=== PATIENT | female | born 1975 | race Hispanic/Latino ===

== ENCOUNTER 2018-08-09 17:53 | Emergency (ER) | payer OTHER ==
--- OUTSIDE RECORDS SUMMARY | 2018-08-09 17:55 | XMS REPORT | Clinical Summary ---
:1975 Author Organization [facility] Address [address] [place] [address] Care Team Providers Name Role Phone Feng Bourgeois Primary Care Provider Allergies No Known Allergies Medications Medication Sig Dispensed Refills Start Date End Date Status ALPRAZolam (XANAX) 1 Take 1 mg by mouth 0 Active MG tablet 2 (two) times daily. buprenorphine-naloxone Place 1 tablet 0 Active (SUBOXONE) 2-0.5 mg under the tongue 2 Subl (two) times daily. 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 Last Filed Vital Signs Not on file Plan of Treatment Not on file Results Not on fileafter 08/08/2017 Insurance Payer Benefit Plan / Group Subscriber ID Type Phone Address MEDICARE MEDICARE A B xxxxxxxxxx Medicare Advance Directives For more information, please contact:[facility] [place] [address] [phone] Code Status Date Activated Date Inactivated Comments Full Code 05/09/2017 1:46 PM 05/17/2017 7:41 PM This code status was determined by: Patient Full Code 05/09/2017 12:00 AM 05/09/2017 1:46 PM This code status was determined by: Patient
--- OUTSIDE RECORDS SUMMARY | 2018-08-09 17:58 | XMS REPORT ---
:1975 [facility] Address [address] [place] [address] Care Team Providers Name Role Phone CASSANDRA WILKS Unavailable Unavailable Problems This patient has no known problems. Allergies, Adverse Reactions, Alerts This patient has no known allergies or adverse reactions. Medications This patient has no known medications. Results Test Description Test Time Test Comments Text Results Atomic Results Result Comments TISSUE EXAM 2017-05-18 Surgical Pathology Report 13:38:00 Case: [id number] Authorizing Provider: Jethro Duron MD Collected: 05/14/2017 [id number] Ordering Location: [address] Received: 05/17/2017 0950 Pathologist: Torrey Cervantes MD Specimen: Soft Tissue, Other, Wedge gastrectomy PART A PORTION OF STOMACH, PARTIAL GASTRECTOMY:BENIGN GASTRIC MUCOSA WITH MILD CONGESTION.NEGATIVE FOR DYSPLASIA OR INVASIVE CARCINOMA. Signing Pathologist Direct Phone Line: [phone] signed by Torrey Cervantes MD on 05/18/2017 at 1:38 [id number] gastrectomyThe specimen is received in a formalin-filled container labeled with the patient's information and consists of a wedge gastrectomy of stomach measuring 3 x 1.5 x 1 cm with a staple line. Grossly no suspicious areas are seen. The mucosa is toney and hemorrhagic. Section code: Customer Strategy Manager staple line and random section of gastric tissue, tissue from staple line is inked le. CG/ew RAD, CHEST, 1 2017-05-17 Reason for FINAL REPORT PATIENT ID: VIEW, NON DEPT 05:29:00 exam:->post [id number] RAD, CHEST, 1 VIEW, NON opShould this be DEPT INDICATION: post op performed at the COMPARISON: May 15, 2017 bedside?->Yes FINDINGS: Portable frontal view of the chest. IMPRESSION: Support Lines: Enteric tube is been removed. Right PICC is stable. Lungs and pleura: Clear right lung. Airspace disease and associated effusion on the left are similar to the prior exam. No pneumothorax.Heart and mediastinum: Unchanged appearance other mediastinal contours.Additional findings: Decreasing subcutaneous emphysema involving the cervical soft tissues. Signed: JR Asia, Lucy Newell Verified Date/Time: 05/17/2017 05:29:48 Reading Location: [facility] B1 C013Y CT Body Reading Room ESIUM 2017-05-17 04:41:00 Test Item Value Reference Range Comments MAGNESIUM (BEAKER) (test fdsp=631) 1.8 mg/dL 1.6-2.6 BASIC METABOLIC [id number] 04:41:00 Test Item Value Reference Range Comments SODIUM (BEAKER) (test 137 meq/L 136-145 suon=493) POTASSIUM (BEAKER) (test 3.5 meq/L 3.5-5.1 gtlu=363) CHLORIDE (BEAKER) (test 104 meq/L 98-107 xatm=875) CO2 (BEAKER) (test 27 meq/L 22-29 rpkb=102) BLOOD UREA NITROGEN 8 mg/dL 7-21 (BEAKER) (test axdu=480) CREATININE (BEAKER) (test 0.48 mg/dL 0.57-1.25 amwu=912) GLUCOSE RANDOM (BEAKER) 84 mg/dL 70-105 (test wfdd=332) CALCIUM (BEAKER) (test 8.0 mg/dL 8.4-10.2 jyfv=453) EGFR (BEAKER) (test 143 mL/min/1.73 sq m ESTIMATED GFR IS NOT evah=3743) ACCURATE CREATININE CLEARANCE IN PREDICTING GLOMERULAR FILTRATION RATE. ESTIMATED GFR IS NOT APPLICABLE FOR DIALYSIS PATIENTS. PROTHROMBIN [id number] 04:27:00 Test Item Value Reference Range Comments PROTIME (BEAKER) (test eeju=212) 14.9 seconds 11.7-14.7 INR (BEAKER) (test bsob=582) 1.2 <=5.9 RECOMMENDED COUMADIN/WARFARIN INR THERAPY RANGESSTANDARD DOSE: 2.0 - 3.0 Includes: PROPHYLAXIS forvenous thrombosis, systemic embolization; TREATMENT for venous thrombosis and/or pulmonary embolus.HIGH RISK: Target INR is 2.5-3.5 for patients with mechanical heart valves.CBC W/PLT COUNT & AUTO [id number] 04:24:00 Test Item Value Reference Range Comments WHITE BLOOD CELL COUNT (BEAKER) (test vyif=005) 7.9 K/ L 3.5-10.5 RED BLOOD CELL COUNT (BEAKER) (test wavn=223) 3.29 M/ L 3.93-5.22 HEMOGLOBIN (BEAKER) (test ggfr=400) 9.4 GM/DL 11.2-15.7 HEMATOCRIT (BEAKER) (test xrsj=655) 28.2 % 34.1-44.9 MEAN CORPUSCULAR VOLUME (BEAKER) (test tvyr=790) 85.7 fL 79.4-94.8 MEAN CORPUSCULAR HEMOGLOBIN (BEAKER) (test 28.6 pg 25.6-32.2 nauw=504) MEAN CORPUSCULAR HEMOGLOBIN CONC (BEAKER) (test 33.3 GM/DL 32.2-35.5 cszw=268) RED CELL DISTRIBUTION WIDTH (BEAKER) (test 13.9 % 11.7-14.4 mvar=921) PLATELET COUNT (BEAKER) (test qzto=946) 271 K/CU MM 150-450 MEAN PLATELET VOLUME (BEAKER) (test ynfm=497) 9.3 fL 9.4-12.3 NUCLEATED RED BLOOD CELLS (BEAKER) (test 0 /100 WBC 0-0 nhyl=727) NEUTROPHILS RELATIVE PERCENT (BEAKER) (test 56 % dmhg=514) LYMPHOCYTES RELATIVE PERCENT (BEAKER) (test 23 % pcvv=485) MONOCYTES RELATIVE PERCENT (BEAKER) (test 14 % cysq=083) EOSINOPHILS RELATIVE PERCENT (BEAKER) (test 7 % kefp=882) BASOPHILS RELATIVE PERCENT (BEAKER) (test 1 % ztuz=893) NEUTROPHILS ABSOLUTE COUNT (BEAKER) (test 4.43 K/ L 1.56-6.13 untw=285) LYMPHOCYTES ABSOLUTE COUNT (BEAKER) (test 1.78 K/ L 1.18-3.74 crwu=487) MONOCYTES ABSOLUTE COUNT (BEAKER) (test 1.10 K/ L 0.24-0.36 xqwq=551) EOSINOPHILS ABSOLUTE COUNT (BEAKER) (test 0.51 K/ L 0.04-0.36 pvoj=755) BASOPHILS ABSOLUTE COUNT (BEAKER) (test 0.06 K/ L 0.01-0.08 hcil=313) IMMATURE GRANULOCYTES-RELATIVE PERCENT (BEAKER) 0 % 0-1 (test livu=2628) FL [id number] 12:54:00Reason for exam:->s/p hiatal hernia repairFINAL REPORT Esophagram History: Status post hiatus hernia repair Technique: Esophagram was performed using Gastrografin. Total fluoroscopy time: 0.5 minutes Total number of films: 17 Findings: Postsurgical changes are seen at the gastroesophageal junction without recurrent hiatus hernia. There is no evidence of leak or obstruction. Assessment of the gastric fundal region appears unremarkable. Impression: No leak or obstruction. Signed: Alexey Gao MDReport Verified Date/Time: 05/16/2017 12:54:45 Reading Location: [address] Consult Reading Room CALCIUM, [id number] 06:35:00 Test Item Value Reference Range Comments CALCIUM IONIZED (BEAKER) (test cmug=156) 1.02 mmol/L 1.12-1.27 PH, BLOOD (BEAKER) (test fswm=2968) 7.39 [id number] 05:44:00 Test Item Value Reference Range Comments MAGNESIUM (BEAKER) (test 1.8 mg/dL 1.6-2.6 Specimen slightly hemolyzed qklo=384) BASIC METABOLIC [id number] 05:44:00 Test Item Value Reference Range Comments SODIUM (BEAKER) (test 138 meq/L 136-145 mkdb=724) POTASSIUM (BEAKER) (test 3.9 meq/L 3.5-5.1 Specimen slightly yina=031) hemolyzed CHLORIDE (BEAKER) (test 106 meq/L 98-107 sojp=635) CO2 (BEAKER) (test 26 meq/L 22-29 bboq=039) BLOOD UREA NITROGEN 8 mg/dL 7-21 (BEAKER) (test nwlj=356) CREATININE (BEAKER) (test 0.46 mg/dL 0.57-1.25 Specimen slightly rogi=457) hemolyzed GLUCOSE RANDOM (BEAKER) 98 mg/dL 70-105 (test yowb=613) CALCIUM (BEAKER) (test 8.3 mg/dL 8.4-10.2 dmry=338) EGFR (BEAKER) (test 150 mL/min/1.73 sq m ESTIMATED GFR IS NOT okss=2170) ACCURATE CREATININE CLEARANCE IN PREDICTING GLOMERULAR FILTRATION RATE. ESTIMATED GFR IS NOT APPLICABLE FOR DIALYSIS PATIENTS. PROTHROMBIN [id number] 05:33:00 Test Item Value Reference Range Comments PROTIME (BEAKER) (test jwmd=476) 15.1 seconds 11.7-14.7 INR (BEAKER) (test scvz=937) 1.2 <=5.9 RECOMMENDED COUMADIN/WARFARIN INR THERAPY RANGESSTANDARD DOSE: 2.0 - 3.0 Includes: PROPHYLAXIS forvenous thrombosis, systemic embolization; TREATMENT for venous thrombosis and/or pulmonary embolus.HIGH RISK: Target INR is 2.5-3.5 for patients with mechanical heart valves.CBC W/PLT COUNT & AUTO [id number] 05:24:00 Test Item Value Reference Range Comments WHITE BLOOD CELL COUNT (BEAKER) (test ulko=505) 11.4 K/ L 3.5-10.5 RED BLOOD CELL COUNT (BEAKER) (test jutj=331) 3.60 M/ L 3.93-5.22 HEMOGLOBIN (BEAKER) (test dhgt=958) 10.3 GM/DL 11.2-15.7 HEMATOCRIT (BEAKER) (test nmad=402) 31.2 % 34.1-44.9 MEAN CORPUSCULAR VOLUME (BEAKER) (test elph=942) 86.7 fL 79.4-94.8 MEAN CORPUSCULAR HEMOGLOBIN (BEAKER) (test 28.6 pg 25.6-32.2 jxtr=461) MEAN CORPUSCULAR HEMOGLOBIN CONC (BEAKER) (test 33.0 GM/DL 32.2-35.5 wnqt=961) RED CELL DISTRIBUTION WIDTH (BEAKER) (test 14.1 % 11.7-14.4 gwfe=883) PLATELET COUNT (BEAKER) (test tbqk=695) 266 K/CU MM 150-450 MEAN PLATELET VOLUME (BEAKER) (test uenw=153) 9.1 fL 9.4-12.3 NUCLEATED RED BLOOD CELLS (BEAKER) (test 0 /100 WBC 0-0 gozl=994) NEUTROPHILS RELATIVE PERCENT (BEAKER) (test 67 % frzv=430) LYMPHOCYTES RELATIVE PERCENT (BEAKER) (test 16 % wpaz=506) MONOCYTES RELATIVE PERCENT (BEAKER) (test 12 % zbqj=762) EOSINOPHILS RELATIVE PERCENT (BEAKER) (test 4 % arbi=888) BASOPHILS RELATIVE PERCENT (BEAKER) (test 1 % iwbe=228) NEUTROPHILS ABSOLUTE COUNT (BEAKER) (test 7.61 K/ L 1.56-6.13 pvil=468) LYMPHOCYTES ABSOLUTE COUNT (BEAKER) (test 1.86 K/ L 1.18-3.74 rbcp=343) MONOCYTES ABSOLUTE COUNT (BEAKER) (test 1.38 K/ L 0.24-0.36 dynb=926) EOSINOPHILS ABSOLUTE COUNT (BEAKER) (test 0.48 K/ L 0.04-0.36 siot=466) BASOPHILS ABSOLUTE COUNT (BEAKER) (test 0.07 K/ L 0.01-0.08 kyxm=028) IMMATURE GRANULOCYTES-RELATIVE PERCENT (BEAKER) 0 % 0-1 (test nfgm=1751) RAD, CHEST, 1 VIEW, NON [id number] 14:45:00Reason for exam:->s/p left chest tube removalShould this be performed at the bedside?->YesFINAL REPORT Chest, 1 view Clinical history: s/p left chest tube removal Comparison: Same date Discussion: Interval removal of the left sided chest tube without definite pneumothorax visualized. There is mild subcutis emphysema bilaterally. The support hardware appears in appropriate positions. Again seen is a layering left pleural effusion with associated atelectasis or airspace disease. The cardiac silhouette is enlarged with mild perihilar edema. Signed: Alexey Gao MDReport Verified Date/Time: 05/15/2017 14:45:11 Reading Location: [facility] B1 C013X Ortho Consult Reading Room RAD, CHEST, 1 VIEW, NON [id number] 07:32:00while patient is intubated or has chest tubes.Reason for exam:-> ptxIs the patient ?->NoShould this be performed at the bedside?-> YesFINAL REPORT TECHNIQUE: Frontal view of the chest. INDICATION: 42-year-old woman with pneumothorax. COMPARISON: Chest radiographs 05/14/2017. FINDINGS: LINES/TUBES: Unchanged. LUNGS: Persistent atelectasis in the left midlung zone. Right lung is clear. PLEURA: Previously described lucency in the left mid and lower lung zones is less conspicuous, suggestive of at least slightlydecreased pneumothorax. No significant pleural effusion. HEART AND MEDIASTINUM: The cardiomediastinal silhouette is unchanged. SOFT TISSUES AND BONES: Persistent subcutaneous emphysema in the chest andneck. IMPRESSION: Previously described lucency in the left mid and lower lung zones is less conspicuous, suggestive of at least slightly decreased pneumothorax. Signed: Yojana Holdenepmaxim Verified Date/Time: 05/15/2017 07:32:43 Reading Location: [address] Body Reading Room PROTHROMBIN [id number] 05:07:00 Test Item Value Reference Range Comments PROTIME (BEAKER) (test tasa=105) 15.8 seconds 11.7-14.7 INR (BEAKER) (test gwmj=543) 1.3 <=5.9 RECOMMENDED COUMADIN/WARFARIN INR THERAPY RANGESSTANDARD DOSE: 2.0 - 3.0 Includes: PROPHYLAXIS forvenous thrombosis, systemic embolization; TREATMENT for venous thrombosis and/or pulmonary embolus.HIGH RISK: Target INR is 2.5-3.5 for patients with mechanical heart valves.BASIC METABOLIC [id number] 05:07: 00 Test Item Value Reference Range Comments SODIUM (BEAKER) (test 140 meq/L 136-145 fimx=193) POTASSIUM (BEAKER) (test 3.5 meq/L 3.5-5.1 hdnf=585) CHLORIDE (BEAKER) (test 112 meq/L 98-107 nagw=190) CO2 (BEAKER) (test 22 meq/L 22-29 gped=804) BLOOD UREA NITROGEN 15 mg/dL 7-21 (BEAKER) (test xhjr=354) CREATININE (BEAKER) (test 0.52 mg/dL 0.57-1.25 ahuz=752) GLUCOSE RANDOM (BEAKER) 105 mg/dL 70-105 (test tqwx=290) CALCIUM (BEAKER) (test 7.7 mg/dL 8.4-10.2 dnve=734) EGFR (BEAKER) (test 131 mL/min/1.73 sq m ESTIMATED GFR IS NOT fmey=8112) ACCURATE CREATININE CLEARANCE IN PREDICTING GLOMERULAR FILTRATION RATE. ESTIMATED GFR IS NOT APPLICABLE FOR DIALYSIS PATIENTS. [id number] 05:03:00 Test Item Value Reference Range Comments MAGNESIUM (BEAKER) (test pwxu=676) 2.7 mg/dL 1.6-2.6 CBC W/PLT COUNT & AUTO [id number] 05:00:00 Test Item Value Reference Range Comments WHITE BLOOD CELL COUNT (BEAKER) (test icci=622) 13.2 K/ L 3.5-10.5 RED BLOOD CELL COUNT (BEAKER) (test usek=478) 3.39 M/ L 3.93-5.22 HEMOGLOBIN (BEAKER) (test lwfw=793) 9.7 GM/DL 11.2-15.7 HEMATOCRIT (BEAKER) (test tqha=740) 29.2 % 34.1-44.9 MEAN CORPUSCULAR VOLUME (BEAKER) (test paiq=774) 86.1 fL 79.4-94.8 MEAN CORPUSCULAR HEMOGLOBIN (BEAKER) (test 28.6 pg 25.6-32.2 bclp=616) MEAN CORPUSCULAR HEMOGLOBIN CONC (BEAKER) (test 33.2 GM/DL 32.2-35.5 nhdz=377) RED CELL DISTRIBUTION WIDTH (BEAKER) (test 14.2 % 11.7-14.4 dtld=270) PLATELET COUNT (BEAKER) (test ibwb=525) 252 K/CU MM 150-450 MEAN PLATELET VOLUME (BEAKER) (test fota=813) 9.2 fL 9.4-12.3 NUCLEATED RED BLOOD CELLS (BEAKER) (test 0 /100 WBC 0-0 cirp=379) NEUTROPHILS RELATIVE PERCENT (BEAKER) (test 76 % kcch=030) LYMPHOCYTES RELATIVE PERCENT (BEAKER) (test 14 % uvso=723) MONOCYTES RELATIVE PERCENT (BEAKER) (test 10 % ager=892) EOSINOPHILS RELATIVE PERCENT (BEAKER) (test 0 % uzgp=718) BASOPHILS RELATIVE PERCENT (BEAKER) (test 0 % ukvo=127) NEUTROPHILS ABSOLUTE COUNT (BEAKER) (test 10.02 K/ L 1.56-6.13 zlzb=832) LYMPHOCYTES ABSOLUTE COUNT (BEAKER) (test 1.81 K/ L 1.18-3.74 hzhy=438) MONOCYTES ABSOLUTE COUNT (BEAKER) (test 1.26 K/ L 0.24-0.36 hrtc=736) EOSINOPHILS ABSOLUTE COUNT (BEAKER) (test 0.04 K/ L 0.04-0.36 xlsl=926) BASOPHILS ABSOLUTE COUNT (BEAKER) (test 0.05 K/ L 0.01-0.08 dsbm=642) IMMATURE GRANULOCYTES-RELATIVE PERCENT (BEAKER) 0 % 0-1 (test rvnd=1059) CALCIUM, [id number] 23:02:00 Test Item Value Reference Range Comments CALCIUM IONIZED (BEAKER) (test dixj=778) 0.92 mmol/L 1.12-1.27 PH, BLOOD (BEAKER) (test lqgm=4688) 7.38 [id number] 22:53:00 Test Item Value Reference Range Comments MAGNESIUM (BEAKER) (test cbqo=925) 1.9 mg/dL 1.6-2.6 BASIC METABOLIC [id number] 22:53:00 Test Item Value Reference Range Comments SODIUM (BEAKER) (test 142 meq/L 136-145 jazg=933) POTASSIUM (BEAKER) (test 3.7 meq/L 3.5-5.1 nawk=549) CHLORIDE (BEAKER) (test 113 meq/L 98-107 zexs=144) CO2 (BEAKER) (test 19 meq/L 22-29 hfcr=267) BLOOD UREA NITROGEN 17 mg/dL 7-21 (BEAKER) (test cozn=788) CREATININE (BEAKER) (test 0.55 mg/dL 0.57-1.25 aihg=201) GLUCOSE RANDOM (BEAKER) 98 mg/dL 70-105 (test zady=493) CALCIUM (BEAKER) (test 7.5 mg/dL 8.4-10.2 wppf=531) EGFR (BEAKER) (test 122 mL/min/1.73 sq m ESTIMATED GFR IS NOT ghhq=2642) ACCURATE CREATININE CLEARANCE IN PREDICTING GLOMERULAR FILTRATION RATE. ESTIMATED GFR IS NOT APPLICABLE FOR DIALYSIS PATIENTS. CBC W/PLT COUNT & AUTO [id number] 22:47:00 Test Item Value Reference Range Comments WHITE BLOOD CELL COUNT (BEAKER) (test gzys=771) 19.1 K/ L 3.5-10.5 RED BLOOD CELL COUNT (BEAKER) (test tlao=569) 3.60 M/ L 3.93-5.22 HEMOGLOBIN (BEAKER) (test urfl=526) 10.2 GM/DL 11.2-15.7 HEMATOCRIT (BEAKER) (test wges=987) 31.1 % 34.1-44.9 MEAN CORPUSCULAR VOLUME (BEAKER) (test vdxd=879) 86.4 fL 79.4-94.8 MEAN CORPUSCULAR HEMOGLOBIN (BEAKER) (test 28.3 pg 25.6-32.2 ugxf=418) MEAN CORPUSCULAR HEMOGLOBIN CONC (BEAKER) (test 32.8 GM/DL 32.2-35.5 cnmj=567) RED CELL DISTRIBUTION WIDTH (BEAKER) (test 14.0 % 11.7-14.4 vajb=008) PLATELET COUNT (BEAKER) (test gmtn=545) 273 K/CU MM 150-450 MEAN PLATELET VOLUME (BEAKER) (test kthu=783) 9.5 fL 9.4-12.3 NUCLEATED RED BLOOD CELLS (BEAKER) (test 0 /100 WBC 0-0 cwxm=371) NEUTROPHILS RELATIVE PERCENT (BEAKER) (test 88 % zyxs=795) LYMPHOCYTES RELATIVE PERCENT (BEAKER) (test 4 % sdxj=098) MONOCYTES RELATIVE PERCENT (BEAKER) (test 8 % uhzy=166) EOSINOPHILS RELATIVE PERCENT (BEAKER) (test 0 % tjus=912) BASOPHILS RELATIVE PERCENT (BEAKER) (test 0 % octy=589) NEUTROPHILS ABSOLUTE COUNT (BEAKER) (test 16.75 K/ L 1.56-6.13 hxxx=751) LYMPHOCYTES ABSOLUTE COUNT (BEAKER) (test 0.70 K/ L 1.18-3.74 jgix=159) MONOCYTES ABSOLUTE COUNT (BEAKER) (test 1.55 K/ L 0.24-0.36 weoq=626) EOSINOPHILS ABSOLUTE COUNT (BEAKER) (test 0.01 K/ L 0.04-0.36 awoh=688) BASOPHILS ABSOLUTE COUNT (BEAKER) (test 0.03 K/ L 0.01-0.08 jhwz=045) IMMATURE GRANULOCYTES-RELATIVE PERCENT (BEAKER) 0 % 0-1 (test bzqe=6501) RAD, CHEST, 1 VIEW, NON [id number] 21:18:00Reason for exam:->ptxIs the patient ?->NoShould this be performed at the bedside?->YesFINAL REPORT CLINICAL INDICATION: Pneumothorax Comparison: Same dated 0528 hours There is new lucency in the left mid and lower chest suggesting a large subpulmonic pneumothorax. A small bore left chest tube is noted at the lateral mid chest. The cardiomediastinal contours are stable. The trachea is midline. Hazy opacity in the left lower chest may reflect a layering effusion.There is new patchy opacity in the inferior left lung adjacent to the subpulmonic lucency, probably atelectasis. Pneumonitis should be excluded clinically. Subcutaneous emphysema is newly present in the right chest wall and bilateral lower neck. Support lines are otherwise stable. Signed: Noah Porter MDReport Verified Date/Time: 05/14/2017 21:18:07 Reading Location: [address] ReadingRoom BLOOD GAS, [id number] 17:28:00 Test Item Value Reference Range Comments PH ARTERIAL (BEAKER) (test tybv=455) 7.36 7.35-7.45 PCO2 ARTERIAL (BEAKER) (test yxyz=018) 39 mm Hg 35-45 PO2 ARTERIAL (BEAKER) (test zvxu=274) 194 mm Hg 80-90 O2 SATURATION ARTERIAL (BEAKER) (test lsbk=432) 99.3 % 96.0-97.0 HCO3 ARTERIAL (BEAKER) (test mabp=404) 22 mmol/L 21-29 BASE EXCESS ARTERIAL (BEAKER) (test vvdl=447) -3.6 mmol/L -2.0-3.0 PATIENT TEMPERATURE (BEAKER) (test bkdo=1326) 36.2 FIO2 (BEAKER) (test deqr=3800) 50 SODIUM NA-STAT [id number] 17:28:00 Test Item Value Reference Range Comments SODIUM (BEAKER) (test zxjx=438) 134 meq/L 135-148 POTASSIUM-STAT [id number] 17:28:00 Test Item Value Reference Range Comments POTASSIUM (BEAKER) (test rmbq=064) 3.4 meq/L 3.6-5.5 GLUCOSE-STAT [id number] 17:28:00 Test Item Value Reference Range Comments GLUCOSE RANDOM (BEAKER) (test krdk=759) 185 mg/dL 70-110 HGB/HCT (H&H) - STAT [id number] 17:28:00 Test Item Value Reference Range Comments HEMOGLOBIN (BEAKER) (test faqr=563) 11.0 GM/DL 12.0-15.0 HEMATOCRIT (BEAKER) (test mzbw=174) 32.0 % 36.0-45.0 BLOOD GAS, [id number] 15:47:00 Test Item Value Reference Range Comments PH ARTERIAL (BEAKER) (test odif=243) 7.33 7.35-7.45 PCO2 ARTERIAL (BEAKER) (test pwrt=183) 46 mmHg 35-45 PO2 ARTERIAL (BEAKER) (test trdv=242) 211 mmHg 80-90 O2 SATURATION ARTERIAL (BEAKER) (test ktxr=182) 99.4 % 96.0-97.0 HCO3 ARTERIAL (BEAKER) (test swab=023) 24 mmol/L 21-29 BASE EXCESS ARTERIAL (BEAKER) (test crwf=999) -2.5 mmol/L -2.0-3.0 PATIENT TEMPERATURE (BEAKER) (test akcw=3642) 35.4 C FIO2 (BEAKER) (test rtwy=7680) 67.0 % GLUCOSE-STAT [id number] 15:47:00 Test Item Value Reference Range Comments GLUCOSE RANDOM (BEAKER) (test hajc=576) 158 mg/dL 70-110 SODIUM NA-STAT [id number] 15:46:00 Test Item Value Reference Range Comments SODIUM (BEAKER) (test ehop=475) 137 meq/L 135-148 POTASSIUM-STAT [id number] 15:46:00 Test Item Value Reference Range Comments POTASSIUM (BEAKER) (test gbtp=031) 3.7 meq/L 3.6-5.5 HGB/HCT (H&H) - STAT [id number] 15:46:00 Test Item Value Reference Range Comments HEMOGLOBIN (BEAKER) (test jxqu=546) 12.5 g/dL 12.0-15.0 HEMATOCRIT (BEAKER) (test koid=839) 37.0 % 36.0-45.0 URINE [id number] 15:11:00 Test Item Value Reference Range Comments CULTURE (BEAKER) (test 30-39,000 col/mL skin cindy rtjz=6794) BLOOD GAS, [id number] 14:45:00 Test Item Value Reference Range Comments PH ARTERIAL (BEAKER) (test pqwo=197) 7.51 7.35-7.45 PCO2 ARTERIAL (BEAKER) (test mujg=979) 31 mmHg 35-45 PO2 ARTERIAL (BEAKER) (test oxqq=842) 458 mmHg 80-90 O2 SATURATION ARTERIAL (BEAKER) (test lqoj=136) 99.9 % 96.0-97.0 HCO3 ARTERIAL (BEAKER) (test upoe=321) 25 mmol/L 21-29 BASE EXCESS ARTERIAL (BEAKER) (test visl=920) 1.8 mmol/L -2.0-3.0 PATIENT TEMPERATURE (BEAKER) (test hity=2233) 36.0 C FIO2 (BEAKER) (test hhpn=0457) 50.0 % POTASSIUM-STAT [id number] 14:45:00 Test Item Value Reference Range Comments POTASSIUM (BEAKER) (test tbyb=265) 3.3 meq/L 3.6-5.5 HGB/HCT (H&H) - STAT [id number] 14:45:00 Test Item Value Reference Range Comments HEMOGLOBIN (BEAKER) (test ubhl=610) 11.5 g/dL 12.0-15.0 HEMATOCRIT (BEAKER) (test mmzw=841) 34.0 % 36.0-45.0 GLUCOSE-STAT [id number] 14:44:00 Test Item Value Reference Range Comments GLUCOSE RANDOM (BEAKER) (test mzcr=684) 105 mg/dL 70-110 SODIUM NA-STAT [id number] 14:44:00 Test Item Value Reference Range Comments SODIUM (BEAKER) (test kxll=696) 137 meq/L 135-148 SCREEN, [id number] 13:36:00 Test Item Value Reference Range Comments TEST URINE (BEAKER) (test ibui=379) Negative BLOOD [id number] 10:00:00 Test Item Value Reference Range Comments CULTURE (BEAKER) (test rqtf=8000) No growth in 5 days RAD, CHEST, 1 VIEW, NON [id number] 07:28:00Reason for exam:->post opShould this be performed at the bedside?->YesFINAL REPORT Chest one view compared to May 13 Discussion: Unchanged left hemidiaphragm elevation. Cardiopulmonary appearance is similar. No effusion or pneumothorax. No atypical line or tube position. Signed: Julisa Partida Verified Date/Time: 05/14/2017 07:28:59 Reading Location: [address] Neuro Reading Room 07 :28 AMTROPONIN [id number] 05:14:00 Test Item Value Reference Range Comments TROPONIN I (BEAKER) (test vevt=999) 0.02 ng/mL 0.00-0.03 Troponin I (TnI) levels must be interpreted in the context of the presenting symptoms and the clinical findings. Elevated TnI levels indicate myocardial damage, but are not specific for ischemic heart disease. Elevated TnI levels are seen in patients with other cardiac conditions (including myocarditis and congestive heart failure), and slight TnI elevations occur in patients with other conditions, including sepsis, renal failure, acidosis, acute neurological disease, and persistent tachyarrhythmia.[id number] 05:03:00 Test Item Value Reference Range Comments MAGNESIUM (BEAKER) (test ajek=959) 1.7 mg/dL 1.6-2.6 BASIC METABOLIC [id number] 05:03:00 Test Item Value Reference Range Comments SODIUM (BEAKER) (test 140 meq/L 136-145 bhky=232) POTASSIUM (BEAKER) (test 3.4 meq/L 3.5-5.1 uekq=793) CHLORIDE (BEAKER) (test 107 meq/L 98-107 gljg=936) CO2 (BEAKER) (test 25 meq/L 22-29 wyzw=744) BLOOD UREA NITROGEN 18 mg/dL 7-21 (BEAKER) (test lcdv=205) CREATININE (BEAKER) (test 0.53 mg/dL 0.57-1.25 iqwb=029) GLUCOSE RANDOM (BEAKER) 85 mg/dL 70-105 (test wfkr=225) CALCIUM (BEAKER) (test 8.7 mg/dL 8.4-10.2 syzi=586) EGFR (BEAKER) (test 128 mL/min/1.73 sq m ESTIMATED GFR IS NOT zywt=5201) ACCURATE CREATININE CLEARANCE IN PREDICTING GLOMERULAR FILTRATION RATE. ESTIMATED GFR IS NOT APPLICABLE FOR DIALYSIS PATIENTS. CBC W/PLT COUNT & AUTO [id number] 04:51:00 Test Item Value Reference Range Comments WHITE BLOOD CELL COUNT (BEAKER) (test uvpl=407) 11.5 K/ L 3.5-10.5 RED BLOOD CELL COUNT (BEAKER) (test fajt=072) 3.92 M/ L 3.93-5.22 HEMOGLOBIN (BEAKER) (test wfco=627) 11.1 GM/DL 11.2-15.7 HEMATOCRIT (BEAKER) (test oktn=567) 33.0 % 34.1-44.9 MEAN CORPUSCULAR VOLUME (BEAKER) (test xlil=293) 84.2 fL 79.4-94.8 MEAN CORPUSCULAR HEMOGLOBIN (BEAKER) (test 28.3 pg 25.6-32.2 czuw=657) MEAN CORPUSCULAR HEMOGLOBIN CONC (BEAKER) (test 33.6 GM/DL 32.2-35.5 zkay=059) RED CELL DISTRIBUTION WIDTH (BEAKER) (test 13.9 % 11.7-14.4 rnyo=727) PLATELET COUNT (BEAKER) (test wgzn=261) 282 K/CU MM 150-450 MEAN PLATELET VOLUME (BEAKER) (test mmeo=275) 9.5 fL 9.4-12.3 NUCLEATED RED BLOOD CELLS (BEAKER) (test 0 /100 WBC 0-0 cbnu=311) NEUTROPHILS RELATIVE PERCENT (BEAKER) (test 71 % yowj=366) LYMPHOCYTES RELATIVE PERCENT (BEAKER) (test 15 % hrqp=286) MONOCYTES RELATIVE PERCENT (BEAKER) (test 11 % ftnq=189) EOSINOPHILS RELATIVE PERCENT (BEAKER) (test 3 % wxsn=067) BASOPHILS RELATIVE PERCENT (BEAKER) (test 0 % irjs=015) NEUTROPHILS ABSOLUTE COUNT (BEAKER) (test 8.12 K/ L 1.56-6.13 dduv=580) LYMPHOCYTES ABSOLUTE COUNT (BEAKER) (test 1.71 K/ L 1.18-3.74 ulet=974) MONOCYTES ABSOLUTE COUNT (BEAKER) (test 1.26 K/ L 0.24-0.36 eblv=397) EOSINOPHILS ABSOLUTE COUNT (BEAKER) (test 0.34 K/ L 0.04-0.36 vhtj=124) BASOPHILS ABSOLUTE COUNT (BEAKER) (test 0.05 K/ L 0.01-0.08 gmzh=459) IMMATURE GRANULOCYTES-RELATIVE PERCENT (BEAKER) 0 % 0-1 (test oktc=6672) [id number] 04:50:00 Test Item Value Reference Range Comments PROTIME (BEAKER) (test zxhv=201) 14.3 seconds 11.7-14.7 INR (BEAKER) (test vafd=131) 1.1 <=5.9 PARTIAL THROMBOPLASTIN TIME (BEAKER) (test 36.0 seconds 22.5-36.0 mrqe=517) RECOMMENDED COUMADIN/WARFARIN INR THERAPY RANGESSTANDARD DOSE: 2.0 - 3.0 Includes: PROPHYLAXIS forvenous thrombosis, systemic embolization; TREATMENT for venous thrombosis and/or pulmonary embolus.HIGH RISK: Target INR is 2.5-3.5 for patients with mechanical heart valves.PROTHROMBIN TIME/[id number] 04:49: 00 Test Item Value Reference Range Comments PROTIME (BEAKER) (test jtoc=297) 14.3 seconds 11.7-14.7 INR (BEAKER) (test syzj=527) 1.1 <=5.9 RECOMMENDED COUMADIN/WARFARIN INR THERAPY RANGESSTANDARD DOSE: 2.0 - 3.0 Includes: PROPHYLAXIS forvenous thrombosis, systemic embolization; TREATMENT for venous thrombosis and/or pulmonary embolus.HIGH RISK: Target INR is 2.5-3.5 for patients with mechanical heart valves.TROPONIN [id number] 19:19:00 Test Item Value Reference Range Comments TROPONIN I (BEAKER) (test hhkc=957) < ng/mL 0.00-0.03 Troponin I (TnI) levels must be interpreted in the context of the presenting symptoms and the clinical findings. Elevated TnI levels indicate myocardial damage, but are not specific for ischemic heart disease. Elevated TnI levels are seen in patients with other cardiac conditions (including myocarditis and congestive heart failure), and slight TnI elevations occur in patients with other conditions, including sepsis, renal failure, acidosis, acute neurological disease, and persistent tachyarrhythmia.URINALYSIS W/ [id number] 17: 11:00 Test Item Value Reference Range Comments COLOR (BEAKER) (test arom=344) Yellow CLARITY (BEAKER) (test kvkw=561) Hazy SPECIFIC GRAVITY UA (BEAKER) (test 1.014 1.001-1.035 vxzq=900) PH UA (BEAKER) (test gycd=722) 6.0 5.0-8.0 PROTEIN UA (BEAKER) (test gyhk=599) Negative Negative GLUCOSE UA (BEAKER) (test fwbq=709) Negative Negative KETONES UA (BEAKER) (test rtrs=694) Negative Negative BILIRUBIN UA (BEAKER) (test umhf=943) Negative Negative BLOOD UA (BEAKER) (test lfpl=280) Negative Negative NITRITE UA (BEAKER) (test oety=716) Negative Negative LEUKOCYTE ESTERASE UA (BEAKER) (test Moderate Negative kbii=691) UROBILINOGEN UA (BEAKER) (test idhj=133) 0.2 mg/dL 0.2-1.0 RBC UA (BEAKER) (test jstp=709) 1 /HPF WBC UA (BEAKER) (test yrrt=847) 7 /HPF BACTERIA (BEAKER) (test eneo=651) Rare MUCUS (BEAKER) (test tybm=1472) Occasional SQUAMOUS EPITHELIAL (BEAKER) (test 17 /HPF kxpm=280) SOURCE(BEAKER) (test onzs=1629) Urine, Clean Catch TSH/FREE T4 IF [id number] 16:23:00 Test Item Value Reference Range Comments THYROID STIMULATING HORMONE (BEAKER) (test 1.07 uIU/mL 0.35-4.94 fnsv=967) [id number] 15:56:00 Test Item Value Reference Range Comments POTASSIUM (BEAKER) (test hjmt=327) 4.3 meq/L 3.5-5.1 CREATINE KINASE (CK), TOTAL AND [id number] 14:21:00 Test Item Value Reference Range Comments CREATINE KINASE TOTAL (BEAKER) (test fdbt=007) 19 U/L 29-200 CREATINE KINASE-MB (BEAKER) (test xpam=097) 0.5 ng/mL 0.0-6.6 CREATINE KINASE-MB INDEX (BEAKER) (test wabc=354) 2.6 % CK-MB Reference Range:<6.7 Normal6.7-10.0 Borderline>10.0 AbnormalTROPONIN [id number] 14:20:00 Test Item Value Reference Range Comments TROPONIN I (BEAKER) (test gdvu=675) < ng/mL 0.00-0.03 Troponin I (TnI) levels must be interpreted in the context of the presenting symptoms and the clinical findings. Elevated TnI levels indicate myocardial damage, but are not specific for ischemic heart disease. Elevated TnI levels are seen in patients with other cardiac conditions (including myocarditis and congestive heart failure), and slight TnI elevations occur in patients with other conditions, including sepsis, renal failure, acidosis, acute neurological disease, and persistent tachyarrhythmia.[id number] 13:35:00 Test Item Value Reference Range Comments MAGNESIUM (BEAKER) (test bfsf=424) 2.5 mg/dL 1.6-2.6 PROTHROMBIN [id number] 05:20:00 Test Item Value Reference Range Comments PROTIME (BEAKER) (test xfol=606) 14.3 seconds 11.7-14.7 INR (BEAKER) (test pvgv=513) 1.1 <=5.9 RECOMMENDED COUMADIN/WARFARIN INR THERAPY RANGESSTANDARD DOSE: 2.0 - 3.0 Includes: PROPHYLAXIS forvenous thrombosis, systemic embolization; TREATMENT for venous thrombosis and/or pulmonary embolus.HIGH RISK: Target INR is 2.5-3.5 for patients with mechanical heart valves.[id number] 05:19:00 Test Item Value Reference Range Comments PHOSPHORUS (BEAKER) (test xmpj=135) 4.1 mg/dL 2.3-4.7 [id number] 05:19:00 Test Item Value Reference Range Comments MAGNESIUM (BEAKER) (test vuiy=887) 2.0 mg/dL 1.6-2.6 BASIC METABOLIC [id number] 05:19:00 Test Item Value Reference Range Comments SODIUM (BEAKER) (test 138 meq/L 136-145 mmpr=510) POTASSIUM (BEAKER) (test 3.6 meq/L 3.5-5.1 tvwu=405) CHLORIDE (BEAKER) (test 106 meq/L 98-107 tori=218) CO2 (BEAKER) (test 25 meq/L 22-29 grle=879) BLOOD UREA NITROGEN 14 mg/dL 7-21 (BEAKER) (test irnu=602) CREATININE (BEAKER) (test 0.52 mg/dL 0.57-1.25 mcgx=990) GLUCOSE RANDOM (BEAKER) 87 mg/dL 70-105 (test epfb=933) CALCIUM (BEAKER) (test 8.6 mg/dL 8.4-10.2 ujiv=727) EGFR (BEAKER) (test 131 mL/min/1.73 sq m ESTIMATED GFR IS NOT npgs=4882) ACCURATE CREATININE CLEARANCE IN PREDICTING GLOMERULAR FILTRATION RATE. ESTIMATED GFR IS NOT APPLICABLE FOR DIALYSIS PATIENTS. CBC W/PLT COUNT & AUTO [id number] 04:56:00 Test Item Value Reference Range Comments WHITE BLOOD CELL COUNT (BEAKER) (test evft=288) 12.4 K/ L 3.5-10.5 RED BLOOD CELL COUNT (BEAKER) (test iqvd=150) 3.80 M/ L 3.93-5.22 HEMOGLOBIN (BEAKER) (test ofpp=056) 10.8 GM/DL 11.2-15.7 HEMATOCRIT (BEAKER) (test gqid=388) 32.5 % 34.1-44.9 MEAN CORPUSCULAR VOLUME (BEAKER) (test udmt=613) 85.5 fL 79.4-94.8 MEAN CORPUSCULAR HEMOGLOBIN (BEAKER) (test 28.4 pg 25.6-32.2 narc=710) MEAN CORPUSCULAR HEMOGLOBIN CONC (BEAKER) (test 33.2 GM/DL 32.2-35.5 zgxw=927) RED CELL DISTRIBUTION WIDTH (BEAKER) (test 14.1 % 11.7-14.4 spww=046) PLATELET COUNT (BEAKER) (test sado=924) 274 K/CU MM 150-450 MEAN PLATELET VOLUME (BEAKER) (test qicg=029) 9.3 fL 9.4-12.3 NUCLEATED RED BLOOD CELLS (BEAKER) (test 0 /100 WBC 0-0 lzjt=296) NEUTROPHILS RELATIVE PERCENT (BEAKER) (test 67 % cmrc=939) LYMPHOCYTES RELATIVE PERCENT (BEAKER) (test 18 % udsd=939) MONOCYTES RELATIVE PERCENT (BEAKER) (test 11 % kxkb=758) EOSINOPHILS RELATIVE PERCENT (BEAKER) (test 3 % addm=717) BASOPHILS RELATIVE PERCENT (BEAKER) (test 0 % qjmy=246) NEUTROPHILS ABSOLUTE COUNT (BEAKER) (test 8.33 K/ L 1.56-6.13 gkmx=614) LYMPHOCYTES ABSOLUTE COUNT (BEAKER) (test 2.25 K/ L 1.18-3.74 ctoi=108) MONOCYTES ABSOLUTE COUNT (BEAKER) (test 1.34 K/ L 0.24-0.36 lzfz=201) EOSINOPHILS ABSOLUTE COUNT (BEAKER) (test 0.38 K/ L 0.04-0.36 axes=826) BASOPHILS ABSOLUTE COUNT (BEAKER) (test 0.05 K/ L 0.01-0.08 utpp=344) IMMATURE GRANULOCYTES-RELATIVE PERCENT (BEAKER) 0 % 0-1 (test fkqm=4245) RAD, CHEST, 1 VIEW, NON [id number] 04:12:00Reason for exam:->post opShould this be performed at the bedside?->YesFINAL REPORT CLINICAL INDICATION: Postop Comparison: 05/12/2017 The cardiomediastinal contours are stable. The left hemidiaphragm remains elevated. There is no focal consolidation, pneumothorax, large pleural effusion or evidence of overt pulmonary edema. Support lines are stable. Signed: Noah Porter MDReport Verified Date/Time: 05/13/2017 04:12:27 Reading Location: [address] Reading Room [id number] 20:35:00 Test Item Value Reference Range Comments MAGNESIUM (BEAKER) (test ycvs=512) 1.9 mg/dL 1.6-2.6 BASIC METABOLIC [id number] 20:35:00 Test Item Value Reference Range Comments SODIUM (BEAKER) (test 138 meq/L 136-145 eeff=999) POTASSIUM (BEAKER) (test 4.1 meq/L 3.5-5.1 nvui=244) CHLORIDE (BEAKER) (test 107 meq/L 98-107 zdws=573) CO2 (BEAKER) (test 25 meq/L 22-29 qqez=368) BLOOD UREA NITROGEN 11 mg/dL 7-21 (BEAKER) (test fygi=117) CREATININE (BEAKER) (test 0.54 mg/dL 0.57-1.25 nyrr=022) GLUCOSE RANDOM (BEAKER) 98 mg/dL 70-105 (test hzfm=095) CALCIUM (BEAKER) (test 8.9 mg/dL 8.4-10.2 vdyt=429) EGFR (BEAKER) (test 125 mL/min/1.73 sq m ESTIMATED GFR IS NOT tuxp=9995) ACCURATE CREATININE CLEARANCE IN PREDICTING GLOMERULAR FILTRATION RATE. ESTIMATED GFR IS NOT APPLICABLE FOR DIALYSIS PATIENTS. CBC W/PLT COUNT & AUTO [id number] 20:26:00 Test Item Value Reference Range Comments WHITE BLOOD CELL COUNT (BEAKER) (test meac=520) 11.5 K/ L 3.5-10.5 RED BLOOD CELL COUNT (BEAKER) (test jbjm=788) 4.01 M/ L 3.93-5.22 HEMOGLOBIN (BEAKER) (test ketx=636) 11.5 GM/DL 11.2-15.7 HEMATOCRIT (BEAKER) (test huxp=733) 34.1 % 34.1-44.9 MEAN CORPUSCULAR VOLUME (BEAKER) (test mtql=487) 85.0 fL 79.4-94.8 MEAN CORPUSCULAR HEMOGLOBIN (BEAKER) (test 28.7 pg 25.6-32.2 hkpp=804) MEAN CORPUSCULAR HEMOGLOBIN CONC (BEAKER) (test 33.7 GM/DL 32.2-35.5 coqj=831) RED CELL DISTRIBUTION WIDTH (BEAKER) (test 14.1 % 11.7-14.4 zmoc=598) PLATELET COUNT (BEAKER) (test gqbm=087) 278 K/CU MM 150-450 MEAN PLATELET VOLUME (BEAKER) (test mevq=526) 9.3 fL 9.4-12.3 NUCLEATED RED BLOOD CELLS (BEAKER) (test 0 /100 WBC 0-0 mmsk=304) NEUTROPHILS RELATIVE PERCENT (BEAKER) (test 75 % gvio=258) LYMPHOCYTES RELATIVE PERCENT (BEAKER) (test 13 % idbh=440) MONOCYTES RELATIVE PERCENT (BEAKER) (test 10 % jcey=113) EOSINOPHILS RELATIVE PERCENT (BEAKER) (test 2 % grge=834) BASOPHILS RELATIVE PERCENT (BEAKER) (test 1 % lagt=006) NEUTROPHILS ABSOLUTE COUNT (BEAKER) (test 8.60 K/ L 1.56-6.13 qkmc=590) LYMPHOCYTES ABSOLUTE COUNT (BEAKER) (test 1.48 K/ L 1.18-3.74 rpif=482) MONOCYTES ABSOLUTE COUNT (BEAKER) (test 1.10 K/ L 0.24-0.36 jxfb=310) EOSINOPHILS ABSOLUTE COUNT (BEAKER) (test 0.18 K/ L 0.04-0.36 fhmq=324) BASOPHILS ABSOLUTE COUNT (BEAKER) (test 0.06 K/ L 0.01-0.08 kpnp=227) IMMATURE GRANULOCYTES-RELATIVE PERCENT (BEAKER) 0 % 0-1 (test onso=1474) RAD, CHEST, 1 VIEW, NON [id number] 04:20:00Reason for exam:->post opShould this be performed at the bedside?->YesFINAL REPORT CLINICAL INDICATION: Postop Comparison: 05/11/2017 The cardiomediastinal contours are stable. The left hemidiaphragm remains elevated. Retrocardiac opacity in the left lung may reflect atelectasis but pneumonitis should be excluded clinically. There is no pneumothorax. Support lines are stable. Signed: Noah Porter MDReport Verified Date/Time: 05/12/2017 04:20:19 Reading Location: [address] Reading Room [id number] 04:14: 00 Test Item Value Reference Range Comments MAGNESIUM (BEAKER) (test suvi=291) 1.9 mg/dL 1.6-2.6 BASIC METABOLIC [id number] 04:14:00 Test Item Value Reference Range Comments SODIUM (BEAKER) (test 140 meq/L 136-145 bchm=861) POTASSIUM (BEAKER) (test 3.6 meq/L 3.5-5.1 mpki=409) CHLORIDE (BEAKER) (test 106 meq/L 98-107 uaqj=383) CO2 (BEAKER) (test 25 meq/L 22-29 ezxy=926) BLOOD UREA NITROGEN 8 mg/dL 7-21 (BEAKER) (test mapj=068) CREATININE (BEAKER) (test 0.54 mg/dL 0.57-1.25 wzwm=028) GLUCOSE RANDOM (BEAKER) 106 mg/dL 70-105 (test yuoo=283) CALCIUM (BEAKER) (test 8.7 mg/dL 8.4-10.2 iwdu=909) EGFR (BEAKER) (test 125 mL/min/1.73 sq m ESTIMATED GFR IS NOT tvcr=4737) ACCURATE CREATININE CLEARANCE IN PREDICTING GLOMERULAR FILTRATION RATE. ESTIMATED GFR IS NOT APPLICABLE FOR DIALYSIS PATIENTS. PROTHROMBIN [id number] 04:09:00 Test Item Value Reference Range Comments PROTIME (BEAKER) (test vkdp=458) 14.5 seconds 11.7-14.7 INR (BEAKER) (test inrz=608) 1.1 <=5.9 RECOMMENDED COUMADIN/WARFARIN INR THERAPY RANGESSTANDARD DOSE: 2.0 - 3.0 Includes: PROPHYLAXIS forvenous thrombosis, systemic embolization; TREATMENT for venous thrombosis and/or pulmonary embolus.HIGH RISK: Target INR is 2.5-3.5 for patients with mechanical heart valves.CBC W/PLT COUNT & AUTO [id number] 03:57:00 Test Item Value Reference Range Comments WHITE BLOOD CELL COUNT (BEAKER) (test rwht=859) 10.6 K/ L 3.5-10.5 RED BLOOD CELL COUNT (BEAKER) (test uazk=517) 3.87 M/ L 3.93-5.22 HEMOGLOBIN (BEAKER) (test yhxn=505) 11.1 GM/DL 11.2-15.7 HEMATOCRIT (BEAKER) (test uxpd=373) 33.5 % 34.1-44.9 MEAN CORPUSCULAR VOLUME (BEAKER) (test phqm=557) 86.6 fL 79.4-94.8 MEAN CORPUSCULAR HEMOGLOBIN (BEAKER) (test 28.7 pg 25.6-32.2 ctfe=151) MEAN CORPUSCULAR HEMOGLOBIN CONC (BEAKER) (test 33.1 GM/DL 32.2-35.5 mvco=730) RED CELL DISTRIBUTION WIDTH (BEAKER) (test 14.3 % 11.7-14.4 bahc=799) PLATELET COUNT (BEAKER) (test jkbl=828) 261 K/CU MM 150-450 MEAN PLATELET VOLUME (BEAKER) (test tduh=694) 9.7 fL 9.4-12.3 NUCLEATED RED BLOOD CELLS (BEAKER) (test 0 /100 WBC 0-0 ydbw=997) NEUTROPHILS RELATIVE PERCENT (BEAKER) (test 65 % npuy=243) LYMPHOCYTES RELATIVE PERCENT (BEAKER) (test 22 % rvcz=721) MONOCYTES RELATIVE PERCENT (BEAKER) (test 10 % vcqs=862) EOSINOPHILS RELATIVE PERCENT (BEAKER) (test 2 % xqgh=772) BASOPHILS RELATIVE PERCENT (BEAKER) (test 0 % hrwp=884) NEUTROPHILS ABSOLUTE COUNT (BEAKER) (test 6.93 K/ L 1.56-6.13 ekyk=865) LYMPHOCYTES ABSOLUTE COUNT (BEAKER) (test 2.29 K/ L 1.18-3.74 talw=210) MONOCYTES ABSOLUTE COUNT (BEAKER) (test 1.08 K/ L 0.24-0.36 fkma=220) EOSINOPHILS ABSOLUTE COUNT (BEAKER) (test 0.26 K/ L 0.04-0.36 kbvd=179) BASOPHILS ABSOLUTE COUNT (BEAKER) (test 0.04 K/ L 0.01-0.08 mvqc=527) IMMATURE GRANULOCYTES-RELATIVE PERCENT (BEAKER) 0 % 0-1 (test iqki=4989) RAD, CHEST, 1 VIEW, NON [id number] 07:47:00Reason for exam:->post opShould this be performed at the bedside?->YesFINAL REPORT CLINICAL HISTORY: post op TECHNIQUE: 1 view of the chest. COMPARISON: 05/10/2017 IMPRESSION: The supporting lines and tubes are unchanged. There is decreased elevation of the left hemidiaphragm. Left basilar atelectasis is also decreased. The cardiomediastinal silhouette is within normal limits for size. Signed: Eugene Chapmaneport Verified Date/Time: 05/11/2017 07:47:20 Reading Location: [facility] Radiology Reading Room PROTHROMBIN TIME/[id number] 04:54: 00 Test Item Value Reference Range Comments PROTIME (BEAKER) (test cgaw=540) 14.3 seconds 11.7-14.7 INR (BEAKER) (test awta=347) 1.1 <=5.9 RECOMMENDED COUMADIN/WARFARIN INR THERAPY RANGESSTANDARD DOSE: 2.0 - 3.0 Includes: PROPHYLAXIS forvenous thrombosis, systemic embolization; TREATMENT for venous thrombosis and/or pulmonary embolus.HIGH RISK: Target INR is 2.5-3.5 for patients with mechanical heart valves.CBC W/PLT COUNT & AUTO [id number] 04:44:00 Test Item Value Reference Range Comments WHITE BLOOD CELL COUNT (BEAKER) (test wjpu=437) 11.3 K/ L 3.5-10.5 RED BLOOD CELL COUNT (BEAKER) (test giug=174) 4.02 M/ L 3.93-5.22 HEMOGLOBIN (BEAKER) (test ckci=055) 11.4 GM/DL 11.2-15.7 HEMATOCRIT (BEAKER) (test mcgt=502) 34.4 % 34.1-44.9 MEAN CORPUSCULAR VOLUME (BEAKER) (test cdbk=743) 85.6 fL 79.4-94.8 MEAN CORPUSCULAR HEMOGLOBIN (BEAKER) (test 28.4 pg 25.6-32.2 pozw=234) MEAN CORPUSCULAR HEMOGLOBIN CONC (BEAKER) (test 33.1 GM/DL 32.2-35.5 gkgn=374) RED CELL DISTRIBUTION WIDTH (BEAKER) (test 14.1 % 11.7-14.4 zwsq=458) PLATELET COUNT (BEAKER) (test qpvt=914) 260 K/CU MM 150-450 MEAN PLATELET VOLUME (BEAKER) (test dzry=630) 9.6 fL 9.4-12.3 NUCLEATED RED BLOOD CELLS (BEAKER) (test 0 /100 WBC 0-0 nsmb=396) NEUTROPHILS RELATIVE PERCENT (BEAKER) (test 75 % fiba=739) LYMPHOCYTES RELATIVE PERCENT (BEAKER) (test 14 % feas=177) MONOCYTES RELATIVE PERCENT (BEAKER) (test 9 % uxkx=006) EOSINOPHILS RELATIVE PERCENT (BEAKER) (test 2 % iixt=422) BASOPHILS RELATIVE PERCENT (BEAKER) (test 0 % datz=698) NEUTROPHILS ABSOLUTE COUNT (BEAKER) (test 8.40 K/ L 1.56-6.13 qcvn=854) LYMPHOCYTES ABSOLUTE COUNT (BEAKER) (test 1.53 K/ L 1.18-3.74 mzpq=672) MONOCYTES ABSOLUTE COUNT (BEAKER) (test 1.04 K/ L 0.24-0.36 iuob=083) EOSINOPHILS ABSOLUTE COUNT (BEAKER) (test 0.21 K/ L 0.04-0.36 oaeb=526) BASOPHILS ABSOLUTE COUNT (BEAKER) (test 0.05 K/ L 0.01-0.08 xcfr=337) IMMATURE GRANULOCYTES-RELATIVE PERCENT (BEAKER) 0 % 0-1 (test ixem=5953) [id number] 04:39:00 Test Item Value Reference Range Comments MAGNESIUM (BEAKER) (test uerb=034) 2.2 mg/dL 1.6-2.6 BASIC METABOLIC [id number] 04:39:00 Test Item Value Reference Range Comments SODIUM (BEAKER) (test 139 meq/L 136-145 tnnu=221) POTASSIUM (BEAKER) (test 3.5 meq/L 3.5-5.1 edpg=824) CHLORIDE (BEAKER) (test 105 meq/L 98-107 izkp=461) CO2 (BEAKER) (test 28 meq/L 22-29 vnch=950) BLOOD UREA NITROGEN 6 mg/dL 7-21 (BEAKER) (test fqym=196) CREATININE (BEAKER) (test 0.55 mg/dL 0.57-1.25 bnxk=612) GLUCOSE RANDOM (BEAKER) 103 mg/dL 70-105 (test ubhw=078) CALCIUM (BEAKER) (test 8.4 mg/dL 8.4-10.2 rtcr=374) EGFR (BEAKER) (test 122 mL/min/1.73 sq m ESTIMATED GFR IS NOT fzek=3090) ACCURATE CREATININE CLEARANCE IN PREDICTING GLOMERULAR FILTRATION RATE. ESTIMATED GFR IS NOT APPLICABLE FOR DIALYSIS PATIENTS. CREATINE KINASE (CK), TOTAL AND [id number] 00:14:00 Test Item Value Reference Range Comments CREATINE KINASE TOTAL (BEAKER) (test xenf=636) 44 U/L 29-200 CREATINE KINASE-MB (BEAKER) (test gmne=775) 0.7 ng/mL 0.0-6.6 CREATINE KINASE-MB INDEX (BEAKER) (test asdd=132) 1.6 % CK-MB Reference Range:<6.7 Normal6.7-10.0 Borderline>10.0 AbnormalTROPONIN [id number] 23:38:00 Test Item Value Reference Range Comments TROPONIN I (BEAKER) (test drjg=097) < ng/mL 0.00-0.03 Troponin I (TnI) levels must be interpreted in the context of the presenting symptoms and the clinical findings. Elevated TnI levels indicate myocardial damage, but are not specific for ischemic heart disease. Elevated TnI levels are seen in patients with other cardiac conditions (including myocarditis and congestive heart failure), and slight TnI elevations occur in patients with other conditions, including sepsis, renal failure, acidosis, acute neurological disease, and persistent tachyarrhythmia.[id number] 23:29:00 Test Item Value Reference Range Comments MAGNESIUM (BEAKER) (test 1.7 mg/dL 1.6-2.6 Specimen slightly hemolyzed zles=626) [id number] 23:29:00 Test Item Value Reference Range Comments PHOSPHORUS (BEAKER) (test 3.5 mg/dL 2.3-4.7 Specimen slightly hemolyzed qsfv=322) BASIC METABOLIC [id number] 23:29:00 Test Item Value Reference Range Comments SODIUM (BEAKER) (test 139 meq/L 136-145 ymei=805) POTASSIUM (BEAKER) (test 3.9 meq/L 3.5-5.1 Specimen slightly nyog=810) hemolyzed CHLORIDE (BEAKER) (test 104 meq/L 98-107 iqid=816) CO2 (BEAKER) (test 27 meq/L 22-29 zfnc=870) BLOOD UREA NITROGEN 6 mg/dL 7-21 (BEAKER) (test xdbj=455) CREATININE (BEAKER) (test 0.53 mg/dL 0.57-1.25 Specimen slightly oqef=668) hemolyzed GLUCOSE RANDOM (BEAKER) 92 mg/dL 70-105 (test nqvf=700) CALCIUM (BEAKER) (test 8.6 mg/dL 8.4-10.2 yrtv=469) EGFR (BEAKER) (test 128 mL/min/1.73 sq m ESTIMATED GFR IS NOT clhd=2862) ACCURATE CREATININE CLEARANCE IN PREDICTING GLOMERULAR FILTRATION RATE. ESTIMATED GFR IS NOT APPLICABLE FOR DIALYSIS PATIENTS. LACTIC ACID, VENOUS, WHOLE [id number] 23:26:00 Test Item Value Reference Range Comments LACTATE BLOOD VENOUS (2) (BEAKER) (test 1.2 mmol/L 0.5-2.2 bndp=3050) Effective 09/17/2015: Units/Reference Range ChangeNew: 0.5-2.2 mmol/L Previous: 5 -20 mg/dLBLOOD GAS, [id number] 23:02:00 Test Item Value Reference Range Comments PH VENOUS (BEAKER) (test kkcg=460) 7.43 7.32-7.42 PCO2 VENOUS (BEAKER) (test yndh=550) 45 mmHg 41-51 PO2 VENOUS (BEAKER) (test otnv=262) 256 mmHg 25-40 O2 SATURATION VENOUS (BEAKER) (test shpj=088) 99.6 % 40.0-70.0 HCO3 VENOUS (BEAKER) (test oqre=903) 29 mmol/L 21-29 BASE EXCESS VENOUS (BEAKER) (test vorv=577) 4.0 mmol/L -2.0-3.0 PATIENT TEMPERATURE (BEAKER) (test lkkv=5558) 36.3 C FIO2 (BEAKER) (test noye=6276) 21.0 % Blood looks arterial.RAD, CHEST, 1 VIEW, NON [id number] 19:28:00Reason for exam:->check picc placement Should this be performed at the bedside?-> YesFINAL REPORT HISTORY : check picc placement. Comparison: 05/10/2017 performedearlier Comment: Single portable view of the chest was obtained. The cardiac silhouette size is within normal limits. There has been interval placement of a right-sided PICC line catheter with the tipprojecting over the cavoatrial junction. A nasogastric tube is only partially visualized but the visualized portions are in stable position. There is elevation of the left hemidiaphragm. There continues to be some nonspecific airspace disease in the left lung base. No definite pleural effusion is seen. Signed: Rika Cervantes MDReport Verified Date/Time: 05/10/2017 19:28:53 Reading Location: [facility] [id number] Consult Reading Room BLOOD GAS, [id number] 07:29:00 Test Item Value Reference Range Comments PH ARTERIAL (BEAKER) (test bgfo=862) 7.41 7.35-7.45 PCO2 ARTERIAL (BEAKER) (test cksl=924) 44 mmHg 35-45 PO2 ARTERIAL (BEAKER) (test reaj=027) 81 mmHg 80-90 O2 SATURATION ARTERIAL (BEAKER) (test bmlj=610) 96.2 % 96.0-97.0 HCO3 ARTERIAL (BEAKER) (test ghkv=674) 28 mmol/L 21-29 BASE EXCESS ARTERIAL (BEAKER) (test dceq=761) 2.5 mmol/L -2.0-3.0 PATIENT TEMPERATURE (BEAKER) (test tzdf=4369) 36.7 C FIO2 (BEAKER) (test mlge=6057) 21.0 % [id number] 06:41:00 Test Item Value Reference Range Comments MAGNESIUM (BEAKER) (test wrdg=656) 1.6 mg/dL 1.6-2.6 BASIC METABOLIC [id number] 06:41:00 Test Item Value Reference Range Comments SODIUM (BEAKER) (test 137 meq/L 136-145 lwxp=078) POTASSIUM (BEAKER) (test 3.8 meq/L 3.5-5.1 bnai=947) CHLORIDE (BEAKER) (test 105 meq/L 98-107 azaq=448) CO2 (BEAKER) (test 28 meq/L 22-29 kihx=338) BLOOD UREA NITROGEN 6 mg/dL 7-21 (BEAKER) (test ieyb=317) CREATININE (BEAKER) (test 0.52 mg/dL 0.57-1.25 rvho=410) GLUCOSE RANDOM (BEAKER) 94 mg/dL 70-105 (test dyeq=970) CALCIUM (BEAKER) (test 8.0 mg/dL 8.4-10.2 hirg=000) EGFR (BEAKER) (test 131 mL/min/1.73 sq m ESTIMATED GFR IS NOT zcyk=8909) ACCURATE CREATININE CLEARANCE IN PREDICTING GLOMERULAR FILTRATION RATE. ESTIMATED GFR IS NOT APPLICABLE FOR DIALYSIS PATIENTS. PROTHROMBIN TIME/[id number] 06:11:00 Test Item Value Reference Range Comments PROTIME (BEAKER) (test naxp=929) 15.1 seconds 11.7-14.7 INR (BEAKER) (test akle=275) 1.2 <=5.9 RECOMMENDED COUMADIN/WARFARIN INR THERAPY RANGESSTANDARD DOSE: 2.0 - 3.0 Includes: PROPHYLAXIS forvenous thrombosis, systemic embolization; TREATMENT for venous thrombosis and/or pulmonary embolus.HIGH RISK: Target INR is 2.5-3.5 for patients with mechanical heart valves.LACTIC ACID, ARTERIAL, WHOLE [id number] 06:08:00 Test Item Value Reference Range Comments LACTATE BLOOD ARTERIAL (2) (BEAKER) (test 0.8 mmol/L 0.5-2.2 yhwx=7178) Effective 09/17/2015: Units/Reference Range ChangeNew: 0.5-2.2 mmol/L Previous: 5 -20 mg/dLCBC W/PLT COUNT & AUTO [id number] 06:02:00 Test Item Value Reference Range Comments WHITE BLOOD CELL COUNT (BEAKER) (test ddpv=998) 10.6 K/ L 3.5-10.5 RED BLOOD CELL COUNT (BEAKER) (test qgdq=820) 4.10 M/ L 3.93-5.22 HEMOGLOBIN (BEAKER) (test aubg=091) 11.6 GM/DL 11.2-15.7 HEMATOCRIT (BEAKER) (test uzqa=998) 35.3 % 34.1-44.9 MEAN CORPUSCULAR VOLUME (BEAKER) (test zenu=099) 86.1 fL 79.4-94.8 MEAN CORPUSCULAR HEMOGLOBIN (BEAKER) (test 28.3 pg 25.6-32.2 zmfg=594) MEAN CORPUSCULAR HEMOGLOBIN CONC (BEAKER) (test 32.9 GM/DL 32.2-35.5 yjlv=908) RED CELL DISTRIBUTION WIDTH (BEAKER) (test 14.4 % 11.7-14.4 ggny=779) PLATELET COUNT (BEAKER) (test lvmp=117) 261 K/CU MM 150-450 MEAN PLATELET VOLUME (BEAKER) (test pket=545) 9.8 fL 9.4-12.3 NUCLEATED RED BLOOD CELLS (BEAKER) (test 0 /100 WBC 0-0 ydzj=328) NEUTROPHILS RELATIVE PERCENT (BEAKER) (test 67 % fzld=969) LYMPHOCYTES RELATIVE PERCENT (BEAKER) (test 21 % lwwg=772) MONOCYTES RELATIVE PERCENT (BEAKER) (test 8 % wbva=707) EOSINOPHILS RELATIVE PERCENT (BEAKER) (test 4 % whgn=460) BASOPHILS RELATIVE PERCENT (BEAKER) (test 0 % zcwe=375) NEUTROPHILS ABSOLUTE COUNT (BEAKER) (test 7.07 K/ L 1.56-6.13 zpeg=310) LYMPHOCYTES ABSOLUTE COUNT (BEAKER) (test 2.22 K/ L 1.18-3.74 iabx=932) MONOCYTES ABSOLUTE COUNT (BEAKER) (test 0.88 K/ L 0.24-0.36 vyrn=273) EOSINOPHILS ABSOLUTE COUNT (BEAKER) (test 0.38 K/ L 0.04-0.36 cnbh=514) BASOPHILS ABSOLUTE COUNT (BEAKER) (test 0.03 K/ L 0.01-0.08 cznk=534) IMMATURE GRANULOCYTES-RELATIVE PERCENT (BEAKER) 0 % 0-1 (test hbqa=2008) RAD, ABDOMEN/KUB, 1 VIEW [id number] 04:38:00Reason for exam:->abdominao painFINAL REPORT CLINICAL HISTORY: Abdominal pain COMPARISON: None. FINDINGS: Two supine views of the abdomen are submitted. The abdominal bowel gas pattern is unobstructed. There is no focus of dilated large or small bowel. The left hemidiaphragm is elevated. A nasogastric tube tip overlies the expected position of the distal stomach. There is no evidence of organomegaly or significant ascites. No abnormal calcification is noted. There is no acute bony abnormality. Signed: Noah Porter MDReport Verified Date/Time : 05/10/2017 04:38:02 [address], CHEST, 1 VIEW, NON [id number] 04:34:00Reason for exam:->post opShould this be performed at the bedside?->YesFINAL REPORT CLINICAL INDICATION: Postop Comparison: 05/09/2017 The cardiomediastinal contours are stable. The left hemidiaphragm remains elevated. Patchy opacity in the left lower lung may reflect atelectasis but pneumonitis should be excluded clinically. There is no pneumothorax. A nasogastric tube remains in place. Signed: Noah Porter MDReport Verified Date/Time: 05/10/2017 04:34:08 Reading Location: [address] Reading Room BASIC METABOLIC [id number] 18:31 :00 Test Item Value Reference Range Comments SODIUM (BEAKER) (test 139 meq/L 136-145 nxui=464) POTASSIUM (BEAKER) (test 4.1 meq/L 3.5-5.1 Specimen slightly woxn=259) hemolyzed CHLORIDE (BEAKER) (test 105 meq/L 98-107 umqp=973) CO2 (BEAKER) (test 27 meq/L 22-29 udug=999) BLOOD UREA NITROGEN 6 mg/dL 7-21 (BEAKER) (test zcrj=091) CREATININE (BEAKER) (test 0.62 mg/dL 0.57-1.25 Specimen slightly dtxt=602) hemolyzed GLUCOSE RANDOM (BEAKER) 94 mg/dL 70-105 (test fuey=162) CALCIUM (BEAKER) (test 8.1 mg/dL 8.4-10.2 uaav=933) EGFR (BEAKER) (test 107 mL/min/1.73 sq m ESTIMATED GFR IS NOT vvdk=2162) ACCURATE CREATININE CLEARANCE IN PREDICTING GLOMERULAR FILTRATION RATE. ESTIMATED GFR IS NOT APPLICABLE FOR DIALYSIS PATIENTS. RAD, CHEST, 1 VIEW, NON [id number] 17:05:00Reason for exam:->NGT repositioned Should this be performed at the bedside?->YesFINAL REPORT Comparison: 05/09/2017 at 10:15 AM TECHNIQUE: Single view of thechest FINDINGS: Tip of the nasogastric tube appears to have been advanced further and now projects in the distal stomach. There is elevation of the left hemidiaphragm. Pleural effusion and opacity in left mid and lower lung again noted. Lungs otherwise grossly clear. Signed: Elieser Grossman MDReport Verified Date/Time: 05/09/2017 17:05:43 Reading Location: [place] [id number] CT Body Reading Room 05: 05 PMLACTIC ACID, ARTERIAL, WHOLE [id number] 17:02:00 Test Item Value Reference Range Comments LACTATE BLOOD ARTERIAL (2) 1.5 mmol/L 0.5-2.2 Specimen slightly hemolyzed (BEAKER) (test vgqr=4230) Effective 09/17/2015: Units/Reference Range ChangeNew: 0.5-2.2 mmol/L Previous: 5 -20 mg/dLBLOOD GAS, [id number] 16:34:00 Test Item Value Reference Range Comments PH ARTERIAL (BEAKER) (test qbjb=275) 7.45 7.35-7.45 PCO2 ARTERIAL (BEAKER) (test ttws=519) 39 mmHg 35-45 PO2 ARTERIAL (BEAKER) (test xyhz=449) 205 mmHg 80-90 O2 SATURATION ARTERIAL (BEAKER) (test vmec=191) 99.4 % 96.0-97.0 HCO3 ARTERIAL (BEAKER) (test ghnr=857) 27 mmol/L 21-29 BASE EXCESS ARTERIAL (BEAKER) (test xsyq=111) 2.4 mmol/L -2.0-3.0 PATIENT TEMPERATURE (BEAKER) (test apbe=8567) 37.0 C FIO2 (BEAKER) (test mwcu=8203) 21.0 % CBC W/PLT COUNT & AUTO [id number] 16:33:00 Test Item Value Reference Range Comments WHITE BLOOD CELL COUNT (BEAKER) (test lvdi=798) 14.1 K/ L 3.5-10.5 RED BLOOD CELL COUNT (BEAKER) (test eiil=503) 4.16 M/ L 3.93-5.22 HEMOGLOBIN (BEAKER) (test ollp=014) 11.9 GM/DL 11.2-15.7 HEMATOCRIT (BEAKER) (test plgk=906) 36.3 % 34.1-44.9 MEAN CORPUSCULAR VOLUME (BEAKER) (test fylk=563) 87.3 fL 79.4-94.8 MEAN CORPUSCULAR HEMOGLOBIN (BEAKER) (test 28.6 pg 25.6-32.2 vmuo=970) MEAN CORPUSCULAR HEMOGLOBIN CONC (BEAKER) (test 32.8 GM/DL 32.2-35.5 yykc=916) RED CELL DISTRIBUTION WIDTH (BEAKER) (test 14.5 % 11.7-14.4 ezgn=480) PLATELET COUNT (BEAKER) (test jkln=697) 264 K/CU MM 150-450 MEAN PLATELET VOLUME (BEAKER) (test nrjs=938) 9.6 fL 9.4-12.3 NUCLEATED RED BLOOD CELLS (BEAKER) (test 0 /100 WBC 0-0 qksv=164) NEUTROPHILS RELATIVE PERCENT (BEAKER) (test 74 % ancm=222) LYMPHOCYTES RELATIVE PERCENT (BEAKER) (test 17 % cirp=839) MONOCYTES RELATIVE PERCENT (BEAKER) (test 6 % dhwj=116) EOSINOPHILS RELATIVE PERCENT (BEAKER) (test 2 % xecb=017) BASOPHILS RELATIVE PERCENT (BEAKER) (test 0 % akqt=202) NEUTROPHILS ABSOLUTE COUNT (BEAKER) (test 10.45 K/ L 1.56-6.13 dzgn=123) LYMPHOCYTES ABSOLUTE COUNT (BEAKER) (test 2.37 K/ L 1.18-3.74 qhbu=138) MONOCYTES ABSOLUTE COUNT (BEAKER) (test 0.84 K/ L 0.24-0.36 oykp=579) EOSINOPHILS ABSOLUTE COUNT (BEAKER) (test 0.34 K/ L 0.04-0.36 ylgw=075) BASOPHILS ABSOLUTE COUNT (BEAKER) (test 0.05 K/ L 0.01-0.08 jyky=982) IMMATURE GRANULOCYTES-RELATIVE PERCENT (BEAKER) 0 % 0-1 (test zwrd=3812) SCREEN, [id number] 12:41:00 Test Item Value Reference Range Comments TEST URINE (BEAKER) (test fuyf=408) Negative LACTIC ACID, ARTERIAL, WHOLE [id number] 12:02:00 Test Item Value Reference Range Comments LACTATE BLOOD ARTERIAL (2) (BEAKER) (test 1.0 mmol/L 0.5-2.2 supy=4960) Effective 09/17/2015: Units/Reference Range ChangeNew: 0.5-2.2 mmol/L Previous: 5 -20 mg/dLRAD, CHEST, 1 VIEW, NON [id number] 11:21:00Reason for exam:-> postopShould this be performed at the bedside?->YesFINAL REPORT Technique: Single view of the chest COMPARISON: None FINDINGS: There is elevation of the left hemidiaphragm. Small left pleural effusion with nonspecific adjacent airspace disease identified. Remainder the lungs are grossly clear. A nasogastric tube is seen with distal portion of the stomach. Signed: Elieser Grossman MDReport Verified Date/Time: 05/09/2017 11:21:35 Reading Location: [facility] C013Y CT Body Reading Room Electronically signed by: ELIESER GROSSMAN M.D. on05/09/2017 11:21 AMBASIC METABOLIC [id number] 10:24:00 Test Item Value Reference Range Comments SODIUM (BEAKER) (test 138 meq/L 136-145 jwma=535) POTASSIUM (BEAKER) (test 4.1 meq/L 3.5-5.1 yoxs=348) CHLORIDE (BEAKER) (test 108 meq/L 98-107 egvl=292) CO2 (BEAKER) (test 25 meq/L 22-29 mhlg=795) BLOOD UREA NITROGEN 10 mg/dL 7-21 (BEAKER) (test tjqb=686) CREATININE (BEAKER) (test 0.61 mg/dL 0.57-1.25 ihha=354) GLUCOSE RANDOM (BEAKER) 91 mg/dL 70-105 (test evzr=113) CALCIUM (BEAKER) (test 7.4 mg/dL 8.4-10.2 npyo=282) EGFR (BEAKER) (test 109 mL/min/1.73 sq m ESTIMATED GFR IS NOT hucv=4765) ACCURATE CREATININE CLEARANCE IN PREDICTING GLOMERULAR FILTRATION RATE. ESTIMATED GFR IS NOT APPLICABLE FOR DIALYSIS PATIENTS. CBC W/PLT COUNT & AUTO [id number] 09:28:00 Test Item Value Reference Range Comments WHITE BLOOD CELL COUNT (BEAKER) (test xiel=335) 10.3 K/ L 3.5-10.5 RED BLOOD CELL COUNT (BEAKER) (test amya=439) 4.12 M/ L 3.93-5.22 HEMOGLOBIN (BEAKER) (test qjdv=308) 11.8 GM/DL 11.2-15.7 HEMATOCRIT (BEAKER) (test klsw=788) 36.1 % 34.1-44.9 MEAN CORPUSCULAR VOLUME (BEAKER) (test sttx=508) 87.6 fL 79.4-94.8 MEAN CORPUSCULAR HEMOGLOBIN (BEAKER) (test 28.6 pg 25.6-32.2 hjoe=258) MEAN CORPUSCULAR HEMOGLOBIN CONC (BEAKER) (test 32.7 GM/DL 32.2-35.5 ioyf=834) RED CELL DISTRIBUTION WIDTH (BEAKER) (test 14.6 % 11.7-14.4 zdze=765) PLATELET COUNT (BEAKER) (test yudq=921) 278 K/CU MM 150-450 MEAN PLATELET VOLUME (BEAKER) (test vzbk=521) 9.6 fL 9.4-12.3 NUCLEATED RED BLOOD CELLS (BEAKER) (test 0 /100 WBC 0-0 wezq=311) NEUTROPHILS RELATIVE PERCENT (BEAKER) (test 58 % frkf=557) LYMPHOCYTES RELATIVE PERCENT (BEAKER) (test 30 % hcqc=172) MONOCYTES RELATIVE PERCENT (BEAKER) (test 8 % ixgx=029) EOSINOPHILS RELATIVE PERCENT (BEAKER) (test 4 % ncur=498) BASOPHILS RELATIVE PERCENT (BEAKER) (test 1 % upmj=482) NEUTROPHILS ABSOLUTE COUNT (BEAKER) (test 6.00 K/ L 1.56-6.13 fjne=464) LYMPHOCYTES ABSOLUTE COUNT (BEAKER) (test 3.05 K/ L 1.18-3.74 nlnl=299) MONOCYTES ABSOLUTE COUNT (BEAKER) (test 0.79 K/ L 0.24-0.36 rfgr=922) EOSINOPHILS ABSOLUTE COUNT (BEAKER) (test 0.39 K/ L 0.04-0.36 tduh=652) BASOPHILS ABSOLUTE COUNT (BEAKER) (test 0.06 K/ L 0.01-0.08 pnxy=936) IMMATURE GRANULOCYTES-RELATIVE PERCENT (BEAKER) 0 % 0-1 (test yxgn=3616) CALCIUM, [id number] 08:45:00 Test Item Value Reference Range Comments CALCIUM IONIZED (BEAKER) (test lwsr=697) 0.98 mmol/L 1.12-1.27 PH, BLOOD (BEAKER) (test uldv=1060) 7.43 BLOOD GAS, [id number] 08:45:00 Test Item Value Reference Range Comments PH ARTERIAL (BEAKER) (test hbxs=136) 7.43 7.35-7.45 PCO2 ARTERIAL (BEAKER) (test nuhf=700) 42 mmHg 35-45 PO2 ARTERIAL (BEAKER) (test vweu=003) 489 mmHg 80-90 O2 SATURATION ARTERIAL (BEAKER) (test ejxr=354) 99.9 % 96.0-97.0 HCO3 ARTERIAL (BEAKER) (test zwtk=289) 28 mmol/L 21-29 BASE EXCESS ARTERIAL (BEAKER) (test eqth=718) 3.0 mmol/L -2.0-3.0 PATIENT TEMPERATURE (BEAKER) (test qcux=1214) 36.5 C FIO2 (BEAKER) (test oydo=3132) 70.0 % SODIUM NA-STAT [id number] 08:45:00 Test Item Value Reference Range Comments SODIUM (BEAKER) (test xvwi=394) 134 meq/L 135-148 HGB/HCT (H&H) - STAT [id number] 08:45:00 Test Item Value Reference Range Comments HEMOGLOBIN (BEAKER) (test skig=235) 11.8 g/dL 12.0-15.0 HEMATOCRIT (BEAKER) (test szxc=349) 35.0 % 36.0-45.0 GLUCOSE-STAT [id number] 08:44:00 Test Item Value Reference Range Comments GLUCOSE RANDOM (BEAKER) (test wunp=283) 83 mg/dL 70-110 POTASSIUM-STAT [id number] 08:44:00 Test Item Value Reference Range Comments POTASSIUM (BEAKER) (test cipq=706) 4.3 meq/L 3.6-5.5 BASIC METABOLIC [id number] 01:21:00 Test Item Value Reference Range Comments SODIUM (BEAKER) (test 140 meq/L 136-145 gunp=781) POTASSIUM (BEAKER) (test 4.2 meq/L 3.5-5.1 fzjp=532) CHLORIDE (BEAKER) (test 108 meq/L 98-107 evfp=720) CO2 (BEAKER) (test 26 meq/L 22-29 qtlv=915) BLOOD UREA NITROGEN 12 mg/dL 7-21 (BEAKER) (test wzms=546) CREATININE (BEAKER) (test 0.63 mg/dL 0.57-1.25 nmlo=360) GLUCOSE RANDOM (BEAKER) 78 mg/dL 70-105 (test embi=767) CALCIUM (BEAKER) (test 7.8 mg/dL 8.4-10.2 ptta=998) EGFR (BEAKER) (test 105 mL/min/1.73 sq m ESTIMATED GFR IS NOT bbas=8758) ACCURATE CREATININE CLEARANCE IN PREDICTING GLOMERULAR FILTRATION RATE. ESTIMATED GFR IS NOT APPLICABLE FOR DIALYSIS PATIENTS. LACTIC ACID, VENOUS, WHOLE [id number] 01:04:00 Test Item Value Reference Range Comments LACTATE BLOOD VENOUS (2) (BEAKER) (test 0.9 mmol/L 0.5-2.2 entm=9771) Effective 09/17/2015: Units/Reference Range ChangeNew: 0.5-2.2 mmol/L Previous: 5 -20 mg/dLPOCT-GLUCOSE [id number] 00:46:00 Test Item Value Reference Range Comments POC-GLUCOSE METER (BEAKER) 87 mg/dL 70-110 TESTED AT [facility] [address] [place] [address] (test cmog=7726) [facility] [address] PROTHROMBIN TIME/[id number] 00:37:00 Test Item Value Reference Range Comments PROTIME (BEAKER) (test llqw=181) 13.9 seconds 11.7-14.7 INR (BEAKER) (test tysl=817) 1.1 <=5.9 RECOMMENDED COUMADIN/WARFARIN INR THERAPY RANGESSTANDARD DOSE: 2.0 - 3.0 Includes: PROPHYLAXIS forvenous thrombosis, systemic embolization; TREATMENT for venous thrombosis and/or pulmonary embolus.HIGH RISK: Target INR is 2.5-3.5 for patients with mechanical heart valves.CBC W/PLT COUNT & AUTO [id number] 00:28:00 Test Item Value Reference Range Comments WHITE BLOOD CELL COUNT (BEAKER) (test hltc=604) 9.2 K/ L 3.5-10.5 RED BLOOD CELL COUNT (BEAKER) (test sqrh=475) 4.08 M/ L 3.93-5.22 HEMOGLOBIN (BEAKER) (test zbzn=986) 11.6 GM/DL 11.2-15.7 HEMATOCRIT (BEAKER) (test dhij=690) 35.7 % 34.1-44.9 MEAN CORPUSCULAR VOLUME (BEAKER) (test eury=383) 87.5 fL 79.4-94.8 MEAN CORPUSCULAR HEMOGLOBIN (BEAKER) (test 28.4 pg 25.6-32.2 jdfb=125) MEAN CORPUSCULAR HEMOGLOBIN CONC (BEAKER) (test 32.5 GM/DL 32.2-35.5 pcxo=898) RED CELL DISTRIBUTION WIDTH (BEAKER) (test 14.5 % 11.7-14.4 urnz=479) PLATELET COUNT (BEAKER) (test oxpu=796) 256 K/CU MM 150-450 MEAN PLATELET VOLUME (BEAKER) (test naxh=637) 9.7 fL 9.4-12.3 NUCLEATED RED BLOOD CELLS (BEAKER) (test 0 /100 WBC 0-0 xmth=803) NEUTROPHILS RELATIVE PERCENT (BEAKER) (test 53 % btar=305) LYMPHOCYTES RELATIVE PERCENT (BEAKER) (test 33 % nbpx=717) MONOCYTES RELATIVE PERCENT (BEAKER) (test 9 % tswm=116) EOSINOPHILS RELATIVE PERCENT (BEAKER) (test 4 % fvwr=772) BASOPHILS RELATIVE PERCENT (BEAKER) (test 1 % xjlq=160) NEUTROPHILS ABSOLUTE COUNT (BEAKER) (test 4.85 K/ L 1.56-6.13 kbzp=301) LYMPHOCYTES ABSOLUTE COUNT (BEAKER) (test 3.00 K/ L 1.18-3.74 lony=597) MONOCYTES ABSOLUTE COUNT (BEAKER) (test 0.85 K/ L 0.24-0.36 hfvu=047) EOSINOPHILS ABSOLUTE COUNT (BEAKER) (test 0.40 K/ L 0.04-0.36 vsts=178) BASOPHILS ABSOLUTE COUNT (BEAKER) (test 0.07 K/ L 0.01-0.08 ranz=941) IMMATURE GRANULOCYTES-RELATIVE PERCENT (BEAKER) 0 % 0-1 (test eiwe=3732)
[2018-08-09 20:23] LABS: Urine Blood NEGATIVE (NEG); Urine Glucose NEGATIVE (NEG); Urine Protein TRACE (NEG); Urine Specific Gravity >1.030 (1.005-1.030); Urine pH 5.5 (5.0-7.0)
--- NOTE | 2018-08-09 21:05 | RAD REPORT ---
EXAM DESCRIPTION: US - OB Limited - 08/09/2018 8:52 pm CLINICAL HISTORY: with abdominal pain COMPARISON: None FINDINGS: Single live intrauterine in breech presentation. Placenta is posterior. Complete placenta previa. Amniotic fluid is within normal limits. Cardiac activity 144 beats per minute. Cervix 4.4 centimeters BPD 4.2 centimeters 18 weeks 5 days HC 15.8 centimeters 18 weeks 5 days AC 13.2 centimeters 18 weeks 5 days FL 2.8 centimeters 18 weeks 4 days Estimated weight 248 grams Right and left adnexal unremarkable A survey was not performed as this exam was done on an emergent basis from the ER IMPRESSION: Single live intrauterine in breech presentation. Estimated gestational age 18 weeks 5 days ABRAN 01/05/2019 Complete placenta previa
--- NOTE | 2018-08-09 21:14 | ER ---
Nurse's Notes [facility] Name: Debra Harris Age: 43 yrs Sex: Female : 1975 Arrival Date: 08/09/2018 Time: 18:01 Bed 12 Private MD: Diagnosis: related conditions, unspecified, second trimester Presentation: 08/09 18:14 Presenting complaint: Patient states: my stomach started hurting a few days ago like tw2 cramping on each side, i havent been to an OBGYN yet I am waiting on my medicaid, the cramping comes and goes, denies vaginal bleeding. Transition of care: patient was not received from another setting of care. Onset of symptoms was August 09, 2018. Risk Assessment: Do you want to hurt yourself or someone else? Patient reports no desire to harm self or others. Initial Sepsis Screen: Does the patient meet any 2 criteria? No. Patient's initial sepsis screen is negative. Does the patient have a suspected source of infection? No. Patient's initial sepsis screen is negative. Care prior to arrival: None. 18:14 Method Of Arrival: Ambulatory tw2 18:14 Acuity: ARANZA 3 tw2 Triage Assessment: 18:16 General: Appears in no apparent distress. Behavior is calm, cooperative, appropriate tw2 for age. Pain: Complains of pain in abdomen. GI: Reports lower abdominal pain, cramping, nausea. 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 - Social history:: Smoking status: Patient uses tobacco products, smokes one-half pack cigarettes per day. - Ebola Screening: : Patient denies travel to an Ebola-affected area in the 21 days before illness onset. Screenin:04 Abuse screen: Denies threats or abuse. Denies injuries from another. Nutritional aa1 screening: No deficits noted. Tuberculosis screening: No symptoms or risk factors identified. Fall Risk None identified. Assessment: 20:04 General: Appears in no apparent distress. comfortable, Behavior is calm, cooperative, aa1 appropriate for age. Pain: Complains of pain in abdomen Quality of pain is described as crampy, Pain began 2-3 days ago. Is intermittent. Neuro: Level of Consciousness is awake, alert, obeys commands, Oriented to person, place, time, situation, Moves all extremities. Full function Gait is steady. Cardiovascular: Denies chest pain, palpitations, shortness of breath. Respiratory: Airway is patent Respiratory effort is even, unlabored, Respiratory pattern is regular, symmetrical. GI: Abdomen is non-distended, Bowel sounds present X 4 quads. Abd is soft and non tender X 4 quads. Reports cramping. : Denies burning with urination, vaginal bleeding. EENT: No signs and/or symptoms were reported regarding the EENT system. Derm: Skin is intact, is healthy with good turgor, Skin is pink, warm \\T\\ dry. Musculoskeletal: Circulation, motion, and sensation intact. Capillary refill < 3 seconds. Vital Signs: 18:15 BP 128 / 72; Pulse 92; Resp 17; Temp 98.6(TE); Pulse Ox 99% on R/A; Weight 68.04 kg tw2 (M); Height 5 ft. 3 in. (160.02 cm); Pain 6/10; 20:05 BP 127 / 69; Pulse 82; Resp 16; Temp 98.4; Pulse Ox 99% on R/A; mt 18:15 Body Mass Index 26.57 (68.04 kg, 160.02 cm) tw2 ED Course: 18:01 Patient arrived in ED. ss4 18:15 Triage completed. tw2 18:15 Arm band placed on. tw2 19:[address] MD is Attending Physician. gs 20:04 Darlene Ma, ELVIN is Primary Nurse. ss 20:04 Patient has correct armband on for positive identification. Bed in low position. Call aa1 light in reach. 20:51 OB Limited In Process Unspecified. EDMS 21:04 Ultrasound completed. Patient tolerated well. Patient moved back from ultrasound. cy 21:13 Yenny Michelle MD is Referral Physician. gs Administered Medications: No medications were administered Outcome: 21:13 Discharge ordered by . 21:35 Patient left the ED. aa1 Signatures: Dispatcher [employer] EDRenu Evangelista RN RN aa1 Darlene Ma RN RN ss Anne Davis RN RN tw2 Marija Park mt, Gregory, MD MD Jany Andersen Stephanie [facility]
--- NOTE | 2018-08-09 21:14 | EDPHYS ---
Physician Documentation [facility] Name: Debra Harris Age: 43 yrs Sex: Female : 1975 Arrival Date: 08/09/2018 Time: 18:01 Bed 12 Private MD: ED Physician Srinath Way HPI: 08/10 00:03 This 43 yrs old Female presents to ER via Ambulatory with complaints of gs Abdominal Pain - unknown weeks . 00:03 The patient presents to the emergency department with abdominal pain, of the left lower gs quadrant. course: Ultrasound: the patient has not had an ultrasound. Associated signs and symptoms: Pertinent negatives: ruptured membranes, shortness of breath, vaginal bleeding, vaginal discharge. The patient has experienced similar episodes in the past, a few times. UNKNOWN GEST AGE. 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 - Social history:: Smoking status: Patient uses tobacco products, smokes one-half pack cigarettes per day. - Ebola Screening: : Patient denies travel to an Ebola-affected area in the 21 days before illness onset. ROS: 08/10 00:03 All other systems are negative. gs Exam: 00:03 Head/Face: Normocephalic, atraumatic. Eyes: Pupils equal round and reactive to light, gs extra-ocular motions intact. Lids and lashes normal. Conjunctiva and sclera are non-icteric and not injected. Cornea within normal limits. Periorbital areas with no swelling, redness, or edema. ENT: Nares patent. No nasal discharge, no septal abnormalities noted. Tympanic membranes are normal and external auditory canals are clear. Oropharynx with no redness, swelling, or masses, exudates, or evidence of obstruction, uvula midline. Mucous membranes moist. Neck: Trachea midline, no thyromegaly or masses palpated, and no cervical lymphadenopathy. Supple, full range of motion without nuchal rigidity, or vertebral point tenderness. No Meningismus. Chest/axilla: Normal chest wall appearance and motion. Nontender with no deformity. No lesions are appreciated. Cardiovascular: Regular rate and rhythm with a normal S1 and S2. No gallops, murmurs, or rubs. Normal PMI, no JVD. No pulse deficits. Respiratory: Lungs have equal breath sounds bilaterally, clear to auscultation and percussion. No rales, rhonchi or wheezes noted. No increased work of breathing, no retractions or nasal flaring. Back: No spinal tenderness. No costovertebral tenderness. Full range of motion. Skin: Warm, dry with normal turgor. Normal color with no rashes, no lesions, and no evidence of cellulitis. MS/ Extremity: Pulses equal, no cyanosis. Neurovascular intact. Full, normal range of motion. Neuro: Awake and alert, GCS 15, oriented to person, place, time, and situation. Cranial nerves II-XII grossly intact. Motor strength 5/5 in all extremities. Sensory grossly intact. Cerebellar exam normal. Normal gait. 00:03 Constitutional: The patient appears alert, awake. 00:03 Abdomen/GI: Palpation: mild abdominal tenderness, in the left lower quadrant, rebound tenderness, is not appreciated. Vital Signs: 08/09 18:15 BP 128 / 72; Pulse 92; Resp 17; Temp 98.6(TE); Pulse Ox 99% on R/A; Weight 68.04 kg tw2 (M); Height 5 ft. 3 in. (160.02 cm); Pain 6/10; 20:05 BP 127 / 69; Pulse 82; Resp 16; Temp 98.4; Pulse Ox 99% on R/A; mt 18:15 Body Mass Index 26.57 (68.04 kg, 160.02 cm) tw2 MDM: 20:04 Patient medically screened. 08/10 00:03 Differential diagnosis: DISCOMFORT OF , RL PAIN. Data reviewed: vital signs, gs nurses notes, lab test result(s), radiologic studies. Counseling: I had a detailed discussion with the patient and/or guardian regarding: the historical points, exam findings, and any diagnostic results supporting the discharge/admit diagnosis, radiology results, the need for outpatient follow up. Response to treatment: the patient's symptoms have resolved after treatment. 08/09 20:15 Order name: Urine Dipstick--Ancillary (enter results) 2 08/09 20:15 Order name: Urine --Ancillary (enter results) [facility] 08/09 20:13 Order name: Urine Dipstick-Ancillary (obtain specimen); Complete Time: 20:14 aa1 08/09 20:46 Order name: OB Limited; Complete Time: 21:12 EDNJ 08/09 20:14 Order name: Urine Test (obtain specimen); Complete Time: 20:14 aa1 Administered Medications: No medications were administered Disposition: 08/09/18 21:13 Discharged to Home. Impression: related conditions, unspecified, second trimester. - Condition is Stable. - Discharge Instructions: Abdominal Pain During . - Medication Reconciliation Form, Thank You Letter, Antibiotic Education, Prescription Opioid Use form. - Follow up: Yenny Michelle MD; When: 2 - 3 days; Reason: Re-evaluation by your physician. Signatures: Dispatcher [employer] [facility] Renu Montano RN RN aa1 Anne Davis RN RN tw2 Srinath Way MD MD gs Corrections: (The following items were deleted from the chart) 08/09 20:46 20:19 Pelvis Complete+[email or web address].BRZ ordered. [facility] 21:35 21:13 08/09/2018 21:13 Discharged to Home. Impression: related conditions, aa1 unspecified, second trimester. Condition is Stable. Forms are Medication Reconciliation Form, Thank You Letter, Antibiotic Education, Prescription Opioid Use. Follow up: Yenny Michelle; When: 2 - 3 days; Reason: Re-evaluation by your physician. gs
[2018-08-09 23:06] VITALS: O2SAT 99
[2018-08-09 23:11] VITALS: BP 127/69; TEMP 98.4
== END 2018-08-09 21:35 | disposition home or self-care (01) ==
LOC: ER 17:53
DX: R10.819 Abdominal tenderness, unspecified site (principal); O99.342 Other mental disorders complicating pregnancy, second trimester; F41.9 Anxiety disorder, unspecified; O99.332 Smoking (tobacco) complicating pregnancy, second trimester; F17.210 Nicotine dependence, cigarettes, uncomplicated; Z3A.00 Weeks of gestation of pregnancy not specified
CPT/HCPCS: 76815; 81003; 81025; 99284

== ENCOUNTER 2018-10-16 11:45 | Emergency (ER) | payer OTHER ==
--- OUTSIDE RECORDS SUMMARY | 2018-10-16 11:51 | XMS REPORT ---
:1975 [facility] [address] [place] [address] Care Team Providers Name Role Phone CASSANDRA WILKS Unavailable Unavailable Problems This patient has no known problems. Allergies, Adverse Reactions, Alerts This patient has no known allergies or adverse reactions. Medications This patient has no known medications. Results Test Description Test Time Test Comments Text Results Atomic Results Result Comments TISSUE EXAM 2017-05-18 Surgical Pathology Report 13:38:00 Case: [id number] Authorizing Provider: Jethro Duron MD Collected: 05/14/2017 [id number] Ordering Location: [address] Received: 05/17/2017 0950 Pathologist: Torrey Cervantes MD Specimen: Soft Tissue, Other, Wedge gastrectomy PART A PORTION OF STOMACH, PARTIAL GASTRECTOMY:BENIGN GASTRIC MUCOSA WITH MILD CONGESTION.NEGATIVE FOR DYSPLASIA OR INVASIVE CARCINOMA. Signing Pathologist Direct Phone Line: [phone] signed by Torrey Cervantes MD on 05/18/2017 at 1:38 [id number] gastrectomyThe specimen is received in a formalin-filled container labeled with the patient's information and consists of a wedge gastrectomy of stomach measuring 3 x 1.5 x 1 cm with a staple line. Grossly no suspicious areas are seen. The mucosa is toney and hemorrhagic. Section code: Service Or Work Dispatcher Chief staple line and random section of gastric tissue, tissue from staple line is inked le. CG/ew RAD, CHEST, 1 2017-05-17 Reason for FINAL REPORT PATIENT ID: VIEW, NON DEPT 05:29:00 exam:->post [id number] RAD, CHEST, 1 VIEW, NON opShould this [...] involving the cervical soft tissues. Signed: JR Betancourt Robert MDReport Verified Date/Time: 05/17/2017 05:29:48 Reading Location: [facility] C013Y CT Body Reading Room ESIUM 2017-05-17 04:41:00 Test Item Value Reference Range Comments MAGNESIUM (BEAKER) (test smhg=724) 1.8 mg/dL 1.6-2.6 BASIC METABOLIC [id number] 04:41:00 Test Item Value Reference Range Comments SODIUM (BEAKER) (test 137 meq/L 136-145 ubev=713) POTASSIUM (BEAKER) (test 3.5 meq/L 3.5-5.1 iyte=738) CHLORIDE (BEAKER) (test 104 meq/L 98-107 uyxy=737) CO2 (BEAKER) (test 27 meq/L 22-29 khwe=155) BLOOD UREA NITROGEN 8 mg/dL 7-21 (BEAKER) (test irld=462) CREATININE (BEAKER) (test 0.48 mg/dL 0.57-1.25 ghzp=740) GLUCOSE RANDOM (BEAKER) 84 mg/dL 70-105 (test xrii=945) CALCIUM (BEAKER) (test 8.0 mg/dL 8.4-10.2 vuwm=972) EGFR (BEAKER) (test 143 mL/min/1.73 sq m ESTIMATED GFR IS NOT refe=8763) ACCURATE CREATININE CLEARANCE IN PREDICTING GLOMERULAR FILTRATION RATE. ESTIMATED GFR IS NOT APPLICABLE FOR DIALYSIS PATIENTS. PROTHROMBIN TIME/[id number] 04:27:00 Test Item Value Reference Range Comments PROTIME (BEAKER) (test mghz=259) 14.9 seconds 11.7-14.7 INR (BEAKER) (test fssu=518) 1.2 <=5.9 RECOMMENDED COUMADIN/WARFARIN INR THERAPY RANGESSTANDARD DOSE: 2.0 - 3.0 Includes: PROPHYLAXIS forvenous thrombosis, systemic embolization; TREATMENT for venous thrombosis and/or pulmonary embolus.HIGH RISK: Target INR is 2.5-3.5 for patients with mechanical heart valves.CBC W/PLT COUNT & AUTO [id number] 04:24:00 Test Item Value Reference Range Comments WHITE BLOOD CELL COUNT (BEAKER) (test qlnu=874) 7.9 K/ L 3.5-10.5 RED BLOOD CELL COUNT (BEAKER) (test twax=932) 3.29 M/ L 3.93-5.22 HEMOGLOBIN (BEAKER) (test fffi=111) 9.4 GM/DL 11.2-15.7 HEMATOCRIT (BEAKER) (test nytc=757) 28.2 % 34.1-44.9 MEAN CORPUSCULAR VOLUME (BEAKER) (test rzxx=924) 85.7 fL 79.4-94.8 MEAN CORPUSCULAR HEMOGLOBIN (BEAKER) (test 28.6 pg 25.6-32.2 nipg=129) MEAN CORPUSCULAR HEMOGLOBIN CONC (BEAKER) (test 33.3 GM/DL 32.2-35.5 foes=282) RED CELL DISTRIBUTION WIDTH (BEAKER) (test 13.9 % 11.7-14.4 lfhg=511) PLATELET COUNT (BEAKER) (test xhhb=905) 271 K/CU MM 150-450 MEAN PLATELET VOLUME (BEAKER) (test curt=411) 9.3 fL 9.4-12.3 NUCLEATED RED BLOOD CELLS (BEAKER) (test 0 /100 WBC 0-0 xoel=211) NEUTROPHILS RELATIVE PERCENT (BEAKER) (test 56 % pvog=972) LYMPHOCYTES RELATIVE PERCENT (BEAKER) (test 23 % xtwj=401) MONOCYTES RELATIVE PERCENT (BEAKER) (test 14 % okir=628) EOSINOPHILS RELATIVE PERCENT (BEAKER) (test 7 % qlmz=000) BASOPHILS RELATIVE PERCENT (BEAKER) (test 1 % hugi=555) NEUTROPHILS ABSOLUTE COUNT (BEAKER) (test 4.43 K/ L 1.56-6.13 mjba=181) LYMPHOCYTES ABSOLUTE COUNT (BEAKER) (test 1.78 K/ L 1.18-3.74 foxj=087) MONOCYTES ABSOLUTE COUNT (BEAKER) (test 1.10 K/ L 0.24-0.36 pkfs=150) EOSINOPHILS ABSOLUTE COUNT (BEAKER) (test 0.51 K/ L 0.04-0.36 lujx=212) BASOPHILS ABSOLUTE COUNT (BEAKER) (test 0.06 K/ L 0.01-0.08 qvdv=712) IMMATURE GRANULOCYTES-RELATIVE PERCENT (BEAKER) 0 % 0-1 (test sirb=5531) OLIVERIO [id number] 12:54:00Reason for exam:->s/p hiatal hernia repairFINAL REPORT [...] MDReport Verified Date/Time: 05/16/2017 12:54:45 Reading Location: [address] Consult Reading Room CALCIUM, [id number] 06:35:00 Test Item Value Reference Range Comments CALCIUM IONIZED (BEAKER) (test ihas=783) 1.02 mmol/L 1.12-1.27 PH, BLOOD (BEAKER) (test pmzn=2690) 7.39 [id number] 05:44:00 Test Item Value Reference Range Comments MAGNESIUM (BEAKER) (test 1.8 mg/dL 1.6-2.6 Specimen slightly hemolyzed upba=817) BASIC METABOLIC [id number] 05:44:00 Test Item Value Reference Range Comments SODIUM (BEAKER) (test 138 meq/L 136-145 alqj=280) POTASSIUM (BEAKER) (test 3.9 meq/L 3.5-5.1 Specimen slightly usst=544) hemolyzed CHLORIDE (BEAKER) (test 106 meq/L 98-107 juwh=956) CO2 (BEAKER) (test 26 meq/L 22-29 sbsx=745) BLOOD UREA NITROGEN 8 mg/dL 7-21 (BEAKER) (test xbrp=786) CREATININE (BEAKER) (test 0.46 mg/dL 0.57-1.25 Specimen slightly yptt=094) hemolyzed GLUCOSE RANDOM (BEAKER) 98 mg/dL 70-105 (test duem=477) CALCIUM (BEAKER) (test 8.3 mg/dL 8.4-10.2 ljhp=433) EGFR (BEAKER) (test 150 mL/min/1.73 sq m ESTIMATED GFR IS NOT gwuj=2969) ACCURATE CREATININE CLEARANCE IN PREDICTING GLOMERULAR FILTRATION RATE. ESTIMATED GFR IS NOT APPLICABLE FOR DIALYSIS PATIENTS. PROTHROMBIN TIME/[id number] 05:33:00 Test Item Value Reference Range Comments PROTIME (BEAKER) (test bqbb=555) 15.1 seconds 11.7-14.7 INR (BEAKER) (test bipg=603) 1.2 <=5.9 RECOMMENDED COUMADIN/WARFARIN INR THERAPY RANGESSTANDARD DOSE: 2.0 - 3.0 Includes: PROPHYLAXIS forvenous thrombosis, systemic embolization; TREATMENT for venous thrombosis and/or pulmonary embolus.HIGH RISK: Target INR is 2.5-3.5 for patients with mechanical heart valves.CBC W/PLT COUNT & AUTO [id number] 05:24:00 Test Item Value Reference Range Comments WHITE BLOOD CELL COUNT (BEAKER) (test yret=252) 11.4 K/ L 3.5-10.5 RED BLOOD CELL COUNT (BEAKER) (test vqzr=190) 3.60 M/ L 3.93-5.22 HEMOGLOBIN (BEAKER) (test wzdr=056) 10.3 GM/DL 11.2-15.7 HEMATOCRIT (BEAKER) (test aaap=912) 31.2 % 34.1-44.9 MEAN CORPUSCULAR VOLUME (BEAKER) (test tsvi=722) 86.7 fL 79.4-94.8 MEAN CORPUSCULAR HEMOGLOBIN (BEAKER) (test 28.6 pg 25.6-32.2 klkh=681) MEAN CORPUSCULAR HEMOGLOBIN CONC (BEAKER) (test 33.0 GM/DL 32.2-35.5 xjgp=451) RED CELL DISTRIBUTION WIDTH (BEAKER) (test 14.1 % 11.7-14.4 vcfm=125) PLATELET COUNT (BEAKER) (test ghpt=522) 266 K/CU MM 150-450 MEAN PLATELET VOLUME (BEAKER) (test aiim=639) 9.1 fL 9.4-12.3 NUCLEATED RED BLOOD CELLS (BEAKER) (test 0 /100 WBC 0-0 jpby=470) NEUTROPHILS RELATIVE PERCENT (BEAKER) (test 67 % qhvv=197) LYMPHOCYTES RELATIVE PERCENT (BEAKER) (test 16 % jtds=895) MONOCYTES RELATIVE PERCENT (BEAKER) (test 12 % quzg=779) EOSINOPHILS RELATIVE PERCENT (BEAKER) (test 4 % vvlr=614) BASOPHILS RELATIVE PERCENT (BEAKER) (test 1 % ukbe=825) NEUTROPHILS ABSOLUTE COUNT (BEAKER) (test 7.61 K/ L 1.56-6.13 dabj=349) LYMPHOCYTES ABSOLUTE COUNT (BEAKER) (test 1.86 K/ L 1.18-3.74 aqyx=176) MONOCYTES ABSOLUTE COUNT (BEAKER) (test 1.38 K/ L 0.24-0.36 hwfo=978) EOSINOPHILS ABSOLUTE COUNT (BEAKER) (test 0.48 K/ L 0.04-0.36 dund=791) BASOPHILS ABSOLUTE COUNT (BEAKER) (test 0.07 K/ L 0.01-0.08 lccx=023) IMMATURE GRANULOCYTES-RELATIVE PERCENT (BEAKER) 0 % 0-1 (test pvfz=9015) RAD, CHEST, 1 VIEW, NON [id number] 14:45:00Reason for exam:->s/p left chest tube removalShould [...] MDReport Verified Date/Time: 05/15/2017 14:45:11 Reading Location: [facility] B1 C013X Ortho Consult Reading Room RAD, CHEST, 1 VIEW, NON [id number] 07:32:00while patient is intubated or has chest [...] at least slightly decreased pneumothorax. Signed: Yojana Holden MDReport Verified Date/Time: 05/15/2017 07:32:43 Reading Location: [address] Body Reading Room PROTHROMBIN TIME/[id number] 05:07:00 Test Item Value Reference Range Comments PROTIME (BEAKER) (test sdhk=220) 15.8 seconds 11.7-14.7 INR (BEAKER) (test ehfo=636) 1.3 <=5.9 RECOMMENDED COUMADIN/WARFARIN INR THERAPY RANGESSTANDARD DOSE: 2.0 - 3.0 Includes: PROPHYLAXIS forvenous thrombosis, systemic embolization; TREATMENT for venous thrombosis and/or pulmonary embolus.HIGH RISK: Target INR is 2.5-3.5 for patients with mechanical heart valves.BASIC METABOLIC [id number] 05:07: 00 Test Item Value Reference Range Comments SODIUM (BEAKER) (test 140 meq/L 136-145 vxvu=006) POTASSIUM (BEAKER) (test 3.5 meq/L 3.5-5.1 ogbz=737) CHLORIDE (BEAKER) (test 112 meq/L 98-107 newl=550) CO2 (BEAKER) (test 22 meq/L 22-29 dany=890) BLOOD UREA NITROGEN 15 mg/dL 7-21 (BEAKER) (test cfzr=683) CREATININE (BEAKER) (test 0.52 mg/dL 0.57-1.25 drqg=272) GLUCOSE RANDOM (BEAKER) 105 mg/dL 70-105 (test nukt=992) CALCIUM (BEAKER) (test 7.7 mg/dL 8.4-10.2 avow=299) EGFR (BEAKER) (test 131 mL/min/1.73 sq m ESTIMATED GFR IS NOT mjbi=8641) ACCURATE CREATININE CLEARANCE IN PREDICTING GLOMERULAR FILTRATION RATE. ESTIMATED GFR IS NOT APPLICABLE FOR DIALYSIS PATIENTS. [id number] 05:03:00 Test Item Value Reference Range Comments MAGNESIUM (BEAKER) (test ajye=415) 2.7 mg/dL 1.6-2.6 CBC W/PLT COUNT & AUTO [id number] 05:00:00 Test Item Value Reference Range Comments WHITE BLOOD CELL COUNT (BEAKER) (test yfii=882) 13.2 K/ L 3.5-10.5 RED BLOOD CELL COUNT (BEAKER) (test xwtb=159) 3.39 M/ L 3.93-5.22 HEMOGLOBIN (BEAKER) (test lhoa=842) 9.7 GM/DL 11.2-15.7 HEMATOCRIT (BEAKER) (test bsir=394) 29.2 % 34.1-44.9 MEAN CORPUSCULAR VOLUME (BEAKER) (test xkqx=420) 86.1 fL 79.4-94.8 MEAN CORPUSCULAR HEMOGLOBIN (BEAKER) (test 28.6 pg 25.6-32.2 zqlk=367) MEAN CORPUSCULAR HEMOGLOBIN CONC (BEAKER) (test 33.2 GM/DL 32.2-35.5 ezcp=898) RED CELL DISTRIBUTION WIDTH (BEAKER) (test 14.2 % 11.7-14.4 mdex=889) PLATELET COUNT (BEAKER) (test qeoq=845) 252 K/CU MM 150-450 MEAN PLATELET VOLUME (BEAKER) (test inid=975) 9.2 fL 9.4-12.3 NUCLEATED RED BLOOD CELLS (BEAKER) (test 0 /100 WBC 0-0 iyws=120) NEUTROPHILS RELATIVE PERCENT (BEAKER) (test 76 % bfop=886) LYMPHOCYTES RELATIVE PERCENT (BEAKER) (test 14 % gzwv=267) MONOCYTES RELATIVE PERCENT (BEAKER) (test 10 % ucob=715) EOSINOPHILS RELATIVE PERCENT (BEAKER) (test 0 % bhph=044) BASOPHILS RELATIVE PERCENT (BEAKER) (test 0 % zglx=140) NEUTROPHILS ABSOLUTE COUNT (BEAKER) (test 10.02 K/ L 1.56-6.13 qwvx=370) LYMPHOCYTES ABSOLUTE COUNT (BEAKER) (test 1.81 K/ L 1.18-3.74 tprs=890) MONOCYTES ABSOLUTE COUNT (BEAKER) (test 1.26 K/ L 0.24-0.36 ubgi=888) EOSINOPHILS ABSOLUTE COUNT (BEAKER) (test 0.04 K/ L 0.04-0.36 gxmd=615) BASOPHILS ABSOLUTE COUNT (BEAKER) (test 0.05 K/ L 0.01-0.08 oicy=939) IMMATURE GRANULOCYTES-RELATIVE PERCENT (BEAKER) 0 % 0-1 (test qtne=1297) CALCIUM, [id number] 23:02:00 Test Item Value Reference Range Comments CALCIUM IONIZED (BEAKER) (test szwq=964) 0.92 mmol/L 1.12-1.27 PH, BLOOD (BEAKER) (test adps=2667) 7.38 [id number] 22:53:00 Test Item Value Reference Range Comments MAGNESIUM (BEAKER) (test oymp=352) 1.9 mg/dL 1.6-2.6 BASIC METABOLIC [id number] 22:53:00 Test Item Value Reference Range Comments SODIUM (BEAKER) (test 142 meq/L 136-145 xgmm=850) POTASSIUM (BEAKER) (test 3.7 meq/L 3.5-5.1 yunl=040) CHLORIDE (BEAKER) (test 113 meq/L 98-107 esyh=815) CO2 (BEAKER) (test 19 meq/L 22-29 sric=543) BLOOD UREA NITROGEN 17 mg/dL 7-21 (BEAKER) (test pfvf=396) CREATININE (BEAKER) (test 0.55 mg/dL 0.57-1.25 hedp=037) GLUCOSE RANDOM (BEAKER) 98 mg/dL 70-105 (test eckf=543) CALCIUM (BEAKER) (test 7.5 mg/dL 8.4-10.2 etsz=389) EGFR (BEAKER) (test 122 mL/min/1.73 sq m ESTIMATED GFR IS NOT fulb=4570) ACCURATE CREATININE CLEARANCE IN PREDICTING GLOMERULAR FILTRATION RATE. ESTIMATED GFR IS NOT APPLICABLE FOR DIALYSIS PATIENTS. CBC W/PLT COUNT & AUTO [id number] 22:47:00 Test Item Value Reference Range Comments WHITE BLOOD CELL COUNT (BEAKER) (test kzjr=493) 19.1 K/ L 3.5-10.5 RED BLOOD CELL COUNT (BEAKER) (test gtmy=884) 3.60 M/ L 3.93-5.22 HEMOGLOBIN (BEAKER) (test jkvo=129) 10.2 GM/DL 11.2-15.7 HEMATOCRIT (BEAKER) (test opal=373) 31.1 % 34.1-44.9 MEAN CORPUSCULAR VOLUME (BEAKER) (test mmjj=013) 86.4 fL 79.4-94.8 MEAN CORPUSCULAR HEMOGLOBIN (BEAKER) (test 28.3 pg 25.6-32.2 hgjp=615) MEAN CORPUSCULAR HEMOGLOBIN CONC (BEAKER) (test 32.8 GM/DL 32.2-35.5 glhq=042) RED CELL DISTRIBUTION WIDTH (BEAKER) (test 14.0 % 11.7-14.4 mznv=996) PLATELET COUNT (BEAKER) (test bgqb=979) 273 K/CU MM 150-450 MEAN PLATELET VOLUME (BEAKER) (test leoe=262) 9.5 fL 9.4-12.3 NUCLEATED RED BLOOD CELLS (BEAKER) (test 0 /100 WBC 0-0 udxt=186) NEUTROPHILS RELATIVE PERCENT (BEAKER) (test 88 % cjic=380) LYMPHOCYTES RELATIVE PERCENT (BEAKER) (test 4 % skqx=886) MONOCYTES RELATIVE PERCENT (BEAKER) (test 8 % krug=640) EOSINOPHILS RELATIVE PERCENT (BEAKER) (test 0 % tgjg=665) BASOPHILS RELATIVE PERCENT (BEAKER) (test 0 % hbfh=087) NEUTROPHILS ABSOLUTE COUNT (BEAKER) (test 16.75 K/ L 1.56-6.13 htpa=828) LYMPHOCYTES ABSOLUTE COUNT (BEAKER) (test 0.70 K/ L 1.18-3.74 khaf=082) MONOCYTES ABSOLUTE COUNT (BEAKER) (test 1.55 K/ L 0.24-0.36 xplg=905) EOSINOPHILS ABSOLUTE COUNT (BEAKER) (test 0.01 K/ L 0.04-0.36 elrl=521) BASOPHILS ABSOLUTE COUNT (BEAKER) (test 0.03 K/ L 0.01-0.08 vukw=633) IMMATURE GRANULOCYTES-RELATIVE PERCENT (BEAKER) 0 % 0-1 (test lmwm=2290) RAD, CHEST, 1 VIEW, NON [id number] 21:18:00Reason for exam:->ptxIs the patient ?->NoShould this [...] MDReport Verified Date/Time: 05/14/2017 21:18:07 Reading Location: [address] ReadingRoom BLOOD GAS, [id number] 17:28:00 Test Item Value Reference Range Comments PH ARTERIAL (BEAKER) (test wtod=018) 7.36 7.35-7.45 PCO2 ARTERIAL (BEAKER) (test mhyt=915) 39 mm Hg 35-45 PO2 ARTERIAL (BEAKER) (test dcbo=236) 194 mm Hg 80-90 O2 SATURATION ARTERIAL (BEAKER) (test jbnv=186) 99.3 % 96.0-97.0 HCO3 ARTERIAL (BEAKER) (test ckey=406) 22 mmol/L 21-29 BASE EXCESS ARTERIAL (BEAKER) (test njjb=216) -3.6 mmol/L -2.0-3.0 PATIENT TEMPERATURE (BEAKER) (test onyt=4334) 36.2 FIO2 (BEAKER) (test idae=1053) 50 SODIUM NA-STAT [id number] 17:28:00 Test Item Value Reference Range Comments SODIUM (BEAKER) (test tyfb=172) 134 meq/L 135-148 POTASSIUM-STAT [id number] 17:28:00 Test Item Value Reference Range Comments POTASSIUM (BEAKER) (test baep=175) 3.4 meq/L 3.6-5.5 GLUCOSE-STAT [id number] 17:28:00 Test Item Value Reference Range Comments GLUCOSE RANDOM (BEAKER) (test auac=927) 185 mg/dL 70-110 HGB/HCT (H&H) - STAT [id number] 17:28:00 Test Item Value Reference Range Comments HEMOGLOBIN (BEAKER) (test wtmv=425) 11.0 GM/DL 12.0-15.0 HEMATOCRIT (BEAKER) (test kcfe=778) 32.0 % 36.0-45.0 BLOOD GAS, [id number] 15:47:00 Test Item Value Reference Range Comments PH ARTERIAL (BEAKER) (test eqtq=095) 7.33 7.35-7.45 PCO2 ARTERIAL (BEAKER) (test eklp=755) 46 mmHg 35-45 PO2 ARTERIAL (BEAKER) (test jcfk=154) 211 mmHg 80-90 O2 SATURATION ARTERIAL (BEAKER) (test myec=653) 99.4 % 96.0-97.0 HCO3 ARTERIAL (BEAKER) (test snjq=699) 24 mmol/L 21-29 BASE EXCESS ARTERIAL (BEAKER) (test dhtx=755) -2.5 mmol/L -2.0-3.0 PATIENT TEMPERATURE (BEAKER) (test ebik=1310) 35.4 C FIO2 (BEAKER) (test bjqe=2407) 67.0 % GLUCOSE-STAT [id number] 15:47:00 Test Item Value Reference Range Comments GLUCOSE RANDOM (BEAKER) (test pbvt=150) 158 mg/dL 70-110 SODIUM NA-STAT [id number] 15:46:00 Test Item Value Reference Range Comments SODIUM (BEAKER) (test rapd=079) 137 meq/L 135-148 POTASSIUM-STAT [id number] 15:46:00 Test Item Value Reference Range Comments POTASSIUM (BEAKER) (test apal=416) 3.7 meq/L 3.6-5.5 HGB/HCT (H&H) - STAT [id number] 15:46:00 Test Item Value Reference Range Comments HEMOGLOBIN (BEAKER) (test blog=119) 12.5 g/dL 12.0-15.0 HEMATOCRIT (BEAKER) (test pvnl=641) 37.0 % 36.0-45.0 URINE [id number] 15:11:00 Test Item Value Reference Range Comments CULTURE (BEAKER) (test 30-39,000 col/mL skin cindy digc=5516) BLOOD GAS, [id number] 14:45:00 Test Item Value Reference Range Comments PH ARTERIAL (BEAKER) (test jnhc=865) 7.51 7.35-7.45 PCO2 ARTERIAL (BEAKER) (test msjl=396) 31 mmHg 35-45 PO2 ARTERIAL (BEAKER) (test wsbg=985) 458 mmHg 80-90 O2 SATURATION ARTERIAL (BEAKER) (test hber=476) 99.9 % 96.0-97.0 HCO3 ARTERIAL (BEAKER) (test imcs=208) 25 mmol/L 21-29 BASE EXCESS ARTERIAL (BEAKER) (test zinu=886) 1.8 mmol/L -2.0-3.0 PATIENT TEMPERATURE (BEAKER) (test zmuh=7820) 36.0 C FIO2 (BEAKER) (test rhto=8777) 50.0 % POTASSIUM-STAT [id number] 14:45:00 Test Item Value Reference Range Comments POTASSIUM (BEAKER) (test axmk=479) 3.3 meq/L 3.6-5.5 HGB/HCT (H&H) - STAT [id number] 14:45:00 Test Item Value Reference Range Comments HEMOGLOBIN (BEAKER) (test ctpq=719) 11.5 g/dL 12.0-15.0 HEMATOCRIT (BEAKER) (test hjwz=172) 34.0 % 36.0-45.0 GLUCOSE-STAT [id number] 14:44:00 Test Item Value Reference Range Comments GLUCOSE RANDOM (BEAKER) (test godn=322) 105 mg/dL 70-110 SODIUM NA-STAT [id number] 14:44:00 Test Item Value Reference Range Comments SODIUM (BEAKER) (test gbxs=120) 137 meq/L 135-148 SCREEN, [id number] 13:36:00 Test Item Value Reference Range Comments TEST URINE (BEAKER) (test edkd=429) Negative BLOOD [id number] 10:00:00 Test Item Value Reference Range Comments CULTURE (BEAKER) (test yruk=2335) No growth in 5 days RAD, CHEST, 1 VIEW, NON [id number] 07:28:00Reason for exam:->post opShould this be performed at the bedside?->YesFINAL REPORT Chest one view compared to May 13 Discussion: Unchanged left hemidiaphragm elevation. Cardiopulmonary appearance is similar. No effusion or pneumothorax. No atypical line or tube position. Signed: Julisa Partida Verified Date/Time: 05/14/2017 07:28:59 Reading Location: [address] Neuro Reading Room 07 :28 AMTROPONIN [id number] 05:14:00 Test Item Value Reference Range Comments TROPONIN I (BEAKER) (test ennx=677) 0.02 ng/mL 0.00-0.03 Troponin I (TnI) levels [...] failure, acidosis, acute neurological disease, and persistent tachyarrhythmia.[id number] 05:03:00 Test Item Value Reference Range Comments MAGNESIUM (BEAKER) (test whfw=489) 1.7 mg/dL 1.6-2.6 BASIC METABOLIC [id number] 05:03:00 Test Item Value Reference Range Comments SODIUM (BEAKER) (test 140 meq/L 136-145 kpxw=230) POTASSIUM (BEAKER) (test 3.4 meq/L 3.5-5.1 aovh=232) CHLORIDE (BEAKER) (test 107 meq/L 98-107 dgqa=280) CO2 (BEAKER) (test 25 meq/L 22-29 cmtg=353) BLOOD UREA NITROGEN 18 mg/dL 7-21 (BEAKER) (test lqxh=892) CREATININE (BEAKER) (test 0.53 mg/dL 0.57-1.25 hmbd=697) GLUCOSE RANDOM (BEAKER) 85 mg/dL 70-105 (test dsxn=302) CALCIUM (BEAKER) (test 8.7 mg/dL 8.4-10.2 iyav=815) EGFR (BEAKER) (test 128 mL/min/1.73 sq m ESTIMATED GFR IS NOT stns=5530) ACCURATE CREATININE CLEARANCE IN PREDICTING GLOMERULAR FILTRATION RATE. ESTIMATED GFR IS NOT APPLICABLE FOR DIALYSIS PATIENTS. CBC W/PLT COUNT & AUTO [id number] 04:51:00 Test Item Value Reference Range Comments WHITE BLOOD CELL COUNT (BEAKER) (test zdbv=495) 11.5 K/ L 3.5-10.5 RED BLOOD CELL COUNT (BEAKER) (test xumu=081) 3.92 M/ L 3.93-5.22 HEMOGLOBIN (BEAKER) (test hhvv=151) 11.1 GM/DL 11.2-15.7 HEMATOCRIT (BEAKER) (test kbgi=433) 33.0 % 34.1-44.9 MEAN CORPUSCULAR VOLUME (BEAKER) (test bwwa=523) 84.2 fL 79.4-94.8 MEAN CORPUSCULAR HEMOGLOBIN (BEAKER) (test 28.3 pg 25.6-32.2 nqtr=932) MEAN CORPUSCULAR HEMOGLOBIN CONC (BEAKER) (test 33.6 GM/DL 32.2-35.5 xfhi=585) RED CELL DISTRIBUTION WIDTH (BEAKER) (test 13.9 % 11.7-14.4 xdgp=636) PLATELET COUNT (BEAKER) (test yusv=102) 282 K/CU MM 150-450 MEAN PLATELET VOLUME (BEAKER) (test vvag=589) 9.5 fL 9.4-12.3 NUCLEATED RED BLOOD CELLS (BEAKER) (test 0 /100 WBC 0-0 qazv=147) NEUTROPHILS RELATIVE PERCENT (BEAKER) (test 71 % xkva=747) LYMPHOCYTES RELATIVE PERCENT (BEAKER) (test 15 % utnl=354) MONOCYTES RELATIVE PERCENT (BEAKER) (test 11 % zngy=701) EOSINOPHILS RELATIVE PERCENT (BEAKER) (test 3 % ltdx=461) BASOPHILS RELATIVE PERCENT (BEAKER) (test 0 % gdud=688) NEUTROPHILS ABSOLUTE COUNT (BEAKER) (test 8.12 K/ L 1.56-6.13 evtu=209) LYMPHOCYTES ABSOLUTE COUNT (BEAKER) (test 1.71 K/ L 1.18-3.74 geiy=158) MONOCYTES ABSOLUTE COUNT (BEAKER) (test 1.26 K/ L 0.24-0.36 caew=008) EOSINOPHILS ABSOLUTE COUNT (BEAKER) (test 0.34 K/ L 0.04-0.36 dntd=494) BASOPHILS ABSOLUTE COUNT (BEAKER) (test 0.05 K/ L 0.01-0.08 txyl=041) IMMATURE GRANULOCYTES-RELATIVE PERCENT (BEAKER) 0 % 0-1 (test kyur=1061) PT/[id number] 04:50:00 Test Item Value Reference Range Comments PROTIME (BEAKER) (test baop=634) 14.3 seconds 11.7-14.7 INR (BEAKER) (test wifv=209) 1.1 <=5.9 PARTIAL THROMBOPLASTIN TIME (BEAKER) (test 36.0 seconds 22.5-36.0 qssy=308) RECOMMENDED COUMADIN/WARFARIN INR THERAPY RANGESSTANDARD DOSE: 2.0 - 3.0 Includes: PROPHYLAXIS forvenous thrombosis, systemic embolization; TREATMENT for venous thrombosis and/or pulmonary embolus.HIGH RISK: Target INR is 2.5-3.5 for patients with mechanical heart valves.PROTHROMBIN TIME/[id number] 04:49: 00 Test Item Value Reference Range Comments PROTIME (BEAKER) (test eayt=680) 14.3 seconds 11.7-14.7 INR (BEAKER) (test fkqn=355) 1.1 <=5.9 RECOMMENDED COUMADIN/WARFARIN INR THERAPY RANGESSTANDARD DOSE: 2.0 - 3.0 Includes: PROPHYLAXIS forvenous thrombosis, systemic embolization; TREATMENT for venous thrombosis and/or pulmonary embolus.HIGH RISK: Target INR is 2.5-3.5 for patients with mechanical heart valves.TROPONIN [id number] 19:19:00 Test Item Value Reference Range Comments TROPONIN I (BEAKER) (test fkrg=767) < ng/mL 0.00-0.03 Troponin I (TnI) levels [...] acute neurological disease, and persistent tachyarrhythmia.URINALYSIS W/ [id number] 17: 11:00 Test Item Value Reference Range Comments COLOR (BEAKER) (test rbri=051) Yellow CLARITY (BEAKER) (test zqio=097) Hazy SPECIFIC GRAVITY UA (BEAKER) (test 1.014 1.001-1.035 qsou=362) PH UA (BEAKER) (test phbn=734) 6.0 5.0-8.0 PROTEIN UA (BEAKER) (test zlmv=700) Negative Negative GLUCOSE UA (BEAKER) (test dkef=922) Negative Negative KETONES UA (BEAKER) (test suun=995) Negative Negative BILIRUBIN UA (BEAKER) (test egxb=707) Negative Negative BLOOD UA (BEAKER) (test qhos=322) Negative Negative NITRITE UA (BEAKER) (test vrdq=778) Negative Negative LEUKOCYTE ESTERASE UA (BEAKER) (test Moderate Negative emnt=509) UROBILINOGEN UA (BEAKER) (test kcob=864) 0.2 mg/dL 0.2-1.0 RBC UA (BEAKER) (test dmwc=657) 1 /HPF WBC UA (BEAKER) (test myrz=988) 7 /HPF BACTERIA (BEAKER) (test glms=043) Rare MUCUS (BEAKER) (test zyps=6662) Occasional SQUAMOUS EPITHELIAL (BEAKER) (test 17 /HPF bent=155) SOURCE(BEAKER) (test mjwy=6722) Urine, Clean Catch TSH/FREE T4 IF [id number] 16:23:00 Test Item Value Reference Range Comments THYROID STIMULATING HORMONE (BEAKER) (test 1.07 uIU/mL 0.35-4.94 dbdw=925) [id number] 15:56:00 Test Item Value Reference Range Comments POTASSIUM (BEAKER) (test igel=667) 4.3 meq/L 3.5-5.1 CREATINE KINASE (CK), TOTAL AND [id number] 14:21:00 Test Item Value Reference Range Comments CREATINE KINASE TOTAL (BEAKER) (test bwlu=545) 19 U/L 29-200 CREATINE KINASE-MB (BEAKER) (test fgei=490) 0.5 ng/mL 0.0-6.6 CREATINE KINASE-MB INDEX (BEAKER) (test xdjg=084) 2.6 % CK-MB Reference Range:<6.7 Normal6.7-10.0 Borderline>10.0 AbnormalTROPONIN [id number] 14:20:00 Test Item Value Reference Range Comments TROPONIN I (BEAKER) (test geyh=174) < ng/mL 0.00-0.03 Troponin I (TnI) levels [...] failure, acidosis, acute neurological disease, and persistent tachyarrhythmia.[id number] 13:35:00 Test Item Value Reference Range Comments MAGNESIUM (BEAKER) (test ghjq=816) 2.5 mg/dL 1.6-2.6 PROTHROMBIN TIME/[id number] 05:20:00 Test Item Value Reference Range Comments PROTIME (BEAKER) (test mskh=448) 14.3 seconds 11.7-14.7 INR (BEAKER) (test gluy=702) 1.1 <=5.9 RECOMMENDED COUMADIN/WARFARIN INR THERAPY RANGESSTANDARD DOSE: 2.0 - 3.0 Includes: PROPHYLAXIS forvenous thrombosis, systemic embolization; TREATMENT for venous thrombosis and/or pulmonary embolus.HIGH RISK: Target INR is 2.5-3.5 for patients with mechanical heart valves.[id number] 05:19:00 Test Item Value Reference Range Comments PHOSPHORUS (BEAKER) (test qmrr=337) 4.1 mg/dL 2.3-4.7 [id number] 05:19:00 Test Item Value Reference Range Comments MAGNESIUM (BEAKER) (test uhdv=105) 2.0 mg/dL 1.6-2.6 BASIC METABOLIC [id number] 05:19:00 Test Item Value Reference Range Comments SODIUM (BEAKER) (test 138 meq/L 136-145 kktl=407) POTASSIUM (BEAKER) (test 3.6 meq/L 3.5-5.1 ehhh=926) CHLORIDE (BEAKER) (test 106 meq/L 98-107 vckb=534) CO2 (BEAKER) (test 25 meq/L 22-29 wdrq=886) BLOOD UREA NITROGEN 14 mg/dL 7-21 (BEAKER) (test zqcs=918) CREATININE (BEAKER) (test 0.52 mg/dL 0.57-1.25 vfey=130) GLUCOSE RANDOM (BEAKER) 87 mg/dL 70-105 (test brvb=310) CALCIUM (BEAKER) (test 8.6 mg/dL 8.4-10.2 cejt=247) EGFR (BEAKER) (test 131 mL/min/1.73 sq m ESTIMATED GFR IS NOT hmmh=3700) ACCURATE CREATININE CLEARANCE IN PREDICTING GLOMERULAR FILTRATION RATE. ESTIMATED GFR IS NOT APPLICABLE FOR DIALYSIS PATIENTS. CBC W/PLT COUNT & AUTO [id number] 04:56:00 Test Item Value Reference Range Comments WHITE BLOOD CELL COUNT (BEAKER) (test dxjb=367) 12.4 K/ L 3.5-10.5 RED BLOOD CELL COUNT (BEAKER) (test jtzi=173) 3.80 M/ L 3.93-5.22 HEMOGLOBIN (BEAKER) (test yjvg=469) 10.8 GM/DL 11.2-15.7 HEMATOCRIT (BEAKER) (test vihp=027) 32.5 % 34.1-44.9 MEAN CORPUSCULAR VOLUME (BEAKER) (test wwqh=737) 85.5 fL 79.4-94.8 MEAN CORPUSCULAR HEMOGLOBIN (BEAKER) (test 28.4 pg 25.6-32.2 rzkf=618) MEAN CORPUSCULAR HEMOGLOBIN CONC (BEAKER) (test 33.2 GM/DL 32.2-35.5 nnws=425) RED CELL DISTRIBUTION WIDTH (BEAKER) (test 14.1 % 11.7-14.4 wens=205) PLATELET COUNT (BEAKER) (test curs=420) 274 K/CU MM 150-450 MEAN PLATELET VOLUME (BEAKER) (test xouk=190) 9.3 fL 9.4-12.3 NUCLEATED RED BLOOD CELLS (BEAKER) (test 0 /100 WBC 0-0 qaux=555) NEUTROPHILS RELATIVE PERCENT (BEAKER) (test 67 % nyny=196) LYMPHOCYTES RELATIVE PERCENT (BEAKER) (test 18 % cltz=015) MONOCYTES RELATIVE PERCENT (BEAKER) (test 11 % xgmz=143) EOSINOPHILS RELATIVE PERCENT (BEAKER) (test 3 % peev=890) BASOPHILS RELATIVE PERCENT (BEAKER) (test 0 % iyjv=172) NEUTROPHILS ABSOLUTE COUNT (BEAKER) (test 8.33 K/ L 1.56-6.13 hndb=752) LYMPHOCYTES ABSOLUTE COUNT (BEAKER) (test 2.25 K/ L 1.18-3.74 vqnf=705) MONOCYTES ABSOLUTE COUNT (BEAKER) (test 1.34 K/ L 0.24-0.36 lpog=481) EOSINOPHILS ABSOLUTE COUNT (BEAKER) (test 0.38 K/ L 0.04-0.36 avkz=518) BASOPHILS ABSOLUTE COUNT (BEAKER) (test 0.05 K/ L 0.01-0.08 jfox=155) IMMATURE GRANULOCYTES-RELATIVE PERCENT (BEAKER) 0 % 0-1 (test hxcx=5903) RAD, CHEST, 1 VIEW, NON [id number] 04:12:00Reason for exam:->post opShould this be performed at the bedside?->YesFINAL REPORT CLINICAL INDICATION: Postop Comparison: 05/12/2017 The cardiomediastinal contours are stable. The left hemidiaphragm remains elevated. There is no focal consolidation, pneumothorax, large pleural effusion or evidence of overt pulmonary edema. Support lines are stable. Signed: Noah Porter MDReport Verified Date/Time: 05/13/2017 04:12:27 Reading Location: [address] Reading Room [id number] 20:35:00 Test Item Value Reference Range Comments MAGNESIUM (BEAKER) (test ddmu=392) 1.9 mg/dL 1.6-2.6 BASIC METABOLIC [id number] 20:35:00 Test Item Value Reference Range Comments SODIUM (BEAKER) (test 138 meq/L 136-145 dnca=248) POTASSIUM (BEAKER) (test 4.1 meq/L 3.5-5.1 rnqo=245) CHLORIDE (BEAKER) (test 107 meq/L 98-107 deue=843) CO2 (BEAKER) (test 25 meq/L 22-29 fehi=610) BLOOD UREA NITROGEN 11 mg/dL 7-21 (BEAKER) (test kgil=964) CREATININE (BEAKER) (test 0.54 mg/dL 0.57-1.25 dkmk=688) GLUCOSE RANDOM (BEAKER) 98 mg/dL 70-105 (test odhk=707) CALCIUM (BEAKER) (test 8.9 mg/dL 8.4-10.2 ojxd=449) EGFR (BEAKER) (test 125 mL/min/1.73 sq m ESTIMATED GFR IS NOT yjpo=4396) ACCURATE CREATININE CLEARANCE IN PREDICTING GLOMERULAR FILTRATION RATE. ESTIMATED GFR IS NOT APPLICABLE FOR DIALYSIS PATIENTS. CBC W/PLT COUNT & AUTO [id number] 20:26:00 Test Item Value Reference Range Comments WHITE BLOOD CELL COUNT (BEAKER) (test kjek=198) 11.5 K/ L 3.5-10.5 RED BLOOD CELL COUNT (BEAKER) (test vqfy=156) 4.01 M/ L 3.93-5.22 HEMOGLOBIN (BEAKER) (test asup=061) 11.5 GM/DL 11.2-15.7 HEMATOCRIT (BEAKER) (test toer=556) 34.1 % 34.1-44.9 MEAN CORPUSCULAR VOLUME (BEAKER) (test lbod=777) 85.0 fL 79.4-94.8 MEAN CORPUSCULAR HEMOGLOBIN (BEAKER) (test 28.7 pg 25.6-32.2 fbvn=121) MEAN CORPUSCULAR HEMOGLOBIN CONC (BEAKER) (test 33.7 GM/DL 32.2-35.5 ygmg=337) RED CELL DISTRIBUTION WIDTH (BEAKER) (test 14.1 % 11.7-14.4 fowh=343) PLATELET COUNT (BEAKER) (test ixvz=395) 278 K/CU MM 150-450 MEAN PLATELET VOLUME (BEAKER) (test jglc=977) 9.3 fL 9.4-12.3 NUCLEATED RED BLOOD CELLS (BEAKER) (test 0 /100 WBC 0-0 zadr=407) NEUTROPHILS RELATIVE PERCENT (BEAKER) (test 75 % eyhl=049) LYMPHOCYTES RELATIVE PERCENT (BEAKER) (test 13 % jtnu=503) MONOCYTES RELATIVE PERCENT (BEAKER) (test 10 % cnuq=120) EOSINOPHILS RELATIVE PERCENT (BEAKER) (test 2 % pgcb=893) BASOPHILS RELATIVE PERCENT (BEAKER) (test 1 % ymly=046) NEUTROPHILS ABSOLUTE COUNT (BEAKER) (test 8.60 K/ L 1.56-6.13 zbcf=090) LYMPHOCYTES ABSOLUTE COUNT (BEAKER) (test 1.48 K/ L 1.18-3.74 rgkm=257) MONOCYTES ABSOLUTE COUNT (BEAKER) (test 1.10 K/ L 0.24-0.36 sxfm=576) EOSINOPHILS ABSOLUTE COUNT (BEAKER) (test 0.18 K/ L 0.04-0.36 ynry=017) BASOPHILS ABSOLUTE COUNT (BEAKER) (test 0.06 K/ L 0.01-0.08 txdd=529) IMMATURE GRANULOCYTES-RELATIVE PERCENT (BEAKER) 0 % 0-1 (test jatc=1823) RAD, CHEST, 1 VIEW, NON [id number] 04:20:00Reason for exam:->post opShould this be performed at the bedside?->YesFINAL REPORT CLINICAL INDICATION: Postop Comparison: 05/11/2017 The cardiomediastinal contours are stable. The left hemidiaphragm remains elevated. Retrocardiac opacity in the left lung may reflect atelectasis but pneumonitis should be excluded clinically. There is no pneumothorax. Support lines are stable. Signed: Noah Porter MDReport Verified Date/Time: 05/12/2017 04:20:19 Reading Location: [address] Reading Room [id number] 04:14: 00 Test Item Value Reference Range Comments MAGNESIUM (BEAKER) (test jjgq=384) 1.9 mg/dL 1.6-2.6 BASIC METABOLIC [id number] 04:14:00 Test Item Value Reference Range Comments SODIUM (BEAKER) (test 140 meq/L 136-145 ecxk=022) POTASSIUM (BEAKER) (test 3.6 meq/L 3.5-5.1 ewzv=299) CHLORIDE (BEAKER) (test 106 meq/L 98-107 rmiq=217) CO2 (BEAKER) (test 25 meq/L 22-29 olsb=560) BLOOD UREA NITROGEN 8 mg/dL 7-21 (BEAKER) (test fuxc=316) CREATININE (BEAKER) (test 0.54 mg/dL 0.57-1.25 tmqi=947) GLUCOSE RANDOM (BEAKER) 106 mg/dL 70-105 (test plaw=505) CALCIUM (BEAKER) (test 8.7 mg/dL 8.4-10.2 pdwp=090) EGFR (BEAKER) (test 125 mL/min/1.73 sq m ESTIMATED GFR IS NOT lqrd=2427) ACCURATE CREATININE CLEARANCE IN PREDICTING GLOMERULAR FILTRATION RATE. ESTIMATED GFR IS NOT APPLICABLE FOR DIALYSIS PATIENTS. PROTHROMBIN [id number] 04:09:00 Test Item Value Reference Range Comments PROTIME (BEAKER) (test xfpy=216) 14.5 seconds 11.7-14.7 INR (BEAKER) (test rkue=752) 1.1 <=5.9 RECOMMENDED COUMADIN/WARFARIN INR THERAPY RANGESSTANDARD DOSE: 2.0 - 3.0 Includes: PROPHYLAXIS forvenous thrombosis, systemic embolization; TREATMENT for venous thrombosis and/or pulmonary embolus.HIGH RISK: Target INR is 2.5-3.5 for patients with mechanical heart valves.CBC W/PLT COUNT & AUTO [id number] 03:57:00 Test Item Value Reference Range Comments WHITE BLOOD CELL COUNT (BEAKER) (test wsyl=208) 10.6 K/ L 3.5-10.5 RED BLOOD CELL COUNT (BEAKER) (test bumo=634) 3.87 M/ L 3.93-5.22 HEMOGLOBIN (BEAKER) (test uwlj=603) 11.1 GM/DL 11.2-15.7 HEMATOCRIT (BEAKER) (test clup=515) 33.5 % 34.1-44.9 MEAN CORPUSCULAR VOLUME (BEAKER) (test kwoh=570) 86.6 fL 79.4-94.8 MEAN CORPUSCULAR HEMOGLOBIN (BEAKER) (test 28.7 pg 25.6-32.2 zjxa=064) MEAN CORPUSCULAR HEMOGLOBIN CONC (BEAKER) (test 33.1 GM/DL 32.2-35.5 kgdr=963) RED CELL DISTRIBUTION WIDTH (BEAKER) (test 14.3 % 11.7-14.4 yvvj=427) PLATELET COUNT (BEAKER) (test iped=298) 261 K/CU MM 150-450 MEAN PLATELET VOLUME (BEAKER) (test wojq=752) 9.7 fL 9.4-12.3 NUCLEATED RED BLOOD CELLS (BEAKER) (test 0 /100 WBC 0-0 nczp=718) NEUTROPHILS RELATIVE PERCENT (BEAKER) (test 65 % smvz=644) LYMPHOCYTES RELATIVE PERCENT (BEAKER) (test 22 % hozp=589) MONOCYTES RELATIVE PERCENT (BEAKER) (test 10 % tnmh=939) EOSINOPHILS RELATIVE PERCENT (BEAKER) (test 2 % xvun=684) BASOPHILS RELATIVE PERCENT (BEAKER) (test 0 % ocnl=796) NEUTROPHILS ABSOLUTE COUNT (BEAKER) (test 6.93 K/ L 1.56-6.13 xdow=260) LYMPHOCYTES ABSOLUTE COUNT (BEAKER) (test 2.29 K/ L 1.18-3.74 vxyl=853) MONOCYTES ABSOLUTE COUNT (BEAKER) (test 1.08 K/ L 0.24-0.36 mkcm=492) EOSINOPHILS ABSOLUTE COUNT (BEAKER) (test 0.26 K/ L 0.04-0.36 cmcp=798) BASOPHILS ABSOLUTE COUNT (BEAKER) (test 0.04 K/ L 0.01-0.08 wjlg=084) IMMATURE GRANULOCYTES-RELATIVE PERCENT (BEAKER) 0 % 0-1 (test bsjq=0536) RAD, CHEST, 1 VIEW, NON [id number] 07:47:00Reason for exam:->post opShould this be performed at the bedside?->YesFINAL REPORT CLINICAL HISTORY: post op TECHNIQUE: 1 view of the chest. COMPARISON: 05/10/2017 IMPRESSION: The supporting lines and tubes are unchanged. There is decreased elevation of the left hemidiaphragm. Left basilar atelectasis is also decreased. The cardiomediastinal silhouette is within normal limits for size. Signed: Eugene Chapman MDReport Verified Date/Time: 05/11/2017 07:47:20 Reading Location: [facility] Reading Room PROTHROMBIN TIME/[id number] 04:54: 00 Test Item Value Reference Range Comments PROTIME (BEAKER) (test nyjp=811) 14.3 seconds 11.7-14.7 INR (BEAKER) (test hbas=551) 1.1 <=5.9 RECOMMENDED COUMADIN/WARFARIN INR THERAPY RANGESSTANDARD DOSE: 2.0 - 3.0 Includes: PROPHYLAXIS forvenous thrombosis, systemic embolization; TREATMENT for venous thrombosis and/or pulmonary embolus.HIGH RISK: Target INR is 2.5-3.5 for patients with mechanical heart valves.CBC W/PLT COUNT & AUTO [id number] 04:44:00 Test Item Value Reference Range Comments WHITE BLOOD CELL COUNT (BEAKER) (test demb=674) 11.3 K/ L 3.5-10.5 RED BLOOD CELL COUNT (BEAKER) (test bgwc=593) 4.02 M/ L 3.93-5.22 HEMOGLOBIN (BEAKER) (test rqee=630) 11.4 GM/DL 11.2-15.7 HEMATOCRIT (BEAKER) (test zhiq=820) 34.4 % 34.1-44.9 MEAN CORPUSCULAR VOLUME (BEAKER) (test fxew=962) 85.6 fL 79.4-94.8 MEAN CORPUSCULAR HEMOGLOBIN (BEAKER) (test 28.4 pg 25.6-32.2 fuvd=801) MEAN CORPUSCULAR HEMOGLOBIN CONC (BEAKER) (test 33.1 GM/DL 32.2-35.5 ikzu=496) RED CELL DISTRIBUTION WIDTH (BEAKER) (test 14.1 % 11.7-14.4 ucmr=769) PLATELET COUNT (BEAKER) (test isyi=852) 260 K/CU MM 150-450 MEAN PLATELET VOLUME (BEAKER) (test okwa=771) 9.6 fL 9.4-12.3 NUCLEATED RED BLOOD CELLS (BEAKER) (test 0 /100 WBC 0-0 asrd=666) NEUTROPHILS RELATIVE PERCENT (BEAKER) (test 75 % qcyp=682) LYMPHOCYTES RELATIVE PERCENT (BEAKER) (test 14 % linv=644) MONOCYTES RELATIVE PERCENT (BEAKER) (test 9 % zasa=491) EOSINOPHILS RELATIVE PERCENT (BEAKER) (test 2 % wwri=721) BASOPHILS RELATIVE PERCENT (BEAKER) (test 0 % fsdn=126) NEUTROPHILS ABSOLUTE COUNT (BEAKER) (test 8.40 K/ L 1.56-6.13 abku=484) LYMPHOCYTES ABSOLUTE COUNT (BEAKER) (test 1.53 K/ L 1.18-3.74 jvsa=402) MONOCYTES ABSOLUTE COUNT (BEAKER) (test 1.04 K/ L 0.24-0.36 pnsx=449) EOSINOPHILS ABSOLUTE COUNT (BEAKER) (test 0.21 K/ L 0.04-0.36 doja=837) BASOPHILS ABSOLUTE COUNT (BEAKER) (test 0.05 K/ L 0.01-0.08 kpwu=318) IMMATURE GRANULOCYTES-RELATIVE PERCENT (BEAKER) 0 % 0-1 (test pnyi=4503) [id number] 04:39:00 Test Item Value Reference Range Comments MAGNESIUM (BEAKER) (test cudr=290) 2.2 mg/dL 1.6-2.6 BASIC METABOLIC [id number] 04:39:00 Test Item Value Reference Range Comments SODIUM (BEAKER) (test 139 meq/L 136-145 slua=528) POTASSIUM (BEAKER) (test 3.5 meq/L 3.5-5.1 emzp=221) CHLORIDE (BEAKER) (test 105 meq/L 98-107 eqqf=141) CO2 (BEAKER) (test 28 meq/L 22-29 eozr=914) BLOOD UREA NITROGEN 6 mg/dL 7-21 (BEAKER) (test dzdy=926) CREATININE (BEAKER) (test 0.55 mg/dL 0.57-1.25 nqcf=180) GLUCOSE RANDOM (BEAKER) 103 mg/dL 70-105 (test hgwz=015) CALCIUM (BEAKER) (test 8.4 mg/dL 8.4-10.2 uwnx=653) EGFR (BEAKER) (test 122 mL/min/1.73 sq m ESTIMATED GFR IS NOT dili=2167) ACCURATE CREATININE CLEARANCE IN PREDICTING GLOMERULAR FILTRATION RATE. ESTIMATED GFR IS NOT APPLICABLE FOR DIALYSIS PATIENTS. CREATINE KINASE (CK), TOTAL AND [id number] 00:14:00 Test Item Value Reference Range Comments CREATINE KINASE TOTAL (BEAKER) (test vmsg=143) 44 U/L 29-200 CREATINE KINASE-MB (BEAKER) (test oyhc=162) 0.7 ng/mL 0.0-6.6 CREATINE KINASE-MB INDEX (BEAKER) (test gnyw=008) 1.6 % CK-MB Reference Range:<6.7 Normal6.7-10.0 Borderline>10.0 AbnormalTROPONIN [id number] 23:38:00 Test Item Value Reference Range Comments TROPONIN I (BEAKER) (test lwkb=540) < ng/mL 0.00-0.03 Troponin I (TnI) levels [...] failure, acidosis, acute neurological disease, and persistent tachyarrhythmia.[id number] 23:29:00 Test Item Value Reference Range Comments MAGNESIUM (BEAKER) (test 1.7 mg/dL 1.6-2.6 Specimen slightly hemolyzed hdnp=329) [id number] 23:29:00 Test Item Value Reference Range Comments PHOSPHORUS (BEAKER) (test 3.5 mg/dL 2.3-4.7 Specimen slightly hemolyzed ffkn=652) BASIC METABOLIC [id number] 23:29:00 Test Item Value Reference Range Comments SODIUM (BEAKER) (test 139 meq/L 136-145 hstg=866) POTASSIUM (BEAKER) (test 3.9 meq/L 3.5-5.1 Specimen slightly jcwx=362) hemolyzed CHLORIDE (BEAKER) (test 104 meq/L 98-107 ckqv=292) CO2 (BEAKER) (test 27 meq/L 22-29 ubji=222) BLOOD UREA NITROGEN 6 mg/dL 7-21 (BEAKER) (test nuzx=164) CREATININE (BEAKER) (test 0.53 mg/dL 0.57-1.25 Specimen slightly igpo=472) hemolyzed GLUCOSE RANDOM (BEAKER) 92 mg/dL 70-105 (test wsak=231) CALCIUM (BEAKER) (test 8.6 mg/dL 8.4-10.2 nmqr=093) EGFR (BEAKER) (test 128 mL/min/1.73 sq m ESTIMATED GFR IS NOT zaue=6509) ACCURATE CREATININE CLEARANCE IN PREDICTING GLOMERULAR FILTRATION RATE. ESTIMATED GFR IS NOT APPLICABLE FOR DIALYSIS PATIENTS. LACTIC ACID, VENOUS, WHOLE [id number] 23:26:00 Test Item Value Reference Range Comments LACTATE BLOOD VENOUS (2) (BEAKER) (test 1.2 mmol/L 0.5-2.2 ckng=8632) Effective 09/17/2015: Units/Reference Range ChangeNew: 0.5-2.2 mmol/L Previous: 5 -20 mg/dLBLOOD GAS, [id number] 23:02:00 Test Item Value Reference Range Comments PH VENOUS (BEAKER) (test udmv=249) 7.43 7.32-7.42 PCO2 VENOUS (BEAKER) (test ruhw=406) 45 mmHg 41-51 PO2 VENOUS (BEAKER) (test wpgg=301) 256 mmHg 25-40 O2 SATURATION VENOUS (BEAKER) (test soja=219) 99.6 % 40.0-70.0 HCO3 VENOUS (BEAKER) (test ldoq=977) 29 mmol/L 21-29 BASE EXCESS VENOUS (BEAKER) (test hhut=926) 4.0 mmol/L -2.0-3.0 PATIENT TEMPERATURE (BEAKER) (test fuef=0134) 36.3 C FIO2 (BEAKER) (test izzx=6604) 21.0 % Blood looks arterial.RAD, CHEST, 1 VIEW, NON [id number] 19:28:00Reason for exam:->check picc placement Should this [...] MDReport Verified Date/Time: 05/10/2017 19:28:53 Reading Location: [facility] B1 [id number] Consult Reading Room BLOOD GAS, [id number] 07:29:00 Test Item Value Reference Range Comments PH ARTERIAL (BEAKER) (test zwli=277) 7.41 7.35-7.45 PCO2 ARTERIAL (BEAKER) (test ssud=500) 44 mmHg 35-45 PO2 ARTERIAL (BEAKER) (test ahkr=491) 81 mmHg 80-90 O2 SATURATION ARTERIAL (BEAKER) (test kjeb=728) 96.2 % 96.0-97.0 HCO3 ARTERIAL (BEAKER) (test cyey=177) 28 mmol/L 21-29 BASE EXCESS ARTERIAL (BEAKER) (test ykks=305) 2.5 mmol/L -2.0-3.0 PATIENT TEMPERATURE (BEAKER) (test dvrd=3078) 36.7 C FIO2 (BEAKER) (test jiul=0709) 21.0 % [id number] 06:41:00 Test Item Value Reference Range Comments MAGNESIUM (BEAKER) (test xbei=814) 1.6 mg/dL 1.6-2.6 BASIC METABOLIC [id number] 06:41:00 Test Item Value Reference Range Comments SODIUM (BEAKER) (test 137 meq/L 136-145 wkpd=361) POTASSIUM (BEAKER) (test 3.8 meq/L 3.5-5.1 emoc=692) CHLORIDE (BEAKER) (test 105 meq/L 98-107 dqve=666) CO2 (BEAKER) (test 28 meq/L 22-29 pfwt=013) BLOOD UREA NITROGEN 6 mg/dL 7-21 (BEAKER) (test dguf=059) CREATININE (BEAKER) (test 0.52 mg/dL 0.57-1.25 lgcx=374) GLUCOSE RANDOM (BEAKER) 94 mg/dL 70-105 (test bmhl=337) CALCIUM (BEAKER) (test 8.0 mg/dL 8.4-10.2 cgns=664) EGFR (BEAKER) (test 131 mL/min/1.73 sq m ESTIMATED GFR IS NOT kvax=5909) ACCURATE CREATININE CLEARANCE IN PREDICTING GLOMERULAR FILTRATION RATE. ESTIMATED GFR IS NOT APPLICABLE FOR DIALYSIS PATIENTS. PROTHROMBIN [id number] 06:11:00 Test Item Value Reference Range Comments PROTIME (BEAKER) (test luqq=821) 15.1 seconds 11.7-14.7 INR (BEAKER) (test owrc=417) 1.2 <=5.9 RECOMMENDED COUMADIN/WARFARIN INR THERAPY RANGESSTANDARD DOSE: 2.0 - 3.0 Includes: PROPHYLAXIS forvenous thrombosis, systemic embolization; TREATMENT for venous thrombosis and/or pulmonary embolus.HIGH RISK: Target INR is 2.5-3.5 for patients with mechanical heart valves.LACTIC ACID, ARTERIAL, WHOLE [id number] 06:08:00 Test Item Value Reference Range Comments LACTATE BLOOD ARTERIAL (2) (BEAKER) (test 0.8 mmol/L 0.5-2.2 jyll=8093) Effective 09/17/2015: Units/Reference Range ChangeNew: 0.5-2.2 mmol/L Previous: 5 -20 mg/dLCBC W/PLT COUNT & AUTO [id number] 06:02:00 Test Item Value Reference Range Comments WHITE BLOOD CELL COUNT (BEAKER) (test jcgn=890) 10.6 K/ L 3.5-10.5 RED BLOOD CELL COUNT (BEAKER) (test rpko=157) 4.10 M/ L 3.93-5.22 HEMOGLOBIN (BEAKER) (test oump=760) 11.6 GM/DL 11.2-15.7 HEMATOCRIT (BEAKER) (test mvuf=810) 35.3 % 34.1-44.9 MEAN CORPUSCULAR VOLUME (BEAKER) (test yisq=649) 86.1 fL 79.4-94.8 MEAN CORPUSCULAR HEMOGLOBIN (BEAKER) (test 28.3 pg 25.6-32.2 offv=881) MEAN CORPUSCULAR HEMOGLOBIN CONC (BEAKER) (test 32.9 GM/DL 32.2-35.5 kbze=008) RED CELL DISTRIBUTION WIDTH (BEAKER) (test 14.4 % 11.7-14.4 bcfm=584) PLATELET COUNT (BEAKER) (test jrtd=253) 261 K/CU MM 150-450 MEAN PLATELET VOLUME (BEAKER) (test jaau=581) 9.8 fL 9.4-12.3 NUCLEATED RED BLOOD CELLS (BEAKER) (test 0 /100 WBC 0-0 yayp=657) NEUTROPHILS RELATIVE PERCENT (BEAKER) (test 67 % drna=402) LYMPHOCYTES RELATIVE PERCENT (BEAKER) (test 21 % bsmy=119) MONOCYTES RELATIVE PERCENT (BEAKER) (test 8 % punj=873) EOSINOPHILS RELATIVE PERCENT (BEAKER) (test 4 % cxaw=794) BASOPHILS RELATIVE PERCENT (BEAKER) (test 0 % wjic=550) NEUTROPHILS ABSOLUTE COUNT (BEAKER) (test 7.07 K/ L 1.56-6.13 gzho=916) LYMPHOCYTES ABSOLUTE COUNT (BEAKER) (test 2.22 K/ L 1.18-3.74 exkn=962) MONOCYTES ABSOLUTE COUNT (BEAKER) (test 0.88 K/ L 0.24-0.36 jgtm=282) EOSINOPHILS ABSOLUTE COUNT (BEAKER) (test 0.38 K/ L 0.04-0.36 ltnc=094) BASOPHILS ABSOLUTE COUNT (BEAKER) (test 0.03 K/ L 0.01-0.08 arer=754) IMMATURE GRANULOCYTES-RELATIVE PERCENT (BEAKER) 0 % 0-1 (test gkhn=7318) RAD, ABDOMEN/KUB, 1 VIEW [id number] 04:38:00Reason for exam:->abdominao painFINAL REPORT CLINICAL HISTORY: [...] Verified Date/Time : 05/10/2017 04:38:02 [address], CHEST, 1 VIEW, NON [id number] 04:34:00Reason for exam:->post opShould this be performed at the bedside?->YesFINAL REPORT CLINICAL INDICATION: Postop Comparison: 05/09/2017 The cardiomediastinal contours are stable. The left hemidiaphragm remains elevated. Patchy opacity in the left lower lung may reflect atelectasis but pneumonitis should be excluded clinically. There is no pneumothorax. A nasogastric tube remains in place. Signed: Noah Porter MDReport Verified Date/Time: 05/10/2017 04:34:08 Reading Location: [address] Reading Room BASIC METABOLIC [id number] 18:31 :00 Test Item Value Reference Range Comments SODIUM (BEAKER) (test 139 meq/L 136-145 qieo=804) POTASSIUM (BEAKER) (test 4.1 meq/L 3.5-5.1 Specimen slightly zhzy=451) hemolyzed CHLORIDE (BEAKER) (test 105 meq/L 98-107 pxof=659) CO2 (BEAKER) (test 27 meq/L 22-29 nnqr=468) BLOOD UREA NITROGEN 6 mg/dL 7-21 (BEAKER) (test oflj=574) CREATININE (BEAKER) (test 0.62 mg/dL 0.57-1.25 Specimen slightly ziun=260) hemolyzed GLUCOSE RANDOM (BEAKER) 94 mg/dL 70-105 (test mykj=907) CALCIUM (BEAKER) (test 8.1 mg/dL 8.4-10.2 avwi=917) EGFR (BEAKER) (test 107 mL/min/1.73 sq m ESTIMATED GFR IS NOT kfti=0459) ACCURATE CREATININE CLEARANCE IN PREDICTING GLOMERULAR FILTRATION RATE. ESTIMATED GFR IS NOT APPLICABLE FOR DIALYSIS PATIENTS. RAD, CHEST, 1 VIEW, NON [id number] 17:05:00Reason for exam:->NGT repositioned Should this be [...] MDReport Verified Date/Time: 05/09/2017 17:05:43 Reading Location: [address] Body Reading Room 05: 05 PMLACTIC ACID, ARTERIAL, WHOLE [id number] 17:02:00 Test Item Value Reference Range Comments LACTATE BLOOD ARTERIAL (2) 1.5 mmol/L 0.5-2.2 Specimen slightly hemolyzed (BEAKER) (test afvh=8981) Effective 09/17/2015: Units/Reference Range ChangeNew: 0.5-2.2 mmol/L Previous: 5 -20 mg/dLBLOOD GAS, [id number] 16:34:00 Test Item Value Reference Range Comments PH ARTERIAL (BEAKER) (test oboa=629) 7.45 7.35-7.45 PCO2 ARTERIAL (BEAKER) (test peyp=206) 39 mmHg 35-45 PO2 ARTERIAL (BEAKER) (test oqeh=037) 205 mmHg 80-90 O2 SATURATION ARTERIAL (BEAKER) (test ahfc=680) 99.4 % 96.0-97.0 HCO3 ARTERIAL (BEAKER) (test dgwu=411) 27 mmol/L 21-29 BASE EXCESS ARTERIAL (BEAKER) (test ixyj=517) 2.4 mmol/L -2.0-3.0 PATIENT TEMPERATURE (BEAKER) (test wues=0600) 37.0 C FIO2 (BEAKER) (test inwo=2700) 21.0 % CBC W/PLT COUNT & AUTO [id number] 16:33:00 Test Item Value Reference Range Comments WHITE BLOOD CELL COUNT (BEAKER) (test wbio=958) 14.1 K/ L 3.5-10.5 RED BLOOD CELL COUNT (BEAKER) (test xcnq=996) 4.16 M/ L 3.93-5.22 HEMOGLOBIN (BEAKER) (test acjp=436) 11.9 GM/DL 11.2-15.7 HEMATOCRIT (BEAKER) (test lgcw=310) 36.3 % 34.1-44.9 MEAN CORPUSCULAR VOLUME (BEAKER) (test infm=122) 87.3 fL 79.4-94.8 MEAN CORPUSCULAR HEMOGLOBIN (BEAKER) (test 28.6 pg 25.6-32.2 unbb=436) MEAN CORPUSCULAR HEMOGLOBIN CONC (BEAKER) (test 32.8 GM/DL 32.2-35.5 pfmm=061) RED CELL DISTRIBUTION WIDTH (BEAKER) (test 14.5 % 11.7-14.4 uefc=021) PLATELET COUNT (BEAKER) (test rsjn=665) 264 K/CU MM 150-450 MEAN PLATELET VOLUME (BEAKER) (test wsng=658) 9.6 fL 9.4-12.3 NUCLEATED RED BLOOD CELLS (BEAKER) (test 0 /100 WBC 0-0 pfjp=993) NEUTROPHILS RELATIVE PERCENT (BEAKER) (test 74 % ksep=685) LYMPHOCYTES RELATIVE PERCENT (BEAKER) (test 17 % uftk=336) MONOCYTES RELATIVE PERCENT (BEAKER) (test 6 % tbmu=676) EOSINOPHILS RELATIVE PERCENT (BEAKER) (test 2 % dphh=098) BASOPHILS RELATIVE PERCENT (BEAKER) (test 0 % bqhj=784) NEUTROPHILS ABSOLUTE COUNT (BEAKER) (test 10.45 K/ L 1.56-6.13 sbqa=568) LYMPHOCYTES ABSOLUTE COUNT (BEAKER) (test 2.37 K/ L 1.18-3.74 eayj=434) MONOCYTES ABSOLUTE COUNT (BEAKER) (test 0.84 K/ L 0.24-0.36 nfar=178) EOSINOPHILS ABSOLUTE COUNT (BEAKER) (test 0.34 K/ L 0.04-0.36 mrsg=955) BASOPHILS ABSOLUTE COUNT (BEAKER) (test 0.05 K/ L 0.01-0.08 puwb=049) IMMATURE GRANULOCYTES-RELATIVE PERCENT (BEAKER) 0 % 0-1 (test gnlg=8162) SCREEN, [id number] 12:41:00 Test Item Value Reference Range Comments TEST URINE (BEAKER) (test ejzl=228) Negative LACTIC ACID, ARTERIAL, WHOLE [id number] 12:02:00 Test Item Value Reference Range Comments LACTATE BLOOD ARTERIAL (2) (BEAKER) (test 1.0 mmol/L 0.5-2.2 digc=8956) Effective 09/17/2015: Units/Reference Range ChangeNew: 0.5-2.2 mmol/L Previous: 5 -20 mg/dLRAD, CHEST, 1 VIEW, NON [id number] 11:21:00Reason for exam:-> postopShould this be performed [...] MDReport Verified Date/Time: 05/09/2017 11:21:35 Reading Location: [facility] C013Y CT Body Reading Room Electronically signed by: ELIESER GROSSMAN M.D. on05/09/2017 11:21 AMBASIC METABOLIC [id number] 10:24:00 Test Item Value Reference Range Comments SODIUM (BEAKER) (test 138 meq/L 136-145 ufpo=102) POTASSIUM (BEAKER) (test 4.1 meq/L 3.5-5.1 nhnp=033) CHLORIDE (BEAKER) (test 108 meq/L 98-107 bwbm=536) CO2 (BEAKER) (test 25 meq/L 22-29 scwx=238) BLOOD UREA NITROGEN 10 mg/dL 7-21 (BEAKER) (test cvot=676) CREATININE (BEAKER) (test 0.61 mg/dL 0.57-1.25 ftwm=985) GLUCOSE RANDOM (BEAKER) 91 mg/dL 70-105 (test bllr=189) CALCIUM (BEAKER) (test 7.4 mg/dL 8.4-10.2 tzrm=005) EGFR (BEAKER) (test 109 mL/min/1.73 sq m ESTIMATED GFR IS NOT ptak=2224) ACCURATE CREATININE CLEARANCE IN PREDICTING GLOMERULAR FILTRATION RATE. ESTIMATED GFR IS NOT APPLICABLE FOR DIALYSIS PATIENTS. CBC W/PLT COUNT & AUTO [id number] 09:28:00 Test Item Value Reference Range Comments WHITE BLOOD CELL COUNT (BEAKER) (test uedg=610) 10.3 K/ L 3.5-10.5 RED BLOOD CELL COUNT (BEAKER) (test cezn=038) 4.12 M/ L 3.93-5.22 HEMOGLOBIN (BEAKER) (test hodt=090) 11.8 GM/DL 11.2-15.7 HEMATOCRIT (BEAKER) (test kodl=160) 36.1 % 34.1-44.9 MEAN CORPUSCULAR VOLUME (BEAKER) (test metn=801) 87.6 fL 79.4-94.8 MEAN CORPUSCULAR HEMOGLOBIN (BEAKER) (test 28.6 pg 25.6-32.2 leuk=196) MEAN CORPUSCULAR HEMOGLOBIN CONC (BEAKER) (test 32.7 GM/DL 32.2-35.5 uuaf=229) RED CELL DISTRIBUTION WIDTH (BEAKER) (test 14.6 % 11.7-14.4 klhd=464) PLATELET COUNT (BEAKER) (test zzph=736) 278 K/CU MM 150-450 MEAN PLATELET VOLUME (BEAKER) (test xwvy=168) 9.6 fL 9.4-12.3 NUCLEATED RED BLOOD CELLS (BEAKER) (test 0 /100 WBC 0-0 lafa=980) NEUTROPHILS RELATIVE PERCENT (BEAKER) (test 58 % toac=025) LYMPHOCYTES RELATIVE PERCENT (BEAKER) (test 30 % jcpy=652) MONOCYTES RELATIVE PERCENT (BEAKER) (test 8 % ofkr=581) EOSINOPHILS RELATIVE PERCENT (BEAKER) (test 4 % mxma=483) BASOPHILS RELATIVE PERCENT (BEAKER) (test 1 % gkla=914) NEUTROPHILS ABSOLUTE COUNT (BEAKER) (test 6.00 K/ L 1.56-6.13 ryyd=105) LYMPHOCYTES ABSOLUTE COUNT (BEAKER) (test 3.05 K/ L 1.18-3.74 fwxf=645) MONOCYTES ABSOLUTE COUNT (BEAKER) (test 0.79 K/ L 0.24-0.36 kkaw=986) EOSINOPHILS ABSOLUTE COUNT (BEAKER) (test 0.39 K/ L 0.04-0.36 gxkq=630) BASOPHILS ABSOLUTE COUNT (BEAKER) (test 0.06 K/ L 0.01-0.08 mrmz=118) IMMATURE GRANULOCYTES-RELATIVE PERCENT (BEAKER) 0 % 0-1 (test suwg=1354) CALCIUM, [id number] 08:45:00 Test Item Value Reference Range Comments CALCIUM IONIZED (BEAKER) (test krrn=806) 0.98 mmol/L 1.12-1.27 PH, BLOOD (BEAKER) (test qfcv=3735) 7.43 BLOOD GAS, [id number] 08:45:00 Test Item Value Reference Range Comments PH ARTERIAL (BEAKER) (test zyhf=183) 7.43 7.35-7.45 PCO2 ARTERIAL (BEAKER) (test ypee=607) 42 mmHg 35-45 PO2 ARTERIAL (BEAKER) (test smrc=402) 489 mmHg 80-90 O2 SATURATION ARTERIAL (BEAKER) (test xarj=812) 99.9 % 96.0-97.0 HCO3 ARTERIAL (BEAKER) (test zgvj=020) 28 mmol/L 21-29 BASE EXCESS ARTERIAL (BEAKER) (test neif=597) 3.0 mmol/L -2.0-3.0 PATIENT TEMPERATURE (BEAKER) (test juvp=8934) 36.5 C FIO2 (BEAKER) (test ktnd=5515) 70.0 % SODIUM NA-STAT [id number] 08:45:00 Test Item Value Reference Range Comments SODIUM (BEAKER) (test dooc=982) 134 meq/L 135-148 HGB/HCT (H&H) - STAT [id number] 08:45:00 Test Item Value Reference Range Comments HEMOGLOBIN (BEAKER) (test iroa=138) 11.8 g/dL 12.0-15.0 HEMATOCRIT (BEAKER) (test zoug=934) 35.0 % 36.0-45.0 GLUCOSE-STAT [id number] 08:44:00 Test Item Value Reference Range Comments GLUCOSE RANDOM (BEAKER) (test udke=592) 83 mg/dL 70-110 POTASSIUM-STAT [id number] 08:44:00 Test Item Value Reference Range Comments POTASSIUM (BEAKER) (test uyty=947) 4.3 meq/L 3.6-5.5 BASIC METABOLIC [id number] 01:21:00 Test Item Value Reference Range Comments SODIUM (BEAKER) (test 140 meq/L 136-145 xvfi=024) POTASSIUM (BEAKER) (test 4.2 meq/L 3.5-5.1 pxgu=827) CHLORIDE (BEAKER) (test 108 meq/L 98-107 fkwx=247) CO2 (BEAKER) (test 26 meq/L 22-29 dgdx=688) BLOOD UREA NITROGEN 12 mg/dL 7-21 (BEAKER) (test waxw=513) CREATININE (BEAKER) (test 0.63 mg/dL 0.57-1.25 fckm=110) GLUCOSE RANDOM (BEAKER) 78 mg/dL 70-105 (test wzes=051) CALCIUM (BEAKER) (test 7.8 mg/dL 8.4-10.2 wveq=786) EGFR (BEAKER) (test 105 mL/min/1.73 sq m ESTIMATED GFR IS NOT fqyr=8045) ACCURATE CREATININE CLEARANCE IN PREDICTING GLOMERULAR FILTRATION RATE. ESTIMATED GFR IS NOT APPLICABLE FOR DIALYSIS PATIENTS. LACTIC ACID, VENOUS, WHOLE [id number] 01:04:00 Test Item Value Reference Range Comments LACTATE BLOOD VENOUS (2) (BEAKER) (test 0.9 mmol/L 0.5-2.2 xabh=6886) Effective 09/17/2015: Units/Reference Range ChangeNew: 0.5-2.2 mmol/L Previous: 5 -20 mg/dLPOCT-GLUCOSE [id number] 00:46:00 Test Item Value Reference Range Comments POC-GLUCOSE METER (BEAKER) 87 mg/dL 70-110 TESTED AT [facility] [address] [facility] (test gktu=9390) [facility] [address] PROTHROMBIN TIME/[id number] 00:37:00 Test Item Value Reference Range Comments PROTIME (BEAKER) (test inow=680) 13.9 seconds 11.7-14.7 INR (BEAKER) (test smzb=290) 1.1 <=5.9 RECOMMENDED COUMADIN/WARFARIN INR THERAPY RANGESSTANDARD DOSE: 2.0 - 3.0 Includes: PROPHYLAXIS forvenous thrombosis, systemic embolization; TREATMENT for venous thrombosis and/or pulmonary embolus.HIGH RISK: Target INR is 2.5-3.5 for patients with mechanical heart valves.CBC W/PLT COUNT & AUTO [id number] 00:28:00 Test Item Value Reference Range Comments WHITE BLOOD CELL COUNT (BEAKER) (test jsln=278) 9.2 K/ L 3.5-10.5 RED BLOOD CELL COUNT (BEAKER) (test zhon=604) 4.08 M/ L 3.93-5.22 HEMOGLOBIN (BEAKER) (test kfwr=849) 11.6 GM/DL 11.2-15.7 HEMATOCRIT (BEAKER) (test ivyy=824) 35.7 % 34.1-44.9 MEAN CORPUSCULAR VOLUME (BEAKER) (test gocy=055) 87.5 fL 79.4-94.8 MEAN CORPUSCULAR HEMOGLOBIN (BEAKER) (test 28.4 pg 25.6-32.2 pihl=290) MEAN CORPUSCULAR HEMOGLOBIN CONC (BEAKER) (test 32.5 GM/DL 32.2-35.5 bcxx=606) RED CELL DISTRIBUTION WIDTH (BEAKER) (test 14.5 % 11.7-14.4 ccfj=164) PLATELET COUNT (BEAKER) (test jpqj=139) 256 K/CU MM 150-450 MEAN PLATELET VOLUME (BEAKER) (test bigs=599) 9.7 fL 9.4-12.3 NUCLEATED RED BLOOD CELLS (BEAKER) (test 0 /100 WBC 0-0 jxnz=226) NEUTROPHILS RELATIVE PERCENT (BEAKER) (test 53 % hzmu=973) LYMPHOCYTES RELATIVE PERCENT (BEAKER) (test 33 % jife=013) MONOCYTES RELATIVE PERCENT (BEAKER) (test 9 % olds=344) EOSINOPHILS RELATIVE PERCENT (BEAKER) (test 4 % kccz=049) BASOPHILS RELATIVE PERCENT (BEAKER) (test 1 % bbvw=933) NEUTROPHILS ABSOLUTE COUNT (BEAKER) (test 4.85 K/ L 1.56-6.13 digi=261) LYMPHOCYTES ABSOLUTE COUNT (BEAKER) (test 3.00 K/ L 1.18-3.74 cesi=665) MONOCYTES ABSOLUTE COUNT (BEAKER) (test 0.85 K/ L 0.24-0.36 mqel=196) EOSINOPHILS ABSOLUTE COUNT (BEAKER) (test 0.40 K/ L 0.04-0.36 rjxi=132) BASOPHILS ABSOLUTE COUNT (BEAKER) (test 0.07 K/ L 0.01-0.08 sadn=566) IMMATURE GRANULOCYTES-RELATIVE PERCENT (BEAKER) 0 % 0-1 (test bdra=4355)
[2018-10-16 12:08] LABS: Absolute Lymphocytes (CBC) 1.9 K/uL (0.7-4.9); Absolute Monocytes 0.6 K/uL (0.1-1.3); Absolute Neutrophil 6.2 K/uL (1.8-8.0); Basophils % 0.4 % (0-1.3); Eosinophils % 3.3 % (0-4.4); Hematocrit 29.2 % (36.0-45.0); Lymphocytes % 21.5 % (15.3-44.8); MPV 8.3 fL (7.6-11.3); Monocytes % 6.7 % (3.3-12.3); RBC Red Blood Cell Count 3.21 M/uL (3.86-4.86)
--- NOTE | 2018-10-16 12:21 | RAD REPORT ---
EXAM DESCRIPTION: RAD - Chest Single View - 10/16/2018 12:15 pm CLINICAL HISTORY: COUGH Chest pain. COMPARISON: Chest Single View dated 05/08/2017; Chest Single View dated 11/25/2015; Chest Single View dated 09/26/2015 FINDINGS: Portable technique limits examination quality. The lungs are grossly clear. The heart is normal in size. No displaced fractures. Small hiatal hernia is present. IMPRESSION: No acute intrathoracic process suspected.
[2018-10-16 12:26] LABS: Barbiturates NEGATIVE (NEGATIVE); Benzodiazepines POSITIVE (NEGATIVE); Cocaine NEGATIVE (NEGATIVE); METHAMPHETAM NEGATIVE (NEGATIVE); Methadone NEGATIVE (NEGATIVE); Opiates NEGATIVE (NEGATIVE); Phencyclidine NEGATIVE (NEGATIVE); THC Cannibis NEGATIVE (NEGATIVE)
[2018-10-16] MEDS ORDERED: NA CHLORIDE 0.9% 2,000 ML ONE (12:40)
[2018-10-16 12:42] LABS: ALT/SGPT 13 U/L (12-78); AST/SGOT 18 U/L (15-37); Albumin 2.5 g/dL (3.4-5.0); Alkaline Phosphatase 52 U/L (45-117); BUN Blood Urea Nitrogen 8 mg/dL (7-18); Bicarbonate 23 mmol/L (21-32); Bilirubin Direct < 0.1 mg/dL (0-0.2); Bilirubin Total 0.1 mg/dL (0.2-1.0); Glucose Level 88 mg/dL (74-106); HCG, Quantitative 1484 mIU/mL (1-3); Magnesium 1.7 mg/dL (1.8-2.4); NT PRO-BNP 252 pg/mL (<125); Potassium 3.5 mmol/L (3.5-5.1); Protein, Total 5.5 g/dL (6.4-8.2); Sodium Level 142 mmol/L (136-145); Troponin (Emerg Dept Use Only) < 0.02 ng/mL (0.0-0.045)
--- NOTE | 2018-10-16 13:06 | RAD REPORT ---
EXAM DESCRIPTION: US - OB Complete - 10/16/2018 12:57 pm CLINICAL HISTORY: ABD CRAMPING, age. COMPARISON: OB Limited dated 08/09/2018 FINDINGS: A single cephalic presenting gestation is identified. Heart rate normal. The intracranial contents and spine are suboptimal in visualization due to head position. A normal stomach bubble is noted. A normal fluid-filled urinary bladder seen without pelviecta sis. Suboptimal visualization of the three-vessel cord due to position. Four-chamber view the h eart was suboptimally seen. Estimated weight is 2 pounds 9 ounces +/-6 ounces. Symmetric interv al growth has occurred since the comparative study. Transvaginal assessment of the cervix was also performed. The cervix is long and closed measuring 5 c m. A marginal placenta previa is noted, however. measurements are as follows: BPD:6.9 Centimeters 27 weeks 5 days HC:26.0 Centimeters 28 weeks 2 days AC:24.3 Centimeters 28 weeks 4 days HL:4.8 Centimeters 28 weeks 3 days FL:5.2 Centimeters 27 weeks 4 days The estimated gestational age (EGA) is 28 weeks 1 day with an ABRAN of01/07/2019. The placenta is grade 1, posterior in location. Marginal placenta previa. The amniotic fluid index is 11.4 cm, with largest pocket 4.4 cm. The maternal adnexa show no worrisome findings. IMPRESSION: 1. Single, cephalic gestation with an EGA of 28 weeks 1 day and an ABRAN of the 01/07/2019 . 2. Transvaginal assessment of the cervix demonstrated the cervix to be long and closed. Marginal plac enta previa was noted, however. 3. Grade 1, posterior placenta. Marginal placenta previa was noted. 4. Amniotic fluid index is11.4 cm, with largest pocket4.4 cm -- considered within normal limits.
[2018-10-16] MEDS ORDERED: MAGNESIUM SULFATE 1 gm IVPB 1 GM/100 ML BAG IV ONE (13:38)
--- NOTE | 2018-10-16 13:42 | RAD REPORT ---
EXAM DESCRIPTION: US - TRANSVAG OB CERVIX ASSESSMENT - 10/16/2018 12:51 pm CLINICAL HISTORY: ABD CRAMPING, age. COMPARISON: OB Limited dated 08/09/2018 FINDINGS: A single cephalic presenting gestation is identified. Heart rate normal . The intracranial contents and spine are suboptimal in visualization due to head position. A normal stomach bubble is noted. A normal fluid-filled urinary bladder seen without pelviecta sis. Suboptimal visualization of the three-vessel cord due to position. Four-chamber view the h eart was suboptimally seen. Estimated weight is 2 pounds 9 ounces +/-6 ounces. Symmetric interv al growth has occurred since the comparative study. Transvaginal assessment of the cervix was also performed. The cervix is long and closed measuring 5 c m. A marginal placenta previa is noted, however. measurements are as follows: BPD: 6.9 Centimeters 27 weeks 5 days HC: 26.0 Centimeters 28 weeks 2 days AC: 24.3 Centimeters 28 weeks 4 days HL: 4.8 Centimeters 28 weeks 3 days FL: 5.2 Centimeters 27 weeks 4 days The estimated gestational age (EGA) is 28 weeks 1 day with an ABRAN of 01/07/2019 . The placenta is grade 1, posterior in location. Marginal placenta previa. The amniotic fluid index is 11.4 cm , with largest pocket 4.4 cm . The maternal adnexa show no worrisome findings. IMPRESSION: 1. Single, cephalic gestation with an EGA of 28 weeks 1 day and an ABRAN of the 01/07/2019 . 2. Transvaginal assessment of the cervix demonstrated the cervix to be long and closed. Marginal plac enta previa was noted, however. 3. Grade 1, posterior placenta. Marginal placenta previa was noted. 4. Amniotic fluid index is 11.4 cm , with largest pocket 4.4 cm -- considered within normal limits .
--- NOTE | 2018-10-16 14:18 | ER ---
Nurse's Notes [facility] Name: Debra Harris Age: 43 yrs Sex: Female : 1975 Arrival Date: 10/16/2018 Time: 11:47 Bed 3 Private MD: Diagnosis: Abuse of non-psychoactive substances; related conditions, unspecified, third trimester;Syncope and collapse;Anemia, unspecified;Hypomagnesemia Presentation: 10/16 11:48 Presenting complaint: EMS states: [place] , iw recently started soma, pt is approx 7 months , 5th , pt was hypotensive on scene 70/40, tachycardiac at 110, 95% on RA, 96.8 temp, pt appears drowsy, grunts to pain. Transition of care: patient was not received from another setting of care. Onset of symptoms was October 16, 2018. Risk Assessment: Do you want to hurt yourself or someone else? Patient reports no desire to harm self or others. Initial Sepsis Screen: Does the patient meet any 2 criteria? No. Patient's initial sepsis screen is negative. Does the patient have a suspected source of infection? No. Patient's initial sepsis screen is negative. Care prior to arrival: Medication(s) given: Normal saline infusion, 500 mL, 11:48 Method Of Arrival: EMS: [facility] iw 11:48 Acuity: ARANZA 1 iw Historical: - Allergies: 11:52 No Known Allergies; iw - PMHx: 11:52 Anxiety; iw - PSHx: 11:52 Hernia repair; iw Screenin:46 Abuse screen: Denies threats or abuse. Denies injuries from another. Nutritional mg2 screening: No deficits noted. Tuberculosis screening: No symptoms or risk factors identified. Fall Risk IV access (20 points). Assessment: 14:45 General: Appears in no apparent distress. comfortable, Behavior is calm, quiet. Pain: mg2 Denies pain. Neuro: Level of Consciousness is awake, alert, obeys commands, Oriented to person, place, time, situation. Cardiovascular: Capillary refill < 3 seconds Patient's skin is warm and dry. Respiratory: Airway is patent Respiratory effort is even, unlabored, Respiratory pattern is regular, symmetrical. EENT: No signs and/or symptoms were reported regarding the EENT system. Derm: Skin is intact, is healthy with good turgor, Skin is pink, warm \T\ dry. normal. Musculoskeletal: Circulation, motion, and sensation intact. Capillary refill < 3 seconds. 15:11 Reassessment: patient wants to go home against medical advise. patient signed the AMA mg2 form. she also refused to go to [facility]. Dr littlejohn is aware. Vital Signs: 11:52 BP 100 / 55; Pulse 96; Resp 18 S; Pulse Ox 99% on 2 lpm NC; Weight 63.5 kg; Height 5 iw ft. 4 in. (162.56 cm); Pain 0/10; 13:52 BP 95 / 73 LA (/reg); Pulse 77; Pulse Ox 100% on R/A; hb 15:12 BP 101 / 66; Pulse 90; Resp 8; Temp 98.5; Pulse Ox 100% on R/A; Pain 0/10; mg2 11:52 Body Mass Index 24.03 (63.50 kg, 162.56 cm) iw ED Course: 11:47 Patient arrived in ED. iw 11:48 Ian Littlejohn MD is Attending Physician. jose de jesus 11:51 Triage completed. iw 11:54 Arm band placed on. iw 11:54 Inserted saline lock: 20 gauge in right antecubital area, using aseptic technique. iw ,using aseptic technique. IV inserted by NIKHIL Ott. 11:54 Initial lab(s) drawn, by id, sent to lab. Inserted saline lock: 20 gauge in right dh3 antecubital area, using aseptic technique. Blood collected. 11:56 Inserted saline lock: 20 gauge in left hand, using aseptic technique. Blood collected. iw IV inserted by NIKHIL Deluna tech. 12:00 Urine collected: straight cath specimen, clear, pablo colored. jp3 12:13 Placed in gown. Bed in low position. Call light in reach. Side rails up X 1. Side rails jp3 up X2. potline monitor on. Pulse ox on. NIBP on. 12:13 Urine Drug Screen Sent. jp3 12:14 X-ray completed. Portable x-ray completed in exam room. Patient tolerated procedure mh1 well. pt abd was shielded. 12:21 Mireya Villegas, RN is Primary Nurse. hb 12:57 EKG done, by proc tech. reviewed by Ian Littlejohn MD. sm3 15:12 No provider procedures requiring assistance completed. IV discontinued, intact, mg2 bleeding controlled, No redness/swelling at site. Pressure dressing applied. Administered Medications: 12:33 Drug: NS 0.9% 1000 ml Route: IV; Rate: 1 bolus; Site: left forearm; hb 15:10 Follow up: Response: No adverse reaction; IV Status: Completed infusion; IV Intake: mg2 500ml 13:27 Drug: Magnesium Sulfate 1 grams Route: IVPB; Infused Over: 1 hrs; Site: left forearm; hb 14:45 Follow up: Response: No adverse reaction; IV Status: Completed infusion; IV Intake: hb 100ml Point of Care Testing: Blood Glucose: 11:56 Blood Glucose: 93 mg/dL; iw Ranges: Intake: 14:45 IV: 100ml; Total: 100ml. hb 15:10 IV: 500ml; Total: 600ml. mg2 Outcome: 14:17 Discharge ordered by . jose de jesus 15:13 AMA AMA form signed mg2 15:13 Condition: stable 15:13 Discharge instructions given to patient, family, Instructed on discharge instructions, follow up and referral plans. Demonstrated understanding of instructions, follow-up care, medications, Prescriptions given X 1. 15:13 Patient left the ED. mg2 Signatures: Ian Littlejohn MD MD cha Harvey, Martha 1 Nohelia Cassidy, ELVIN OCONNOR Mireya Villegas RN RN Namrata Olson 3 Ned Reveles RN RN [facility] Chelsey Mane 3 Bob Nuno 3 Corrections: (The following items were deleted from the chart) 11:51 11:48 Acuity: ARANZA 2 iw iw 11:52 11:48 Presenting complaint: EMS states: pt was found unresponsive at home by , iw recently started soma, pt is approx 7 months , 5th , pt was hypotensive on scene 70/40, tachycardiac at 110, 95% on RA, 96.8 temp, pt appears drowsy, grunts to pain iw 11:55 11:52 Pulse 96bpm; Resp 18bpm; Spontaneous; Pulse Ox 99% 2 lpm Nasal Cannula; 63.5 kg; iw Height 5 ft. 4 in.; BMI: 24.0; Pain 0/10; iw
--- NOTE | 2018-10-16 14:18 | EDPHYS ---
Physician Documentation [facility] Name: Debra aHrris Age: 43 yrs Sex: Female : 1975 Arrival Date: 10/16/2018 Time: 11:47 Bed 3 Private MD: ED Physician Ian Littlejohn HPI: 10/16 11:50 This 43 yrs old Female presents to ER via Unassigned with complaints of jose de jesus Altered Mental Status. 11:50 The patient presents with decreased mental status, decreased responsiveness, jose de jesus disorientation. Onset: The symptoms/episode began/occurred this morning, today. Possible causes: drug use, SOMA. Associated signs and symptoms: Pertinent positives:. Current symptoms: In the emergency department the patient's symptoms have improved, moderately. Patient's baseline: Neuro: alert and fully oriented. It is unknown whether or not the patient has had similar symptoms in the past. Historical: - Allergies: 11:52 No Known Allergies; iw - PMHx: 11:52 Anxiety; iw - PSHx: 11:52 Hernia repair; iw ROS: 11:52 Constitutional: Negative for fever, chills, and weight loss, Eyes: Negative for injury, jose de jesus pain, redness, and discharge, ENT: Negative for injury, pain, and discharge, Neck: Negative for injury, pain, and swelling, Cardiovascular: Negative for chest pain, palpitations, and edema, Respiratory: Negative for shortness of breath, cough, wheezing, and pleuritic chest pain, Abdomen/GI: Negative for abdominal pain, nausea, vomiting, diarrhea, and constipation, Back: Negative for injury and pain, : Negative for injury, bleeding, discharge, and swelling, MS/Extremity: Negative for injury and deformity, Skin: Negative for injury, rash, and discoloration, Psych: Negative for depression, anxiety, suicide ideation, homicidal ideation, and hallucinations, Allergy/Immunology: Negative for hives, rash, and allergies, Endocrine: Negative for neck swelling, polydipsia, polyuria, polyphagia, and marked weight changes, Hematologic/Lymphatic: Negative for swollen nodes, abnormal bleeding, and unusual bruising. 11:52 Abdomen/GI: Positive for abdominal distension. 11:52 Neuro: Positive for altered mental status, syncope, weakness. Exam: 11:52 Constitutional: This is a well developed, well nourished patient who is awake, alert, jose de jesus and in no acute distress. Head/Face: Normocephalic, atraumatic. Eyes: Pupils equal round and reactive to light, extra-ocular motions intact. Lids and lashes normal. Conjunctiva and sclera are non-icteric and not injected. Cornea within normal limits. Periorbital areas with no swelling, redness, or edema. ENT: Nares patent. No nasal discharge, no septal abnormalities noted. Tympanic membranes are normal and external auditory canals are clear. Oropharynx with no redness, swelling, or masses, exudates, or evidence of obstruction, uvula midline. Mucous membranes moist. Neck: Trachea midline, no thyromegaly or masses palpated, and no cervical lymphadenopathy. Supple, full range of motion without nuchal rigidity, or vertebral point tenderness. No Meningismus. Chest/axilla: Normal chest wall appearance and motion. Nontender with no deformity. No lesions are appreciated. Cardiovascular: Regular rate and rhythm with a normal S1 and S2. No gallops, murmurs, or rubs. Normal PMI, no JVD. No pulse deficits. Respiratory: Lungs have equal breath sounds bilaterally, clear to auscultation and percussion. No rales, rhonchi or wheezes noted. No increased work of breathing, no retractions or nasal flaring. Abdomen/GI: Soft, non-tender, with normal bowel sounds. No distension or tympany. No guarding or rebound. No evidence of tenderness throughout. Back: No spinal tenderness. No costovertebral tenderness. Full range of motion. Female : Normal external genitalia. Skin: Warm, dry with normal turgor. Normal color with no rashes, no lesions, and no evidence of cellulitis. MS/ Extremity: Pulses equal, no cyanosis. Neurovascular intact. Full, normal range of motion. 11:52 Neuro: Orientation: unable to test, Mentation: slow to respond, confused, Memory: unable to test, Cranial nerves: is grossly normal based on the patient's age, no acute changes, Cerebellar function: unable to test, Motor: moves all fours, Sensation: unable to test, Gait: not tested. Deep tendon reflexes are 2+ (normal) in the bilateral brachioradialis, bicep, tricep and patellar and Achilles tendons, seizure activity, is not displayed by the patient. Vital Signs: 11:52 BP 100 / 55; Pulse 96; Resp 18 S; Pulse Ox 99% on 2 lpm NC; Weight 63.5 kg; Height 5 iw ft. 4 in. (162.56 cm); Pain 0/10; 13:52 BP 95 / 73 LA (/reg); Pulse 77; Pulse Ox 100% on R/A; hb 15:12 BP 101 / 66; Pulse 90; Resp 8; Temp 98.5; Pulse Ox 100% on R/A; Pain 0/10; mg2 11:52 Body Mass Index 24.03 (63.50 kg, 162.56 cm) iw MDM: 11:53 Data reviewed: vital signs, nurses notes, lab test result(s), EKG, radiologic studies, [facility] plain [facility], ultrasound. 12:02 Patient medically screened. [facility] 10/16 11:50 Order name: Basic Metabolic Panel [facility] 10/16 11:50 Order name: CBC with Diff [facility] 10/16 11:50 Order name: LFT's [facility] 10/16 11:50 Order name: Magnesium [facility] 10/16 11:50 Order name: NT PRO-BNP [facility] 10/16 11:50 Order name: PT-INR [facility] 10/16 11:50 Order name: Troponin (emerg Dept Use Only) [facility] 10/16 11:50 Order name: Acetaminophen [facility] 10/16 11:50 Order name: ETOH Level [facility] 10/16 11:50 Order name: Ptt, Activated [facility] 10/16 11:50 Order name: Salicylate [facility] 10/16 11:50 Order name: Urine Drug Screen [facility] 10/16 11:50 Order name: Quantitative Hcg [facility] 10/16 11:50 Order name: Abo/rh Typing [facility] 10/16 12:05 Order name: Glucose, Ancillary Testing; Complete Time: 12:21 EDSD 10/16 12:11 Order name: CBC with Automated Diff; Complete Time: 12:21 EDSD 10/16 12:23 Order name: Protime (+INR); Complete Time: 12:43 EDSD 10/16 12:23 Order name: PTT, Activated Partial Thromb; Complete Time: 12:43 EDSD 10/16 12:23 Order name: Alcohol Serum/Plasma; Complete Time: 12:43 EDSD 10/16 12:27 Order name: Urine Drug Screen; Complete Time: 12:43 EDSD 10/16 12:29 Order name: ABO/RH typing; Complete Time: 12:43 EDMS 10/16 12:44 Order name: Basic Metabolic Panel; Complete Time: 12:43 EDMS 10/16 12:44 Order name: Liver (Hepatic) Function; Complete Time: 12:43 EDMS 10/16 12:44 Order name: Troponin (Emerg Dept Use Only); Complete Time: 12:43 EDMS 10/16 12:44 Order name: NT PRO-BNP; Complete Time: 12:43 EDMS 10/16 12:44 Order name: Acetaminophen Level; Complete Time: 12:43 EDMS 10/16 12:44 Order name: Magnesium; Complete Time: 12:43 EDMS 10/16 12:44 Order name: HCG, Quantitative; Complete Time: 12:43 EDSD 10/16 13:01 Order name: Salicylates Level; Complete Time: 14:15 EDMS 10/16 14:25 Order name: Urine Dipstick--Ancillary (enter results) 10/16 11:50 Order name: XRAY Chest (1 view) [facility] 10/16 11:50 Order name: EKG; Complete Time: 11:53 [facility] 10/16 11:50 Order name: Cardiac monitoring; Complete Time: 12:04 [facility] 10/16 11:50 Order name: EKG - Nurse/Tech; Complete Time: 12:04 [facility] 10/16 11:50 Order name: IV Saline Lock; Complete Time: 12:04 [facility] 10/16 11:50 Order name: Labs collected and sent; Complete Time: 12:04 [facility] 10/16 11:50 Order name: O2 Per Protocol; Complete Time: 12:04 [facility] 10/16 11:50 Order name: O2 Sat Monitoring; Complete Time: 12:04 [facility] 10/16 11:50 Order name: Urine Dipstick-Ancillary (obtain specimen); Complete Time: 12:13 [facility] 10/16 11:50 Order name: Urine Test (obtain specimen); Complete Time: 12:10 [facility] 10/16 11:50 Order name: NPO; Complete Time: 12:04 [facility] 10/16 11:50 Order name: US OB Limited [facility] 10/16 12:22 Order name: RAD; Complete Time: 12:43 EDSD 10/16 12:22 Order name: Straight Cath - Urine; Complete Time: 12:22 10/16 13:09 Order name: US; Complete Time: 14:15 EDSD 10/16 13:44 Order name: US EDSD 10/16 14:25 Order name: Urine --Ancillary (enter results) bd 10/16 14:30 Order name: Urine --Ancillary EDMS 10/16 14:30 Order name: Urine Dipstick-Ancillary EDSD Administered Medications: 12:33 Drug: NS 0.9% 1000 ml Route: IV; Rate: 1 bolus; Site: left forearm; hb 15:10 Follow up: Response: No adverse reaction; IV Status: Completed infusion; IV Intake: mg2 500ml 13:27 Drug: Magnesium Sulfate 1 grams Route: IVPB; Infused Over: 1 hrs; Site: left forearm; hb 14:45 Follow up: Response: No adverse reaction; IV Status: Completed infusion; IV Intake: hb 100ml Point of Care Testing: Blood Glucose: 11:56 Blood Glucose: 93 mg/dL; iw Ranges: Critical Glucose Levels:Adult <50 mg/dl or >400 mg/dl <40 mg/dl or >180 mg/dl Disposition: 10/16/18 14:17 Discharged to Home. Impression: Abuse of non-psychoactive substances, related conditions, unspecified, third trimester, Syncope and collapse, Anemia, unspecified, Hypomagnesemia. - Condition is Stable. - Discharge Instructions: Anemia, Nonspecific, Hypomagnesemia, Near-Syncope, Substance Use Disorder, Syncope, Weakness, Near-Syncope, Ybpl-dp-Dffv, Syncope, Hcov-zx-Drpb, Third Trimester of , Siea-gs-Nikj, Weakness, Btts-mh-Lang. - Prescriptions for Vitamin 27- 0.8 mg Oral Tablet - take 1 tablet by ORAL route once daily; 30 tablet. - Medication Reconciliation Form, Thank You Letter, Antibiotic Education, Prescription Opioid Use form. - Follow up: Private Physician; When: 1 - 2 days; Reason: Recheck today's complaints, Continuance of care, Re-evaluation by your physician. - Problem is new. - Symptoms have improved. Signatures: Dispatcher [employer] [facility] Ian Littlejohn MD MD cha Williams, Irene, RN RN Mireya Villegas RN RN hb Gardose, Michele, RN RN mg2 Corrections: (The following items were deleted from the chart) 15:13 14:17 10/16/2018 14:17 Discharged to Home. Impression: Abuse of non-psychoactive mg2 substances; related conditions, unspecified, third trimester; Syncope and collapse; Anemia, unspecified; Hypomagnesemia. Condition is Stable. Discharge Instructions: Near-Syncope, Substance Use Disorder, Syncope, Weakness, Near-Syncope, Svce-cn-Jaeq, Syncope, Umvy-ue-Hdwc, Third Trimester of , Xbjv-vk-Gojg, Weakness, Fvww-sd-Xqsj, Anemia, Nonspecific, Hypomagnesemia. Prescriptions for Vitamin 27-0.8 mg Oral Tablet - take 1 tablet by ORAL route once daily; 30 tablet. and Forms are Medication Reconciliation Form, Thank You Letter, Antibiotic Education, Prescription Opioid Use. Follow up: Private Physician; When: 1 - 2 days; Reason: Recheck today's complaints, Continuance of care, Re-evaluation by your physician. Problem is new. Symptoms have improved. jose de jesus
[2018-10-16 14:29] LABS: Urine Blood NEGATIVE (NEG); Urine Glucose NEGATIVE (NEG); Urine Protein TRACE (NEG); Urine Specific Gravity 1.025 (1.005-1.030)
--- NOTE | 2018-10-16 14:58 | EKG ---
Test Date: 2018-10-16 Test Time: 12:57:23 Campus Chaplain: LOIS MEASUREMENT RESULTS: Intervals: Rate: 89 LA: 158 QRSD: 76 QT: 396 QTc: 481 [place]: P: 57 LA: 158 QRS: 95 T: 72 INTERPRETIVE STATEMENTS: Normal sinus rhythm Rightward axis Abnormal ECG Compared to ECG 05/08/2017 14:14:07 Right-axis deviation now present Left ventricular hypertrophy no longer present Electronically Signed On 10-16-18 14:58:27 CDT by Elder Lu
[2018-10-16 15:39] VITALS: O2SAT 100
[2018-10-16 15:40] VITALS: BP 101/66; TEMP 98.5
== END 2018-10-16 15:13 | disposition home or self-care (01) ==
LOC: ER 11:45
DX: O99.013 Anemia complicating pregnancy, third trimester (principal); F55.8 Abuse of other non-psychoactive substances; E83.42 Hypomagnesemia; R55 Syncope and collapse; Z3A.28 28 weeks gestation of pregnancy
CPT/HCPCS: 96365; 96361; 93005; 85025; 80048; 36415; 80320; 86900; 83735; 80329 ×2; 81025; 85610; 86901; 82962; 80076; 80307 ×8; 85730; 84702; 81003; 84484; 83880; 71045; 76805; 76817; 99291; 99292; J3475; J7030

== ENCOUNTER 2018-11-08 08:23 | Emergency (ER) | payer OTHER ==
[2018-11-08] MEDS ORDERED: predniSONE 20 MG TAB ONE (09:03)
[2018-11-08] MEDS ORDERED: DIPHENHYDRAMINE 25 MG TAB/CAP ONE (09:03)
[2018-11-08] MEDS ORDERED: FAMOTIDINE 20 MG TAB ONE (09:03)
--- NOTE | 2018-11-08 09:10 | EDPHYS ---
Physician Documentation [facility] Name: Debra Harris Age: 43 yrs Sex: Female : 1975 Arrival Date: 11/08/2018 Time: 08:24 Bed 14 Private MD: ED Physician Luis Chicas HPI: 11/08 08:57 This 43 yrs old Female presents to ER via Ambulatory with complaints of kb Allergic Reaction. 08:57 The patient presents with itching, rash, redness of skin. Onset: The symptoms/episode kb began/occurred yesterday. Associated signs and symptoms: Pertinent positives: rash. Possible causes: hair dye. At home the patient or guardian has treated the symptoms with nothing. Severity of symptoms: At their worst the symptoms were moderate in the emergency department the symptoms are unchanged. The patient has experienced similar episodes in the past, a few times. The patient has not recently seen a physician. Pt reports she is allergic to hair dye and dyed her hair yesterday. States she did a test spot on her left AC first and there was not an immediate reaction so she used it on her head. Now complains of itching, burning and swelling to scalp and left AC. 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 - Social history:: Smoking status: Smoking status: unknown. - Ebola Screening: : Patient negative for fever greater than or equal to 101.5 degrees Fahrenheit, and additional compatible Ebola Virus Disease symptoms Patient denies exposure to infectious person Patient denies travel to an Ebola-affected area in the 21 days before illness onset No symptoms or risks identified at this time No symptoms or risks identified at this time. ROS: 08:57 Constitutional: Negative for fever, chills, and weight loss, Cardiovascular: Negative kb for chest pain, palpitations, and edema, Respiratory: Negative for shortness of breath, cough, wheezing, and pleuritic chest pain, Abdomen/GI: Negative for abdominal pain, nausea, vomiting, diarrhea, and constipation, Back: Negative for injury and pain, MS/Extremity: Negative for injury and deformity, Neuro: Negative for headache, weakness, numbness, tingling, and seizure. 08:57 Skin: Positive for erythema, rash, of the scalp and left antecubital area. Exam: 09:09 Constitutional: This is a well developed, well nourished patient who is awake, alert, kb and in no acute distress. Head/Face: Normocephalic, atraumatic. Neck: Trachea midline, no thyromegaly or masses palpated, and no cervical lymphadenopathy. Supple, full range of motion without nuchal rigidity, or vertebral point tenderness. No Meningismus. Chest/axilla: Normal chest wall appearance and motion. Nontender with no deformity. No lesions are appreciated. Cardiovascular: Regular rate and rhythm with a normal S1 and S2. No gallops, murmurs, or rubs. Normal PMI, no JVD. No pulse deficits. Respiratory: Lungs have equal breath sounds bilaterally, clear to auscultation and percussion. No rales, rhonchi or wheezes noted. No increased work of breathing, no retractions or nasal flaring. Abdomen/GI: Soft, non-tender, with normal bowel sounds. No distension or tympany. No guarding or rebound. No evidence of tenderness throughout. MS/ Extremity: Pulses equal, no cyanosis. Neurovascular intact. Full, normal range of motion. Neuro: Awake and alert, GCS 15, oriented to person, place, time, and situation. Cranial nerves II-XII grossly intact. Motor strength 5/5 in all extremities. Sensory grossly intact. Cerebellar exam normal. Normal gait. 09:09 Skin: consistent with contact dermatitis, on the scalp and left antecubital area. Vital Signs: 08:42 BP 122 / 60; Pulse 83; Resp 16; Temp 98.2; Pulse Ox 100% on R/A; Weight 75.75 kg; iw Height 5 ft. 3 in. (160.02 cm); Pain 5/10; 09:31 BP 118 / 64; Pulse 81; Resp 18; Temp 98.0; Pulse Ox 99% on R/A; ph 08:42 Body Mass Index 29.58 (75.75 kg, 160.02 cm) iw MDM: 08:31 Patient medically screened. kb 08:54 Data reviewed: vital signs, nurses notes. Data interpreted: Pulse oximetry: on room air kb is 100 %. Interpretation: normal. Counseling: I had a detailed discussion with the patient and/or guardian regarding: the historical points, exam findings, and any diagnostic results supporting the discharge/admit diagnosis, the need for outpatient follow up, a family practitioner, to return to the emergency department if symptoms worsen or persist or if there are any questions or concerns that arise at home. Administered Medications: 08:50 Drug: Benadryl 25 mg Route: PO; iw 09:30 Follow up: Response: No adverse reaction ph 08:50 Drug: predniSONE 40 mg Route: PO; iw 09:30 Follow up: Response: No adverse reaction ph 08:51 Drug: Pepcid 20 mg Route: PO; iw 09:30 Follow up: Response: No adverse reaction ph Disposition: 11:41 Co-signature as Attending Physician, Luis Chicas MD I agree with the assessment and kdr plan of care. Disposition: 11/08/18 09:10 Discharged to Home. Impression: Allergic contact dermatitis. - Condition is Stable. - Discharge Instructions: Contact Dermatitis, Ckqf-[id number]. - Prescriptions for Pepcid 20 mg Oral Tablet - take 1 tablet by ORAL route every 12 hours for 5 days; 10 tablet. Prednisone 20 mg Oral Tablet - take 1 tablet by ORAL route once daily for 5 days; 5 tablet. - Medication Reconciliation Form, Thank You Letter, Antibiotic Education, Prescription Opioid Use form. - Follow up: Emergency Department; When: As needed; Reason: Worsening of condition. Follow up: Private Physician; When: 2 - 3 days; Reason: Recheck today's complaints, Continuance of care, Re-evaluation by your physician. Signatures: Juliet Wright, LETI SAMPSON-Luis Poe MD MD kdr Nohelia Cassidy, ELVIN RN iw Lilia Kaufman RN RN ph Corrections: (The following items were deleted from the chart) 09:32 09:10 11/08/2018 09:10 Discharged to Home. Impression: Allergic contact dermatitis. ph Condition is Stable. Forms are Medication Reconciliation Form, Thank You Letter, Antibiotic Education, Prescription Opioid Use. Follow up: Emergency Department; When: As needed; Reason: Worsening of condition. Follow up: Private Physician; When: 2 - 3 days; Reason: Recheck today's complaints, Continuance of care, Re-evaluation by your physician. kb
--- NOTE | 2018-11-08 09:10 | ER ---
Nurse's Notes [facility] Name: Debra Harris Age: 43 yrs Sex: Female : 1975 Arrival Date: 11/08/2018 Time: 08:24 Bed 14 Private MD: Diagnosis: Allergic contact dermatitis Presentation: 11/08 08:39 Presenting complaint: Patient states: allergic reaction to hair dye, dyed her hair iw yesterday, itchy rash noted to back of neck. Transition of care: patient was not received from another setting of care. Onset: The symptoms/episode began/occurred yesterday. Anaphylaxis evaluation, no signs or symptoms of anaphylaxis were noted. Onset of symptoms was November 07, 2018. Risk Assessment: Do you want to hurt yourself or someone else? Patient reports no desire to harm self or others. Initial Sepsis Screen: Does the patient meet any 2 criteria? No. Patient's initial sepsis screen is negative. Does the patient have a suspected source of infection? No. Patient's initial sepsis screen is negative. Care prior to arrival: None. 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 - Social history:: Smoking status: Smoking status: unknown. - Ebola Screening: : Patient negative for fever greater than or equal to 101.5 degrees Fahrenheit, and additional compatible Ebola Virus Disease symptoms Patient denies exposure to infectious person Patient denies travel to an Ebola-affected area in the 21 days before illness onset No symptoms or risks identified at this time No symptoms or risks identified at this time. Screenin:54 Abuse screen: Denies threats or abuse. Denies injuries from another. Nutritional iw screening: No deficits noted. Tuberculosis screening: No symptoms or risk factors identified. Fall Risk None identified. Assessment: 08:53 General: Appears in no apparent distress. Behavior is calm, cooperative. Pain: iw Complains of pain in back of neck. Neuro: Level of Consciousness is awake, alert, obeys commands, Moves all extremities. Cardiovascular: Patient's skin is warm and dry. Respiratory: Airway is patent Respiratory effort is even, unlabored, Breath sounds are clear bilaterally. GI: No signs and/or symptoms were reported involving the gastrointestinal system. Derm: Skin is intact, Rash noted that is itchy, red, on back of neck. Musculoskeletal: Range of motion: intact in all extremities. 09:27 Reassessment: Patient appears in no apparent distress at this time. Patient and/or ph family updated on plan of care and expected duration. Pain level reassessed. Patient is alert, oriented x 3, equal unlabored respirations, skin warm/dry/pink. Pt d/c home w/ prescriptions. Vital Signs: 08:42 BP 122 / 60; Pulse 83; Resp 16; Temp 98.2; Pulse Ox 100% on R/A; Weight 75.75 kg; iw Height 5 ft. 3 in. (160.02 cm); Pain 5/10; 09:31 BP 118 / 64; Pulse 81; Resp 18; Temp 98.0; Pulse Ox 99% on R/A; ph 08:42 Body Mass Index 29.58 (75.75 kg, 160.02 cm) iw ED Course: 08:24 Patient arrived in ED. as 08:31 Juliet [facility]C [facility] kb 08:31 Luis Chicas MD is Attending Physician. kb 08:38 Lilia Kaufman, ELVIN is Primary Nurse. ph 08:41 Triage completed. iw 08:43 Arm band placed on. iw 08:54 No provider procedures requiring assistance completed. Patient did not have IV access iw during this emergency room visit. 09:28 Patient has correct armband on for positive identification. Bed in low position. Call ph light in reach. Side rails up X 1. Pulse ox on. NIBP on. Administered Medications: 08:50 Drug: Benadryl 25 mg Route: PO; iw 09:30 Follow up: Response: No adverse reaction ph 08:50 Drug: predniSONE 40 mg Route: PO; iw 09:30 Follow up: Response: No adverse reaction ph 08:51 Drug: Pepcid 20 mg Route: PO; iw 09:30 Follow up: Response: No adverse reaction ph Outcome: 09:10 Discharge ordered by . kb 09:31 Discharged to home ambulatory, with significant other. ph 09:31 Condition: good 09:31 Discharge instructions given to patient, Instructed on discharge instructions, follow up and referral plans. medication usage, Demonstrated understanding of instructions, follow-up care, medications, Prescriptions given X 2. 09:32 Patient left the ED. ph Signatures: Juliet Wright, LINUX ENGINEER-C LINUX ENGINEER-Flavia Townsend Irene, ELVIN RN iw Lilia Kaufman RN RN ph
--- OUTSIDE RECORDS SUMMARY | 2018-11-08 09:33 | XMS REPORT | Clinical Summary ---
:1975 Author Organization [facility] Address [address] [place] [address] Care Team Providers Name Role Phone Feng [...] Not on file Results Not on fileafter 11/07/2017 Insurance Payer Benefit Plan / Group Subscriber ID Type Phone Address MEDICARE MEDICARE A B xxxxxxxxxx Medicare Advance Directives For more information, please contact:[facility] [place] [address] [phone] Code Status Date Activated Date Inactivated Comments Full Code 05/09/2017 1:46 PM 05/17/2017 7:41 PM This code status was determined by: Patient Full Code 05/09/2017 12:00 AM 05/09/2017 1:46 PM This code status was determined by: Patient
--- OUTSIDE RECORDS SUMMARY | 2018-11-08 09:35 | XMS REPORT ---
:1975 [facility] [address] [place] [address] Care Team Providers Name Role Phone CASSANDRA WILKS Unavailable Unavailable Problems This patient has no known problems. Allergies, Adverse Reactions, Alerts This patient has no known allergies or adverse reactions. Medications This patient has no known medications. Results Test Description Test Time Test Comments Text Results Atomic Results Result Comments TISSUE EXAM 2017-05-18 Surgical Pathology Report 13:38:00 Case: [id number] Authorizing Provider: Jethro Duron MD Collected: 05/14/2017 0286 Ordering Location: [address] Received: 05/17/2017 0950 Pathologist: Torrey Cervantes MD Specimen: Soft Tissue, Other, Wedge gastrectomy PART A PORTION OF STOMACH, PARTIAL GASTRECTOMY:BENIGN GASTRIC MUCOSA WITH MILD CONGESTION.NEGATIVE FOR DYSPLASIA OR INVASIVE CARCINOMA. Signing Pathologist Direct Phone Line: [phone] signed by Torrey Cervantes MD on 05/18/2017 at 1:38 [id number] gastrectomyThe specimen is received in a formalin-filled container labeled with the patient's information and consists of a wedge gastrectomy of stomach measuring 3 x 1.5 x 1 cm with a staple line. Grossly no suspicious areas are seen. The mucosa is toney and hemorrhagic. Section code: Production Line Technician staple line and random section of gastric tissue, tissue from staple line is inked le. CG/ew RAD, CHEST, 1 2017-05-17 Reason for FINAL REPORT PATIENT ID: VIEW, NON DEPT 05:29:00 exam:->post [id number] RAD, CHEST, 1 VIEW, NON opShould this [...] MDReport Verified Date/Time: 05/17/2017 05:29:48 Reading Location: [facility] C013Y CT Body Reading Room ESIUM 2017-05-17 04:41:00 Test Item Value Reference Range Comments MAGNESIUM (BEAKER) (test lovt=935) 1.8 mg/dL 1.6-2.6 BASIC METABOLIC [id number] 04:41:00 Test Item Value Reference Range Comments SODIUM (BEAKER) (test 137 meq/L 136-145 cizz=721) POTASSIUM (BEAKER) (test 3.5 meq/L 3.5-5.1 rrvi=247) CHLORIDE (BEAKER) (test 104 meq/L 98-107 uxur=905) CO2 (BEAKER) (test 27 meq/L 22-29 laax=127) BLOOD UREA NITROGEN 8 mg/dL 7-21 (BEAKER) (test gvox=867) CREATININE (BEAKER) (test 0.48 mg/dL 0.57-1.25 exbi=210) GLUCOSE RANDOM (BEAKER) 84 mg/dL 70-105 (test fpob=671) CALCIUM (BEAKER) (test 8.0 mg/dL 8.4-10.2 olcr=934) EGFR (BEAKER) (test 143 mL/min/1.73 sq m ESTIMATED GFR IS NOT dbck=7296) ACCURATE CREATININE CLEARANCE IN PREDICTING GLOMERULAR FILTRATION RATE. ESTIMATED GFR IS NOT APPLICABLE FOR DIALYSIS PATIENTS. PROTHROMBIN TIME/[id number] 04:27:00 Test Item Value Reference Range Comments PROTIME (BEAKER) (test lsop=857) 14.9 seconds 11.7-14.7 INR (BEAKER) (test amch=184) 1.2 <=5.9 RECOMMENDED COUMADIN/WARFARIN INR THERAPY RANGESSTANDARD DOSE: 2.0 - 3.0 Includes: PROPHYLAXIS forvenous thrombosis, systemic embolization; TREATMENT for venous thrombosis and/or pulmonary embolus.HIGH RISK: Target INR is 2.5-3.5 for patients with mechanical heart valves.CBC W/PLT COUNT & AUTO [id number] 04:24:00 Test Item Value Reference Range Comments WHITE BLOOD CELL COUNT (BEAKER) (test orde=979) 7.9 K/ L 3.5-10.5 RED BLOOD CELL COUNT (BEAKER) (test xnsv=684) 3.29 M/ L 3.93-5.22 HEMOGLOBIN (BEAKER) (test ebyd=127) 9.4 GM/DL 11.2-15.7 HEMATOCRIT (BEAKER) (test hhvy=601) 28.2 % 34.1-44.9 MEAN CORPUSCULAR VOLUME (BEAKER) (test jbgk=430) 85.7 fL 79.4-94.8 MEAN CORPUSCULAR HEMOGLOBIN (BEAKER) (test 28.6 pg 25.6-32.2 ilgm=851) MEAN CORPUSCULAR HEMOGLOBIN CONC (BEAKER) (test 33.3 GM/DL 32.2-35.5 ztuj=944) RED CELL DISTRIBUTION WIDTH (BEAKER) (test 13.9 % 11.7-14.4 hcuk=442) PLATELET COUNT (BEAKER) (test puwu=667) 271 K/CU MM 150-450 MEAN PLATELET VOLUME (BEAKER) (test djjr=675) 9.3 fL 9.4-12.3 NUCLEATED RED BLOOD CELLS (BEAKER) (test 0 /100 WBC 0-0 scdd=403) NEUTROPHILS RELATIVE PERCENT (BEAKER) (test 56 % dtui=904) LYMPHOCYTES RELATIVE PERCENT (BEAKER) (test 23 % kedc=769) MONOCYTES RELATIVE PERCENT (BEAKER) (test 14 % nmmu=701) EOSINOPHILS RELATIVE PERCENT (BEAKER) (test 7 % kmfb=401) BASOPHILS RELATIVE PERCENT (BEAKER) (test 1 % qrmg=249) NEUTROPHILS ABSOLUTE COUNT (BEAKER) (test 4.43 K/ L 1.56-6.13 zmry=792) LYMPHOCYTES ABSOLUTE COUNT (BEAKER) (test 1.78 K/ L 1.18-3.74 bfht=855) MONOCYTES ABSOLUTE COUNT (BEAKER) (test 1.10 K/ L 0.24-0.36 qknd=689) EOSINOPHILS ABSOLUTE COUNT (BEAKER) (test 0.51 K/ L 0.04-0.36 eyau=634) BASOPHILS ABSOLUTE COUNT (BEAKER) (test 0.06 K/ L 0.01-0.08 yqvl=503) IMMATURE GRANULOCYTES-RELATIVE PERCENT (BEAKER) 0 % 0-1 (test wuww=1610) OLIVERIO [id number] 12:54:00Reason for exam:->s/p hiatal hernia repairFINAL REPORT [...] MDReport Verified Date/Time: 05/16/2017 12:54:45 Reading Location: [address] Consult Reading Room CALCIUM, [id number] 06:35:00 Test Item Value Reference Range Comments CALCIUM IONIZED (BEAKER) (test jtfa=711) 1.02 mmol/L 1.12-1.27 PH, BLOOD (BEAKER) (test tqjo=7601) 7.39 [id number] 05:44:00 Test Item Value Reference Range Comments MAGNESIUM (BEAKER) (test 1.8 mg/dL 1.6-2.6 Specimen slightly hemolyzed wcud=618) BASIC METABOLIC [id number] 05:44:00 Test Item Value Reference Range Comments SODIUM (BEAKER) (test 138 meq/L 136-145 sraa=199) POTASSIUM (BEAKER) (test 3.9 meq/L 3.5-5.1 Specimen slightly acbr=269) hemolyzed CHLORIDE (BEAKER) (test 106 meq/L 98-107 blmc=629) CO2 (BEAKER) (test 26 meq/L 22-29 hmtt=361) BLOOD UREA NITROGEN 8 mg/dL 7-21 (BEAKER) (test hrlv=086) CREATININE (BEAKER) (test 0.46 mg/dL 0.57-1.25 Specimen slightly facn=834) hemolyzed GLUCOSE RANDOM (BEAKER) 98 mg/dL 70-105 (test bjht=516) CALCIUM (BEAKER) (test 8.3 mg/dL 8.4-10.2 jwzs=551) EGFR (BEAKER) (test 150 mL/min/1.73 sq m ESTIMATED GFR IS NOT mztt=4617) ACCURATE CREATININE CLEARANCE IN PREDICTING GLOMERULAR FILTRATION RATE. ESTIMATED GFR IS NOT APPLICABLE FOR DIALYSIS PATIENTS. PROTHROMBIN TIME/[id number] 05:33:00 Test Item Value Reference Range Comments PROTIME (BEAKER) (test aftb=002) 15.1 seconds 11.7-14.7 INR (BEAKER) (test gele=900) 1.2 <=5.9 RECOMMENDED COUMADIN/WARFARIN INR THERAPY RANGESSTANDARD DOSE: 2.0 - 3.0 Includes: PROPHYLAXIS forvenous thrombosis, systemic embolization; TREATMENT for venous thrombosis and/or pulmonary embolus.HIGH RISK: Target INR is 2.5-3.5 for patients with mechanical heart valves.CBC W/PLT COUNT & AUTO [id number] 05:24:00 Test Item Value Reference Range Comments WHITE BLOOD CELL COUNT (BEAKER) (test aziv=467) 11.4 K/ L 3.5-10.5 RED BLOOD CELL COUNT (BEAKER) (test hklo=988) 3.60 M/ L 3.93-5.22 HEMOGLOBIN (BEAKER) (test zgbl=770) 10.3 GM/DL 11.2-15.7 HEMATOCRIT (BEAKER) (test onbq=188) 31.2 % 34.1-44.9 MEAN CORPUSCULAR VOLUME (BEAKER) (test qxig=621) 86.7 fL 79.4-94.8 MEAN CORPUSCULAR HEMOGLOBIN (BEAKER) (test 28.6 pg 25.6-32.2 npgn=799) MEAN CORPUSCULAR HEMOGLOBIN CONC (BEAKER) (test 33.0 GM/DL 32.2-35.5 iuvz=534) RED CELL DISTRIBUTION WIDTH (BEAKER) (test 14.1 % 11.7-14.4 jfiv=593) PLATELET COUNT (BEAKER) (test nklm=563) 266 K/CU MM 150-450 MEAN PLATELET VOLUME (BEAKER) (test mika=340) 9.1 fL 9.4-12.3 NUCLEATED RED BLOOD CELLS (BEAKER) (test 0 /100 WBC 0-0 cbmw=849) NEUTROPHILS RELATIVE PERCENT (BEAKER) (test 67 % ylep=871) LYMPHOCYTES RELATIVE PERCENT (BEAKER) (test 16 % dqpt=937) MONOCYTES RELATIVE PERCENT (BEAKER) (test 12 % azho=867) EOSINOPHILS RELATIVE PERCENT (BEAKER) (test 4 % pwia=734) BASOPHILS RELATIVE PERCENT (BEAKER) (test 1 % ajex=304) NEUTROPHILS ABSOLUTE COUNT (BEAKER) (test 7.61 K/ L 1.56-6.13 qdak=877) LYMPHOCYTES ABSOLUTE COUNT (BEAKER) (test 1.86 K/ L 1.18-3.74 jsve=465) MONOCYTES ABSOLUTE COUNT (BEAKER) (test 1.38 K/ L 0.24-0.36 izaw=351) EOSINOPHILS ABSOLUTE COUNT (BEAKER) (test 0.48 K/ L 0.04-0.36 mjka=475) BASOPHILS ABSOLUTE COUNT (BEAKER) (test 0.07 K/ L 0.01-0.08 tqgm=539) IMMATURE GRANULOCYTES-RELATIVE PERCENT (BEAKER) 0 % 0-1 (test qkye=3463) RAD, CHEST, 1 VIEW, NON [id number] 14:45:00Reason for exam:->s/p left chest tube removalShould [...] is enlarged with mild perihilar edema. Signed: Aelxey Gao MDReport Verified Date/Time: 05/15/2017 14:45:11 Reading Location: [facility] B1 C013X Ortho Consult Reading Room RAD, CHEST, 1 VIEW, NON [id number] 07:32:00while patient is intubated or has chest [...] MDReport Verified Date/Time: 05/15/2017 07:32:43 Reading Location: [address] Body Reading Room PROTHROMBIN TIME/[id number] 05:07:00 Test Item Value Reference Range Comments PROTIME (BEAKER) (test xqro=087) 15.8 seconds 11.7-14.7 INR (BEAKER) (test jdzx=455) 1.3 <=5.9 RECOMMENDED COUMADIN/WARFARIN INR THERAPY RANGESSTANDARD DOSE: 2.0 - 3.0 Includes: PROPHYLAXIS forvenous thrombosis, systemic embolization; TREATMENT for venous thrombosis and/or pulmonary embolus.HIGH RISK: Target INR is 2.5-3.5 for patients with mechanical heart valves.BASIC METABOLIC [id number] 05:07: 00 Test Item Value Reference Range Comments SODIUM (BEAKER) (test 140 meq/L 136-145 vsya=841) POTASSIUM (BEAKER) (test 3.5 meq/L 3.5-5.1 gdcm=281) CHLORIDE (BEAKER) (test 112 meq/L 98-107 rxeb=229) CO2 (BEAKER) (test 22 meq/L 22-29 nods=989) BLOOD UREA NITROGEN 15 mg/dL 7-21 (BEAKER) (test bfoj=155) CREATININE (BEAKER) (test 0.52 mg/dL 0.57-1.25 ngvl=927) GLUCOSE RANDOM (BEAKER) 105 mg/dL 70-105 (test uqor=270) CALCIUM (BEAKER) (test 7.7 mg/dL 8.4-10.2 xlzo=632) EGFR (BEAKER) (test 131 mL/min/1.73 sq m ESTIMATED GFR IS NOT rapr=5582) ACCURATE CREATININE CLEARANCE IN PREDICTING GLOMERULAR FILTRATION RATE. ESTIMATED GFR IS NOT APPLICABLE FOR DIALYSIS PATIENTS. [id number] 05:03:00 Test Item Value Reference Range Comments MAGNESIUM (BEAKER) (test gwqk=532) 2.7 mg/dL 1.6-2.6 CBC W/PLT COUNT & AUTO [id number] 05:00:00 Test Item Value Reference Range Comments WHITE BLOOD CELL COUNT (BEAKER) (test wwwd=865) 13.2 K/ L 3.5-10.5 RED BLOOD CELL COUNT (BEAKER) (test mfqc=596) 3.39 M/ L 3.93-5.22 HEMOGLOBIN (BEAKER) (test xsel=814) 9.7 GM/DL 11.2-15.7 HEMATOCRIT (BEAKER) (test xldv=446) 29.2 % 34.1-44.9 MEAN CORPUSCULAR VOLUME (BEAKER) (test tbyi=158) 86.1 fL 79.4-94.8 MEAN CORPUSCULAR HEMOGLOBIN (BEAKER) (test 28.6 pg 25.6-32.2 wgai=353) MEAN CORPUSCULAR HEMOGLOBIN CONC (BEAKER) (test 33.2 GM/DL 32.2-35.5 oyrn=732) RED CELL DISTRIBUTION WIDTH (BEAKER) (test 14.2 % 11.7-14.4 xjrm=227) PLATELET COUNT (BEAKER) (test dboz=514) 252 K/CU MM 150-450 MEAN PLATELET VOLUME (BEAKER) (test fuom=436) 9.2 fL 9.4-12.3 NUCLEATED RED BLOOD CELLS (BEAKER) (test 0 /100 WBC 0-0 dvcx=306) NEUTROPHILS RELATIVE PERCENT (BEAKER) (test 76 % rwzj=270) LYMPHOCYTES RELATIVE PERCENT (BEAKER) (test 14 % hzsh=060) MONOCYTES RELATIVE PERCENT (BEAKER) (test 10 % whaz=174) EOSINOPHILS RELATIVE PERCENT (BEAKER) (test 0 % eoxr=537) BASOPHILS RELATIVE PERCENT (BEAKER) (test 0 % dnux=148) NEUTROPHILS ABSOLUTE COUNT (BEAKER) (test 10.02 K/ L 1.56-6.13 rxfr=670) LYMPHOCYTES ABSOLUTE COUNT (BEAKER) (test 1.81 K/ L 1.18-3.74 hrgq=846) MONOCYTES ABSOLUTE COUNT (BEAKER) (test 1.26 K/ L 0.24-0.36 joee=579) EOSINOPHILS ABSOLUTE COUNT (BEAKER) (test 0.04 K/ L 0.04-0.36 srdu=190) BASOPHILS ABSOLUTE COUNT (BEAKER) (test 0.05 K/ L 0.01-0.08 ddbz=758) IMMATURE GRANULOCYTES-RELATIVE PERCENT (BEAKER) 0 % 0-1 (test wygi=0766) CALCIUM, [id number] 23:02:00 Test Item Value Reference Range Comments CALCIUM IONIZED (BEAKER) (test bsod=823) 0.92 mmol/L 1.12-1.27 PH, BLOOD (BEAKER) (test yexf=8077) 7.38 [id number] 22:53:00 Test Item Value Reference Range Comments MAGNESIUM (BEAKER) (test uxfc=953) 1.9 mg/dL 1.6-2.6 BASIC METABOLIC [id number] 22:53:00 Test Item Value Reference Range Comments SODIUM (BEAKER) (test 142 meq/L 136-145 fyry=715) POTASSIUM (BEAKER) (test 3.7 meq/L 3.5-5.1 tkar=946) CHLORIDE (BEAKER) (test 113 meq/L 98-107 wneo=829) CO2 (BEAKER) (test 19 meq/L 22-29 wpzj=377) BLOOD UREA NITROGEN 17 mg/dL 7-21 (BEAKER) (test lusp=504) CREATININE (BEAKER) (test 0.55 mg/dL 0.57-1.25 diwg=368) GLUCOSE RANDOM (BEAKER) 98 mg/dL 70-105 (test gala=086) CALCIUM (BEAKER) (test 7.5 mg/dL 8.4-10.2 ddii=363) EGFR (BEAKER) (test 122 mL/min/1.73 sq m ESTIMATED GFR IS NOT hice=5162) ACCURATE CREATININE CLEARANCE IN PREDICTING GLOMERULAR FILTRATION RATE. ESTIMATED GFR IS NOT APPLICABLE FOR DIALYSIS PATIENTS. CBC W/PLT COUNT & AUTO [id number] 22:47:00 Test Item Value Reference Range Comments WHITE BLOOD CELL COUNT (BEAKER) (test ahbo=974) 19.1 K/ L 3.5-10.5 RED BLOOD CELL COUNT (BEAKER) (test clky=667) 3.60 M/ L 3.93-5.22 HEMOGLOBIN (BEAKER) (test exdw=498) 10.2 GM/DL 11.2-15.7 HEMATOCRIT (BEAKER) (test bghi=731) 31.1 % 34.1-44.9 MEAN CORPUSCULAR VOLUME (BEAKER) (test ywzi=222) 86.4 fL 79.4-94.8 MEAN CORPUSCULAR HEMOGLOBIN (BEAKER) (test 28.3 pg 25.6-32.2 wenf=898) MEAN CORPUSCULAR HEMOGLOBIN CONC (BEAKER) (test 32.8 GM/DL 32.2-35.5 mjxc=362) RED CELL DISTRIBUTION WIDTH (BEAKER) (test 14.0 % 11.7-14.4 kruv=891) PLATELET COUNT (BEAKER) (test vnjb=360) 273 K/CU MM 150-450 MEAN PLATELET VOLUME (BEAKER) (test kqmx=610) 9.5 fL 9.4-12.3 NUCLEATED RED BLOOD CELLS (BEAKER) (test 0 /100 WBC 0-0 kgum=380) NEUTROPHILS RELATIVE PERCENT (BEAKER) (test 88 % xhww=943) LYMPHOCYTES RELATIVE PERCENT (BEAKER) (test 4 % cgmz=619) MONOCYTES RELATIVE PERCENT (BEAKER) (test 8 % nkpv=799) EOSINOPHILS RELATIVE PERCENT (BEAKER) (test 0 % prhe=303) BASOPHILS RELATIVE PERCENT (BEAKER) (test 0 % knph=670) NEUTROPHILS ABSOLUTE COUNT (BEAKER) (test 16.75 K/ L 1.56-6.13 hwbu=045) LYMPHOCYTES ABSOLUTE COUNT (BEAKER) (test 0.70 K/ L 1.18-3.74 jyfa=376) MONOCYTES ABSOLUTE COUNT (BEAKER) (test 1.55 K/ L 0.24-0.36 ljpf=013) EOSINOPHILS ABSOLUTE COUNT (BEAKER) (test 0.01 K/ L 0.04-0.36 omga=553) BASOPHILS ABSOLUTE COUNT (BEAKER) (test 0.03 K/ L 0.01-0.08 cqwd=550) IMMATURE GRANULOCYTES-RELATIVE PERCENT (BEAKER) 0 % 0-1 (test ziab=6488) RAD, CHEST, 1 VIEW, NON [id number] 21:18:00Reason for exam:->ptxIs the patient ?->NoShould this [...] MDReport Verified Date/Time: 05/14/2017 21:18:07 Reading Location: [address] ReadingRoom BLOOD GAS, [id number] 17:28:00 Test Item Value Reference Range Comments PH ARTERIAL (BEAKER) (test zius=112) 7.36 7.35-7.45 PCO2 ARTERIAL (BEAKER) (test emvt=384) 39 mm Hg 35-45 PO2 ARTERIAL (BEAKER) (test hajt=223) 194 mm Hg 80-90 O2 SATURATION ARTERIAL (BEAKER) (test vdkf=908) 99.3 % 96.0-97.0 HCO3 ARTERIAL (BEAKER) (test opof=745) 22 mmol/L 21-29 BASE EXCESS ARTERIAL (BEAKER) (test xhyc=828) -3.6 mmol/L -2.0-3.0 PATIENT TEMPERATURE (BEAKER) (test jkop=5571) 36.2 FIO2 (BEAKER) (test dngu=3204) 50 SODIUM NA-STAT [id number] 17:28:00 Test Item Value Reference Range Comments SODIUM (BEAKER) (test rgxs=138) 134 meq/L 135-148 POTASSIUM-STAT [id number] 17:28:00 Test Item Value Reference Range Comments POTASSIUM (BEAKER) (test ywll=192) 3.4 meq/L 3.6-5.5 GLUCOSE-STAT [id number] 17:28:00 Test Item Value Reference Range Comments GLUCOSE RANDOM (BEAKER) (test lrjj=160) 185 mg/dL 70-110 HGB/HCT (H&H) - STAT [id number] 17:28:00 Test Item Value Reference Range Comments HEMOGLOBIN (BEAKER) (test usjb=853) 11.0 GM/DL 12.0-15.0 HEMATOCRIT (BEAKER) (test hjgj=131) 32.0 % 36.0-45.0 BLOOD GAS, [id number] 15:47:00 Test Item Value Reference Range Comments PH ARTERIAL (BEAKER) (test aupd=317) 7.33 7.35-7.45 PCO2 ARTERIAL (BEAKER) (test ogfp=778) 46 mmHg 35-45 PO2 ARTERIAL (BEAKER) (test ehki=874) 211 mmHg 80-90 O2 SATURATION ARTERIAL (BEAKER) (test xarb=379) 99.4 % 96.0-97.0 HCO3 ARTERIAL (BEAKER) (test fvzz=716) 24 mmol/L 21-29 BASE EXCESS ARTERIAL (BEAKER) (test hqyo=661) -2.5 mmol/L -2.0-3.0 PATIENT TEMPERATURE (BEAKER) (test brsg=5658) 35.4 C FIO2 (BEAKER) (test qmnk=7755) 67.0 % GLUCOSE-STAT [id number] 15:47:00 Test Item Value Reference Range Comments GLUCOSE RANDOM (BEAKER) (test vrbp=433) 158 mg/dL 70-110 SODIUM NA-STAT [id number] 15:46:00 Test Item Value Reference Range Comments SODIUM (BEAKER) (test jake=203) 137 meq/L 135-148 POTASSIUM-STAT [id number] 15:46:00 Test Item Value Reference Range Comments POTASSIUM (BEAKER) (test jzak=529) 3.7 meq/L 3.6-5.5 HGB/HCT (H&H) - STAT [id number] 15:46:00 Test Item Value Reference Range Comments HEMOGLOBIN (BEAKER) (test hfva=661) 12.5 g/dL 12.0-15.0 HEMATOCRIT (BEAKER) (test dlpp=839) 37.0 % 36.0-45.0 URINE [id number] 15:11:00 Test Item Value Reference Range Comments CULTURE (BEAKER) (test 30-39,000 col/mL skin cindy ntmb=3230) BLOOD GAS, [id number] 14:45:00 Test Item Value Reference Range Comments PH ARTERIAL (BEAKER) (test hpaa=322) 7.51 7.35-7.45 PCO2 ARTERIAL (BEAKER) (test cuea=824) 31 mmHg 35-45 PO2 ARTERIAL (BEAKER) (test yjlu=771) 458 mmHg 80-90 O2 SATURATION ARTERIAL (BEAKER) (test xwru=862) 99.9 % 96.0-97.0 HCO3 ARTERIAL (BEAKER) (test ftmq=430) 25 mmol/L 21-29 BASE EXCESS ARTERIAL (BEAKER) (test klzl=038) 1.8 mmol/L -2.0-3.0 PATIENT TEMPERATURE (BEAKER) (test prki=0170) 36.0 C FIO2 (BEAKER) (test mrts=4552) 50.0 % POTASSIUM-STAT [id number] 14:45:00 Test Item Value Reference Range Comments POTASSIUM (BEAKER) (test zwws=973) 3.3 meq/L 3.6-5.5 HGB/HCT (H&H) - STAT [id number] 14:45:00 Test Item Value Reference Range Comments HEMOGLOBIN (BEAKER) (test rfps=649) 11.5 g/dL 12.0-15.0 HEMATOCRIT (BEAKER) (test sihm=432) 34.0 % 36.0-45.0 GLUCOSE-STAT [id number] 14:44:00 Test Item Value Reference Range Comments GLUCOSE RANDOM (BEAKER) (test wjdp=911) 105 mg/dL 70-110 SODIUM NA-STAT [id number] 14:44:00 Test Item Value Reference Range Comments SODIUM (BEAKER) (test ryge=747) 137 meq/L 135-148 SCREEN, [id number] 13:36:00 Test Item Value Reference Range Comments TEST URINE (BEAKER) (test ahdx=409) Negative BLOOD [id number] 10:00:00 Test Item Value Reference Range Comments CULTURE (BEAKER) (test nzqe=0431) No growth in 5 days RAD, CHEST, 1 VIEW, NON [id number] 07:28:00Reason for exam:->post opShould this be performed at the bedside?->YesFINAL REPORT Chest one view compared to May 13 Discussion: Unchanged left hemidiaphragm elevation. Cardiopulmonary appearance is similar. No effusion or pneumothorax. No atypical line or tube position. Signed: Julisa Partida Verified Date/Time: 05/14/2017 07:28:59 Reading Location: [address] Neuro Reading Room 07 :28 AMTROPONIN [id number] 05:14:00 Test Item Value Reference Range Comments TROPONIN I (BEAKER) (test gixi=646) 0.02 ng/mL 0.00-0.03 Troponin I (TnI) levels [...] failure, acidosis, acute neurological disease, and persistent tachyarrhythmia.[id number] 05:03:00 Test Item Value Reference Range Comments MAGNESIUM (BEAKER) (test brol=874) 1.7 mg/dL 1.6-2.6 BASIC METABOLIC [id number] 05:03:00 Test Item Value Reference Range Comments SODIUM (BEAKER) (test 140 meq/L 136-145 kvwu=104) POTASSIUM (BEAKER) (test 3.4 meq/L 3.5-5.1 hbll=030) CHLORIDE (BEAKER) (test 107 meq/L 98-107 nnve=893) CO2 (BEAKER) (test 25 meq/L 22-29 aebb=412) BLOOD UREA NITROGEN 18 mg/dL 7-21 (BEAKER) (test wwer=145) CREATININE (BEAKER) (test 0.53 mg/dL 0.57-1.25 lkfr=007) GLUCOSE RANDOM (BEAKER) 85 mg/dL 70-105 (test wayv=438) CALCIUM (BEAKER) (test 8.7 mg/dL 8.4-10.2 cora=889) EGFR (BEAKER) (test 128 mL/min/1.73 sq m ESTIMATED GFR IS NOT xyra=4301) ACCURATE CREATININE CLEARANCE IN PREDICTING GLOMERULAR FILTRATION RATE. ESTIMATED GFR IS NOT APPLICABLE FOR DIALYSIS PATIENTS. CBC W/PLT COUNT & AUTO [id number] 04:51:00 Test Item Value Reference Range Comments WHITE BLOOD CELL COUNT (BEAKER) (test eztd=069) 11.5 K/ L 3.5-10.5 RED BLOOD CELL COUNT (BEAKER) (test ykqv=516) 3.92 M/ L 3.93-5.22 HEMOGLOBIN (BEAKER) (test eiun=077) 11.1 GM/DL 11.2-15.7 HEMATOCRIT (BEAKER) (test sipn=966) 33.0 % 34.1-44.9 MEAN CORPUSCULAR VOLUME (BEAKER) (test lwai=550) 84.2 fL 79.4-94.8 MEAN CORPUSCULAR HEMOGLOBIN (BEAKER) (test 28.3 pg 25.6-32.2 obnl=760) MEAN CORPUSCULAR HEMOGLOBIN CONC (BEAKER) (test 33.6 GM/DL 32.2-35.5 pnhs=765) RED CELL DISTRIBUTION WIDTH (BEAKER) (test 13.9 % 11.7-14.4 rfxe=989) PLATELET COUNT (BEAKER) (test gikp=056) 282 K/CU MM 150-450 MEAN PLATELET VOLUME (BEAKER) (test uopj=606) 9.5 fL 9.4-12.3 NUCLEATED RED BLOOD CELLS (BEAKER) (test 0 /100 WBC 0-0 xmxy=431) NEUTROPHILS RELATIVE PERCENT (BEAKER) (test 71 % vbjc=999) LYMPHOCYTES RELATIVE PERCENT (BEAKER) (test 15 % kspl=695) MONOCYTES RELATIVE PERCENT (BEAKER) (test 11 % hmxv=742) EOSINOPHILS RELATIVE PERCENT (BEAKER) (test 3 % xgjw=169) BASOPHILS RELATIVE PERCENT (BEAKER) (test 0 % bykk=035) NEUTROPHILS ABSOLUTE COUNT (BEAKER) (test 8.12 K/ L 1.56-6.13 kuik=524) LYMPHOCYTES ABSOLUTE COUNT (BEAKER) (test 1.71 K/ L 1.18-3.74 niir=246) MONOCYTES ABSOLUTE COUNT (BEAKER) (test 1.26 K/ L 0.24-0.36 obkq=146) EOSINOPHILS ABSOLUTE COUNT (BEAKER) (test 0.34 K/ L 0.04-0.36 lude=558) BASOPHILS ABSOLUTE COUNT (BEAKER) (test 0.05 K/ L 0.01-0.08 xuih=073) IMMATURE GRANULOCYTES-RELATIVE PERCENT (BEAKER) 0 % 0-1 (test xxnb=7677) PT/[id number] 04:50:00 Test Item Value Reference Range Comments PROTIME (BEAKER) (test kosv=005) 14.3 seconds 11.7-14.7 INR (BEAKER) (test orwo=612) 1.1 <=5.9 PARTIAL THROMBOPLASTIN TIME (BEAKER) (test 36.0 seconds 22.5-36.0 tbyo=181) RECOMMENDED COUMADIN/WARFARIN INR THERAPY RANGESSTANDARD DOSE: 2.0 - 3.0 Includes: PROPHYLAXIS forvenous thrombosis, systemic embolization; TREATMENT for venous thrombosis and/or pulmonary embolus.HIGH RISK: Target INR is 2.5-3.5 for patients with mechanical heart valves.PROTHROMBIN TIME/[id number] 04:49: 00 Test Item Value Reference Range Comments PROTIME (BEAKER) (test qqzg=048) 14.3 seconds 11.7-14.7 INR (BEAKER) (test gpih=020) 1.1 <=5.9 RECOMMENDED COUMADIN/WARFARIN INR THERAPY RANGESSTANDARD DOSE: 2.0 - 3.0 Includes: PROPHYLAXIS forvenous thrombosis, systemic embolization; TREATMENT for venous thrombosis and/or pulmonary embolus.HIGH RISK: Target INR is 2.5-3.5 for patients with mechanical heart valves.TROPONIN [id number] 19:19:00 Test Item Value Reference Range Comments TROPONIN I (BEAKER) (test cnug=365) < ng/mL 0.00-0.03 Troponin I (TnI) levels [...] acute neurological disease, and persistent tachyarrhythmia.URINALYSIS W/ [id number] 17: 11:00 Test Item Value Reference Range Comments COLOR (BEAKER) (test xkpq=590) Yellow CLARITY (BEAKER) (test mmwx=444) Hazy SPECIFIC GRAVITY UA (BEAKER) (test 1.014 1.001-1.035 wula=563) PH UA (BEAKER) (test psuw=425) 6.0 5.0-8.0 PROTEIN UA (BEAKER) (test flgt=067) Negative Negative GLUCOSE UA (BEAKER) (test fohh=938) Negative Negative KETONES UA (BEAKER) (test vsyg=889) Negative Negative BILIRUBIN UA (BEAKER) (test qbat=125) Negative Negative BLOOD UA (BEAKER) (test igei=015) Negative Negative NITRITE UA (BEAKER) (test dwdt=370) Negative Negative LEUKOCYTE ESTERASE UA (BEAKER) (test Moderate Negative jemj=175) UROBILINOGEN UA (BEAKER) (test xwzy=314) 0.2 mg/dL 0.2-1.0 RBC UA (BEAKER) (test rfdc=338) 1 /HPF WBC UA (BEAKER) (test xupo=690) 7 /HPF BACTERIA (BEAKER) (test miqo=964) Rare MUCUS (BEAKER) (test ljfr=6298) Occasional SQUAMOUS EPITHELIAL (BEAKER) (test 17 /HPF ygez=573) SOURCE(BEAKER) (test rbne=3274) Urine, Clean Catch TSH/FREE T4 IF [id number] 16:23:00 Test Item Value Reference Range Comments THYROID STIMULATING HORMONE (BEAKER) (test 1.07 uIU/mL 0.35-4.94 zhca=771) [id number] 15:56:00 Test Item Value Reference Range Comments POTASSIUM (BEAKER) (test todh=624) 4.3 meq/L 3.5-5.1 CREATINE KINASE (CK), TOTAL AND [id number] 14:21:00 Test Item Value Reference Range Comments CREATINE KINASE TOTAL (BEAKER) (test mnbj=829) 19 U/L 29-200 CREATINE KINASE-MB (BEAKER) (test zpgb=011) 0.5 ng/mL 0.0-6.6 CREATINE KINASE-MB INDEX (BEAKER) (test ltqm=057) 2.6 % CK-MB Reference Range:<6.7 Normal6.7-10.0 Borderline>10.0 AbnormalTROPONIN [id number] 14:20:00 Test Item Value Reference Range Comments TROPONIN I (BEAKER) (test wtpo=712) < ng/mL 0.00-0.03 Troponin I (TnI) levels [...] failure, acidosis, acute neurological disease, and persistent tachyarrhythmia.[id number] 13:35:00 Test Item Value Reference Range Comments MAGNESIUM (BEAKER) (test vvdu=926) 2.5 mg/dL 1.6-2.6 PROTHROMBIN TIME/[id number] 05:20:00 Test Item Value Reference Range Comments PROTIME (BEAKER) (test quzf=189) 14.3 seconds 11.7-14.7 INR (BEAKER) (test nbub=841) 1.1 <=5.9 RECOMMENDED COUMADIN/WARFARIN INR THERAPY RANGESSTANDARD DOSE: 2.0 - 3.0 Includes: PROPHYLAXIS forvenous thrombosis, systemic embolization; TREATMENT for venous thrombosis and/or pulmonary embolus.HIGH RISK: Target INR is 2.5-3.5 for patients with mechanical heart valves.[id number] 05:19:00 Test Item Value Reference Range Comments PHOSPHORUS (BEAKER) (test bcnf=707) 4.1 mg/dL 2.3-4.7 [id number] 05:19:00 Test Item Value Reference Range Comments MAGNESIUM (BEAKER) (test kpti=396) 2.0 mg/dL 1.6-2.6 BASIC METABOLIC [id number] 05:19:00 Test Item Value Reference Range Comments SODIUM (BEAKER) (test 138 meq/L 136-145 eato=011) POTASSIUM (BEAKER) (test 3.6 meq/L 3.5-5.1 krsc=790) CHLORIDE (BEAKER) (test 106 meq/L 98-107 vsnb=839) CO2 (BEAKER) (test 25 meq/L 22-29 nbpw=955) BLOOD UREA NITROGEN 14 mg/dL 7-21 (BEAKER) (test fgpx=463) CREATININE (BEAKER) (test 0.52 mg/dL 0.57-1.25 uypt=963) GLUCOSE RANDOM (BEAKER) 87 mg/dL 70-105 (test utmy=153) CALCIUM (BEAKER) (test 8.6 mg/dL 8.4-10.2 vcoc=009) EGFR (BEAKER) (test 131 mL/min/1.73 sq m ESTIMATED GFR IS NOT nyuf=3577) ACCURATE CREATININE CLEARANCE IN PREDICTING GLOMERULAR FILTRATION RATE. ESTIMATED GFR IS NOT APPLICABLE FOR DIALYSIS PATIENTS. CBC W/PLT COUNT & AUTO [id number] 04:56:00 Test Item Value Reference Range Comments WHITE BLOOD CELL COUNT (BEAKER) (test gveb=861) 12.4 K/ L 3.5-10.5 RED BLOOD CELL COUNT (BEAKER) (test ypna=344) 3.80 M/ L 3.93-5.22 HEMOGLOBIN (BEAKER) (test pnlq=778) 10.8 GM/DL 11.2-15.7 HEMATOCRIT (BEAKER) (test zebx=215) 32.5 % 34.1-44.9 MEAN CORPUSCULAR VOLUME (BEAKER) (test kguv=757) 85.5 fL 79.4-94.8 MEAN CORPUSCULAR HEMOGLOBIN (BEAKER) (test 28.4 pg 25.6-32.2 lkgs=917) MEAN CORPUSCULAR HEMOGLOBIN CONC (BEAKER) (test 33.2 GM/DL 32.2-35.5 sxvh=093) RED CELL DISTRIBUTION WIDTH (BEAKER) (test 14.1 % 11.7-14.4 ozmx=704) PLATELET COUNT (BEAKER) (test itcx=179) 274 K/CU MM 150-450 MEAN PLATELET VOLUME (BEAKER) (test cqex=655) 9.3 fL 9.4-12.3 NUCLEATED RED BLOOD CELLS (BEAKER) (test 0 /100 WBC 0-0 pbfe=743) NEUTROPHILS RELATIVE PERCENT (BEAKER) (test 67 % shpu=912) LYMPHOCYTES RELATIVE PERCENT (BEAKER) (test 18 % lrvd=679) MONOCYTES RELATIVE PERCENT (BEAKER) (test 11 % srug=092) EOSINOPHILS RELATIVE PERCENT (BEAKER) (test 3 % koig=984) BASOPHILS RELATIVE PERCENT (BEAKER) (test 0 % yfzj=689) NEUTROPHILS ABSOLUTE COUNT (BEAKER) (test 8.33 K/ L 1.56-6.13 wrry=545) LYMPHOCYTES ABSOLUTE COUNT (BEAKER) (test 2.25 K/ L 1.18-3.74 iezt=829) MONOCYTES ABSOLUTE COUNT (BEAKER) (test 1.34 K/ L 0.24-0.36 keek=406) EOSINOPHILS ABSOLUTE COUNT (BEAKER) (test 0.38 K/ L 0.04-0.36 uoxc=414) BASOPHILS ABSOLUTE COUNT (BEAKER) (test 0.05 K/ L 0.01-0.08 cjwq=689) IMMATURE GRANULOCYTES-RELATIVE PERCENT (BEAKER) 0 % 0-1 (test brra=3688) RAD, CHEST, 1 VIEW, NON [id number] 04:12:00Reason for exam:->post opShould this be performed at the bedside?->YesFINAL REPORT CLINICAL INDICATION: Postop Comparison: 05/12/2017 The cardiomediastinal contours are stable. The left hemidiaphragm remains elevated. There is no focal consolidation, pneumothorax, large pleural effusion or evidence of overt pulmonary edema. Support lines are stable. Signed: Noah Porter MDReport Verified Date/Time: 05/13/2017 04:12:27 Reading Location: [address] Reading Room [id number] 20:35:00 Test Item Value Reference Range Comments MAGNESIUM (BEAKER) (test ayit=845) 1.9 mg/dL 1.6-2.6 BASIC METABOLIC [id number] 20:35:00 Test Item Value Reference Range Comments SODIUM (BEAKER) (test 138 meq/L 136-145 nzwe=710) POTASSIUM (BEAKER) (test 4.1 meq/L 3.5-5.1 mmer=162) CHLORIDE (BEAKER) (test 107 meq/L 98-107 snqm=888) CO2 (BEAKER) (test 25 meq/L 22-29 tjbb=507) BLOOD UREA NITROGEN 11 mg/dL 7-21 (BEAKER) (test ravb=546) CREATININE (BEAKER) (test 0.54 mg/dL 0.57-1.25 uend=903) GLUCOSE RANDOM (BEAKER) 98 mg/dL 70-105 (test fntj=034) CALCIUM (BEAKER) (test 8.9 mg/dL 8.4-10.2 gpjw=346) EGFR (BEAKER) (test 125 mL/min/1.73 sq m ESTIMATED GFR IS NOT ulkf=9073) ACCURATE CREATININE CLEARANCE IN PREDICTING GLOMERULAR FILTRATION RATE. ESTIMATED GFR IS NOT APPLICABLE FOR DIALYSIS PATIENTS. CBC W/PLT COUNT & AUTO [id number] 20:26:00 Test Item Value Reference Range Comments WHITE BLOOD CELL COUNT (BEAKER) (test qbhb=659) 11.5 K/ L 3.5-10.5 RED BLOOD CELL COUNT (BEAKER) (test zezb=361) 4.01 M/ L 3.93-5.22 HEMOGLOBIN (BEAKER) (test ioyh=762) 11.5 GM/DL 11.2-15.7 HEMATOCRIT (BEAKER) (test jgjs=571) 34.1 % 34.1-44.9 MEAN CORPUSCULAR VOLUME (BEAKER) (test jcrr=821) 85.0 fL 79.4-94.8 MEAN CORPUSCULAR HEMOGLOBIN (BEAKER) (test 28.7 pg 25.6-32.2 akqh=290) MEAN CORPUSCULAR HEMOGLOBIN CONC (BEAKER) (test 33.7 GM/DL 32.2-35.5 rvdt=688) RED CELL DISTRIBUTION WIDTH (BEAKER) (test 14.1 % 11.7-14.4 datu=491) PLATELET COUNT (BEAKER) (test spot=477) 278 K/CU MM 150-450 MEAN PLATELET VOLUME (BEAKER) (test reyi=518) 9.3 fL 9.4-12.3 NUCLEATED RED BLOOD CELLS (BEAKER) (test 0 /100 WBC 0-0 ziyx=192) NEUTROPHILS RELATIVE PERCENT (BEAKER) (test 75 % ngkq=353) LYMPHOCYTES RELATIVE PERCENT (BEAKER) (test 13 % etcc=904) MONOCYTES RELATIVE PERCENT (BEAKER) (test 10 % glnd=534) EOSINOPHILS RELATIVE PERCENT (BEAKER) (test 2 % ezci=247) BASOPHILS RELATIVE PERCENT (BEAKER) (test 1 % qwco=936) NEUTROPHILS ABSOLUTE COUNT (BEAKER) (test 8.60 K/ L 1.56-6.13 lxsf=857) LYMPHOCYTES ABSOLUTE COUNT (BEAKER) (test 1.48 K/ L 1.18-3.74 hmsn=026) MONOCYTES ABSOLUTE COUNT (BEAKER) (test 1.10 K/ L 0.24-0.36 wovc=472) EOSINOPHILS ABSOLUTE COUNT (BEAKER) (test 0.18 K/ L 0.04-0.36 umkl=534) BASOPHILS ABSOLUTE COUNT (BEAKER) (test 0.06 K/ L 0.01-0.08 cerm=840) IMMATURE GRANULOCYTES-RELATIVE PERCENT (BEAKER) 0 % 0-1 (test dafk=0640) RAD, CHEST, 1 VIEW, NON [id number] 04:20:00Reason for exam:->post opShould this be performed at the bedside?->YesFINAL REPORT CLINICAL INDICATION: Postop Comparison: 05/11/2017 The cardiomediastinal contours are stable. The left hemidiaphragm remains elevated. Retrocardiac opacity in the left lung may reflect atelectasis but pneumonitis should be excluded clinically. There is no pneumothorax. Support lines are stable. Signed: Noah Porter MDReport Verified Date/Time: 05/12/2017 04:20:19 Reading Location: [address] Reading Room [id number] 04:14: 00 Test Item Value Reference Range Comments MAGNESIUM (BEAKER) (test ecgy=646) 1.9 mg/dL 1.6-2.6 BASIC METABOLIC [id number] 04:14:00 Test Item Value Reference Range Comments SODIUM (BEAKER) (test 140 meq/L 136-145 hpay=611) POTASSIUM (BEAKER) (test 3.6 meq/L 3.5-5.1 qdmp=936) CHLORIDE (BEAKER) (test 106 meq/L 98-107 mmja=347) CO2 (BEAKER) (test 25 meq/L 22-29 vcvx=257) BLOOD UREA NITROGEN 8 mg/dL 7-21 (BEAKER) (test eptq=785) CREATININE (BEAKER) (test 0.54 mg/dL 0.57-1.25 nxfz=241) GLUCOSE RANDOM (BEAKER) 106 mg/dL 70-105 (test cksc=658) CALCIUM (BEAKER) (test 8.7 mg/dL 8.4-10.2 nrkt=940) EGFR (BEAKER) (test 125 mL/min/1.73 sq m ESTIMATED GFR IS NOT nrjl=9282) ACCURATE CREATININE CLEARANCE IN PREDICTING GLOMERULAR FILTRATION RATE. ESTIMATED GFR IS NOT APPLICABLE FOR DIALYSIS PATIENTS. PROTHROMBIN [id number] 04:09:00 Test Item Value Reference Range Comments PROTIME (BEAKER) (test zqld=563) 14.5 seconds 11.7-14.7 INR (BEAKER) (test eruq=808) 1.1 <=5.9 RECOMMENDED COUMADIN/WARFARIN INR THERAPY RANGESSTANDARD DOSE: 2.0 - 3.0 Includes: PROPHYLAXIS forvenous thrombosis, systemic embolization; TREATMENT for venous thrombosis and/or pulmonary embolus.HIGH RISK: Target INR is 2.5-3.5 for patients with mechanical heart valves.CBC W/PLT COUNT & AUTO [id number] 03:57:00 Test Item Value Reference Range Comments WHITE BLOOD CELL COUNT (BEAKER) (test qthx=759) 10.6 K/ L 3.5-10.5 RED BLOOD CELL COUNT (BEAKER) (test xjfj=420) 3.87 M/ L 3.93-5.22 HEMOGLOBIN (BEAKER) (test vwms=073) 11.1 GM/DL 11.2-15.7 HEMATOCRIT (BEAKER) (test jhul=697) 33.5 % 34.1-44.9 MEAN CORPUSCULAR VOLUME (BEAKER) (test ewjn=363) 86.6 fL 79.4-94.8 MEAN CORPUSCULAR HEMOGLOBIN (BEAKER) (test 28.7 pg 25.6-32.2 stag=636) MEAN CORPUSCULAR HEMOGLOBIN CONC (BEAKER) (test 33.1 GM/DL 32.2-35.5 jart=518) RED CELL DISTRIBUTION WIDTH (BEAKER) (test 14.3 % 11.7-14.4 fqgv=251) PLATELET COUNT (BEAKER) (test ajsj=461) 261 K/CU MM 150-450 MEAN PLATELET VOLUME (BEAKER) (test mqio=736) 9.7 fL 9.4-12.3 NUCLEATED RED BLOOD CELLS (BEAKER) (test 0 /100 WBC 0-0 zyhq=732) NEUTROPHILS RELATIVE PERCENT (BEAKER) (test 65 % wfab=089) LYMPHOCYTES RELATIVE PERCENT (BEAKER) (test 22 % hsag=686) MONOCYTES RELATIVE PERCENT (BEAKER) (test 10 % ezln=948) EOSINOPHILS RELATIVE PERCENT (BEAKER) (test 2 % hrdm=388) BASOPHILS RELATIVE PERCENT (BEAKER) (test 0 % rccr=103) NEUTROPHILS ABSOLUTE COUNT (BEAKER) (test 6.93 K/ L 1.56-6.13 quyz=833) LYMPHOCYTES ABSOLUTE COUNT (BEAKER) (test 2.29 K/ L 1.18-3.74 pfnc=832) MONOCYTES ABSOLUTE COUNT (BEAKER) (test 1.08 K/ L 0.24-0.36 wovv=043) EOSINOPHILS ABSOLUTE COUNT (BEAKER) (test 0.26 K/ L 0.04-0.36 inox=802) BASOPHILS ABSOLUTE COUNT (BEAKER) (test 0.04 K/ L 0.01-0.08 ojqc=226) IMMATURE GRANULOCYTES-RELATIVE PERCENT (BEAKER) 0 % 0-1 (test pils=5537) RAD, CHEST, 1 VIEW, NON [id number] 07:47:00Reason for exam:->post opShould this be performed [...] MDReport Verified Date/Time: 05/11/2017 07:47:20 Reading Location: [facility] Radiology Reading Room PROTHROMBIN [id number] 04:54: 00 Test Item Value Reference Range Comments PROTIME (BEAKER) (test vcwp=689) 14.3 seconds 11.7-14.7 INR (BEAKER) (test ozyg=965) 1.1 <=5.9 RECOMMENDED COUMADIN/WARFARIN INR THERAPY RANGESSTANDARD DOSE: 2.0 - 3.0 Includes: PROPHYLAXIS forvenous thrombosis, systemic embolization; TREATMENT for venous thrombosis and/or pulmonary embolus.HIGH RISK: Target INR is 2.5-3.5 for patients with mechanical heart valves.CBC W/PLT COUNT & AUTO [id number] 04:44:00 Test Item Value Reference Range Comments WHITE BLOOD CELL COUNT (BEAKER) (test nool=926) 11.3 K/ L 3.5-10.5 RED BLOOD CELL COUNT (BEAKER) (test fnlv=719) 4.02 M/ L 3.93-5.22 HEMOGLOBIN (BEAKER) (test btxh=717) 11.4 GM/DL 11.2-15.7 HEMATOCRIT (BEAKER) (test jfhl=087) 34.4 % 34.1-44.9 MEAN CORPUSCULAR VOLUME (BEAKER) (test fyeb=653) 85.6 fL 79.4-94.8 MEAN CORPUSCULAR HEMOGLOBIN (BEAKER) (test 28.4 pg 25.6-32.2 mqur=631) MEAN CORPUSCULAR HEMOGLOBIN CONC (BEAKER) (test 33.1 GM/DL 32.2-35.5 iyoi=901) RED CELL DISTRIBUTION WIDTH (BEAKER) (test 14.1 % 11.7-14.4 cpmm=762) PLATELET COUNT (BEAKER) (test fyxg=542) 260 K/CU MM 150-450 MEAN PLATELET VOLUME (BEAKER) (test rtyp=667) 9.6 fL 9.4-12.3 NUCLEATED RED BLOOD CELLS (BEAKER) (test 0 /100 WBC 0-0 kisy=992) NEUTROPHILS RELATIVE PERCENT (BEAKER) (test 75 % kcoe=484) LYMPHOCYTES RELATIVE PERCENT (BEAKER) (test 14 % cslo=541) MONOCYTES RELATIVE PERCENT (BEAKER) (test 9 % ikdd=475) EOSINOPHILS RELATIVE PERCENT (BEAKER) (test 2 % fuxp=168) BASOPHILS RELATIVE PERCENT (BEAKER) (test 0 % vzgg=359) NEUTROPHILS ABSOLUTE COUNT (BEAKER) (test 8.40 K/ L 1.56-6.13 nhed=693) LYMPHOCYTES ABSOLUTE COUNT (BEAKER) (test 1.53 K/ L 1.18-3.74 iyfz=863) MONOCYTES ABSOLUTE COUNT (BEAKER) (test 1.04 K/ L 0.24-0.36 graw=336) EOSINOPHILS ABSOLUTE COUNT (BEAKER) (test 0.21 K/ L 0.04-0.36 duot=397) BASOPHILS ABSOLUTE COUNT (BEAKER) (test 0.05 K/ L 0.01-0.08 ozwn=766) IMMATURE GRANULOCYTES-RELATIVE PERCENT (BEAKER) 0 % 0-1 (test iwcj=9630) [id number] 04:39:00 Test Item Value Reference Range Comments MAGNESIUM (BEAKER) (test tbzz=066) 2.2 mg/dL 1.6-2.6 BASIC METABOLIC [id number] 04:39:00 Test Item Value Reference Range Comments SODIUM (BEAKER) (test 139 meq/L 136-145 beka=443) POTASSIUM (BEAKER) (test 3.5 meq/L 3.5-5.1 dkzq=904) CHLORIDE (BEAKER) (test 105 meq/L 98-107 gisc=262) CO2 (BEAKER) (test 28 meq/L 22-29 uhhh=437) BLOOD UREA NITROGEN 6 mg/dL 7-21 (BEAKER) (test hvgm=259) CREATININE (BEAKER) (test 0.55 mg/dL 0.57-1.25 alzp=837) GLUCOSE RANDOM (BEAKER) 103 mg/dL 70-105 (test rqlq=518) CALCIUM (BEAKER) (test 8.4 mg/dL 8.4-10.2 fvgg=304) EGFR (BEAKER) (test 122 mL/min/1.73 sq m ESTIMATED GFR IS NOT ybjk=8117) ACCURATE CREATININE CLEARANCE IN PREDICTING GLOMERULAR FILTRATION RATE. ESTIMATED GFR IS NOT APPLICABLE FOR DIALYSIS PATIENTS. CREATINE KINASE (CK), TOTAL AND [id number] 00:14:00 Test Item Value Reference Range Comments CREATINE KINASE TOTAL (BEAKER) (test flxf=130) 44 U/L 29-200 CREATINE KINASE-MB (BEAKER) (test ksyp=834) 0.7 ng/mL 0.0-6.6 CREATINE KINASE-MB INDEX (BEAKER) (test kfcn=237) 1.6 % CK-MB Reference Range:<6.7 Normal6.7-10.0 Borderline>10.0 AbnormalTROPONIN [id number] 23:38:00 Test Item Value Reference Range Comments TROPONIN I (BEAKER) (test jchi=025) < ng/mL 0.00-0.03 Troponin I (TnI) levels [...] failure, acidosis, acute neurological disease, and persistent tachyarrhythmia.[id number] 23:29:00 Test Item Value Reference Range Comments MAGNESIUM (BEAKER) (test 1.7 mg/dL 1.6-2.6 Specimen slightly hemolyzed bacl=192) [id number] 23:29:00 Test Item Value Reference Range Comments PHOSPHORUS (BEAKER) (test 3.5 mg/dL 2.3-4.7 Specimen slightly hemolyzed tjem=459) BASIC METABOLIC [id number] 23:29:00 Test Item Value Reference Range Comments SODIUM (BEAKER) (test 139 meq/L 136-145 vqxr=005) POTASSIUM (BEAKER) (test 3.9 meq/L 3.5-5.1 Specimen slightly odfp=338) hemolyzed CHLORIDE (BEAKER) (test 104 meq/L 98-107 bufw=552) CO2 (BEAKER) (test 27 meq/L 22-29 sdbl=622) BLOOD UREA NITROGEN 6 mg/dL 7-21 (BEAKER) (test axir=690) CREATININE (BEAKER) (test 0.53 mg/dL 0.57-1.25 Specimen slightly qimj=585) hemolyzed GLUCOSE RANDOM (BEAKER) 92 mg/dL 70-105 (test dnsn=262) CALCIUM (BEAKER) (test 8.6 mg/dL 8.4-10.2 ojrw=622) EGFR (BEAKER) (test 128 mL/min/1.73 sq m ESTIMATED GFR IS NOT jovx=7737) ACCURATE CREATININE CLEARANCE IN PREDICTING GLOMERULAR FILTRATION RATE. ESTIMATED GFR IS NOT APPLICABLE FOR DIALYSIS PATIENTS. LACTIC ACID, VENOUS, WHOLE [id number] 23:26:00 Test Item Value Reference Range Comments LACTATE BLOOD VENOUS (2) (BEAKER) (test 1.2 mmol/L 0.5-2.2 zdjp=8384) Effective 09/17/2015: Units/Reference Range ChangeNew: 0.5-2.2 mmol/L Previous: 5 -20 mg/dLBLOOD GAS, [id number] 23:02:00 Test Item Value Reference Range Comments PH VENOUS (BEAKER) (test wufc=792) 7.43 7.32-7.42 PCO2 VENOUS (BEAKER) (test tvlk=317) 45 mmHg 41-51 PO2 VENOUS (BEAKER) (test rmea=715) 256 mmHg 25-40 O2 SATURATION VENOUS (BEAKER) (test oawx=405) 99.6 % 40.0-70.0 HCO3 VENOUS (BEAKER) (test zbad=951) 29 mmol/L 21-29 BASE EXCESS VENOUS (BEAKER) (test hbqz=807) 4.0 mmol/L -2.0-3.0 PATIENT TEMPERATURE (BEAKER) (test qgqy=6888) 36.3 C FIO2 (BEAKER) (test jpvs=8627) 21.0 % Blood looks arterial.RAD, CHEST, 1 VIEW, NON [id number] 19:28:00Reason for exam:->check picc placement Should this [...] MDReport Verified Date/Time: 05/10/2017 19:28:53 Reading Location: [facility] B1 C013W Consult Reading Room BLOOD GAS, [id number] 07:29:00 Test Item Value Reference Range Comments PH ARTERIAL (BEAKER) (test vukw=700) 7.41 7.35-7.45 PCO2 ARTERIAL (BEAKER) (test jjon=084) 44 mmHg 35-45 PO2 ARTERIAL (BEAKER) (test omzb=738) 81 mmHg 80-90 O2 SATURATION ARTERIAL (BEAKER) (test gpmd=739) 96.2 % 96.0-97.0 HCO3 ARTERIAL (BEAKER) (test pcps=600) 28 mmol/L 21-29 BASE EXCESS ARTERIAL (BEAKER) (test kvke=915) 2.5 mmol/L -2.0-3.0 PATIENT TEMPERATURE (BEAKER) (test ooup=5531) 36.7 C FIO2 (BEAKER) (test ixft=3886) 21.0 % [id number] 06:41:00 Test Item Value Reference Range Comments MAGNESIUM (BEAKER) (test teys=653) 1.6 mg/dL 1.6-2.6 BASIC METABOLIC [id number] 06:41:00 Test Item Value Reference Range Comments SODIUM (BEAKER) (test 137 meq/L 136-145 kupp=539) POTASSIUM (BEAKER) (test 3.8 meq/L 3.5-5.1 liau=167) CHLORIDE (BEAKER) (test 105 meq/L 98-107 fspd=243) CO2 (BEAKER) (test 28 meq/L 22-29 euzf=839) BLOOD UREA NITROGEN 6 mg/dL 7-21 (BEAKER) (test nkyb=977) CREATININE (BEAKER) (test 0.52 mg/dL 0.57-1.25 kldj=021) GLUCOSE RANDOM (BEAKER) 94 mg/dL 70-105 (test bwzy=966) CALCIUM (BEAKER) (test 8.0 mg/dL 8.4-10.2 jvds=955) EGFR (BEAKER) (test 131 mL/min/1.73 sq m ESTIMATED GFR IS NOT fyjw=6013) ACCURATE CREATININE CLEARANCE IN PREDICTING GLOMERULAR FILTRATION RATE. ESTIMATED GFR IS NOT APPLICABLE FOR DIALYSIS PATIENTS. PROTHROMBIN [id number] 06:11:00 Test Item Value Reference Range Comments PROTIME (BEAKER) (test rnwb=011) 15.1 seconds 11.7-14.7 INR (BEAKER) (test wixl=454) 1.2 <=5.9 RECOMMENDED COUMADIN/WARFARIN INR THERAPY RANGESSTANDARD DOSE: 2.0 - 3.0 Includes: PROPHYLAXIS forvenous thrombosis, systemic embolization; TREATMENT for venous thrombosis and/or pulmonary embolus.HIGH RISK: Target INR is 2.5-3.5 for patients with mechanical heart valves.LACTIC ACID, ARTERIAL, WHOLE [id number] 06:08:00 Test Item Value Reference Range Comments LACTATE BLOOD ARTERIAL (2) (BEAKER) (test 0.8 mmol/L 0.5-2.2 qbkd=5146) Effective 09/17/2015: Units/Reference Range ChangeNew: 0.5-2.2 mmol/L Previous: 5 -20 mg/dLCBC W/PLT COUNT & AUTO [id number] 06:02:00 Test Item Value Reference Range Comments WHITE BLOOD CELL COUNT (BEAKER) (test ekxt=501) 10.6 K/ L 3.5-10.5 RED BLOOD CELL COUNT (BEAKER) (test yvsd=101) 4.10 M/ L 3.93-5.22 HEMOGLOBIN (BEAKER) (test bgcl=316) 11.6 GM/DL 11.2-15.7 HEMATOCRIT (BEAKER) (test ikhz=061) 35.3 % 34.1-44.9 MEAN CORPUSCULAR VOLUME (BEAKER) (test ahse=857) 86.1 fL 79.4-94.8 MEAN CORPUSCULAR HEMOGLOBIN (BEAKER) (test 28.3 pg 25.6-32.2 djez=597) MEAN CORPUSCULAR HEMOGLOBIN CONC (BEAKER) (test 32.9 GM/DL 32.2-35.5 bltp=988) RED CELL DISTRIBUTION WIDTH (BEAKER) (test 14.4 % 11.7-14.4 ahtw=589) PLATELET COUNT (BEAKER) (test pdry=922) 261 K/CU MM 150-450 MEAN PLATELET VOLUME (BEAKER) (test cxvv=386) 9.8 fL 9.4-12.3 NUCLEATED RED BLOOD CELLS (BEAKER) (test 0 /100 WBC 0-0 kqmz=833) NEUTROPHILS RELATIVE PERCENT (BEAKER) (test 67 % eizw=447) LYMPHOCYTES RELATIVE PERCENT (BEAKER) (test 21 % usle=030) MONOCYTES RELATIVE PERCENT (BEAKER) (test 8 % ohjr=743) EOSINOPHILS RELATIVE PERCENT (BEAKER) (test 4 % iwav=121) BASOPHILS RELATIVE PERCENT (BEAKER) (test 0 % mnpb=117) NEUTROPHILS ABSOLUTE COUNT (BEAKER) (test 7.07 K/ L 1.56-6.13 msav=293) LYMPHOCYTES ABSOLUTE COUNT (BEAKER) (test 2.22 K/ L 1.18-3.74 xmgz=556) MONOCYTES ABSOLUTE COUNT (BEAKER) (test 0.88 K/ L 0.24-0.36 ioeu=562) EOSINOPHILS ABSOLUTE COUNT (BEAKER) (test 0.38 K/ L 0.04-0.36 jyng=884) BASOPHILS ABSOLUTE COUNT (BEAKER) (test 0.03 K/ L 0.01-0.08 lwwa=509) IMMATURE GRANULOCYTES-RELATIVE PERCENT (BEAKER) 0 % 0-1 (test jrzd=7753) RAD, ABDOMEN/KUB, 1 VIEW [id number] 04:38:00Reason for exam:->abdominao painFINAL REPORT CLINICAL HISTORY: [...] Verified Date/Time : 05/10/2017 04:38:02 Reading Location[address] RAD, CHEST, 1 VIEW, NON [id number] 04:34:00Reason for exam:->post opShould this be performed at the bedside?->YesFINAL REPORT CLINICAL INDICATION: Postop Comparison: 05/09/2017 The cardiomediastinal contours are stable. The left hemidiaphragm remains elevated. Patchy opacity in the left lower lung may reflect atelectasis but pneumonitis should be excluded clinically. There is no pneumothorax. A nasogastric tube remains in place. Signed: Noah Porter MDReport Verified Date/Time: 05/10/2017 04:34:08 Reading Location: [address] Reading Room BASIC METABOLIC [id number] 18:31 :00 Test Item Value Reference Range Comments SODIUM (BEAKER) (test 139 meq/L 136-145 fhoo=343) POTASSIUM (BEAKER) (test 4.1 meq/L 3.5-5.1 Specimen slightly gmcd=775) hemolyzed CHLORIDE (BEAKER) (test 105 meq/L 98-107 lxtz=932) CO2 (BEAKER) (test 27 meq/L 22-29 qoyx=708) BLOOD UREA NITROGEN 6 mg/dL 7-21 (BEAKER) (test dqgz=633) CREATININE (BEAKER) (test 0.62 mg/dL 0.57-1.25 Specimen slightly qvxw=547) hemolyzed GLUCOSE RANDOM (BEAKER) 94 mg/dL 70-105 (test gcjy=815) CALCIUM (BEAKER) (test 8.1 mg/dL 8.4-10.2 tuzp=927) EGFR (BEAKER) (test 107 mL/min/1.73 sq m ESTIMATED GFR IS NOT ydfb=2272) ACCURATE CREATININE CLEARANCE IN PREDICTING GLOMERULAR FILTRATION RATE. ESTIMATED GFR IS NOT APPLICABLE FOR DIALYSIS PATIENTS. RAD, CHEST, 1 VIEW, NON [id number] 17:05:00Reason for exam:->NGT repositioned Should this be [...] MDReport Verified Date/Time: 05/09/2017 17:05:43 Reading Location: [address] Body Reading Room 05: 05 PMLACTIC ACID, ARTERIAL, WHOLE [id number] 17:02:00 Test Item Value Reference Range Comments LACTATE BLOOD ARTERIAL (2) 1.5 mmol/L 0.5-2.2 Specimen slightly hemolyzed (BEAKER) (test arzl=3495) Effective 09/17/2015: Units/Reference Range ChangeNew: 0.5-2.2 mmol/L Previous: 5 -20 mg/dLBLOOD GAS, [id number] 16:34:00 Test Item Value Reference Range Comments PH ARTERIAL (BEAKER) (test kylf=490) 7.45 7.35-7.45 PCO2 ARTERIAL (BEAKER) (test jgcq=501) 39 mmHg 35-45 PO2 ARTERIAL (BEAKER) (test zlhh=296) 205 mmHg 80-90 O2 SATURATION ARTERIAL (BEAKER) (test blmz=565) 99.4 % 96.0-97.0 HCO3 ARTERIAL (BEAKER) (test qgqf=098) 27 mmol/L 21-29 BASE EXCESS ARTERIAL (BEAKER) (test vghj=523) 2.4 mmol/L -2.0-3.0 PATIENT TEMPERATURE (BEAKER) (test xvyn=0224) 37.0 C FIO2 (BEAKER) (test yihx=8531) 21.0 % CBC W/PLT COUNT & AUTO [id number] 16:33:00 Test Item Value Reference Range Comments WHITE BLOOD CELL COUNT (BEAKER) (test dken=517) 14.1 K/ L 3.5-10.5 RED BLOOD CELL COUNT (BEAKER) (test jlse=118) 4.16 M/ L 3.93-5.22 HEMOGLOBIN (BEAKER) (test mjud=499) 11.9 GM/DL 11.2-15.7 HEMATOCRIT (BEAKER) (test dkfx=912) 36.3 % 34.1-44.9 MEAN CORPUSCULAR VOLUME (BEAKER) (test fsya=876) 87.3 fL 79.4-94.8 MEAN CORPUSCULAR HEMOGLOBIN (BEAKER) (test 28.6 pg 25.6-32.2 ozhs=673) MEAN CORPUSCULAR HEMOGLOBIN CONC (BEAKER) (test 32.8 GM/DL 32.2-35.5 nciz=695) RED CELL DISTRIBUTION WIDTH (BEAKER) (test 14.5 % 11.7-14.4 vkcd=620) PLATELET COUNT (BEAKER) (test wknf=984) 264 K/CU MM 150-450 MEAN PLATELET VOLUME (BEAKER) (test auln=661) 9.6 fL 9.4-12.3 NUCLEATED RED BLOOD CELLS (BEAKER) (test 0 /100 WBC 0-0 eyzs=401) NEUTROPHILS RELATIVE PERCENT (BEAKER) (test 74 % qhgl=857) LYMPHOCYTES RELATIVE PERCENT (BEAKER) (test 17 % yktb=688) MONOCYTES RELATIVE PERCENT (BEAKER) (test 6 % bgnl=050) EOSINOPHILS RELATIVE PERCENT (BEAKER) (test 2 % jbvc=380) BASOPHILS RELATIVE PERCENT (BEAKER) (test 0 % xjip=127) NEUTROPHILS ABSOLUTE COUNT (BEAKER) (test 10.45 K/ L 1.56-6.13 rljl=286) LYMPHOCYTES ABSOLUTE COUNT (BEAKER) (test 2.37 K/ L 1.18-3.74 sune=662) MONOCYTES ABSOLUTE COUNT (BEAKER) (test 0.84 K/ L 0.24-0.36 qjyv=513) EOSINOPHILS ABSOLUTE COUNT (BEAKER) (test 0.34 K/ L 0.04-0.36 koza=949) BASOPHILS ABSOLUTE COUNT (BEAKER) (test 0.05 K/ L 0.01-0.08 kjlo=548) IMMATURE GRANULOCYTES-RELATIVE PERCENT (BEAKER) 0 % 0-1 (test ytxn=9731) SCREEN, [id number] 12:41:00 Test Item Value Reference Range Comments TEST URINE (BEAKER) (test jhyw=646) Negative LACTIC ACID, ARTERIAL, WHOLE [id number] 12:02:00 Test Item Value Reference Range Comments LACTATE BLOOD ARTERIAL (2) (BEAKER) (test 1.0 mmol/L 0.5-2.2 ldub=8788) Effective 09/17/2015: Units/Reference Range ChangeNew: 0.5-2.2 mmol/L Previous: 5 -20 mg/dLRAD, CHEST, 1 VIEW, NON [id number] 11:21:00Reason for exam:-> postopShould this be performed [...] MDReport Verified Date/Time: 05/09/2017 11:21:35 Reading Location: [facility] C013Y CT Body Reading Room Electronically signed by: ELIESER GROSSMAN M.D. on05/09/2017 11:21 AMBASIC METABOLIC [id number] 10:24:00 Test Item Value Reference Range Comments SODIUM (BEAKER) (test 138 meq/L 136-145 snun=023) POTASSIUM (BEAKER) (test 4.1 meq/L 3.5-5.1 hzsv=675) CHLORIDE (BEAKER) (test 108 meq/L 98-107 hnrh=437) CO2 (BEAKER) (test 25 meq/L 22-29 cerm=247) BLOOD UREA NITROGEN 10 mg/dL 7-21 (BEAKER) (test xwxe=997) CREATININE (BEAKER) (test 0.61 mg/dL 0.57-1.25 fhrt=946) GLUCOSE RANDOM (BEAKER) 91 mg/dL 70-105 (test eyju=262) CALCIUM (BEAKER) (test 7.4 mg/dL 8.4-10.2 vfbn=615) EGFR (BEAKER) (test 109 mL/min/1.73 sq m ESTIMATED GFR IS NOT alra=4743) ACCURATE CREATININE CLEARANCE IN PREDICTING GLOMERULAR FILTRATION RATE. ESTIMATED GFR IS NOT APPLICABLE FOR DIALYSIS PATIENTS. CBC W/PLT COUNT & AUTO [id number] 09:28:00 Test Item Value Reference Range Comments WHITE BLOOD CELL COUNT (BEAKER) (test foqg=860) 10.3 K/ L 3.5-10.5 RED BLOOD CELL COUNT (BEAKER) (test xqif=408) 4.12 M/ L 3.93-5.22 HEMOGLOBIN (BEAKER) (test ekhy=674) 11.8 GM/DL 11.2-15.7 HEMATOCRIT (BEAKER) (test rjjh=947) 36.1 % 34.1-44.9 MEAN CORPUSCULAR VOLUME (BEAKER) (test iuhr=482) 87.6 fL 79.4-94.8 MEAN CORPUSCULAR HEMOGLOBIN (BEAKER) (test 28.6 pg 25.6-32.2 vhgu=753) MEAN CORPUSCULAR HEMOGLOBIN CONC (BEAKER) (test 32.7 GM/DL 32.2-35.5 gqnh=811) RED CELL DISTRIBUTION WIDTH (BEAKER) (test 14.6 % 11.7-14.4 yyfp=095) PLATELET COUNT (BEAKER) (test lcql=436) 278 K/CU MM 150-450 MEAN PLATELET VOLUME (BEAKER) (test yyui=188) 9.6 fL 9.4-12.3 NUCLEATED RED BLOOD CELLS (BEAKER) (test 0 /100 WBC 0-0 ocze=389) NEUTROPHILS RELATIVE PERCENT (BEAKER) (test 58 % tslc=496) LYMPHOCYTES RELATIVE PERCENT (BEAKER) (test 30 % eklz=296) MONOCYTES RELATIVE PERCENT (BEAKER) (test 8 % zbqi=105) EOSINOPHILS RELATIVE PERCENT (BEAKER) (test 4 % punq=585) BASOPHILS RELATIVE PERCENT (BEAKER) (test 1 % vwis=627) NEUTROPHILS ABSOLUTE COUNT (BEAKER) (test 6.00 K/ L 1.56-6.13 xqsk=145) LYMPHOCYTES ABSOLUTE COUNT (BEAKER) (test 3.05 K/ L 1.18-3.74 nnzw=219) MONOCYTES ABSOLUTE COUNT (BEAKER) (test 0.79 K/ L 0.24-0.36 njsr=089) EOSINOPHILS ABSOLUTE COUNT (BEAKER) (test 0.39 K/ L 0.04-0.36 epdp=716) BASOPHILS ABSOLUTE COUNT (BEAKER) (test 0.06 K/ L 0.01-0.08 cksj=222) IMMATURE GRANULOCYTES-RELATIVE PERCENT (BEAKER) 0 % 0-1 (test qkqy=5174) CALCIUM, [id number] 08:45:00 Test Item Value Reference Range Comments CALCIUM IONIZED (BEAKER) (test yxik=841) 0.98 mmol/L 1.12-1.27 PH, BLOOD (BEAKER) (test pyup=3622) 7.43 BLOOD GAS, [id number] 08:45:00 Test Item Value Reference Range Comments PH ARTERIAL (BEAKER) (test sulh=383) 7.43 7.35-7.45 PCO2 ARTERIAL (BEAKER) (test mopz=684) 42 mmHg 35-45 PO2 ARTERIAL (BEAKER) (test vnzz=818) 489 mmHg 80-90 O2 SATURATION ARTERIAL (BEAKER) (test vpnh=327) 99.9 % 96.0-97.0 HCO3 ARTERIAL (BEAKER) (test ghst=954) 28 mmol/L 21-29 BASE EXCESS ARTERIAL (BEAKER) (test kajx=540) 3.0 mmol/L -2.0-3.0 PATIENT TEMPERATURE (BEAKER) (test nlrr=8137) 36.5 C FIO2 (BEAKER) (test ilhi=7640) 70.0 % SODIUM NA-STAT [id number] 08:45:00 Test Item Value Reference Range Comments SODIUM (BEAKER) (test paej=881) 134 meq/L 135-148 HGB/HCT (H&H) - STAT [id number] 08:45:00 Test Item Value Reference Range Comments HEMOGLOBIN (BEAKER) (test whaq=231) 11.8 g/dL 12.0-15.0 HEMATOCRIT (BEAKER) (test ddds=694) 35.0 % 36.0-45.0 GLUCOSE-STAT [id number] 08:44:00 Test Item Value Reference Range Comments GLUCOSE RANDOM (BEAKER) (test kndg=345) 83 mg/dL 70-110 POTASSIUM-STAT [id number] 08:44:00 Test Item Value Reference Range Comments POTASSIUM (BEAKER) (test rnvv=110) 4.3 meq/L 3.6-5.5 BASIC METABOLIC [id number] 01:21:00 Test Item Value Reference Range Comments SODIUM (BEAKER) (test 140 meq/L 136-145 mish=392) POTASSIUM (BEAKER) (test 4.2 meq/L 3.5-5.1 vpkt=327) CHLORIDE (BEAKER) (test 108 meq/L 98-107 hjdl=205) CO2 (BEAKER) (test 26 meq/L 22-29 ilyy=584) BLOOD UREA NITROGEN 12 mg/dL 7-21 (BEAKER) (test fdhw=833) CREATININE (BEAKER) (test 0.63 mg/dL 0.57-1.25 weqf=862) GLUCOSE RANDOM (BEAKER) 78 mg/dL 70-105 (test fchh=594) CALCIUM (BEAKER) (test 7.8 mg/dL 8.4-10.2 ezyt=660) EGFR (BEAKER) (test 105 mL/min/1.73 sq m ESTIMATED GFR IS NOT cych=8745) ACCURATE CREATININE CLEARANCE IN PREDICTING GLOMERULAR FILTRATION RATE. ESTIMATED GFR IS NOT APPLICABLE FOR DIALYSIS PATIENTS. LACTIC ACID, VENOUS, WHOLE [id number] 01:04:00 Test Item Value Reference Range Comments LACTATE BLOOD VENOUS (2) (BEAKER) (test 0.9 mmol/L 0.5-2.2 cirm=6296) Effective 09/17/2015: Units/Reference Range ChangeNew: 0.5-2.2 mmol/L Previous: 5 -20 mg/dLPOCT-GLUCOSE [id number] 00:46:00 Test Item Value Reference Range Comments POC-GLUCOSE METER (BEAKER) 87 mg/dL 70-110 TESTED AT [facility] [address] (test uglg=3246) [facility] [address] PROTHROMBIN [id number] 00:37:00 Test Item Value Reference Range Comments PROTIME (BEAKER) (test awll=372) 13.9 seconds 11.7-14.7 INR (BEAKER) (test qahn=073) 1.1 <=5.9 RECOMMENDED COUMADIN/WARFARIN INR THERAPY RANGESSTANDARD DOSE: 2.0 - 3.0 Includes: PROPHYLAXIS forvenous thrombosis, systemic embolization; TREATMENT for venous thrombosis and/or pulmonary embolus.HIGH RISK: Target INR is 2.5-3.5 for patients with mechanical heart valves.CBC W/PLT COUNT & AUTO [id number] 00:28:00 Test Item Value Reference Range Comments WHITE BLOOD CELL COUNT (BEAKER) (test ogms=779) 9.2 K/ L 3.5-10.5 RED BLOOD CELL COUNT (BEAKER) (test yhjr=920) 4.08 M/ L 3.93-5.22 HEMOGLOBIN (BEAKER) (test jmlh=825) 11.6 GM/DL 11.2-15.7 HEMATOCRIT (BEAKER) (test kixh=755) 35.7 % 34.1-44.9 MEAN CORPUSCULAR VOLUME (BEAKER) (test yreh=020) 87.5 fL 79.4-94.8 MEAN CORPUSCULAR HEMOGLOBIN (BEAKER) (test 28.4 pg 25.6-32.2 gkim=459) MEAN CORPUSCULAR HEMOGLOBIN CONC (BEAKER) (test 32.5 GM/DL 32.2-35.5 rett=074) RED CELL DISTRIBUTION WIDTH (BEAKER) (test 14.5 % 11.7-14.4 czli=725) PLATELET COUNT (BEAKER) (test nfgd=843) 256 K/CU MM 150-450 MEAN PLATELET VOLUME (BEAKER) (test dzqs=257) 9.7 fL 9.4-12.3 NUCLEATED RED BLOOD CELLS (BEAKER) (test 0 /100 WBC 0-0 qjby=233) NEUTROPHILS RELATIVE PERCENT (BEAKER) (test 53 % ycji=563) LYMPHOCYTES RELATIVE PERCENT (BEAKER) (test 33 % awku=563) MONOCYTES RELATIVE PERCENT (BEAKER) (test 9 % fhsh=727) EOSINOPHILS RELATIVE PERCENT (BEAKER) (test 4 % nnoe=419) BASOPHILS RELATIVE PERCENT (BEAKER) (test 1 % xphz=468) NEUTROPHILS ABSOLUTE COUNT (BEAKER) (test 4.85 K/ L 1.56-6.13 ikvb=230) LYMPHOCYTES ABSOLUTE COUNT (BEAKER) (test 3.00 K/ L 1.18-3.74 xoba=148) MONOCYTES ABSOLUTE COUNT (BEAKER) (test 0.85 K/ L 0.24-0.36 mpeo=794) EOSINOPHILS ABSOLUTE COUNT (BEAKER) (test 0.40 K/ L 0.04-0.36 lgro=166) BASOPHILS ABSOLUTE COUNT (BEAKER) (test 0.07 K/ L 0.01-0.08 yhya=804) IMMATURE GRANULOCYTES-RELATIVE PERCENT (BEAKER) 0 % 0-1 (test gbqm=3586)
[2018-11-08 09:49] VITALS: BP 118/64; TEMP 98; O2SAT 99
== END 2018-11-08 09:32 | disposition home or self-care (01) ==
LOC: ER 08:23
DX: L23.9 Allergic contact dermatitis, unspecified cause (principal); F41.9 Anxiety disorder, unspecified
CPT/HCPCS: 99283; J7512

== ENCOUNTER 2018-12-15 15:03 | Emergency (ER) | payer OTHER ==
--- OUTSIDE RECORDS SUMMARY | 2018-12-15 15:06 | XMS REPORT | Clinical Summary ---
:1975 Author Organization [facility] Address [address] [place] [address] Care Team Providers Name Role Phone Feng [...] Not on file Results Not on fileafter 12/14/2017 Insurance Payer Benefit Plan / Group Subscriber ID Type Phone Address MEDICARE MEDICARE A B xxxxxxxxxx Medicare Advance Directives For more information, please contact:[facility] [place] [address] [phone] Code Status Date Activated Date Inactivated Comments Full Code 05/09/2017 1:46 PM 05/17/2017 7:41 PM This code status was determined by: Patient Full Code 05/09/2017 12:00 AM 05/09/2017 1:46 PM This code status was determined by: Patient
--- OUTSIDE RECORDS SUMMARY | 2018-12-15 15:09 | XMS REPORT | Summary of Care ---
:1975 Author Organization [facility] Address [address] [place] [address] Care Team Providers Name Role Phone Arelis Knight MD Primary Care Provider Reason for Visit Reason Comments ULTRASOUND (Routine) Status Reason Specialty Diagnoses / Referred By Referred To Procedures Contact Contact Closed Maternal Diagnoses Supervision of high-risk of elderly multigravida Supervision of high-risk with insufficient care in second trimester History of anxiety Smoking Family history of congenital heart defect Arelis Knight, Medicine Procedures CONSULT MATERNAL MEDICINE ULTRASOUND Preferred Location: [facility] [address] [place] [address] 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 0 Active calc,iron,folic ( VITAMIN ORAL) BABY ASPIRIN ORAL Take by mouth. 0 Active diphenhydramine HCl Take by mouth. 0 Active (BENADRYL ALLERGY ORAL) ferrous sulfate (IRON Take by mouth. 0 Active ORAL) documented as of this encounter (statuses as of 12/12/2018) Active Problems Problem Noted Date Excessive weight gain during in third trimester 10/23/2018 History of HELLP syndrome, currently 08/21/2018 complicated by Suboxone maintenance, antepartum 08/21/2018 Supervision of high-risk of elderly multigravida 08/21/2018 History of drug abuse 08/21/2018 Family history of congenital heart defect 08/21/2018 Smoking 08/21/2018 History of anxiety 08/21/2018 Placenta previa without hemorrhage, antepartum 08/21/2018 History of depression 08/21/2018 Severe pre-eclampsia, antepartum 07/04/2008 anemia 07/04/2008 Overview: ICD10 Diagnosis Term Human Service Specialist Utility Normal delivery 07/02/2008 Mild or unspecified pre-eclampsia, condition or complication 2008 Estimated Date of Delivery Comments Yes 01/04/2019 Based on last menstrual period of 03/30/2018 (Approximate) documented as of this encounter (statuses as of 12/12/2018) Resolved Problems Problem Noted Date Resolved Date Antepartum anemia 07/02/2008 07/04/2008 Overview: ICD10 Diagnosis Term Human Service Specialist Utility documented as of this encounter (statuses as of 12/12/2018) Immunizations Name Administration Dates Next Due Influenza Virus Vaccine Quad .5 mL IM 6+ MO 08/21/2018 TDAP (ADACEL) VACCINE 10/23/2018 documented as of this encounter Social History Tobacco Use Types Packs/Day Years Used Date Current Every Day Smoker Cigarettes 0.75 Smokeless Tobacco: Never Used Alcohol Use Drinks/Week oz/Week Comments No Estimated Date of Delivery Comments Yes 01/04/2019 Based on last menstrual period of 03/30/2018 (Approximate) Sex Assigned at Date Recorded Not on file Job Start Date Occupation Industry Not on file Not on file Not on file Travel History Travel Start Travel End No recent travel history available. documented as of this encounter Last Filed Vital Signs Not on filedocumented in this encounter Plan of Treatment Date Type Specialty Care Team Description 12/13/2018 Routine Obstetrics & Knight, Arelis Hodges MD Visit Gynecology [address] [place] [address] [place] [address] [phone] Health Maintenance Due Date Last Done Comments PNEUMOCOCCAL 0-64 YEARS COMBINED SERIES (1 of - 1983 PPSV23) MAMMOGRAM 2017 INFLUENZA VACCINE 01/14/2019 08/21/2018 PAP SMEAR 08/21/2021 08/21/2018 DTaP,Tdap,and Td Vaccines (2 - Td) 10/23/2028 10/23/2018 documented as of this encounter Results Not on filedocumented in this encounter Visit Diagnoses Diagnosis Elderly multigravida in third trimester documented in this encounter Insurance Payer Benefit Plan / Subscriber ID Effective Dates Phone Address Type Group MEDICARE MEDICARE PART xxxxxxxxxxx 2006-[place] [phone] [id number] [place] [id number] [facility] MEDICAID OF xxxxxxxxx 2017-[place] [phone] [address] Medicaid [place] t [id number] [place] [address] ([place]) [place] [address] documented as of this encounter
--- OUTSIDE RECORDS SUMMARY | 2018-12-15 15:09 | XMS REPORT ---
:1975 [facility] Address [address] [place] [address] Care Team Providers Name Role Phone CASSANDRA WILKS Unavailable Unavailable Problems This patient has no known problems. Allergies, Adverse Reactions, Alerts This patient has no known allergies or adverse reactions. Medications This patient has no known medications. Results Test Description Test Time Test Comments Text Results Atomic Results Result Comments TISSUE EXAM 2017-05-18 Surgical Pathology Report 13:38:00 Case: [id number] Authorizing Provider: Jethro Duron MD Collected: 05/14/2017 2636 Ordering Location: [address] Received: 05/17/2017 0950 Pathologist: Torrey Cervantes MD Specimen: Soft Tissue, Other, Wedge gastrectomy PART A PORTION OF STOMACH, PARTIAL GASTRECTOMY:BENIGN GASTRIC MUCOSA WITH MILD CONGESTION.NEGATIVE FOR DYSPLASIA OR INVASIVE CARCINOMA. Signing Pathologist Direct Phone Line: [phone] signed by Torrey Cervantes MD on 05/18/2017 at 1:38 [id number] gastrectomyThe specimen is received in a formalin-filled container labeled with the patient's information and consists of a wedge gastrectomy of stomach measuring 3 x 1.5 x 1 cm with a staple line. Grossly no suspicious areas are seen. The mucosa is toney and hemorrhagic. Section code: Supervisor [employer] staple line and random section of gastric tissue, tissue from staple line is inked le. CG/ew RAD, CHEST, 1 2017-05-17 Reason for FINAL REPORT PATIENT ID: VIEW, NON DEPT 05:29:00 exam:->post [id number] RAD, CHEST, 1 VIEW, NON opShould this [...] Newell Verified Date/Time: 05/17/2017 05:29:48 Reading Location: [facility] B1 C013Y CT Body Reading Room ESIUM 2017-05-17 04:41:00 Test Item Value Reference Range Comments MAGNESIUM (BEAKER) (test dskj=851) 1.8 mg/dL 1.6-2.6 BASIC METABOLIC [id number] 04:41:00 Test Item Value Reference Range Comments SODIUM (BEAKER) (test 137 meq/L 136-145 ticy=814) POTASSIUM (BEAKER) (test 3.5 meq/L 3.5-5.1 crid=327) CHLORIDE (BEAKER) (test 104 meq/L 98-107 aaoe=819) CO2 (BEAKER) (test 27 meq/L 22-29 efgl=047) BLOOD UREA NITROGEN 8 mg/dL 7-21 (BEAKER) (test vaxo=719) CREATININE (BEAKER) (test 0.48 mg/dL 0.57-1.25 cpii=904) GLUCOSE RANDOM (BEAKER) 84 mg/dL 70-105 (test ajkb=215) CALCIUM (BEAKER) (test 8.0 mg/dL 8.4-10.2 gskw=658) EGFR (BEAKER) (test 143 mL/min/1.73 sq m ESTIMATED GFR IS NOT yyzj=0783) ACCURATE CREATININE CLEARANCE IN PREDICTING GLOMERULAR FILTRATION RATE. ESTIMATED GFR IS NOT APPLICABLE FOR DIALYSIS PATIENTS. PROTHROMBIN [id number] 04:27:00 Test Item Value Reference Range Comments PROTIME (BEAKER) (test aujw=769) 14.9 seconds 11.7-14.7 INR (BEAKER) (test gjad=334) 1.2 <=5.9 RECOMMENDED COUMADIN/WARFARIN INR THERAPY RANGESSTANDARD DOSE: 2.0 - 3.0 Includes: PROPHYLAXIS forvenous thrombosis, systemic embolization; TREATMENT for venous thrombosis and/or pulmonary embolus.HIGH RISK: Target INR is 2.5-3.5 for patients with mechanical heart valves.CBC W/PLT COUNT & AUTO [id number] 04:24:00 Test Item Value Reference Range Comments WHITE BLOOD CELL COUNT (BEAKER) (test pnek=222) 7.9 K/ L 3.5-10.5 RED BLOOD CELL COUNT (BEAKER) (test qxqj=014) 3.29 M/ L 3.93-5.22 HEMOGLOBIN (BEAKER) (test bqny=930) 9.4 GM/DL 11.2-15.7 HEMATOCRIT (BEAKER) (test msqo=207) 28.2 % 34.1-44.9 MEAN CORPUSCULAR VOLUME (BEAKER) (test pqva=496) 85.7 fL 79.4-94.8 MEAN CORPUSCULAR HEMOGLOBIN (BEAKER) (test 28.6 pg 25.6-32.2 seho=916) MEAN CORPUSCULAR HEMOGLOBIN CONC (BEAKER) (test 33.3 GM/DL 32.2-35.5 cqqb=951) RED CELL DISTRIBUTION WIDTH (BEAKER) (test 13.9 % 11.7-14.4 ajkv=880) PLATELET COUNT (BEAKER) (test cdib=671) 271 K/CU MM 150-450 MEAN PLATELET VOLUME (BEAKER) (test qibg=915) 9.3 fL 9.4-12.3 NUCLEATED RED BLOOD CELLS (BEAKER) (test 0 /100 WBC 0-0 pulk=983) NEUTROPHILS RELATIVE PERCENT (BEAKER) (test 56 % kunn=943) LYMPHOCYTES RELATIVE PERCENT (BEAKER) (test 23 % wshe=940) MONOCYTES RELATIVE PERCENT (BEAKER) (test 14 % yimy=498) EOSINOPHILS RELATIVE PERCENT (BEAKER) (test 7 % bqjc=882) BASOPHILS RELATIVE PERCENT (BEAKER) (test 1 % yrqo=941) NEUTROPHILS ABSOLUTE COUNT (BEAKER) (test 4.43 K/ L 1.56-6.13 nykw=466) LYMPHOCYTES ABSOLUTE COUNT (BEAKER) (test 1.78 K/ L 1.18-3.74 ghav=406) MONOCYTES ABSOLUTE COUNT (BEAKER) (test 1.10 K/ L 0.24-0.36 mwsn=218) EOSINOPHILS ABSOLUTE COUNT (BEAKER) (test 0.51 K/ L 0.04-0.36 bpzi=239) BASOPHILS ABSOLUTE COUNT (BEAKER) (test 0.06 K/ L 0.01-0.08 zcox=697) IMMATURE GRANULOCYTES-RELATIVE PERCENT (BEAKER) 0 % 0-1 (test svhu=4039) FL [id number] 12:54:00Reason for exam:->s/p hiatal hernia repairFINAL REPORT [...] MDReport Verified Date/Time: 05/16/2017 12:54:45 Reading Location: [address] Consult Reading Room CALCIUM, [id number] 06:35:00 Test Item Value Reference Range Comments CALCIUM IONIZED (BEAKER) (test pseg=479) 1.02 mmol/L 1.12-1.27 PH, BLOOD (BEAKER) (test icha=4452) 7.39 [id number] 05:44:00 Test Item Value Reference Range Comments MAGNESIUM (BEAKER) (test 1.8 mg/dL 1.6-2.6 Specimen slightly hemolyzed kbcb=460) BASIC METABOLIC [id number] 05:44:00 Test Item Value Reference Range Comments SODIUM (BEAKER) (test 138 meq/L 136-145 epyz=539) POTASSIUM (BEAKER) (test 3.9 meq/L 3.5-5.1 Specimen slightly aqaq=981) hemolyzed CHLORIDE (BEAKER) (test 106 meq/L 98-107 zdjj=336) CO2 (BEAKER) (test 26 meq/L 22-29 hbqh=624) BLOOD UREA NITROGEN 8 mg/dL 7-21 (BEAKER) (test vtdk=322) CREATININE (BEAKER) (test 0.46 mg/dL 0.57-1.25 Specimen slightly hrso=583) hemolyzed GLUCOSE RANDOM (BEAKER) 98 mg/dL 70-105 (test xxax=829) CALCIUM (BEAKER) (test 8.3 mg/dL 8.4-10.2 vtlu=842) EGFR (BEAKER) (test 150 mL/min/1.73 sq m ESTIMATED GFR IS NOT ltum=2209) ACCURATE CREATININE CLEARANCE IN PREDICTING GLOMERULAR FILTRATION RATE. ESTIMATED GFR IS NOT APPLICABLE FOR DIALYSIS PATIENTS. PROTHROMBIN TIME/[id number] 05:33:00 Test Item Value Reference Range Comments PROTIME (BEAKER) (test fbwx=934) 15.1 seconds 11.7-14.7 INR (BEAKER) (test lokh=614) 1.2 <=5.9 RECOMMENDED COUMADIN/WARFARIN INR THERAPY RANGESSTANDARD DOSE: 2.0 - 3.0 Includes: PROPHYLAXIS forvenous thrombosis, systemic embolization; TREATMENT for venous thrombosis and/or pulmonary embolus.HIGH RISK: Target INR is 2.5-3.5 for patients with mechanical heart valves.CBC W/PLT COUNT & AUTO [id number] 05:24:00 Test Item Value Reference Range Comments WHITE BLOOD CELL COUNT (BEAKER) (test xjcn=999) 11.4 K/ L 3.5-10.5 RED BLOOD CELL COUNT (BEAKER) (test pomj=998) 3.60 M/ L 3.93-5.22 HEMOGLOBIN (BEAKER) (test oheh=813) 10.3 GM/DL 11.2-15.7 HEMATOCRIT (BEAKER) (test hbpg=138) 31.2 % 34.1-44.9 MEAN CORPUSCULAR VOLUME (BEAKER) (test civk=951) 86.7 fL 79.4-94.8 MEAN CORPUSCULAR HEMOGLOBIN (BEAKER) (test 28.6 pg 25.6-32.2 pdvt=409) MEAN CORPUSCULAR HEMOGLOBIN CONC (BEAKER) (test 33.0 GM/DL 32.2-35.5 xlyk=677) RED CELL DISTRIBUTION WIDTH (BEAKER) (test 14.1 % 11.7-14.4 zush=246) PLATELET COUNT (BEAKER) (test ajnc=358) 266 K/CU MM 150-450 MEAN PLATELET VOLUME (BEAKER) (test ggwk=221) 9.1 fL 9.4-12.3 NUCLEATED RED BLOOD CELLS (BEAKER) (test 0 /100 WBC 0-0 pbay=568) NEUTROPHILS RELATIVE PERCENT (BEAKER) (test 67 % svua=781) LYMPHOCYTES RELATIVE PERCENT (BEAKER) (test 16 % mzxh=759) MONOCYTES RELATIVE PERCENT (BEAKER) (test 12 % bvet=940) EOSINOPHILS RELATIVE PERCENT (BEAKER) (test 4 % aaxe=503) BASOPHILS RELATIVE PERCENT (BEAKER) (test 1 % honc=937) NEUTROPHILS ABSOLUTE COUNT (BEAKER) (test 7.61 K/ L 1.56-6.13 bgut=308) LYMPHOCYTES ABSOLUTE COUNT (BEAKER) (test 1.86 K/ L 1.18-3.74 vbdq=078) MONOCYTES ABSOLUTE COUNT (BEAKER) (test 1.38 K/ L 0.24-0.36 vnbc=443) EOSINOPHILS ABSOLUTE COUNT (BEAKER) (test 0.48 K/ L 0.04-0.36 qheg=989) BASOPHILS ABSOLUTE COUNT (BEAKER) (test 0.07 K/ L 0.01-0.08 onfj=588) IMMATURE GRANULOCYTES-RELATIVE PERCENT (BEAKER) 0 % 0-1 (test oqgb=2657) RAD, CHEST, 1 VIEW, NON [id number] 14:45:00Reason for exam:->s/p left chest tube removalShould [...] MDReport Verified Date/Time: 05/15/2017 14:45:11 Reading Location: [facility] B1 C013X Ortho Consult Reading Room RAD, CHEST, 1 VIEW, NON [id number] 07:32:00while patient is intubated or has chest [...] Holdenepmaxim Verified Date/Time: 05/15/2017 07:32:43 Reading Location: [address] Body Reading Room PROTHROMBIN TIME/[id number] 05:07:00 Test Item Value Reference Range Comments PROTIME (BEAKER) (test kogc=865) 15.8 seconds 11.7-14.7 INR (BEAKER) (test tpil=086) 1.3 <=5.9 RECOMMENDED COUMADIN/WARFARIN INR THERAPY RANGESSTANDARD DOSE: 2.0 - 3.0 Includes: PROPHYLAXIS forvenous thrombosis, systemic embolization; TREATMENT for venous thrombosis and/or pulmonary embolus.HIGH RISK: Target INR is 2.5-3.5 for patients with mechanical heart valves.BASIC METABOLIC [id number] 05:07: 00 Test Item Value Reference Range Comments SODIUM (BEAKER) (test 140 meq/L 136-145 vspr=287) POTASSIUM (BEAKER) (test 3.5 meq/L 3.5-5.1 vvhk=055) CHLORIDE (BEAKER) (test 112 meq/L 98-107 eciz=201) CO2 (BEAKER) (test 22 meq/L 22-29 gwmp=567) BLOOD UREA NITROGEN 15 mg/dL 7-21 (BEAKER) (test vglv=260) CREATININE (BEAKER) (test 0.52 mg/dL 0.57-1.25 owxt=261) GLUCOSE RANDOM (BEAKER) 105 mg/dL 70-105 (test tmmy=022) CALCIUM (BEAKER) (test 7.7 mg/dL 8.4-10.2 ssna=665) EGFR (BEAKER) (test 131 mL/min/1.73 sq m ESTIMATED GFR IS NOT vpdo=9730) ACCURATE CREATININE CLEARANCE IN PREDICTING GLOMERULAR FILTRATION RATE. ESTIMATED GFR IS NOT APPLICABLE FOR DIALYSIS PATIENTS. [id number] 05:03:00 Test Item Value Reference Range Comments MAGNESIUM (BEAKER) (test fqjg=434) 2.7 mg/dL 1.6-2.6 CBC W/PLT COUNT & AUTO [id number] 05:00:00 Test Item Value Reference Range Comments WHITE BLOOD CELL COUNT (BEAKER) (test jjvn=164) 13.2 K/ L 3.5-10.5 RED BLOOD CELL COUNT (BEAKER) (test jsin=302) 3.39 M/ L 3.93-5.22 HEMOGLOBIN (BEAKER) (test sjfl=451) 9.7 GM/DL 11.2-15.7 HEMATOCRIT (BEAKER) (test dnrk=692) 29.2 % 34.1-44.9 MEAN CORPUSCULAR VOLUME (BEAKER) (test wmrn=330) 86.1 fL 79.4-94.8 MEAN CORPUSCULAR HEMOGLOBIN (BEAKER) (test 28.6 pg 25.6-32.2 itvj=889) MEAN CORPUSCULAR HEMOGLOBIN CONC (BEAKER) (test 33.2 GM/DL 32.2-35.5 uaay=065) RED CELL DISTRIBUTION WIDTH (BEAKER) (test 14.2 % 11.7-14.4 wdwp=717) PLATELET COUNT (BEAKER) (test pfgw=206) 252 K/CU MM 150-450 MEAN PLATELET VOLUME (BEAKER) (test zuuj=760) 9.2 fL 9.4-12.3 NUCLEATED RED BLOOD CELLS (BEAKER) (test 0 /100 WBC 0-0 fgme=478) NEUTROPHILS RELATIVE PERCENT (BEAKER) (test 76 % hrbk=616) LYMPHOCYTES RELATIVE PERCENT (BEAKER) (test 14 % abrq=049) MONOCYTES RELATIVE PERCENT (BEAKER) (test 10 % dbmn=357) EOSINOPHILS RELATIVE PERCENT (BEAKER) (test 0 % banz=205) BASOPHILS RELATIVE PERCENT (BEAKER) (test 0 % fwsl=906) NEUTROPHILS ABSOLUTE COUNT (BEAKER) (test 10.02 K/ L 1.56-6.13 xzjx=949) LYMPHOCYTES ABSOLUTE COUNT (BEAKER) (test 1.81 K/ L 1.18-3.74 feqn=082) MONOCYTES ABSOLUTE COUNT (BEAKER) (test 1.26 K/ L 0.24-0.36 oyvw=082) EOSINOPHILS ABSOLUTE COUNT (BEAKER) (test 0.04 K/ L 0.04-0.36 myki=049) BASOPHILS ABSOLUTE COUNT (BEAKER) (test 0.05 K/ L 0.01-0.08 pptv=241) IMMATURE GRANULOCYTES-RELATIVE PERCENT (BEAKER) 0 % 0-1 (test kirl=1263) CALCIUM, [id number] 23:02:00 Test Item Value Reference Range Comments CALCIUM IONIZED (BEAKER) (test ciad=138) 0.92 mmol/L 1.12-1.27 PH, BLOOD (BEAKER) (test youf=0443) 7.38 [id number] 22:53:00 Test Item Value Reference Range Comments MAGNESIUM (BEAKER) (test kvle=665) 1.9 mg/dL 1.6-2.6 BASIC METABOLIC [id number] 22:53:00 Test Item Value Reference Range Comments SODIUM (BEAKER) (test 142 meq/L 136-145 oaak=465) POTASSIUM (BEAKER) (test 3.7 meq/L 3.5-5.1 bczo=021) CHLORIDE (BEAKER) (test 113 meq/L 98-107 yuil=694) CO2 (BEAKER) (test 19 meq/L 22-29 nkvy=946) BLOOD UREA NITROGEN 17 mg/dL 7-21 (BEAKER) (test fpen=334) CREATININE (BEAKER) (test 0.55 mg/dL 0.57-1.25 cxsb=228) GLUCOSE RANDOM (BEAKER) 98 mg/dL 70-105 (test scfi=657) CALCIUM (BEAKER) (test 7.5 mg/dL 8.4-10.2 kejo=018) EGFR (BEAKER) (test 122 mL/min/1.73 sq m ESTIMATED GFR IS NOT lcbw=4403) ACCURATE CREATININE CLEARANCE IN PREDICTING GLOMERULAR FILTRATION RATE. ESTIMATED GFR IS NOT APPLICABLE FOR DIALYSIS PATIENTS. CBC W/PLT COUNT & AUTO [id number] 22:47:00 Test Item Value Reference Range Comments WHITE BLOOD CELL COUNT (BEAKER) (test uhqx=254) 19.1 K/ L 3.5-10.5 RED BLOOD CELL COUNT (BEAKER) (test ijyc=342) 3.60 M/ L 3.93-5.22 HEMOGLOBIN (BEAKER) (test lybb=569) 10.2 GM/DL 11.2-15.7 HEMATOCRIT (BEAKER) (test dfaj=243) 31.1 % 34.1-44.9 MEAN CORPUSCULAR VOLUME (BEAKER) (test qhak=362) 86.4 fL 79.4-94.8 MEAN CORPUSCULAR HEMOGLOBIN (BEAKER) (test 28.3 pg 25.6-32.2 joty=538) MEAN CORPUSCULAR HEMOGLOBIN CONC (BEAKER) (test 32.8 GM/DL 32.2-35.5 pial=300) RED CELL DISTRIBUTION WIDTH (BEAKER) (test 14.0 % 11.7-14.4 fofd=165) PLATELET COUNT (BEAKER) (test afsx=925) 273 K/CU MM 150-450 MEAN PLATELET VOLUME (BEAKER) (test hedh=514) 9.5 fL 9.4-12.3 NUCLEATED RED BLOOD CELLS (BEAKER) (test 0 /100 WBC 0-0 bzpw=014) NEUTROPHILS RELATIVE PERCENT (BEAKER) (test 88 % zkkb=635) LYMPHOCYTES RELATIVE PERCENT (BEAKER) (test 4 % dpsf=576) MONOCYTES RELATIVE PERCENT (BEAKER) (test 8 % mqyc=939) EOSINOPHILS RELATIVE PERCENT (BEAKER) (test 0 % qagi=676) BASOPHILS RELATIVE PERCENT (BEAKER) (test 0 % vmoz=162) NEUTROPHILS ABSOLUTE COUNT (BEAKER) (test 16.75 K/ L 1.56-6.13 pdnd=375) LYMPHOCYTES ABSOLUTE COUNT (BEAKER) (test 0.70 K/ L 1.18-3.74 mvmf=637) MONOCYTES ABSOLUTE COUNT (BEAKER) (test 1.55 K/ L 0.24-0.36 cjhm=634) EOSINOPHILS ABSOLUTE COUNT (BEAKER) (test 0.01 K/ L 0.04-0.36 oajl=159) BASOPHILS ABSOLUTE COUNT (BEAKER) (test 0.03 K/ L 0.01-0.08 ueot=069) IMMATURE GRANULOCYTES-RELATIVE PERCENT (BEAKER) 0 % 0-1 (test vuqg=6158) RAD, CHEST, 1 VIEW, NON [id number] 21:18:00Reason for exam:->ptxIs the patient ?->NoShould this [...] MDReport Verified Date/Time: 05/14/2017 21:18:07 Reading Location: [address] ReadingRoom BLOOD GAS, [id number] 17:28:00 Test Item Value Reference Range Comments PH ARTERIAL (BEAKER) (test xlal=461) 7.36 7.35-7.45 PCO2 ARTERIAL (BEAKER) (test vbsg=088) 39 mm Hg 35-45 PO2 ARTERIAL (BEAKER) (test cjhx=860) 194 mm Hg 80-90 O2 SATURATION ARTERIAL (BEAKER) (test aesz=471) 99.3 % 96.0-97.0 HCO3 ARTERIAL (BEAKER) (test phqr=317) 22 mmol/L 21-29 BASE EXCESS ARTERIAL (BEAKER) (test falz=270) -3.6 mmol/L -2.0-3.0 PATIENT TEMPERATURE (BEAKER) (test ybsw=0681) 36.2 FIO2 (BEAKER) (test mtcx=2180) 50 SODIUM NA-STAT [id number] 17:28:00 Test Item Value Reference Range Comments SODIUM (BEAKER) (test tilh=280) 134 meq/L 135-148 POTASSIUM-STAT [id number] 17:28:00 Test Item Value Reference Range Comments POTASSIUM (BEAKER) (test otwb=629) 3.4 meq/L 3.6-5.5 GLUCOSE-STAT [id number] 17:28:00 Test Item Value Reference Range Comments GLUCOSE RANDOM (BEAKER) (test yjdj=366) 185 mg/dL 70-110 HGB/HCT (H&H) - STAT [id number] 17:28:00 Test Item Value Reference Range Comments HEMOGLOBIN (BEAKER) (test oqky=800) 11.0 GM/DL 12.0-15.0 HEMATOCRIT (BEAKER) (test btbg=462) 32.0 % 36.0-45.0 BLOOD GAS, [id number] 15:47:00 Test Item Value Reference Range Comments PH ARTERIAL (BEAKER) (test abyj=182) 7.33 7.35-7.45 PCO2 ARTERIAL (BEAKER) (test cwqj=663) 46 mmHg 35-45 PO2 ARTERIAL (BEAKER) (test fryr=553) 211 mmHg 80-90 O2 SATURATION ARTERIAL (BEAKER) (test jjzl=109) 99.4 % 96.0-97.0 HCO3 ARTERIAL (BEAKER) (test bxgl=537) 24 mmol/L 21-29 BASE EXCESS ARTERIAL (BEAKER) (test clju=510) -2.5 mmol/L -2.0-3.0 PATIENT TEMPERATURE (BEAKER) (test psux=1020) 35.4 C FIO2 (BEAKER) (test thys=6316) 67.0 % GLUCOSE-STAT [id number] 15:47:00 Test Item Value Reference Range Comments GLUCOSE RANDOM (BEAKER) (test deof=841) 158 mg/dL 70-110 SODIUM NA-STAT [id number] 15:46:00 Test Item Value Reference Range Comments SODIUM (BEAKER) (test pdyg=699) 137 meq/L 135-148 POTASSIUM-STAT [id number] 15:46:00 Test Item Value Reference Range Comments POTASSIUM (BEAKER) (test sckq=061) 3.7 meq/L 3.6-5.5 HGB/HCT (H&H) - STAT [id number] 15:46:00 Test Item Value Reference Range Comments HEMOGLOBIN (BEAKER) (test bxqq=951) 12.5 g/dL 12.0-15.0 HEMATOCRIT (BEAKER) (test xbbe=448) 37.0 % 36.0-45.0 URINE [id number] 15:11:00 Test Item Value Reference Range Comments CULTURE (BEAKER) (test 30-39,000 col/mL skin cindy odao=7989) BLOOD GAS, [id number] 14:45:00 Test Item Value Reference Range Comments PH ARTERIAL (BEAKER) (test zvuk=769) 7.51 7.35-7.45 PCO2 ARTERIAL (BEAKER) (test wqwx=182) 31 mmHg 35-45 PO2 ARTERIAL (BEAKER) (test wnfn=390) 458 mmHg 80-90 O2 SATURATION ARTERIAL (BEAKER) (test xypa=270) 99.9 % 96.0-97.0 HCO3 ARTERIAL (BEAKER) (test rbhh=847) 25 mmol/L 21-29 BASE EXCESS ARTERIAL (BEAKER) (test qqpx=434) 1.8 mmol/L -2.0-3.0 PATIENT TEMPERATURE (BEAKER) (test tnen=4435) 36.0 C FIO2 (BEAKER) (test hksz=3355) 50.0 % POTASSIUM-STAT [id number] 14:45:00 Test Item Value Reference Range Comments POTASSIUM (BEAKER) (test vgdg=617) 3.3 meq/L 3.6-5.5 HGB/HCT (H&H) - STAT [id number] 14:45:00 Test Item Value Reference Range Comments HEMOGLOBIN (BEAKER) (test odzh=326) 11.5 g/dL 12.0-15.0 HEMATOCRIT (BEAKER) (test vgmy=189) 34.0 % 36.0-45.0 GLUCOSE-STAT [id number] 14:44:00 Test Item Value Reference Range Comments GLUCOSE RANDOM (BEAKER) (test ohpk=141) 105 mg/dL 70-110 SODIUM NA-STAT [id number] 14:44:00 Test Item Value Reference Range Comments SODIUM (BEAKER) (test uhiw=368) 137 meq/L 135-148 SCREEN, [id number] 13:36:00 Test Item Value Reference Range Comments TEST URINE (BEAKER) (test twio=580) Negative BLOOD [id number] 10:00:00 Test Item Value Reference Range Comments CULTURE (BEAKER) (test ffvg=8477) No growth in 5 days RAD, CHEST, 1 VIEW, NON [id number] 07:28:00Reason for exam:->post opShould this be performed at the bedside?->YesFINAL REPORT Chest one view compared to May 13 Discussion: Unchanged left hemidiaphragm elevation. Cardiopulmonary appearance is similar. No effusion or pneumothorax. No atypical line or tube position. Signed: Julisa Partida Verified Date/Time: 05/14/2017 07:28:59 Reading Location: [address] Neuro Reading Room 07 :28 AMTROPONIN [id number] 05:14:00 Test Item Value Reference Range Comments TROPONIN I (BEAKER) (test gnhl=728) 0.02 ng/mL 0.00-0.03 Troponin I (TnI) levels [...] failure, acidosis, acute neurological disease, and persistent tachyarrhythmia.[id number] 05:03:00 Test Item Value Reference Range Comments MAGNESIUM (BEAKER) (test kiiu=022) 1.7 mg/dL 1.6-2.6 BASIC METABOLIC [id number] 05:03:00 Test Item Value Reference Range Comments SODIUM (BEAKER) (test 140 meq/L 136-145 tlqz=595) POTASSIUM (BEAKER) (test 3.4 meq/L 3.5-5.1 jtby=047) CHLORIDE (BEAKER) (test 107 meq/L 98-107 gtog=436) CO2 (BEAKER) (test 25 meq/L 22-29 ocps=710) BLOOD UREA NITROGEN 18 mg/dL 7-21 (BEAKER) (test ingh=289) CREATININE (BEAKER) (test 0.53 mg/dL 0.57-1.25 jwlr=250) GLUCOSE RANDOM (BEAKER) 85 mg/dL 70-105 (test cxxh=387) CALCIUM (BEAKER) (test 8.7 mg/dL 8.4-10.2 vabu=614) EGFR (BEAKER) (test 128 mL/min/1.73 sq m ESTIMATED GFR IS NOT mwym=5759) ACCURATE CREATININE CLEARANCE IN PREDICTING GLOMERULAR FILTRATION RATE. ESTIMATED GFR IS NOT APPLICABLE FOR DIALYSIS PATIENTS. CBC W/PLT COUNT & AUTO [id number] 04:51:00 Test Item Value Reference Range Comments WHITE BLOOD CELL COUNT (BEAKER) (test fuik=335) 11.5 K/ L 3.5-10.5 RED BLOOD CELL COUNT (BEAKER) (test eqiw=091) 3.92 M/ L 3.93-5.22 HEMOGLOBIN (BEAKER) (test bcbk=021) 11.1 GM/DL 11.2-15.7 HEMATOCRIT (BEAKER) (test ovvs=918) 33.0 % 34.1-44.9 MEAN CORPUSCULAR VOLUME (BEAKER) (test gjoh=316) 84.2 fL 79.4-94.8 MEAN CORPUSCULAR HEMOGLOBIN (BEAKER) (test 28.3 pg 25.6-32.2 okqd=817) MEAN CORPUSCULAR HEMOGLOBIN CONC (BEAKER) (test 33.6 GM/DL 32.2-35.5 nxjr=914) RED CELL DISTRIBUTION WIDTH (BEAKER) (test 13.9 % 11.7-14.4 juha=413) PLATELET COUNT (BEAKER) (test gxsx=595) 282 K/CU MM 150-450 MEAN PLATELET VOLUME (BEAKER) (test adou=574) 9.5 fL 9.4-12.3 NUCLEATED RED BLOOD CELLS (BEAKER) (test 0 /100 WBC 0-0 enuj=284) NEUTROPHILS RELATIVE PERCENT (BEAKER) (test 71 % wrqv=470) LYMPHOCYTES RELATIVE PERCENT (BEAKER) (test 15 % bbpv=193) MONOCYTES RELATIVE PERCENT (BEAKER) (test 11 % agmi=308) EOSINOPHILS RELATIVE PERCENT (BEAKER) (test 3 % lgii=088) BASOPHILS RELATIVE PERCENT (BEAKER) (test 0 % bmaa=172) NEUTROPHILS ABSOLUTE COUNT (BEAKER) (test 8.12 K/ L 1.56-6.13 nxcv=006) LYMPHOCYTES ABSOLUTE COUNT (BEAKER) (test 1.71 K/ L 1.18-3.74 bjra=787) MONOCYTES ABSOLUTE COUNT (BEAKER) (test 1.26 K/ L 0.24-0.36 otda=127) EOSINOPHILS ABSOLUTE COUNT (BEAKER) (test 0.34 K/ L 0.04-0.36 yzyx=427) BASOPHILS ABSOLUTE COUNT (BEAKER) (test 0.05 K/ L 0.01-0.08 sltb=174) IMMATURE GRANULOCYTES-RELATIVE PERCENT (BEAKER) 0 % 0-1 (test vkrc=7144) [id number] 04:50:00 Test Item Value Reference Range Comments PROTIME (BEAKER) (test aske=090) 14.3 seconds 11.7-14.7 INR (BEAKER) (test iueh=534) 1.1 <=5.9 PARTIAL THROMBOPLASTIN TIME (BEAKER) (test 36.0 seconds 22.5-36.0 hmwe=294) RECOMMENDED COUMADIN/WARFARIN INR THERAPY RANGESSTANDARD DOSE: 2.0 - 3.0 Includes: PROPHYLAXIS forvenous thrombosis, systemic embolization; TREATMENT for venous thrombosis and/or pulmonary embolus.HIGH RISK: Target INR is 2.5-3.5 for patients with mechanical heart valves.PROTHROMBIN [id number] 04:49: 00 Test Item Value Reference Range Comments PROTIME (BEAKER) (test houn=328) 14.3 seconds 11.7-14.7 INR (BEAKER) (test yvzd=376) 1.1 <=5.9 RECOMMENDED COUMADIN/WARFARIN INR THERAPY RANGESSTANDARD DOSE: 2.0 - 3.0 Includes: PROPHYLAXIS forvenous thrombosis, systemic embolization; TREATMENT for venous thrombosis and/or pulmonary embolus.HIGH RISK: Target INR is 2.5-3.5 for patients with mechanical heart valves.TROPONIN [id number] 19:19:00 Test Item Value Reference Range Comments TROPONIN I (BEAKER) (test qrbj=959) < ng/mL 0.00-0.03 Troponin I (TnI) levels [...] acute neurological disease, and persistent tachyarrhythmia.URINALYSIS W/ [id number] 17: 11:00 Test Item Value Reference Range Comments COLOR (BEAKER) (test hmei=215) Yellow CLARITY (BEAKER) (test pews=727) Hazy SPECIFIC GRAVITY UA (BEAKER) (test 1.014 1.001-1.035 ozgk=486) PH UA (BEAKER) (test vflk=752) 6.0 5.0-8.0 PROTEIN UA (BEAKER) (test rkta=482) Negative Negative GLUCOSE UA (BEAKER) (test ugud=386) Negative Negative KETONES UA (BEAKER) (test ntiu=408) Negative Negative BILIRUBIN UA (BEAKER) (test nier=514) Negative Negative BLOOD UA (BEAKER) (test dkuv=602) Negative Negative NITRITE UA (BEAKER) (test syqx=294) Negative Negative LEUKOCYTE ESTERASE UA (BEAKER) (test Moderate Negative rqmg=319) UROBILINOGEN UA (BEAKER) (test rdtw=036) 0.2 mg/dL 0.2-1.0 RBC UA (BEAKER) (test mzfx=190) 1 /HPF WBC UA (BEAKER) (test fniw=576) 7 /HPF BACTERIA (BEAKER) (test pibj=974) Rare MUCUS (BEAKER) (test wvhm=3769) Occasional SQUAMOUS EPITHELIAL (BEAKER) (test 17 /HPF frqq=578) SOURCE(BEAKER) (test rdpn=8147) Urine, Clean Catch TSH/FREE T4 IF [id number] 16:23:00 Test Item Value Reference Range Comments THYROID STIMULATING HORMONE (BEAKER) (test 1.07 uIU/mL 0.35-4.94 zwer=221) [id number] 15:56:00 Test Item Value Reference Range Comments POTASSIUM (BEAKER) (test rebq=179) 4.3 meq/L 3.5-5.1 CREATINE KINASE (CK), TOTAL AND [id number] 14:21:00 Test Item Value Reference Range Comments CREATINE KINASE TOTAL (BEAKER) (test khtb=203) 19 U/L 29-200 CREATINE KINASE-MB (BEAKER) (test ipek=449) 0.5 ng/mL 0.0-6.6 CREATINE KINASE-MB INDEX (BEAKER) (test edjw=802) 2.6 % CK-MB Reference Range:<6.7 Normal6.7-10.0 Borderline>10.0 AbnormalTROPONIN [id number] 14:20:00 Test Item Value Reference Range Comments TROPONIN I (BEAKER) (test ryqj=045) < ng/mL 0.00-0.03 Troponin I (TnI) levels [...] failure, acidosis, acute neurological disease, and persistent tachyarrhythmia.[id number] 13:35:00 Test Item Value Reference Range Comments MAGNESIUM (BEAKER) (test bqeb=769) 2.5 mg/dL 1.6-2.6 PROTHROMBIN [id number] 05:20:00 Test Item Value Reference Range Comments PROTIME (BEAKER) (test lero=156) 14.3 seconds 11.7-14.7 INR (BEAKER) (test kwxb=121) 1.1 <=5.9 RECOMMENDED COUMADIN/WARFARIN INR THERAPY RANGESSTANDARD DOSE: 2.0 - 3.0 Includes: PROPHYLAXIS forvenous thrombosis, systemic embolization; TREATMENT for venous thrombosis and/or pulmonary embolus.HIGH RISK: Target INR is 2.5-3.5 for patients with mechanical heart valves.[id number] 05:19:00 Test Item Value Reference Range Comments PHOSPHORUS (BEAKER) (test yles=468) 4.1 mg/dL 2.3-4.7 [id number] 05:19:00 Test Item Value Reference Range Comments MAGNESIUM (BEAKER) (test gibg=672) 2.0 mg/dL 1.6-2.6 BASIC METABOLIC [id number] 05:19:00 Test Item Value Reference Range Comments SODIUM (BEAKER) (test 138 meq/L 136-145 dzzp=307) POTASSIUM (BEAKER) (test 3.6 meq/L 3.5-5.1 nsby=893) CHLORIDE (BEAKER) (test 106 meq/L 98-107 ifls=278) CO2 (BEAKER) (test 25 meq/L 22-29 zneq=959) BLOOD UREA NITROGEN 14 mg/dL 7-21 (BEAKER) (test bfmh=431) CREATININE (BEAKER) (test 0.52 mg/dL 0.57-1.25 sgjz=066) GLUCOSE RANDOM (BEAKER) 87 mg/dL 70-105 (test hnxe=576) CALCIUM (BEAKER) (test 8.6 mg/dL 8.4-10.2 dtaw=140) EGFR (BEAKER) (test 131 mL/min/1.73 sq m ESTIMATED GFR IS NOT ewws=7577) ACCURATE CREATININE CLEARANCE IN PREDICTING GLOMERULAR FILTRATION RATE. ESTIMATED GFR IS NOT APPLICABLE FOR DIALYSIS PATIENTS. CBC W/PLT COUNT & AUTO [id number] 04:56:00 Test Item Value Reference Range Comments WHITE BLOOD CELL COUNT (BEAKER) (test vsqc=803) 12.4 K/ L 3.5-10.5 RED BLOOD CELL COUNT (BEAKER) (test ygni=736) 3.80 M/ L 3.93-5.22 HEMOGLOBIN (BEAKER) (test lcxg=592) 10.8 GM/DL 11.2-15.7 HEMATOCRIT (BEAKER) (test aegk=437) 32.5 % 34.1-44.9 MEAN CORPUSCULAR VOLUME (BEAKER) (test harj=805) 85.5 fL 79.4-94.8 MEAN CORPUSCULAR HEMOGLOBIN (BEAKER) (test 28.4 pg 25.6-32.2 gdma=351) MEAN CORPUSCULAR HEMOGLOBIN CONC (BEAKER) (test 33.2 GM/DL 32.2-35.5 jyrd=543) RED CELL DISTRIBUTION WIDTH (BEAKER) (test 14.1 % 11.7-14.4 gqfv=471) PLATELET COUNT (BEAKER) (test foog=980) 274 K/CU MM 150-450 MEAN PLATELET VOLUME (BEAKER) (test fbyi=651) 9.3 fL 9.4-12.3 NUCLEATED RED BLOOD CELLS (BEAKER) (test 0 /100 WBC 0-0 yavp=580) NEUTROPHILS RELATIVE PERCENT (BEAKER) (test 67 % hddj=349) LYMPHOCYTES RELATIVE PERCENT (BEAKER) (test 18 % kllk=322) MONOCYTES RELATIVE PERCENT (BEAKER) (test 11 % rxup=322) EOSINOPHILS RELATIVE PERCENT (BEAKER) (test 3 % xlhg=473) BASOPHILS RELATIVE PERCENT (BEAKER) (test 0 % kynu=208) NEUTROPHILS ABSOLUTE COUNT (BEAKER) (test 8.33 K/ L 1.56-6.13 pqcw=424) LYMPHOCYTES ABSOLUTE COUNT (BEAKER) (test 2.25 K/ L 1.18-3.74 idzk=579) MONOCYTES ABSOLUTE COUNT (BEAKER) (test 1.34 K/ L 0.24-0.36 opfa=055) EOSINOPHILS ABSOLUTE COUNT (BEAKER) (test 0.38 K/ L 0.04-0.36 vflm=419) BASOPHILS ABSOLUTE COUNT (BEAKER) (test 0.05 K/ L 0.01-0.08 immg=714) IMMATURE GRANULOCYTES-RELATIVE PERCENT (BEAKER) 0 % 0-1 (test vrtb=1334) RAD, CHEST, 1 VIEW, NON [id number] 04:12:00Reason for exam:->post opShould this be performed at the bedside?->YesFINAL REPORT CLINICAL INDICATION: Postop Comparison: 05/12/2017 The cardiomediastinal contours are stable. The left hemidiaphragm remains elevated. There is no focal consolidation, pneumothorax, large pleural effusion or evidence of overt pulmonary edema. Support lines are stable. Signed: Noah Porter MDReport Verified Date/Time: 05/13/2017 04:12:27 Reading Location: [address] Reading Room [id number] 20:35:00 Test Item Value Reference Range Comments MAGNESIUM (BEAKER) (test mcbl=995) 1.9 mg/dL 1.6-2.6 BASIC METABOLIC [id number] 20:35:00 Test Item Value Reference Range Comments SODIUM (BEAKER) (test 138 meq/L 136-145 qxqb=384) POTASSIUM (BEAKER) (test 4.1 meq/L 3.5-5.1 resq=554) CHLORIDE (BEAKER) (test 107 meq/L 98-107 sbnv=780) CO2 (BEAKER) (test 25 meq/L 22-29 qbfk=829) BLOOD UREA NITROGEN 11 mg/dL 7-21 (BEAKER) (test gfob=799) CREATININE (BEAKER) (test 0.54 mg/dL 0.57-1.25 owno=990) GLUCOSE RANDOM (BEAKER) 98 mg/dL 70-105 (test mocw=555) CALCIUM (BEAKER) (test 8.9 mg/dL 8.4-10.2 gvcd=178) EGFR (BEAKER) (test 125 mL/min/1.73 sq m ESTIMATED GFR IS NOT nzwh=3607) ACCURATE CREATININE CLEARANCE IN PREDICTING GLOMERULAR FILTRATION RATE. ESTIMATED GFR IS NOT APPLICABLE FOR DIALYSIS PATIENTS. CBC W/PLT COUNT & AUTO [id number] 20:26:00 Test Item Value Reference Range Comments WHITE BLOOD CELL COUNT (BEAKER) (test zvig=661) 11.5 K/ L 3.5-10.5 RED BLOOD CELL COUNT (BEAKER) (test ojig=828) 4.01 M/ L 3.93-5.22 HEMOGLOBIN (BEAKER) (test nwzm=401) 11.5 GM/DL 11.2-15.7 HEMATOCRIT (BEAKER) (test rnuj=810) 34.1 % 34.1-44.9 MEAN CORPUSCULAR VOLUME (BEAKER) (test esrc=058) 85.0 fL 79.4-94.8 MEAN CORPUSCULAR HEMOGLOBIN (BEAKER) (test 28.7 pg 25.6-32.2 dyqv=016) MEAN CORPUSCULAR HEMOGLOBIN CONC (BEAKER) (test 33.7 GM/DL 32.2-35.5 rsmm=101) RED CELL DISTRIBUTION WIDTH (BEAKER) (test 14.1 % 11.7-14.4 qzda=892) PLATELET COUNT (BEAKER) (test cxyg=138) 278 K/CU MM 150-450 MEAN PLATELET VOLUME (BEAKER) (test jvzd=560) 9.3 fL 9.4-12.3 NUCLEATED RED BLOOD CELLS (BEAKER) (test 0 /100 WBC 0-0 jjfg=030) NEUTROPHILS RELATIVE PERCENT (BEAKER) (test 75 % llkp=374) LYMPHOCYTES RELATIVE PERCENT (BEAKER) (test 13 % krar=122) MONOCYTES RELATIVE PERCENT (BEAKER) (test 10 % pmar=807) EOSINOPHILS RELATIVE PERCENT (BEAKER) (test 2 % ybhi=686) BASOPHILS RELATIVE PERCENT (BEAKER) (test 1 % bvvf=780) NEUTROPHILS ABSOLUTE COUNT (BEAKER) (test 8.60 K/ L 1.56-6.13 nlwa=238) LYMPHOCYTES ABSOLUTE COUNT (BEAKER) (test 1.48 K/ L 1.18-3.74 cszj=526) MONOCYTES ABSOLUTE COUNT (BEAKER) (test 1.10 K/ L 0.24-0.36 wpgw=341) EOSINOPHILS ABSOLUTE COUNT (BEAKER) (test 0.18 K/ L 0.04-0.36 ybks=190) BASOPHILS ABSOLUTE COUNT (BEAKER) (test 0.06 K/ L 0.01-0.08 sfcm=536) IMMATURE GRANULOCYTES-RELATIVE PERCENT (BEAKER) 0 % 0-1 (test egjb=5499) RAD, CHEST, 1 VIEW, NON [id number] 04:20:00Reason for exam:->post opShould this be performed at the bedside?->YesFINAL REPORT CLINICAL INDICATION: Postop Comparison: 05/11/2017 The cardiomediastinal contours are stable. The left hemidiaphragm remains elevated. Retrocardiac opacity in the left lung may reflect atelectasis but pneumonitis should be excluded clinically. There is no pneumothorax. Support lines are stable. Signed: Noah Porter MDReport Verified Date/Time: 05/12/2017 04:20:19 Reading Location: [address] Reading Room [id number] 04:14: 00 Test Item Value Reference Range Comments MAGNESIUM (BEAKER) (test mzrf=558) 1.9 mg/dL 1.6-2.6 BASIC METABOLIC [id number] 04:14:00 Test Item Value Reference Range Comments SODIUM (BEAKER) (test 140 meq/L 136-145 irrv=710) POTASSIUM (BEAKER) (test 3.6 meq/L 3.5-5.1 dmck=278) CHLORIDE (BEAKER) (test 106 meq/L 98-107 loss=087) CO2 (BEAKER) (test 25 meq/L 22-29 rwyg=410) BLOOD UREA NITROGEN 8 mg/dL 7-21 (BEAKER) (test igwj=468) CREATININE (BEAKER) (test 0.54 mg/dL 0.57-1.25 pktz=008) GLUCOSE RANDOM (BEAKER) 106 mg/dL 70-105 (test jpmj=036) CALCIUM (BEAKER) (test 8.7 mg/dL 8.4-10.2 jxrg=118) EGFR (BEAKER) (test 125 mL/min/1.73 sq m ESTIMATED GFR IS NOT gdzs=8147) ACCURATE CREATININE CLEARANCE IN PREDICTING GLOMERULAR FILTRATION RATE. ESTIMATED GFR IS NOT APPLICABLE FOR DIALYSIS PATIENTS. PROTHROMBIN [id number] 04:09:00 Test Item Value Reference Range Comments PROTIME (BEAKER) (test dujx=965) 14.5 seconds 11.7-14.7 INR (BEAKER) (test mler=352) 1.1 <=5.9 RECOMMENDED COUMADIN/WARFARIN INR THERAPY RANGESSTANDARD DOSE: 2.0 - 3.0 Includes: PROPHYLAXIS forvenous thrombosis, systemic embolization; TREATMENT for venous thrombosis and/or pulmonary embolus.HIGH RISK: Target INR is 2.5-3.5 for patients with mechanical heart valves.CBC W/PLT COUNT & AUTO [id number] 03:57:00 Test Item Value Reference Range Comments WHITE BLOOD CELL COUNT (BEAKER) (test gjld=151) 10.6 K/ L 3.5-10.5 RED BLOOD CELL COUNT (BEAKER) (test gbev=487) 3.87 M/ L 3.93-5.22 HEMOGLOBIN (BEAKER) (test yjhx=147) 11.1 GM/DL 11.2-15.7 HEMATOCRIT (BEAKER) (test dtkc=537) 33.5 % 34.1-44.9 MEAN CORPUSCULAR VOLUME (BEAKER) (test jprq=631) 86.6 fL 79.4-94.8 MEAN CORPUSCULAR HEMOGLOBIN (BEAKER) (test 28.7 pg 25.6-32.2 vszh=948) MEAN CORPUSCULAR HEMOGLOBIN CONC (BEAKER) (test 33.1 GM/DL 32.2-35.5 orqz=885) RED CELL DISTRIBUTION WIDTH (BEAKER) (test 14.3 % 11.7-14.4 wfur=354) PLATELET COUNT (BEAKER) (test wzkb=941) 261 K/CU MM 150-450 MEAN PLATELET VOLUME (BEAKER) (test hbms=976) 9.7 fL 9.4-12.3 NUCLEATED RED BLOOD CELLS (BEAKER) (test 0 /100 WBC 0-0 kczw=931) NEUTROPHILS RELATIVE PERCENT (BEAKER) (test 65 % vsee=683) LYMPHOCYTES RELATIVE PERCENT (BEAKER) (test 22 % ztof=711) MONOCYTES RELATIVE PERCENT (BEAKER) (test 10 % bwwz=747) EOSINOPHILS RELATIVE PERCENT (BEAKER) (test 2 % dvde=097) BASOPHILS RELATIVE PERCENT (BEAKER) (test 0 % yyka=460) NEUTROPHILS ABSOLUTE COUNT (BEAKER) (test 6.93 K/ L 1.56-6.13 xcds=275) LYMPHOCYTES ABSOLUTE COUNT (BEAKER) (test 2.29 K/ L 1.18-3.74 jebf=168) MONOCYTES ABSOLUTE COUNT (BEAKER) (test 1.08 K/ L 0.24-0.36 bulm=354) EOSINOPHILS ABSOLUTE COUNT (BEAKER) (test 0.26 K/ L 0.04-0.36 vdhn=423) BASOPHILS ABSOLUTE COUNT (BEAKER) (test 0.04 K/ L 0.01-0.08 abth=053) IMMATURE GRANULOCYTES-RELATIVE PERCENT (BEAKER) 0 % 0-1 (test ekik=8162) RAD, CHEST, 1 VIEW, NON [id number] 07:47:00Reason for exam:->post opShould this be performed at the bedside?->YesFINAL REPORT CLINICAL HISTORY: post op TECHNIQUE: 1 view of the chest. COMPARISON: 05/10/2017 IMPRESSION: The supporting lines and tubes are unchanged. There is decreased elevation of the left hemidiaphragm. Left basilar atelectasis is also decreased. The cardiomediastinal silhouette is within normal limits for size. Signed: Eugene Chapmaneport Verified Date/Time: 05/11/2017 07:47:20 Reading Location: [facility] Reading Room PROTHROMBIN [id number] 04:54: 00 Test Item Value Reference Range Comments PROTIME (BEAKER) (test ztaj=532) 14.3 seconds 11.7-14.7 INR (BEAKER) (test afjc=134) 1.1 <=5.9 RECOMMENDED COUMADIN/WARFARIN INR THERAPY RANGESSTANDARD DOSE: 2.0 - 3.0 Includes: PROPHYLAXIS forvenous thrombosis, systemic embolization; TREATMENT for venous thrombosis and/or pulmonary embolus.HIGH RISK: Target INR is 2.5-3.5 for patients with mechanical heart valves.CBC W/PLT COUNT & AUTO [id number] 04:44:00 Test Item Value Reference Range Comments WHITE BLOOD CELL COUNT (BEAKER) (test jxtz=440) 11.3 K/ L 3.5-10.5 RED BLOOD CELL COUNT (BEAKER) (test xjlx=908) 4.02 M/ L 3.93-5.22 HEMOGLOBIN (BEAKER) (test hije=005) 11.4 GM/DL 11.2-15.7 HEMATOCRIT (BEAKER) (test rhlj=486) 34.4 % 34.1-44.9 MEAN CORPUSCULAR VOLUME (BEAKER) (test lqbs=903) 85.6 fL 79.4-94.8 MEAN CORPUSCULAR HEMOGLOBIN (BEAKER) (test 28.4 pg 25.6-32.2 xzvn=967) MEAN CORPUSCULAR HEMOGLOBIN CONC (BEAKER) (test 33.1 GM/DL 32.2-35.5 fpaw=293) RED CELL DISTRIBUTION WIDTH (BEAKER) (test 14.1 % 11.7-14.4 lqlm=886) PLATELET COUNT (BEAKER) (test ypco=379) 260 K/CU MM 150-450 MEAN PLATELET VOLUME (BEAKER) (test fsbi=478) 9.6 fL 9.4-12.3 NUCLEATED RED BLOOD CELLS (BEAKER) (test 0 /100 WBC 0-0 xafa=552) NEUTROPHILS RELATIVE PERCENT (BEAKER) (test 75 % lnyq=346) LYMPHOCYTES RELATIVE PERCENT (BEAKER) (test 14 % nrpy=561) MONOCYTES RELATIVE PERCENT (BEAKER) (test 9 % wjdb=365) EOSINOPHILS RELATIVE PERCENT (BEAKER) (test 2 % fdjd=849) BASOPHILS RELATIVE PERCENT (BEAKER) (test 0 % rgho=162) NEUTROPHILS ABSOLUTE COUNT (BEAKER) (test 8.40 K/ L 1.56-6.13 iyep=137) LYMPHOCYTES ABSOLUTE COUNT (BEAKER) (test 1.53 K/ L 1.18-3.74 bfhg=749) MONOCYTES ABSOLUTE COUNT (BEAKER) (test 1.04 K/ L 0.24-0.36 gtcr=888) EOSINOPHILS ABSOLUTE COUNT (BEAKER) (test 0.21 K/ L 0.04-0.36 wxxq=376) BASOPHILS ABSOLUTE COUNT (BEAKER) (test 0.05 K/ L 0.01-0.08 wnag=800) IMMATURE GRANULOCYTES-RELATIVE PERCENT (BEAKER) 0 % 0-1 (test cjcl=5905) [id number] 04:39:00 Test Item Value Reference Range Comments MAGNESIUM (BEAKER) (test ztde=068) 2.2 mg/dL 1.6-2.6 BASIC METABOLIC [id number] 04:39:00 Test Item Value Reference Range Comments SODIUM (BEAKER) (test 139 meq/L 136-145 qtau=024) POTASSIUM (BEAKER) (test 3.5 meq/L 3.5-5.1 uxie=658) CHLORIDE (BEAKER) (test 105 meq/L 98-107 nmic=087) CO2 (BEAKER) (test 28 meq/L 22-29 rfiw=662) BLOOD UREA NITROGEN 6 mg/dL 7-21 (BEAKER) (test vzjh=246) CREATININE (BEAKER) (test 0.55 mg/dL 0.57-1.25 lkwz=426) GLUCOSE RANDOM (BEAKER) 103 mg/dL 70-105 (test prpv=972) CALCIUM (BEAKER) (test 8.4 mg/dL 8.4-10.2 xsdb=592) EGFR (BEAKER) (test 122 mL/min/1.73 sq m ESTIMATED GFR IS NOT llxl=3387) ACCURATE CREATININE CLEARANCE IN PREDICTING GLOMERULAR FILTRATION RATE. ESTIMATED GFR IS NOT APPLICABLE FOR DIALYSIS PATIENTS. CREATINE KINASE (CK), TOTAL AND [id number] 00:14:00 Test Item Value Reference Range Comments CREATINE KINASE TOTAL (BEAKER) (test qfhe=196) 44 U/L 29-200 CREATINE KINASE-MB (BEAKER) (test bzru=704) 0.7 ng/mL 0.0-6.6 CREATINE KINASE-MB INDEX (BEAKER) (test aost=560) 1.6 % CK-MB Reference Range:<6.7 Normal6.7-10.0 Borderline>10.0 AbnormalTROPONIN [id number] 23:38:00 Test Item Value Reference Range Comments TROPONIN I (BEAKER) (test rizj=384) < ng/mL 0.00-0.03 Troponin I (TnI) levels [...] failure, acidosis, acute neurological disease, and persistent tachyarrhythmia.[id number] 23:29:00 Test Item Value Reference Range Comments MAGNESIUM (BEAKER) (test 1.7 mg/dL 1.6-2.6 Specimen slightly hemolyzed kuuf=009) [id number] 23:29:00 Test Item Value Reference Range Comments PHOSPHORUS (BEAKER) (test 3.5 mg/dL 2.3-4.7 Specimen slightly hemolyzed apnp=248) BASIC METABOLIC [id number] 23:29:00 Test Item Value Reference Range Comments SODIUM (BEAKER) (test 139 meq/L 136-145 shst=425) POTASSIUM (BEAKER) (test 3.9 meq/L 3.5-5.1 Specimen slightly vrbx=866) hemolyzed CHLORIDE (BEAKER) (test 104 meq/L 98-107 nmmq=054) CO2 (BEAKER) (test 27 meq/L 22-29 wskq=056) BLOOD UREA NITROGEN 6 mg/dL 7-21 (BEAKER) (test jspt=311) CREATININE (BEAKER) (test 0.53 mg/dL 0.57-1.25 Specimen slightly rqum=991) hemolyzed GLUCOSE RANDOM (BEAKER) 92 mg/dL 70-105 (test ubfg=969) CALCIUM (BEAKER) (test 8.6 mg/dL 8.4-10.2 olql=207) EGFR (BEAKER) (test 128 mL/min/1.73 sq m ESTIMATED GFR IS NOT sjme=2054) ACCURATE CREATININE CLEARANCE IN PREDICTING GLOMERULAR FILTRATION RATE. ESTIMATED GFR IS NOT APPLICABLE FOR DIALYSIS PATIENTS. LACTIC ACID, VENOUS, WHOLE [id number] 23:26:00 Test Item Value Reference Range Comments LACTATE BLOOD VENOUS (2) (BEAKER) (test 1.2 mmol/L 0.5-2.2 ppio=0753) Effective 09/17/2015: Units/Reference Range ChangeNew: 0.5-2.2 mmol/L Previous: 5 -20 mg/dLBLOOD GAS, [id number] 23:02:00 Test Item Value Reference Range Comments PH VENOUS (BEAKER) (test zend=094) 7.43 7.32-7.42 PCO2 VENOUS (BEAKER) (test jzrs=779) 45 mmHg 41-51 PO2 VENOUS (BEAKER) (test yefl=511) 256 mmHg 25-40 O2 SATURATION VENOUS (BEAKER) (test ndsl=631) 99.6 % 40.0-70.0 HCO3 VENOUS (BEAKER) (test drjo=201) 29 mmol/L 21-29 BASE EXCESS VENOUS (BEAKER) (test bmcc=690) 4.0 mmol/L -2.0-3.0 PATIENT TEMPERATURE (BEAKER) (test ietu=0765) 36.3 C FIO2 (BEAKER) (test wgsq=5368) 21.0 % Blood looks arterial.RAD, CHEST, 1 VIEW, NON [id number] 19:28:00Reason for exam:->check picc placement Should this [...] MDReport Verified Date/Time: 05/10/2017 19:28:53 Reading Location: [facility] C013W Consult Reading Room BLOOD GAS, [id number] 07:29:00 Test Item Value Reference Range Comments PH ARTERIAL (BEAKER) (test eodr=614) 7.41 7.35-7.45 PCO2 ARTERIAL (BEAKER) (test lkkk=624) 44 mmHg 35-45 PO2 ARTERIAL (BEAKER) (test wjap=534) 81 mmHg 80-90 O2 SATURATION ARTERIAL (BEAKER) (test vmpu=598) 96.2 % 96.0-97.0 HCO3 ARTERIAL (BEAKER) (test ltwu=259) 28 mmol/L 21-29 BASE EXCESS ARTERIAL (BEAKER) (test zhbz=047) 2.5 mmol/L -2.0-3.0 PATIENT TEMPERATURE (BEAKER) (test cldm=4627) 36.7 C FIO2 (BEAKER) (test qiso=0489) 21.0 % [id number] 06:41:00 Test Item Value Reference Range Comments MAGNESIUM (BEAKER) (test zdde=960) 1.6 mg/dL 1.6-2.6 BASIC METABOLIC [id number] 06:41:00 Test Item Value Reference Range Comments SODIUM (BEAKER) (test 137 meq/L 136-145 kuwi=592) POTASSIUM (BEAKER) (test 3.8 meq/L 3.5-5.1 cvfn=436) CHLORIDE (BEAKER) (test 105 meq/L 98-107 wyqu=286) CO2 (BEAKER) (test 28 meq/L 22-29 xtra=434) BLOOD UREA NITROGEN 6 mg/dL 7-21 (BEAKER) (test xhkc=977) CREATININE (BEAKER) (test 0.52 mg/dL 0.57-1.25 znjz=191) GLUCOSE RANDOM (BEAKER) 94 mg/dL 70-105 (test rawm=330) CALCIUM (BEAKER) (test 8.0 mg/dL 8.4-10.2 hvey=997) EGFR (BEAKER) (test 131 mL/min/1.73 sq m ESTIMATED GFR IS NOT drwp=6108) ACCURATE CREATININE CLEARANCE IN PREDICTING GLOMERULAR FILTRATION RATE. ESTIMATED GFR IS NOT APPLICABLE FOR DIALYSIS PATIENTS. PROTHROMBIN [id number] 06:11:00 Test Item Value Reference Range Comments PROTIME (BEAKER) (test nzzh=920) 15.1 seconds 11.7-14.7 INR (BEAKER) (test prre=189) 1.2 <=5.9 RECOMMENDED COUMADIN/WARFARIN INR THERAPY RANGESSTANDARD DOSE: 2.0 - 3.0 Includes: PROPHYLAXIS forvenous thrombosis, systemic embolization; TREATMENT for venous thrombosis and/or pulmonary embolus.HIGH RISK: Target INR is 2.5-3.5 for patients with mechanical heart valves.LACTIC ACID, ARTERIAL, WHOLE [id number] 06:08:00 Test Item Value Reference Range Comments LACTATE BLOOD ARTERIAL (2) (BEAKER) (test 0.8 mmol/L 0.5-2.2 zmay=9352) Effective 09/17/2015: Units/Reference Range ChangeNew: 0.5-2.2 mmol/L Previous: 5 -20 mg/dLCBC W/PLT COUNT & AUTO [id number] 06:02:00 Test Item Value Reference Range Comments WHITE BLOOD CELL COUNT (BEAKER) (test uwiu=641) 10.6 K/ L 3.5-10.5 RED BLOOD CELL COUNT (BEAKER) (test jxdm=066) 4.10 M/ L 3.93-5.22 HEMOGLOBIN (BEAKER) (test rezp=523) 11.6 GM/DL 11.2-15.7 HEMATOCRIT (BEAKER) (test ctuv=130) 35.3 % 34.1-44.9 MEAN CORPUSCULAR VOLUME (BEAKER) (test wfbk=641) 86.1 fL 79.4-94.8 MEAN CORPUSCULAR HEMOGLOBIN (BEAKER) (test 28.3 pg 25.6-32.2 jfqn=963) MEAN CORPUSCULAR HEMOGLOBIN CONC (BEAKER) (test 32.9 GM/DL 32.2-35.5 yjam=714) RED CELL DISTRIBUTION WIDTH (BEAKER) (test 14.4 % 11.7-14.4 xjle=586) PLATELET COUNT (BEAKER) (test ufok=255) 261 K/CU MM 150-450 MEAN PLATELET VOLUME (BEAKER) (test bdds=451) 9.8 fL 9.4-12.3 NUCLEATED RED BLOOD CELLS (BEAKER) (test 0 /100 WBC 0-0 qqye=097) NEUTROPHILS RELATIVE PERCENT (BEAKER) (test 67 % vdzh=888) LYMPHOCYTES RELATIVE PERCENT (BEAKER) (test 21 % qack=089) MONOCYTES RELATIVE PERCENT (BEAKER) (test 8 % lypa=967) EOSINOPHILS RELATIVE PERCENT (BEAKER) (test 4 % irnv=481) BASOPHILS RELATIVE PERCENT (BEAKER) (test 0 % lkpr=592) NEUTROPHILS ABSOLUTE COUNT (BEAKER) (test 7.07 K/ L 1.56-6.13 gjbb=276) LYMPHOCYTES ABSOLUTE COUNT (BEAKER) (test 2.22 K/ L 1.18-3.74 zrpm=295) MONOCYTES ABSOLUTE COUNT (BEAKER) (test 0.88 K/ L 0.24-0.36 rfse=953) EOSINOPHILS ABSOLUTE COUNT (BEAKER) (test 0.38 K/ L 0.04-0.36 ghcp=134) BASOPHILS ABSOLUTE COUNT (BEAKER) (test 0.03 K/ L 0.01-0.08 jxqk=781) IMMATURE GRANULOCYTES-RELATIVE PERCENT (BEAKER) 0 % 0-1 (test jpis=4230) RAD, ABDOMEN/KUB, 1 VIEW [id number] 04:38:00Reason for exam:->abdominao painFINAL REPORT CLINICAL HISTORY: [...] Verified Date/Time : 05/10/2017 04:38:02 [address], CHEST, 1 VIEW, NON [id number] 04:34:00Reason for exam:->post opShould this be performed at the bedside?->YesFINAL REPORT CLINICAL INDICATION: Postop Comparison: 05/09/2017 The cardiomediastinal contours are stable. The left hemidiaphragm remains elevated. Patchy opacity in the left lower lung may reflect atelectasis but pneumonitis should be excluded clinically. There is no pneumothorax. A nasogastric tube remains in place. Signed: Noah Porter MDReport Verified Date/Time: 05/10/2017 04:34:08 Reading Location: [address] Reading Room BASIC METABOLIC [id number] 18:31 :00 Test Item Value Reference Range Comments SODIUM (BEAKER) (test 139 meq/L 136-145 eldf=386) POTASSIUM (BEAKER) (test 4.1 meq/L 3.5-5.1 Specimen slightly yopy=472) hemolyzed CHLORIDE (BEAKER) (test 105 meq/L 98-107 tzbp=583) CO2 (BEAKER) (test 27 meq/L 22-29 rcoc=404) BLOOD UREA NITROGEN 6 mg/dL 7-21 (BEAKER) (test neqe=388) CREATININE (BEAKER) (test 0.62 mg/dL 0.57-1.25 Specimen slightly abpb=115) hemolyzed GLUCOSE RANDOM (BEAKER) 94 mg/dL 70-105 (test dgna=200) CALCIUM (BEAKER) (test 8.1 mg/dL 8.4-10.2 hcwl=549) EGFR (BEAKER) (test 107 mL/min/1.73 sq m ESTIMATED GFR IS NOT lftf=2309) ACCURATE CREATININE CLEARANCE IN PREDICTING GLOMERULAR FILTRATION RATE. ESTIMATED GFR IS NOT APPLICABLE FOR DIALYSIS PATIENTS. RAD, CHEST, 1 VIEW, NON [id number] 17:05:00Reason for exam:->NGT repositioned Should this be [...] MDReport Verified Date/Time: 05/09/2017 17:05:43 Reading Location: [place] [id number] CT Body Reading Room 05: 05 PMLACTIC ACID, ARTERIAL, WHOLE [id number] 17:02:00 Test Item Value Reference Range Comments LACTATE BLOOD ARTERIAL (2) 1.5 mmol/L 0.5-2.2 Specimen slightly hemolyzed (BEAKER) (test apuy=1960) Effective 09/17/2015: Units/Reference Range ChangeNew: 0.5-2.2 mmol/L Previous: 5 -20 mg/dLBLOOD GAS, [id number] 16:34:00 Test Item Value Reference Range Comments PH ARTERIAL (BEAKER) (test pwod=029) 7.45 7.35-7.45 PCO2 ARTERIAL (BEAKER) (test uhjy=585) 39 mmHg 35-45 PO2 ARTERIAL (BEAKER) (test etpw=423) 205 mmHg 80-90 O2 SATURATION ARTERIAL (BEAKER) (test iivu=718) 99.4 % 96.0-97.0 HCO3 ARTERIAL (BEAKER) (test hmaz=470) 27 mmol/L 21-29 BASE EXCESS ARTERIAL (BEAKER) (test yrfl=163) 2.4 mmol/L -2.0-3.0 PATIENT TEMPERATURE (BEAKER) (test some=5129) 37.0 C FIO2 (BEAKER) (test gmjr=2737) 21.0 % CBC W/PLT COUNT & AUTO [id number] 16:33:00 Test Item Value Reference Range Comments WHITE BLOOD CELL COUNT (BEAKER) (test mtbs=411) 14.1 K/ L 3.5-10.5 RED BLOOD CELL COUNT (BEAKER) (test hsne=087) 4.16 M/ L 3.93-5.22 HEMOGLOBIN (BEAKER) (test pisf=647) 11.9 GM/DL 11.2-15.7 HEMATOCRIT (BEAKER) (test otol=051) 36.3 % 34.1-44.9 MEAN CORPUSCULAR VOLUME (BEAKER) (test uofs=341) 87.3 fL 79.4-94.8 MEAN CORPUSCULAR HEMOGLOBIN (BEAKER) (test 28.6 pg 25.6-32.2 tcqu=288) MEAN CORPUSCULAR HEMOGLOBIN CONC (BEAKER) (test 32.8 GM/DL 32.2-35.5 xbaf=414) RED CELL DISTRIBUTION WIDTH (BEAKER) (test 14.5 % 11.7-14.4 ggmz=184) PLATELET COUNT (BEAKER) (test rbps=957) 264 K/CU MM 150-450 MEAN PLATELET VOLUME (BEAKER) (test rzue=479) 9.6 fL 9.4-12.3 NUCLEATED RED BLOOD CELLS (BEAKER) (test 0 /100 WBC 0-0 xvbh=634) NEUTROPHILS RELATIVE PERCENT (BEAKER) (test 74 % droj=017) LYMPHOCYTES RELATIVE PERCENT (BEAKER) (test 17 % bfwk=593) MONOCYTES RELATIVE PERCENT (BEAKER) (test 6 % zfvx=253) EOSINOPHILS RELATIVE PERCENT (BEAKER) (test 2 % rfyw=665) BASOPHILS RELATIVE PERCENT (BEAKER) (test 0 % tgps=052) NEUTROPHILS ABSOLUTE COUNT (BEAKER) (test 10.45 K/ L 1.56-6.13 dfiy=024) LYMPHOCYTES ABSOLUTE COUNT (BEAKER) (test 2.37 K/ L 1.18-3.74 mdzj=304) MONOCYTES ABSOLUTE COUNT (BEAKER) (test 0.84 K/ L 0.24-0.36 finu=547) EOSINOPHILS ABSOLUTE COUNT (BEAKER) (test 0.34 K/ L 0.04-0.36 ipqi=190) BASOPHILS ABSOLUTE COUNT (BEAKER) (test 0.05 K/ L 0.01-0.08 wuvc=805) IMMATURE GRANULOCYTES-RELATIVE PERCENT (BEAKER) 0 % 0-1 (test plxx=4198) SCREEN, [id number] 12:41:00 Test Item Value Reference Range Comments TEST URINE (BEAKER) (test iqwu=553) Negative LACTIC ACID, ARTERIAL, WHOLE [id number] 12:02:00 Test Item Value Reference Range Comments LACTATE BLOOD ARTERIAL (2) (BEAKER) (test 1.0 mmol/L 0.5-2.2 ibxy=1604) Effective 09/17/2015: Units/Reference Range ChangeNew: 0.5-2.2 mmol/L Previous: 5 -20 mg/dLRAD, CHEST, 1 VIEW, NON [id number] 11:21:00Reason for exam:-> postopShould this be performed [...] Verified Date/Time: 05/09/2017 11:21:35 Reading Location: [facility] [id number] CT Body Reading Room Electronically signed by: ELIESER GROSSMAN M.D. on05/09/2017 11:21 AMBASIC METABOLIC [id number] 10:24:00 Test Item Value Reference Range Comments SODIUM (BEAKER) (test 138 meq/L 136-145 jsyn=400) POTASSIUM (BEAKER) (test 4.1 meq/L 3.5-5.1 tdoy=034) CHLORIDE (BEAKER) (test 108 meq/L 98-107 vxcx=597) CO2 (BEAKER) (test 25 meq/L 22-29 quqq=716) BLOOD UREA NITROGEN 10 mg/dL 7-21 (BEAKER) (test acnq=401) CREATININE (BEAKER) (test 0.61 mg/dL 0.57-1.25 awrg=556) GLUCOSE RANDOM (BEAKER) 91 mg/dL 70-105 (test hbqv=991) CALCIUM (BEAKER) (test 7.4 mg/dL 8.4-10.2 rwva=993) EGFR (BEAKER) (test 109 mL/min/1.73 sq m ESTIMATED GFR IS NOT ccha=9246) ACCURATE CREATININE CLEARANCE IN PREDICTING GLOMERULAR FILTRATION RATE. ESTIMATED GFR IS NOT APPLICABLE FOR DIALYSIS PATIENTS. CBC W/PLT COUNT & AUTO [id number] 09:28:00 Test Item Value Reference Range Comments WHITE BLOOD CELL COUNT (BEAKER) (test oscg=868) 10.3 K/ L 3.5-10.5 RED BLOOD CELL COUNT (BEAKER) (test tvwz=941) 4.12 M/ L 3.93-5.22 HEMOGLOBIN (BEAKER) (test mvon=594) 11.8 GM/DL 11.2-15.7 HEMATOCRIT (BEAKER) (test gnrn=983) 36.1 % 34.1-44.9 MEAN CORPUSCULAR VOLUME (BEAKER) (test lkus=372) 87.6 fL 79.4-94.8 MEAN CORPUSCULAR HEMOGLOBIN (BEAKER) (test 28.6 pg 25.6-32.2 xsck=411) MEAN CORPUSCULAR HEMOGLOBIN CONC (BEAKER) (test 32.7 GM/DL 32.2-35.5 eztz=400) RED CELL DISTRIBUTION WIDTH (BEAKER) (test 14.6 % 11.7-14.4 cmjd=986) PLATELET COUNT (BEAKER) (test ovyd=430) 278 K/CU MM 150-450 MEAN PLATELET VOLUME (BEAKER) (test zyhi=412) 9.6 fL 9.4-12.3 NUCLEATED RED BLOOD CELLS (BEAKER) (test 0 /100 WBC 0-0 oudk=797) NEUTROPHILS RELATIVE PERCENT (BEAKER) (test 58 % asox=173) LYMPHOCYTES RELATIVE PERCENT (BEAKER) (test 30 % elma=516) MONOCYTES RELATIVE PERCENT (BEAKER) (test 8 % cphl=611) EOSINOPHILS RELATIVE PERCENT (BEAKER) (test 4 % thzu=802) BASOPHILS RELATIVE PERCENT (BEAKER) (test 1 % poca=896) NEUTROPHILS ABSOLUTE COUNT (BEAKER) (test 6.00 K/ L 1.56-6.13 oqpm=719) LYMPHOCYTES ABSOLUTE COUNT (BEAKER) (test 3.05 K/ L 1.18-3.74 yona=402) MONOCYTES ABSOLUTE COUNT (BEAKER) (test 0.79 K/ L 0.24-0.36 hync=865) EOSINOPHILS ABSOLUTE COUNT (BEAKER) (test 0.39 K/ L 0.04-0.36 nugk=432) BASOPHILS ABSOLUTE COUNT (BEAKER) (test 0.06 K/ L 0.01-0.08 nins=878) IMMATURE GRANULOCYTES-RELATIVE PERCENT (BEAKER) 0 % 0-1 (test tdkj=8746) CALCIUM, [id number] 08:45:00 Test Item Value Reference Range Comments CALCIUM IONIZED (BEAKER) (test ngns=936) 0.98 mmol/L 1.12-1.27 PH, BLOOD (BEAKER) (test kahi=6261) 7.43 BLOOD GAS, [id number] 08:45:00 Test Item Value Reference Range Comments PH ARTERIAL (BEAKER) (test xmww=092) 7.43 7.35-7.45 PCO2 ARTERIAL (BEAKER) (test pxtg=374) 42 mmHg 35-45 PO2 ARTERIAL (BEAKER) (test omdj=643) 489 mmHg 80-90 O2 SATURATION ARTERIAL (BEAKER) (test dokh=284) 99.9 % 96.0-97.0 HCO3 ARTERIAL (BEAKER) (test dtzm=077) 28 mmol/L 21-29 BASE EXCESS ARTERIAL (BEAKER) (test arkz=390) 3.0 mmol/L -2.0-3.0 PATIENT TEMPERATURE (BEAKER) (test dhms=8127) 36.5 C FIO2 (BEAKER) (test yutk=0994) 70.0 % SODIUM NA-STAT [id number] 08:45:00 Test Item Value Reference Range Comments SODIUM (BEAKER) (test iesh=051) 134 meq/L 135-148 HGB/HCT (H&H) - STAT [id number] 08:45:00 Test Item Value Reference Range Comments HEMOGLOBIN (BEAKER) (test qzqo=506) 11.8 g/dL 12.0-15.0 HEMATOCRIT (BEAKER) (test fklw=795) 35.0 % 36.0-45.0 GLUCOSE-STAT [id number] 08:44:00 Test Item Value Reference Range Comments GLUCOSE RANDOM (BEAKER) (test ugfq=697) 83 mg/dL 70-110 POTASSIUM-STAT [id number] 08:44:00 Test Item Value Reference Range Comments POTASSIUM (BEAKER) (test qshr=762) 4.3 meq/L 3.6-5.5 BASIC METABOLIC [id number] 01:21:00 Test Item Value Reference Range Comments SODIUM (BEAKER) (test 140 meq/L 136-145 iisa=144) POTASSIUM (BEAKER) (test 4.2 meq/L 3.5-5.1 pnlz=183) CHLORIDE (BEAKER) (test 108 meq/L 98-107 tqpu=645) CO2 (BEAKER) (test 26 meq/L 22-29 dpiz=065) BLOOD UREA NITROGEN 12 mg/dL 7-21 (BEAKER) (test wxvs=834) CREATININE (BEAKER) (test 0.63 mg/dL 0.57-1.25 uzev=070) GLUCOSE RANDOM (BEAKER) 78 mg/dL 70-105 (test akax=973) CALCIUM (BEAKER) (test 7.8 mg/dL 8.4-10.2 axuy=505) EGFR (BEAKER) (test 105 mL/min/1.73 sq m ESTIMATED GFR IS NOT zegn=3713) ACCURATE CREATININE CLEARANCE IN PREDICTING GLOMERULAR FILTRATION RATE. ESTIMATED GFR IS NOT APPLICABLE FOR DIALYSIS PATIENTS. LACTIC ACID, VENOUS, WHOLE [id number] 01:04:00 Test Item Value Reference Range Comments LACTATE BLOOD VENOUS (2) (BEAKER) (test 0.9 mmol/L 0.5-2.2 nywg=6094) Effective 09/17/2015: Units/Reference Range ChangeNew: 0.5-2.2 mmol/L Previous: 5 -20 mg/dLPOCT-GLUCOSE [id number] 00:46:00 Test Item Value Reference Range Comments POC-GLUCOSE METER (BEAKER) 87 mg/dL 70-110 TESTED AT [facility] [address] [place] [address] (test qzns=6853) [facility] [address] PROTHROMBIN [id number] 00:37:00 Test Item Value Reference Range Comments PROTIME (BEAKER) (test sloh=656) 13.9 seconds 11.7-14.7 INR (BEAKER) (test yots=468) 1.1 <=5.9 RECOMMENDED COUMADIN/WARFARIN INR THERAPY RANGESSTANDARD DOSE: 2.0 - 3.0 Includes: PROPHYLAXIS forvenous thrombosis, systemic embolization; TREATMENT for venous thrombosis and/or pulmonary embolus.HIGH RISK: Target INR is 2.5-3.5 for patients with mechanical heart valves.CBC W/PLT COUNT & AUTO [id number] 00:28:00 Test Item Value Reference Range Comments WHITE BLOOD CELL COUNT (BEAKER) (test cemq=937) 9.2 K/ L 3.5-10.5 RED BLOOD CELL COUNT (BEAKER) (test yvwj=751) 4.08 M/ L 3.93-5.22 HEMOGLOBIN (BEAKER) (test zuwk=793) 11.6 GM/DL 11.2-15.7 HEMATOCRIT (BEAKER) (test hduc=686) 35.7 % 34.1-44.9 MEAN CORPUSCULAR VOLUME (BEAKER) (test ftfg=852) 87.5 fL 79.4-94.8 MEAN CORPUSCULAR HEMOGLOBIN (BEAKER) (test 28.4 pg 25.6-32.2 ylfl=857) MEAN CORPUSCULAR HEMOGLOBIN CONC (BEAKER) (test 32.5 GM/DL 32.2-35.5 xpmk=048) RED CELL DISTRIBUTION WIDTH (BEAKER) (test 14.5 % 11.7-14.4 yhec=673) PLATELET COUNT (BEAKER) (test jkkb=927) 256 K/CU MM 150-450 MEAN PLATELET VOLUME (BEAKER) (test ubdg=091) 9.7 fL 9.4-12.3 NUCLEATED RED BLOOD CELLS (BEAKER) (test 0 /100 WBC 0-0 cgwm=900) NEUTROPHILS RELATIVE PERCENT (BEAKER) (test 53 % moiq=164) LYMPHOCYTES RELATIVE PERCENT (BEAKER) (test 33 % nyxl=545) MONOCYTES RELATIVE PERCENT (BEAKER) (test 9 % gmtk=583) EOSINOPHILS RELATIVE PERCENT (BEAKER) (test 4 % iesi=467) BASOPHILS RELATIVE PERCENT (BEAKER) (test 1 % idux=119) NEUTROPHILS ABSOLUTE COUNT (BEAKER) (test 4.85 K/ L 1.56-6.13 cfnm=675) LYMPHOCYTES ABSOLUTE COUNT (BEAKER) (test 3.00 K/ L 1.18-3.74 xhxz=993) MONOCYTES ABSOLUTE COUNT (BEAKER) (test 0.85 K/ L 0.24-0.36 pker=989) EOSINOPHILS ABSOLUTE COUNT (BEAKER) (test 0.40 K/ L 0.04-0.36 bvon=660) BASOPHILS ABSOLUTE COUNT (BEAKER) (test 0.07 K/ L 0.01-0.08 hvzu=617) IMMATURE GRANULOCYTES-RELATIVE PERCENT (BEAKER) 0 % 0-1 (test nlgj=2258)
--- OUTSIDE RECORDS SUMMARY | 2018-12-15 15:10 | XMS REPORT | Summary of Care ---
:1975 Author Organization [facility] Address [address] [place] [address] Care Team Providers Name Role Phone Arelis Knight MD Primary Care Provider Reason for Visit Reason Comments Orders ultrasound Encounter Details Date Type Department Care Team Description 12/13/2018 Telephone [facility] Women's Arelis Knight MD Orders (ultrasound) Healthcare- [address] [facility] [address] [place] [address] [place] [phone] Allergies No Known Allergiesdocumented as of this encounter (statuses as of 12/13/2018) Medications Medication Sig Dispensed Refills Start Date [...] as of this encounter (statuses as of 12/13/2018) Active Problems Problem Noted Date Obesity (BMI 30-39.9) 12/13/2018 Excessive weight gain during in third trimester [...] 07/04/2008 anemia 07/04/2008 Overview: ICD10 Diagnosis Term Darkroom Technician Utility Normal delivery 07/02/2008 Mild or unspecified pre-eclampsia, condition or complication 2008 Estimated Date of Delivery Comments Yes 01/04/2019 Based on last menstrual period of 03/30/2018 (Approximate) documented as of this encounter (statuses as of 12/13/2018) Resolved Problems Problem Noted Date Resolved Date Antepartum anemia 07/02/2008 07/04/2008 Overview: ICD10 Diagnosis Term Darkroom Technician Utility documented as of this encounter (statuses as of 12/13/2018) Immunizations Name Administration Dates Next Due Influenza [...] filedocumented in this encounter Plan of Treatment Health Maintenance Due Date Last Done Comments PNEUMOCOCCAL 0-64 YEARS COMBINED SERIES (1 of - 1983 PPSV23) MAMMOGRAM 2017 INFLUENZA VACCINE 01/14/2019 08/21/2018 PAP SMEAR 08/21/2021 08/21/2018 DTaP,Tdap,and Td Vaccines (2 - Td) 10/23/2028 10/23/2018 documented as of this encounter Results Not on filedocumented in this encounter Insurance Payer Benefit Plan / Subscriber ID Effective Dates Phone Address Type Group MEDICARE MEDICARE PART xxxxxxxxxxx 2006-Germain [phone] [address] Medicare A & B t 2 [id number] [place] [id number] [facility] MEDICAID OF xxxxxxxxx 2017-Germain [phone] [address] Medicaid [place] t 0 [id number] [place] [address] documented as of this encounter
--- OUTSIDE RECORDS SUMMARY | 2018-12-15 15:10 | XMS REPORT | Summary of Care ---
:1975 Author Organization [facility] Address [address] [place] [address] Care Team Providers Name Role Phone Arelis [...] MATERNAL MEDICINE ULTRASOUND Preferred Location: [facility] [address] [place] [address] [place] [address] Encounter Details Date Type Department Care Team Description 12/12/2018 Executive Sales Manager Visit [facility] Trinh Fowler Elderly multigravida Ultrasound- [facility] Joe MD in third trimester [address] [id number] [place], [place] [phone] Allergies No Known Allergiesdocumented as of this [...] 07/04/2008 anemia 07/04/2008 Overview: ICD10 Diagnosis Term Drawbench Operator Helper Utility Normal delivery 07/02/2008 Mild or unspecified pre-eclampsia, condition or complication 2008 Estimated Date of Delivery Comments Yes 01/04/2019 Based on last menstrual period of 03/30/2018 (Approximate) documented as of this encounter (statuses as of 12/12/2018) Resolved Problems Problem Noted Date Resolved Date Antepartum anemia 07/02/2008 07/04/2008 Overview: ICD10 Diagnosis Term Drawbench Operator Helper Utility documented as of this encounter (statuses [...] & Knight, Arelis Hodges MD Visit Gynecology [address] [place] [address] [place] [address] [phone] Health Maintenance Due Date Last Done Comments PNEUMOCOCCAL 0-64 YEARS COMBINED SERIES (1 of 1 - 1983 PPSV23) MAMMOGRAM 2017 INFLUENZA VACCINE 01/14/2019 08/21/2018 PAP SMEAR 08/21/2021 08/21/2018 DTaP,Tdap,and Td Vaccines (2 - Td) 10/23/2028 10/23/2018 documented as of this encounter Procedures Procedure Name Priority Date/Time Associated Diagnosis Comments SECOND AND THIRD Routine 12/12/2018 11:49 AM TRIMESTER ULTRASOUND CDT documented in this encounter Results SECOND AND THIRD TRIMESTER ULTRASOUND (12/12/2018 11:49 AM CDT) Specimen documented in this encounter Visit Diagnoses Diagnosis Elderly multigravida in third trimester documented in this encounter Insurance Payer Benefit Plan / Subscriber ID Effective Dates Phone Address Type Group MEDICARE MEDICARE PART xxxxxxxxxxx 2006-Presrand [phone] [address] Medicare A & B t 2 [id number] [place] [phone] [facility] MEDICAID OF xxxxxxxxx 2017-Germain [phone] [address] Medicaid [place] t 0 [id number] [place] [address] documented as of this encounter
--- OUTSIDE RECORDS SUMMARY | 2018-12-15 15:10 | XMS REPORT | Summary of Care ---
:1975 Author Organization [facility] Address [address] [place] [address] Care Team Providers Name Role Phone Arelis Knight MD Primary Care Provider Reason for Visit Auth/Cert Status Reason Specialty Diagnoses / Procedures Referred By Contact Referred To Contact Radiology [facility] Ultrasound [address] [place] [address] [place] [address] Encounter Details Date Type Department Care Team Description 12/13/2018 Hospital Encounter [facility] Arelis Knight MD Arrived [place] [facility] [address] [place] [address] [place] [address] [address] [place] [address] Allergies No Known Allergiesdocumented as of this encounter (statuses as of 12/14/2018) Medications Medication Sig Dispensed Refills Start Date [...] as of this encounter (statuses as of 12/14/2018) Active Problems Problem Noted Date Obesity (BMI [...] 07/04/2008 anemia 07/04/2008 Overview: ICD10 Diagnosis Term Cost Estimating Manager Utility Normal delivery 07/02/2008 Mild or unspecified pre-eclampsia, condition or complication 2008 Estimated Date of Delivery Comments Yes 01/04/2019 Based on last menstrual period of 03/30/2018 (Approximate) documented as of this encounter (statuses as of 12/14/2018) Resolved Problems Problem Noted Date Resolved Date Antepartum anemia 07/02/2008 07/04/2008 Overview: ICD10 Diagnosis Term Cost Estimating Manager Utility documented as of this encounter (statuses as of 12/14/2018) Immunizations Name Administration Dates Next Due Influenza [...] Treatment Date Type Specialty Care Team Description 12/20/2018 Routine Obstetrics & Knight, Arelis Hodges MD Visit Gynecology [address] [place] [address] [place] [address] [phone] Health Maintenance Due Date Last Done Comments PNEUMOCOCCAL 0-64 YEARS COMBINED SERIES (1 - 1983 PPSV23) MAMMOGRAM 2017 INFLUENZA VACCINE 01/14/2019 08/21/2018 PAP SMEAR 08/21/2021 08/21/2018 DTaP,Tdap,and Td Vaccines (2 - Td) 10/23/2028 10/23/2018 documented as of this encounter Procedures Procedure Name Priority Date/Time Associated Diagnosis Comments US PELVIS > STAT 12/13/2018 2:10 Supervision of Results for this 14 WEEKS WITH PM CDT high-risk procedure are in TRANSVAGINAL of elderly the results multigravida section. 36 weeks gestation of documented in this encounter Results US PELVIS > 14 WEEKS WITH TRANSVAGINAL (12/13/2018 2:10 PM CDT) Specimen Narrative Performed At HISTORY:Rule out placenta previa. PACS/VR/DOSE COMPARISON: None. TECHNIQUE: Limited transabdominal as well as transvaginal pelvic ultrasound studies are obtained by the technologist for localization of the placenta. FINDINGS: Placenta is located along the posterior wall extending up to the fundus. It is low-lying, within 4 cm from the internal os of the cervix but not covering the cervix. CONCLUSIONS: Low-lying placenta. No placenta previa. Procedure Note [facility], Radiant Results Inft User - 12/13/2018 2:12 PM CDT HISTORY: Rule out placenta previa. COMPARISON: None. TECHNIQUE: Limited transabdominal as well as transvaginal pelvic ultrasound studies are obtained by the technologist for localization of the placenta. FINDINGS: Placenta is located along the posterior wall extending up to the fundus. It is low-lying, within 4 cm from the internal os of the cervix but not covering the cervix. CONCLUSIONS: Low-lying placenta. No placenta previa. Performing Organization Address City/State/Zipcode Phone Number PACS/VR/DOSE documented in this encounter Visit Diagnoses Diagnosis Supervision of high-risk of elderly multigravida 36 weeks gestation of state, incidental documented in this encounter Insurance Payer Benefit Plan / Subscriber ID Effective Dates Phone Address Type Group MEDICARE MEDICARE PART xxxxxxxxxxx 2006-Presen [phone] [address] Medicare A & B t 2 [id number] [place] [address] [facility] MEDICAID OF xxxxxxxxx 2017-Presen [phone] [address] Medicaid [place] t 0 [id number] [place] [address] (Home) [place] [address] documented as of this encounter
--- OUTSIDE RECORDS SUMMARY | 2018-12-15 15:10 | XMS REPORT | Summary of Care ---
:1975 Author Organization [facility] Address [address] [place] [address] Care Team Providers Name Role Phone Arelis Knight MD Primary Care Provider Encounter Details Date Type Department Care Team Description 12/13/2018 Orders Only [facility] Doctor Unassigned, No [address] [facility] [place] [address] [address] [place] [address] Allergies No Known Allergiesdocumented as of this [...] 07/04/2008 anemia 07/04/2008 Overview: ICD10 Diagnosis Term Ticket Collector Or Usher Utility Normal delivery 07/02/2008 Mild or unspecified pre-eclampsia, condition or complication 2008 Estimated Date of Delivery Comments Yes 01/04/2019 Based on last menstrual period of 03/30/2018 (Approximate) documented as of this encounter (statuses as of 12/13/2018) Resolved Problems Problem Noted Date Resolved Date Antepartum anemia 07/02/2008 07/04/2008 Overview: ICD10 Diagnosis Term Ticket Collector Or Usher Utility documented as of this encounter (statuses [...] Date Type Specialty Care Team Description 12/13/2018 Appointment Radiology Arelis Knight MD [address] [place] [address] [address] [place], [place] [phone] Health Maintenance Due Date Last Done Comments PNEUMOCOCCAL 0-64 YEARS COMBINED SERIES (1 of 1 - 1983 PPSV23) MAMMOGRAM 2017 INFLUENZA VACCINE 01/14/2019 08/21/2018 PAP SMEAR 08/21/2021 08/21/2018 DTaP,Tdap,and Td Vaccines (2 - Td) 10/23/2028 10/23/2018 documented as of this encounter Procedures Procedure Name Priority Date/Time Associated Diagnosis Comments ASSIGNMENT OF BENEFITS Routine 12/13/2018 1:29 PM CDT documented in this encounter Results Not on filedocumented in this encounter Insurance Payer Benefit Plan / Subscriber ID Effective Dates Phone Address Type Group MEDICARE MEDICARE PART xxxxxxxxxxx 2006-Germain [phone] [address] Medicare A & B t 2 [id number] [place] [address] [facility] MEDICAID OF xxxxxxxxx 2017-Germain [phone] [address] Medicaid [place] t 0 [id number] [place] [address] documented as of this encounter
[2018-12-15] MEDS ORDERED: NA CHLORIDE 0.9% 1,000 ML ONE (15:15)
[2018-12-15 15:30] LABS: Absolute Lymphocytes (CBC) 2.1 K/uL (0.7-4.9); Basophils % 0.5 % (0-1.3); Hematocrit 31.8 % (36.0-45.0); Lymphocytes % 17.1 % (15.3-44.8); MPV 7.7 fL (7.6-11.3); RBC Red Blood Cell Count 3.51 M/uL (3.86-4.86)
[2018-12-15 15:42] LABS: Protime INR 0.98
[2018-12-15 15:43] LABS: Barbiturates NEGATIVE (NEGATIVE); Benzodiazepines POSITIVE (NEGATIVE); Cocaine NEGATIVE (NEGATIVE); METHAMPHETAM NEGATIVE (NEGATIVE); Methadone NEGATIVE (NEGATIVE); Opiates NEGATIVE (NEGATIVE); Phencyclidine NEGATIVE (NEGATIVE); THC Cannibis NEGATIVE (NEGATIVE)
[2018-12-15 15:53] LABS: Urine Blood TRACE (NEG); Urine Glucose NEGATIVE (NEG); Urine Protein NEGATIVE (NEG); Urine pH 6.5 (5.0-7.0)
[2018-12-15 15:57] LABS: ALT/SGPT 15 U/L (12-78); AST/SGOT 12 U/L (15-37); Albumin 2.6 g/dL (3.4-5.0); Alkaline Phosphatase 99 U/L (45-117); BUN Blood Urea Nitrogen 9 mg/dL (7-18); Bicarbonate 24 mmol/L (21-32); Bilirubin Direct < 0.1 mg/dL (0-0.2); Bilirubin Total 0.2 mg/dL (0.2-1.0); Glucose Level 81 mg/dL (74-106); Potassium 3.6 mmol/L (3.5-5.1); Protein, Total 6.2 g/dL (6.4-8.2); Sodium Level 141 mmol/L (136-145)
--- NOTE | 2018-12-15 17:27 | EDPHYS ---
Physician Documentation [facility] Name: Debra Harris Age: 43 yrs Sex: Female : 1975 Arrival Date: 12/15/2018 Time: 15:05 Bed 3 Private MD: ED Physician Luis Chicas HPI: 12/15 19:05 This 43 yrs old Female presents to ER via EMS with complaints of Overdose. kdr 19:05 The patient presents to the emergency department after a known overdose, that was kdr accidental, a result of recreational substance abuse. Context: Method: the patient has a confirmed or suspected ingestion, Time: just prior to arrival. Associated signs and symptoms: The patient has no apparent associated signs or symptoms, Pertinent positives: The patient was found poorly responsive at [facility]. She states that she had taken Xanax and Soma. She has no other focal c/o. Severity of symptoms: At their worst the symptoms were moderate in the emergency department the symptoms are unchanged have improved mildly. It is unknown whether or not the patient has had similar symptoms in the past. It is unknown whether or not the patient has recently seen a physician. Historical: - Allergies: 15:07 No Known Allergies; aj - Home Meds: 15:07 Lyrica 100 mg Oral [Active]; Xanax 2 mg Oral tab 1 tab BID for Anxiety [Active]; aj Suboxone 10mg sublingual film 1 film once daily [Active]; - PMHx: 15:07 Anxiety; aj - PSHx: 15:07 Hernia repair; Tonsillectomy; aj - Immunization history:: Adult Immunizations up to date. - Social history:: Smoking status: Patient/guardian denies using tobacco. - Ebola Screening: : Patient negative for fever greater than or equal to 101.5 degrees Fahrenheit, and additional compatible Ebola Virus Disease symptoms Patient denies exposure to infectious person Patient denies travel to an Ebola-affected area in the 21 days before illness onset No symptoms or risks identified at this time. ROS: 19:05 Constitutional: Negative for fever, chills, and weight loss, Eyes: Negative for injury, kdr pain, redness, and discharge, Neck: Negative for injury, pain, and swelling, Cardiovascular: Negative for chest pain, palpitations, and edema, Respiratory: Negative for shortness of breath, cough, wheezing, and pleuritic chest pain, Abdomen/GI: Negative for abdominal pain, nausea, vomiting, diarrhea, and constipation, Back: Negative for injury and pain, : Negative for injury, bleeding, discharge, and swelling, MS/Extremity: Negative for injury and deformity, Skin: Negative for injury, rash, and discoloration, Psych: Negative for depression, anxiety, suicide ideation, homicidal ideation, and hallucinations, Allergy/Immunology: Negative for hives, rash, and allergies, Endocrine: Negative for neck swelling, polydipsia, polyuria, polyphagia, and marked weight changes, Hematologic/Lymphatic: Negative for swollen nodes, abnormal bleeding, and unusual bruising. 19:05 Neuro: Positive for altered mental status, near syncope, weakness. Exam: 19:05 Constitutional: This is a well developed, well nourished patient who is awake, alert, kdr and in no acute distress. Head/Face: Normocephalic, atraumatic. Eyes: Pupils equal round and reactive to light, extra-ocular motions intact. Lids and lashes normal. Conjunctiva and sclera are non-icteric and not injected. Cornea within normal limits. Periorbital areas with no swelling, redness, or edema. Neck: Trachea midline, no thyromegaly or masses palpated, and no cervical lymphadenopathy. Supple, full range of motion without nuchal rigidity, or vertebral point tenderness. No Meningismus. Chest/axilla: Normal chest wall appearance and motion. Nontender with no deformity. No lesions are appreciated. Cardiovascular: Regular rate and rhythm with a normal S1 and S2. No gallops, murmurs, or rubs. Normal PMI, no JVD. No pulse deficits. Respiratory: Lungs have equal breath sounds bilaterally, clear to auscultation and percussion. No rales, rhonchi or wheezes noted. No increased work of breathing, no retractions or nasal flaring. Abdomen/GI: Soft, non-tender, with normal bowel sounds. No distension or tympany. No guarding or rebound. No evidence of tenderness throughout. Back: No spinal tenderness. No costovertebral tenderness. Full range of motion. Skin: Warm, dry with normal turgor. Normal color with no rashes, no lesions, and no evidence of cellulitis. MS/ Extremity: Pulses equal, no cyanosis. Neurovascular intact. Full, normal range of motion. Psych: Awake, alert, with orientation to person, place and time. Behavior, mood, and affect are within normal limits. 19:05 Neuro: Orientation: to person, place, situation, Motor: is normal, Gait: not tested. Vital Signs: 15:07 BP 113 / 53; Pulse 111; Resp 16; Temp 98.6; Pulse Ox 96% on R/A; Weight 77.11 kg; aj Height 5 ft. 3 in. (160.02 cm); 16:08 BP 93 / 58; Pulse 90; Resp 22; Pulse Ox 96% on R/A; aj 17:43 BP 121 / 85; Pulse 71; Resp 16; Pulse Ox 98% on R/A; aj 15:07 Body Mass Index 30.11 (77.11 kg, 160.02 cm) aj MDM: 17:26 Patient medically screened. kdr 19:09 Data reviewed: vital signs, nurses notes, lab test result(s), radiologic studies. kdr Counseling: I had a detailed discussion with the patient and/or guardian regarding: the historical points, exam findings, and any diagnostic results supporting the discharge/admit diagnosis, lab results, radiology results, the need for outpatient follow up. 12/15 15:08 Order name: Acetaminophen; Complete Time: 17:20 kdr 12/15 15:08 Order name: Basic Metabolic Panel; Complete Time: 17:20 kdr 12/15 15:08 Order name: CBC with Diff; Complete Time: 17:20 kdr 12/15 15:08 Order name: ETOH Level; Complete Time: 17:20 kdr 12/15 15:08 Order name: Hepatic Function; Complete Time: 17:20 kdr 12/15 15:08 Order name: PT-INR; Complete Time: 17:20 kdr 12/15 15:08 Order name: Ptt, Activated; Complete Time: 17:20 kdr 12/15 15:08 Order name: Salicylate; Complete Time: 17:20 kdr 12/15 15:08 Order name: Urine Drug Screen; Complete Time: 17:20 kdr 12/15 15:08 Order name: EKG; Complete Time: 15:09 kdr 12/15 15:10 Order name: Test, Serum; Complete Time: 17:20 ms 12/15 15:47 Order name: Urine Dipstick--Ancillary (enter results); Complete Time: 17:20 eb 12/15 15:08 Order name: EKG - Nurse/Tech; Complete Time: 16:01 kdr 12/15 15:08 Order name: IV Saline Lock; Complete Time: 16:01 kdr 12/15 15:08 Order name: Labs collected and sent; Complete Time: 16:01 kdr 12/15 15:08 Order name: Urine Dipstick-Ancillary (obtain specimen); Complete Time: 16:01 [facility] Administered Medications: 15:24 Drug: NS 0.9% 1000 ml Route: IV; Rate: 1 bolus; Site: right antecubital; aj Disposition: 12/15/18 17:26 Discharged to Home. Impression: Altered mental status, unspecified, Medication Abuse: Xanax, soma. - Condition is Stable. - Discharge Instructions: Substance Use Disorder, Abdominal Pain During , [id number], Drug Overdose. - Medication Reconciliation Form, Thank You Letter form. - Follow up: Private Physician; When: 2 - 3 days; Reason: If symptoms return, Further diagnostic work-up, Recheck today's complaints, Continuance of care, Re-evaluation by your physician. - Problem is an acute exacerbation. - Symptoms have improved. Signatures: Dispatcher [employer] Catrina Garcia RN RN aj Rittger, Kevin, MD MD [facility] Corrections: (The following items were deleted from the chart) 16:02 15:08 Urine Test ordered. [facility] ms 17:44 17:26 12/15/2018 17:26 Discharged to Home. Impression: Altered mental status, aj unspecified; Medication Abuse: Xanax, soma. Condition is Stable. Forms are Medication Reconciliation Form, Thank You Letter, Antibiotic Education, Prescription Opioid Use. Follow up: Private Physician; When: 2 - 3 days; Reason: If symptoms return, Further diagnostic work-up, Recheck today's complaints, Continuance of care, Re-evaluation by your physician. Problem is an acute exacerbation. Symptoms have improved. kdr
--- NOTE | 2018-12-15 17:27 | ER ---
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 aj Patient is drowsy and sedated. Arouses with verbal stimuli, alert to person and place. Patient is 37 weeks . Transition of care: patient was not received from another setting of care. Onset of symptoms was December 15, 2018. Risk Assessment: Do you want to hurt yourself or someone else? Patient reports no desire to harm self or others. Initial Sepsis Screen: Does the patient meet any 2 criteria? No. Patient's initial sepsis screen is negative. Does the patient have a suspected source of infection? No. Patient's initial sepsis screen is negative. Care prior to arrival: None. 15:05 Method Of Arrival: EMS: [facility] 15:05 Acuity: ARANZA 2 aj Triage Assessment: 15:07 General: Appears in no apparent distress. comfortable, Behavior is drowsy. Pain: Denies aj pain. Neuro: Level of Consciousness is lethargic, Oriented to person, place. Respiratory: Airway is patent Respiratory effort is even, unlabored, Respiratory pattern is regular, symmetrical. Derm: Skin is intact, is healthy with good turgor, Skin is pink, warm \T\ dry. normal. Historical: - Allergies: 15:07 No Known Allergies; aj - Home Meds: 15:07 Lyrica 100 mg Oral [Active]; Xanax 2 mg Oral tab 1 tab BID for Anxiety [Active]; aj Suboxone 10mg sublingual film 1 film once daily [Active]; - PMHx: 15:07 Anxiety; aj - PSHx: 15:07 Hernia repair; Tonsillectomy; aj - Immunization history:: Adult Immunizations up to date. - Social history:: Smoking status: Patient/guardian denies using tobacco. - Ebola Screening: : Patient negative for fever greater than or equal to 101.5 degrees Fahrenheit, and additional compatible Ebola Virus Disease symptoms Patient denies exposure to infectious person Patient denies travel to an Ebola-affected area in the 21 days before illness onset No symptoms or risks identified at this time. Screenin:43 Abuse screen: Denies threats or abuse. Denies injuries from another. Nutritional aj screening: No deficits noted. Tuberculosis screening: No symptoms or risk factors identified. Fall Risk None identified. Assessment: 16:08 Reassessment: No changes from previously documented assessment. Patient and/or family aj updated on plan of care and expected duration. Pain level reassessed. Patient resting comfortably in bed. Arouses to voice. Alert to person. Appears drowsy Patient denies pain at this time. 17:43 Reassessment: Patient appears in no apparent distress at this time. No changes from aj previously documented assessment. Patient and/or family updated on plan of care and expected duration. Pain level reassessed. Patient is alert, oriented x 3, equal unlabored respirations, skin warm/dry/pink. Patient denies pain at this time. Patient states feeling better. Patient states symptoms have improved. Vital Signs: 15:07 BP 113 / 53; Pulse 111; Resp 16; Temp 98.6; Pulse Ox 96% on R/A; Weight 77.11 kg; aj Height 5 ft. 3 in. (160.02 cm); 16:08 BP 93 / 58; Pulse 90; Resp 22; Pulse Ox 96% on R/A; aj 17:43 BP 121 / 85; Pulse 71; Resp 16; Pulse Ox 98% on R/A; aj 15:07 Body Mass Index 30.11 (77.11 kg, 160.02 cm) aj Vitals: 15:15 Heart Tones 148. bp ED Course: 15:05 Patient arrived in ED. aj 15:07 Triage completed. aj 15:07 Luis Chicas MD is Attending Physician. kdr 15:07 Arm band placed on right wrist. Patient placed in an exam room, on a stretcher, on aj teletypesetter monitor, on pulse oximetry, Patient notified of wait time. 15:13 Catrina Bentley, RN is Primary Nurse. aj 15:55 EKG done, by technical sales manager. reviewed by Luis Chicas MD. dt2 15:55 Inserted saline lock: 20 gauge in right antecubital area, using aseptic technique. aj 17:43 Patient has correct armband on for positive identification. aj 17:43 No provider procedures requiring assistance completed. IV discontinued, intact, aj bleeding controlled, No redness/swelling at site. Pressure dressing applied. Administered Medications: 15:24 Drug: NS 0.9% 1000 ml Route: IV; Rate: 1 bolus; Site: right antecubital; aj Outcome: 17:26 Discharge ordered by . kdr 17:44 Discharged to home ambulatory. aj 17:44 Condition: good 17:44 Discharge instructions given to patient, Instructed on discharge instructions, follow up and referral plans. Demonstrated understanding of instructions, follow-up care, medications. 17:44 Patient left the ED. 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 Patient is drowsy and sedated. Arouses with verbal stimuli, alert to person and place. Approx 7-8 months . aj
[2018-12-15 17:50] VITALS: TEMP 98.6
[2018-12-15 17:52] VITALS: BP 121/85; O2SAT 98
--- NOTE | 2018-12-16 06:48 | EKG ---
Test Date: 2018-12-15 Test Time: 15:51:20 Pole Sander Operator: LOIS/Livan MEASUREMENT RESULTS: Intervals: Rate: 93 MA: 164 QRSD: 82 QT: 380 QTc: 472 [place]: P: 55 MA: 164 QRS: 86 T: 37 INTERPRETIVE STATEMENTS: Normal sinus rhythm Normal ECG Compared to ECG 10/16/2018 12:57:23 Right-axis deviation no longer present Electronically Signed On 12-16-18 06:46:09 CDT by Rafael Das
== END 2018-12-15 17:44 | disposition home or self-care (01) ==
LOC: ER 15:03
DX: R41.82 Altered mental status, unspecified (principal); F13.10 Sedative, hypnotic or anxiolytic abuse, uncomplicated; F41.9 Anxiety disorder, unspecified
CPT/HCPCS: 93005; 85025; 80048; 36415; 80320; 80329 ×2; 84703; 85610; 80076; 80307 ×8; 85730; 81003; 99284; J7030

== ENCOUNTER 2020-06-01 06:14 | Observation (INO) | payer OTHER ==
--- OUTSIDE RECORDS SUMMARY | 2020-06-01 06:16 | XMS REPORT | Clinical Summary ---
:1975 Author Organization [facility] Address [address] [place] [address] Care Team Providers Name Role Phone Feng Bourgeois MD Primary Care Provider [phone] Allergies No Known Allergies Medications Medication Sig [...] Assigned at Date Recorded Not on file Last Filed Vital Signs Not on file Plan of Treatment Not on file Results Not on fileafter 06/01/2019 Advance Directives For more information, please contact: [phone] Code Status Date Activated Date Inactivated Comments Full Code 05/09/2017 1:46 PM 05/17/2017 7:41 PM This code status was determined by: Patient Full Code 05/09/2017 12:00 AM 05/09/2017 1:46 PM This code status was determined by: Patient
--- OUTSIDE RECORDS SUMMARY | 2020-06-01 06:18 | XMS REPORT | Continuity of Care Document ---
:1975 Author Organization [facility] t Address [address] [place] [address] Care Team Providers Name Role Phone Brent Bourgeois MD Primary Care Physician Mukund MARIE Attending Clinician EFE Attending Clinician Unavailable EFE Admitting Clinician Unavailable Problems Condition Condition Condition Status Onset Resolution Last Treating Co mments Source Name Details Category Date Date Treatment Clinician Date Chest pain Chest pain Disease Active 2016-[address] [facility] 00 [facility] Gastric Gastric Disease Active 2016-[address] [facility] [address] volvulus volvulus 2-25 [facility] 00 [facility] Polysubsta Polysubsta Disease Active 2016-05 [facility] nce abuse nce abuse 2-25 [facility] - 00:[facility]: Medical 00 [facility] Incarcerat Incarcerat Disease Active 2016-05 [facility] ed ed 2-25 [facility] - paraesopha paraesopha 00:00: La dical geal geal 00 Center hernia hernia Allergies, Adverse Reactions, Alerts This patient has no known allergies or adverse reactions. Social History Social Habit Start Date Stop Date Quantity Comments Source Sex Assigned At [facility] Medications Ordered Filled Start Stop Current Ordering Indication Dosage Frequency Signature Comments Components Source Medication Medication Date Date Medication? Clinician (SIG) Name Name ALPRAZolam Yes 1mg Q.5D Take [address] (XANAX) 1 1-02 by mouth 2 [facility] - MG tablet 17:41: (two) Medical 29 times Center daily. buprenorphi 2018-0 Yes 1{tbl} Q.5D Place [address] ne-naloxone 1-02 tablet [facility] - (SUBOXONE) 17:41: under the Me dical 2-0.5 mg 29 tongue 2 Center Subl (two) times daily. Procedures This patient has no known procedures. Encounters Start End Encounter Admission Attending Care Care Encounter Source Date/Time Date/Time Type Type Clinicians Facility Department ID 2019-11-02 2019-11-02 Office SANDI Duval [id number] 16:50:16 17:30:14 Visit Mary Hallman [id number] [place] [id number] [facility]io [id number] [address]al [address] Building Results Test Description Test Time Test Comments Results Result [facility]ly [facility] e Comments TISSUE EXAM 2017-05-18 Surgical Pathology 13:38:00 Report Case: [id number] Authorizing Provider: Jethro Duron MD Collected: 05/14/2017 1806 Ordering Location: [address] Received: 05/17/2017 0950 Pathologist: Torrey Cervantes MD Specimen: Soft Tissue, Other, Wedge gastrectomy PART A PORTION OF STOMACH, PARTIAL GASTRECTOMY:BENIGN GASTRIC MUCOSA WITH MILD CONGESTION.NEGATIVE FOR DYSPLASIA OR INVASIVE CARCINOMA. Signing Pathologist Direct Phone Line: [phone] icall signed by Torrey Cervantes MD on 05/18/2017 at 1:38 [id number] gastrectomyThe specimen is received in a formalin-filled container labeled with the patient's information and consists of a wedge gastrectomy of stomach measuring 3 x 1.5 x 1 cm with a staple line. Grossly no suspicious areas are seen. The mucosa is toney and hemorrhagic. Section code: [employer] staple line and random section of gastric tissue, tissue from staple line is inked le. CG/ew RAD, CHEST, 1 2017-05-17 Reason for FINAL REPORT PATIENT VIEW, NON DEPT 05:29:00 exam:->post ID: [id number] RAD, opShould this CHEST, 1 VIEW, NON be performed at DEPT INDICATION: the post op COMPARISON: bedside?->Yes May 15, 2017 FINDINGS: Portable frontal view of the chest. [...] Newell Verified Date/Time: 05/17/2017 05:29:48 Reading Location: [facility] C013Y CT Body Reading Room ESIUM 2017-05-17 04:41:00 Test Item Value Reference Range Interpretation Comme nts MAGNESIUM (BEAKER) (test code = 627) 1.8 mg/dL 1.6-2.6 BASIC METABOLIC [id number] 04:41:00 Test Item Value Reference Range Interpretation Comments SODIUM (BEAKER) 137 meq/L 136-145 (test code = 381) POTASSIUM (BEAKER) 3.5 meq/L 3.5-5.1 (test code = 379) CHLORIDE (BEAKER) 104 meq/L 98-107 (test code = 382) CO2 (BEAKER) (test 27 meq/L 22-29 code = 355) BLOOD UREA NITROGEN 8 mg/dL 7-21 (BEAKER) (test code = 354) CREATININE (BEAKER) 0.48 mg/dL 0.57-1.25 L (test code = 358) GLUCOSE RANDOM 84 mg/dL 70-105 (BEAKER) (test code = 652) CALCIUM (BEAKER) 8.0 mg/dL 8.4-10.2 L (test code = 697) EGFR (BEAKER) (test 143 mL/min/1.73 ESTIM ATED GFR IS code = 1092) sq m NOT ACCURATE CREATININE CLEARANCE IN PREDICTING GLOMERULAR FILTRATION RATE . ESTIMATED GFR I S NOT APPLICABLE FOR DIALYSIS PATIEN TS. PROTHROMBIN [id number] 04:27:00 Test Item Value Reference Range Interpretation Comments PROTIME (BEAKER) (test code = 14.9 seconds 11.7-14.7 H 759) INR (BEAKER) (test code = 370) 1.2 <=5.9 RECOMMENDED COUMADIN/WARFARIN INR THERAPY RANGESSTANDARD DOSE: 2.0 - 3.0 Includes: PROPHYLAXIS forvenous thrombosis, systemic embolization; TREATMENT for venous thrombosis and/or pulmonary embolus.HIGH RISK: Target INR is 2.5-3.5 for patients with mechanical heart valves.CBC W/PLT COUNT & AUTO DIFFERENTIAL 2017-05-17 04:24:00 Test Item Value Reference Range Interpretation Comments WHITE BLOOD CELL COUNT (BEAKER) 7.9 K/ L 3.5-10.5 (test code = 775) RED BLOOD CELL COUNT (BEAKER) 3.29 M/ L 3.93-5.22 L (test code = 761) HEMOGLOBIN (BEAKER) (test code = 9.4 GM/DL 11.2-15.7 L 410) HEMATOCRIT (BEAKER) (test code = 28.2 % 34.1-44.9 L 411) MEAN CORPUSCULAR VOLUME (BEAKER) 85.7 fL 79.4-94.8 (test code = 753) MEAN CORPUSCULAR HEMOGLOBIN 28.6 pg 25.6-32.2 (BEAKER) (test code = 751) MEAN CORPUSCULAR HEMOGLOBIN CONC 33.3 GM/DL 32.2-35.5 (BEAKER) (test code = 752) RED CELL DISTRIBUTION WIDTH 13.9 % 11.7-14.4 (BEAKER) (test code = 412) PLATELET COUNT (BEAKER) (test 271 K/CU MM 150-450 code = 756) MEAN PLATELET VOLUME (BEAKER) 9.3 fL 9.4-12.3 L (test code = 754) NUCLEATED RED BLOOD CELLS 0 /100 WBC 0-0 (BEAKER) (test code = 413) NEUTROPHILS RELATIVE PERCENT 56 % (BEAKER) (test code = 429) LYMPHOCYTES RELATIVE PERCENT 23 % (BEAKER) (test code = 430) MONOCYTES RELATIVE PERCENT 14 % (BEAKER) (test code = 431) EOSINOPHILS RELATIVE PERCENT 7 % (BEAKER) (test code = 432) BASOPHILS RELATIVE PERCENT 1 % (BEAKER) (test code = 437) NEUTROPHILS ABSOLUTE COUNT 4.43 K/ L 1.56-6.13 (BEAKER) (test code = 670) LYMPHOCYTES ABSOLUTE COUNT 1.78 K/ L 1.18-3.74 (BEAKER) (test code = 414) MONOCYTES ABSOLUTE COUNT (BEAKER) 1.10 K/ L 0.24-0.36 H (test code = 415) EOSINOPHILS ABSOLUTE COUNT 0.51 K/ L 0.04-0.36 H (BEAKER) (test code = 416) BASOPHILS ABSOLUTE COUNT (BEAKER) 0.06 K/ L 0.01-0.08 (test code = 417) IMMATURE GRANULOCYTES-RELATIVE 0 % 0-1 PERCENT (BEAKER) (test code = 2801) FL, [id number] 12:54:00Reason for exam:->s/p hiatal hernia repair FINAL REPORT Esophagram History: Status post hiatus hernia [...] MDReport Verified Date/Time: 05/16/2017 12:54:45 Reading Location: [address] Consult Reading Room CALCIUM, [id number] 06:35:00 Test Item Value Reference Range Interpretation Comments CALCIUM IONIZED (BEAKER) (test 1.02 mmol/L 1.12-1.27 L code = 698) PH, BLOOD (BEAKER) (test code = 7.39 1810) [id number] 05:44:00 Test Item Value Reference Range Interpretation Comments MAGNESIUM (BEAKER) 1.8 mg/dL 1.6-2.6 Specimen slightly (test code = 627) hemolyzed BASIC METABOLIC [id number] 05:44:00 Test Item Value Reference Range Interpretation Comments SODIUM (BEAKER) 138 meq/L 136-145 (test code = 381) POTASSIUM (BEAKER) 3.9 meq/L 3.5-5.1 Specimen slightly (test code = 379) hemolyzed CHLORIDE (BEAKER) 106 meq/L 98-107 (test code = 382) CO2 (BEAKER) (test 26 meq/L 22-29 code = 355) BLOOD UREA NITROGEN 8 mg/dL 7-21 (BEAKER) (test code = 354) CREATININE (BEAKER) 0.46 mg/dL 0.57-1.25 L Specimen slightly (test code = 358) hemolyzed GLUCOSE RANDOM 98 mg/dL 70-105 (BEAKER) (test code = 652) CALCIUM (BEAKER) 8.3 mg/dL 8.4-10.2 L (test code = 697) EGFR (BEAKER) (test 150 mL/min/1.73 ESTIM ATED GFR IS code = 1092) sq m NOT ACCURATE CREATININE CLEARANCE IN PREDICTING GLOMERULAR FILTRATION RATE . ESTIMATED GFR I S NOT APPLICABLE FOR DIALYSIS PATIEN TS. PROTHROMBIN [id number] 05:33:00 Test Item Value Reference Range Interpretation Comments PROTIME (BEAKER) (test code = 15.1 seconds 11.7-14.7 H 759) INR (BEAKER) (test code = 370) 1.2 <=5.9 RECOMMENDED COUMADIN/WARFARIN INR THERAPY RANGESSTANDARD DOSE: 2.0 - 3.0 Includes: PROPHYLAXIS forvenous thrombosis, systemic embolization; TREATMENT for venous thrombosis and/or pulmonary embolus.HIGH RISK: Target INR is 2.5-3.5 for patients with mechanical heart valves.CBC W/PLT COUNT & AUTO DIFFERENTIAL 2017-05-16 05:24:00 Test Item Value Reference Range Interpretation Comments WHITE BLOOD CELL COUNT (BEAKER) 11.4 K/ L 3.5-10.5 H (test code = 775) RED BLOOD CELL COUNT (BEAKER) 3.60 M/ L 3.93-5.22 L (test code = 761) HEMOGLOBIN (BEAKER) (test code = 10.3 GM/DL 11.2-15.7 L 410) HEMATOCRIT (BEAKER) (test code = 31.2 % 34.1-44.9 L 411) MEAN CORPUSCULAR VOLUME (BEAKER) 86.7 fL 79.4-94.8 (test code = 753) MEAN CORPUSCULAR HEMOGLOBIN 28.6 pg 25.6-32.2 (BEAKER) (test code = 751) MEAN CORPUSCULAR HEMOGLOBIN CONC 33.0 GM/DL 32.2-35.5 (BEAKER) (test code = 752) RED CELL DISTRIBUTION WIDTH 14.1 % 11.7-14.4 (BEAKER) (test code = 412) PLATELET COUNT (BEAKER) (test 266 K/CU MM 150-450 code = 756) MEAN PLATELET VOLUME (BEAKER) 9.1 fL 9.4-12.3 L (test code = 754) NUCLEATED RED BLOOD CELLS 0 /100 WBC 0-0 (BEAKER) (test code = 413) NEUTROPHILS RELATIVE PERCENT 67 % (BEAKER) (test code = 429) LYMPHOCYTES RELATIVE PERCENT 16 % (BEAKER) (test code = 430) MONOCYTES RELATIVE PERCENT 12 % (BEAKER) (test code = 431) EOSINOPHILS RELATIVE PERCENT 4 % (BEAKER) (test code = 432) BASOPHILS RELATIVE PERCENT 1 % (BEAKER) (test code = 437) NEUTROPHILS ABSOLUTE COUNT 7.61 K/ L 1.56-6.13 H (BEAKER) (test code = 670) LYMPHOCYTES ABSOLUTE COUNT 1.86 K/ L 1.18-3.74 (BEAKER) (test code = 414) MONOCYTES ABSOLUTE COUNT (BEAKER) 1.38 K/ L 0.24-0.36 H (test code = 415) EOSINOPHILS ABSOLUTE COUNT 0.48 K/ L 0.04-0.36 H (BEAKER) (test code = 416) BASOPHILS ABSOLUTE COUNT (BEAKER) 0.07 K/ L 0.01-0.08 (test code = 417) IMMATURE GRANULOCYTES-RELATIVE 0 % 0-1 PERCENT (BEAKER) (test code = 2801) RAD, CHEST, 1 VIEW, NON [id number] 14:45:00Reason for exam:->s/p left chest tube removalShould [...] enlarged with mild perihilar edema. Signed: Alexey Gaoort Verified Date/Time: 05/15/2017 14:45:11 Reading Location: [address] Consult Reading Room RAD, CHEST, 1 VIEW, NON [id number] 07:32:00while patient is intubated or has chest tubes.Reason for exam:->ptxIs the patient ?->NoShould this be performed at the bedside?->Yes FINAL REPORT TECHNIQUE: Frontal view of the chest. [...] Persistent subcutaneous emphysema in the chest andneck. IMPRESSION:Previously described lucency in the left mid and lower lung zones is less conspicuous, suggestive of at least slightly decreased pneumothorax. Signed: Yojana Holdenepmaxim Verified Date/Time: 05/15/2017 07:32:43 Reading Location: [facility] C013Y CT Body Reading Room PROTHROMBIN [id number] 05:07:00 Test Item Value Reference Range Interpretation Comments PROTIME (BEAKER) (test code = 15.8 seconds 11.7-14.7 H 759) INR (BEAKER) (test code = 370) 1.3 <=5.9 RECOMMENDED COUMADIN/WARFARIN INR THERAPY RANGESSTANDARD DOSE: 2.0 - 3.0 Includes: PROPHYLAXIS forvenous thrombosis, systemic embolization; TREATMENT for venous thrombosis and/or pulmonary embolus.HIGH RISK: Target INR is 2.5-3.5 for patients with mechanical heart valves.BASIC METABOLIC [id number] 05:07:00 Test Item Value Reference Range Interpretation Comments SODIUM (BEAKER) 140 meq/L 136-145 (test code = 381) POTASSIUM (BEAKER) 3.5 meq/L 3.5-5.1 (test code = 379) CHLORIDE (BEAKER) 112 meq/L 98-107 H (test code = 382) CO2 (BEAKER) (test 22 meq/L 22-29 code = 355) BLOOD UREA NITROGEN 15 mg/dL 7-21 (BEAKER) (test code = 354) CREATININE (BEAKER) 0.52 mg/dL 0.57-1.25 L (test code = 358) GLUCOSE RANDOM 105 mg/dL 70-105 (BEAKER) (test code = 652) CALCIUM (BEAKER) 7.7 mg/dL 8.4-10.2 L (test code = 697) EGFR (BEAKER) (test 131 mL/min/1.73 ESTIM ATED GFR IS code = 1092) sq m NOT ACCURATE CREATININE CLEARANCE IN PREDICTING GLOMERULAR FILTRATION RATE . ESTIMATED GFR I S NOT APPLICABLE FOR DIALYSIS PATIEN TS. [id number] 05:03:00 Test Item Value Reference Range Interpretation Comments MAGNESIUM (BEAKER) (test code = 2.7 mg/dL 1.6-2.6 H 627) CBC W/PLT COUNT & AUTO [id number] 05:00:00 Test Item Value Reference Range Interpretation Comments WHITE BLOOD CELL COUNT (BEAKER) 13.2 K/ L 3.5-10.5 H (test code = 775) RED BLOOD CELL COUNT (BEAKER) 3.39 M/ L 3.93-5.22 L (test code = 761) HEMOGLOBIN (BEAKER) (test code = 9.7 GM/DL 11.2-15.7 L 410) HEMATOCRIT (BEAKER) (test code = 29.2 % 34.1-44.9 L 411) MEAN CORPUSCULAR VOLUME (BEAKER) 86.1 fL 79.4-94.8 (test code = 753) MEAN CORPUSCULAR HEMOGLOBIN 28.6 pg 25.6-32.2 (BEAKER) (test code = 751) MEAN CORPUSCULAR HEMOGLOBIN CONC 33.2 GM/DL 32.2-35.5 (BEAKER) (test code = 752) RED CELL DISTRIBUTION WIDTH 14.2 % 11.7-14.4 (BEAKER) (test code = 412) PLATELET COUNT (BEAKER) (test 252 K/CU MM 150-450 code = 756) MEAN PLATELET VOLUME (BEAKER) 9.2 fL 9.4-12.3 L (test code = 754) NUCLEATED RED BLOOD CELLS 0 /100 WBC 0-0 (BEAKER) (test code = 413) NEUTROPHILS RELATIVE PERCENT 76 % (BEAKER) (test code = 429) LYMPHOCYTES RELATIVE PERCENT 14 % (BEAKER) (test code = 430) MONOCYTES RELATIVE PERCENT 10 % (BEAKER) (test code = 431) EOSINOPHILS RELATIVE PERCENT 0 % (BEAKER) (test code = 432) BASOPHILS RELATIVE PERCENT 0 % (BEAKER) (test code = 437) NEUTROPHILS ABSOLUTE COUNT 10.02 K/ L 1.56-6.13 H (BEAKER) (test code = 670) LYMPHOCYTES ABSOLUTE COUNT 1.81 K/ L 1.18-3.74 (BEAKER) (test code = 414) MONOCYTES ABSOLUTE COUNT (BEAKER) 1.26 K/ L 0.24-0.36 H (test code = 415) EOSINOPHILS ABSOLUTE COUNT 0.04 K/ L 0.04-0.36 (BEAKER) (test code = 416) BASOPHILS ABSOLUTE COUNT (BEAKER) 0.05 K/ L 0.01-0.08 (test code = 417) IMMATURE GRANULOCYTES-RELATIVE 0 % 0-1 PERCENT (BEAKER) (test code = 2801) CALCIUM, [id number] 23:02:00 Test Item Value Reference Range Interpretation Comments CALCIUM IONIZED (BEAKER) (test 0.92 mmol/L 1.12-1.27 L code = 698) PH, BLOOD (BEAKER) (test code = 7.38 1810) [id number] 22:53:00 Test Item Value Reference Range Interpretation Comments MAGNESIUM (BEAKER) (test code = 1.9 mg/dL 1.6-2.6 627) BASIC METABOLIC [id number] 22:53:00 Test Item Value Reference Range Interpretation Comments SODIUM (BEAKER) 142 meq/L 136-145 (test code = 381) POTASSIUM (BEAKER) 3.7 meq/L 3.5-5.1 (test code = 379) CHLORIDE (BEAKER) 113 meq/L 98-107 H (test code = 382) CO2 (BEAKER) (test 19 meq/L 22-29 L code = 355) BLOOD UREA NITROGEN 17 mg/dL 7-21 (BEAKER) (test code = 354) CREATININE (BEAKER) 0.55 mg/dL 0.57-1.25 L (test code = 358) GLUCOSE RANDOM 98 mg/dL 70-105 (BEAKER) (test code = 652) CALCIUM (BEAKER) 7.5 mg/dL 8.4-10.2 L (test code = 697) EGFR (BEAKER) (test 122 mL/min/1.73 ESTIM ATED GFR IS code = 1092) sq m NOT ACCURATE CREATININE CLEARANCE IN PREDICTING GLOMERULAR FILTRATION RATE . ESTIMATED GFR I S NOT APPLICABLE FOR DIALYSIS PATIEN TS. CBC W/PLT COUNT & AUTO [id number] 22:47:00 Test Item Value Reference Range Interpretation Comments WHITE BLOOD CELL COUNT (BEAKER) 19.1 K/ L 3.5-10.5 H (test code = 775) RED BLOOD CELL COUNT (BEAKER) 3.60 M/ L 3.93-5.22 L (test code = 761) HEMOGLOBIN (BEAKER) (test code = 10.2 GM/DL 11.2-15.7 L 410) HEMATOCRIT (BEAKER) (test code = 31.1 % 34.1-44.9 L 411) MEAN CORPUSCULAR VOLUME (BEAKER) 86.4 fL 79.4-94.8 (test code = 753) MEAN CORPUSCULAR HEMOGLOBIN 28.3 pg 25.6-32.2 (BEAKER) (test code = 751) MEAN CORPUSCULAR HEMOGLOBIN CONC 32.8 GM/DL 32.2-35.5 (BEAKER) (test code = 752) RED CELL DISTRIBUTION WIDTH 14.0 % 11.7-14.4 (BEAKER) (test code = 412) PLATELET COUNT (BEAKER) (test 273 K/CU MM 150-450 code = 756) MEAN PLATELET VOLUME (BEAKER) 9.5 fL 9.4-12.3 (test code = 754) NUCLEATED RED BLOOD CELLS 0 /100 WBC 0-0 (BEAKER) (test code = 413) NEUTROPHILS RELATIVE PERCENT 88 % (BEAKER) (test code = 429) LYMPHOCYTES RELATIVE PERCENT 4 % (BEAKER) (test code = 430) MONOCYTES RELATIVE PERCENT 8 % (BEAKER) (test code = 431) EOSINOPHILS RELATIVE PERCENT 0 % (BEAKER) (test code = 432) BASOPHILS RELATIVE PERCENT 0 % (BEAKER) (test code = 437) NEUTROPHILS ABSOLUTE COUNT 16.75 K/ L 1.56-6.13 H (BEAKER) (test code = 670) LYMPHOCYTES ABSOLUTE COUNT 0.70 K/ L 1.18-3.74 L (BEAKER) (test code = 414) MONOCYTES ABSOLUTE COUNT (BEAKER) 1.55 K/ L 0.24-0.36 H (test code = 415) EOSINOPHILS ABSOLUTE COUNT 0.01 K/ L 0.04-0.36 L (BEAKER) (test code = 416) BASOPHILS ABSOLUTE COUNT (BEAKER) 0.03 K/ L 0.01-0.08 (test code = 417) IMMATURE GRANULOCYTES-RELATIVE 0 % 0-1 PERCENT (BEAKER) (test code = 2801) RAD, CHEST, 1 VIEW, NON [id number] 21:18:00Reason for exam:->ptxIs the patient ?->NoShould this [...] MDReport Verified Date/Time: 05/14/2017 21:18:07 Reading [facility] [address] [facility] [id number] 17:28:00 Test Item Value Reference Range Interpretation Comments PH ARTERIAL (BEAKER) (test code = 7.36 7.35-7.45 383) PCO2 ARTERIAL (BEAKER) (test code 39 mm Hg 35-45 = 384) PO2 ARTERIAL (BEAKER) (test code 194 mm Hg 80-90 H = 385) O2 SATURATION ARTERIAL (BEAKER) 99.3 % 96.0-97.0 H (test code = 386) HCO3 ARTERIAL (BEAKER) (test code 22 mmol/L 21-29 = 388) BASE EXCESS ARTERIAL (BEAKER) -3.6 mmol/L -2.0-3.0 L (test code = 387) PATIENT TEMPERATURE (BEAKER) 36.2 (test code = 1818) FIO2 (BEAKER) (test code = 1819) 50 SODIUM NA-STAT [id number] 17:28:00 Test Item Value Reference Range Interpretation Comments SODIUM (BEAKER) (test code = 381) 134 meq/L 135-148 L POTASSIUM-STAT [id number] 17:28:00 Test Item Value Reference Range Interpretation Comments POTASSIUM (BEAKER) (test code = 3.4 meq/L 3.6-5.5 L 379) GLUCOSE-STAT [id number] 17:28:00 Test Item Value Reference Range Interpretation Comments GLUCOSE RANDOM (BEAKER) (test code 185 mg/dL 70-110 H = 652) HGB/HCT (H&H) - STAT [id number] 17:28:00 Test Item Value Reference Range Interpretation Comments HEMOGLOBIN (BEAKER) (test code = 11.0 GM/DL 12.0-15.0 L 410) HEMATOCRIT (BEAKER) (test code = 32.0 % 36.0-45.0 L 411) BLOOD GAS, [id number] 15:47:00 Test Item Value Reference Range Interpretation Comments PH ARTERIAL (BEAKER) (test code = 7.33 7.35-7.45 L 383) PCO2 ARTERIAL (BEAKER) (test code 46 mmHg 35-45 H = 384) PO2 ARTERIAL (BEAKER) (test code 211 mmHg 80-90 H = 385) O2 SATURATION ARTERIAL (BEAKER) 99.4 % 96.0-97.0 H (test code = 386) HCO3 ARTERIAL (BEAKER) (test code 24 mmol/L 21-29 = 388) BASE EXCESS ARTERIAL (BEAKER) -2.5 mmol/L -2.0-3.0 L (test code = 387) PATIENT TEMPERATURE (BEAKER) 35.4 C (test code = 1818) FIO2 (BEAKER) (test code = 1819) 67.0 % GLUCOSE-STAT [id number] 15:47:00 Test Item Value Reference Range Interpretation Comments GLUCOSE RANDOM (BEAKER) (test code 158 mg/dL 70-110 H = 652) SODIUM NA-STAT [id number] 15:46:00 Test Item Value Reference Range Interpretation Comments SODIUM (BEAKER) (test code = 381) 137 meq/L 135-148 POTASSIUM-STAT [id number] 15:46:00 Test Item Value Reference Range Interpretation Comments POTASSIUM (BEAKER) (test code = 3.7 meq/L 3.6-5.5 379) HGB/HCT (H&H) - STAT [id number] 15:46:00 Test Item Value Reference Range Interpretation Comments HEMOGLOBIN (BEAKER) (test code = 12.5 g/dL 12.0-15.0 410) HEMATOCRIT (BEAKER) (test code = 37.0 % 36.0-45.0 411) URINE [id number] 15:11:00 Test Item Value Reference Range Interpretation Comments CULTURE (BEAKER) (test 30-39,000 col/mL skin code = 1095) cindy BLOOD GAS, [id number] 14:45:00 Test Item Value Reference Range Interpretation Comments PH ARTERIAL (BEAKER) (test code = 7.51 7.35-7.45 H 383) PCO2 ARTERIAL (BEAKER) (test code 31 mmHg 35-45 L = 384) PO2 ARTERIAL (BEAKER) (test code = 458 mmHg 80-90 H 385) O2 SATURATION ARTERIAL (BEAKER) 99.9 % 96.0-97.0 H (test code = 386) HCO3 ARTERIAL (BEAKER) (test code 25 mmol/L 21-29 = 388) BASE EXCESS ARTERIAL (BEAKER) 1.8 mmol/L -2.0-3.0 (test code = 387) PATIENT TEMPERATURE (BEAKER) (test 36.0 C code = 1818) FIO2 (BEAKER) (test code = 1819) 50.0 % POTASSIUM-STAT [id number] 14:45:00 Test Item Value Reference Range Interpretation Comments POTASSIUM (BEAKER) (test code = 3.3 meq/L 3.6-5.5 L 379) HGB/HCT (H&H) - STAT [id number] 14:45:00 Test Item Value Reference Range Interpretation Comments HEMOGLOBIN (BEAKER) (test code = 11.5 g/dL 12.0-15.0 L 410) HEMATOCRIT (BEAKER) (test code = 34.0 % 36.0-45.0 L 411) GLUCOSE-STAT [id number] 14:44:00 Test Item Value Reference Range Interpretation Comments GLUCOSE RANDOM (BEAKER) (test code 105 mg/dL 70-110 = 652) SODIUM NA-STAT [id number] 14:44:00 Test Item Value Reference Range Interpretation Comments SODIUM (BEAKER) (test code = 381) 137 meq/L 135-148 SCREEN, [id number] 13:36:00 Test Item Value Reference Range Interpretation Comments TEST URINE (BEAKER) (test Negative code = 583) BLOOD [id number] 10:00:00 Test Item Value Reference Range Interpretation Comments CULTURE (BEAKER) (test No growth in 5 days code = 1095) RAD, CHEST, 1 VIEW, NON [id number] 07:28:00Reason for exam:->post opShould this be performed at the bedside?->YesFINAL REPORT Chest one view compared to May 13 Discussion: Unchanged left hemidiaphragm elevation. Cardiopulmonary appearance is similar. No effusion or pneumothorax. No atypical line or tube position. Signed: Julisa Partida Verified Date/Time: 05/14/2017 07:28:59 Reading Location: [address] Neuro Reading Room TROPONIN [id number] 05:14:00 Test Item Value Reference Range Interpretation Comments TROPONIN I (BEAKER) (test code = 0.02 ng/mL 0.00-0.03 397) Troponin I (TnI) levels must be interpreted [...] failure, acidosis, acute neurological disease, and persistent tachyarrhythmia.[id number] 05:03:00 Test Item Value Reference Range Interpretation Comments MAGNESIUM (BEAKER) (test code = 1.7 mg/dL 1.6-2.6 627) BASIC METABOLIC [id number] 05:03:00 Test Item Value Reference Range Interpretation Comments SODIUM (BEAKER) 140 meq/L 136-145 (test code = 381) POTASSIUM (BEAKER) 3.4 meq/L 3.5-5.1 L (test code = 379) CHLORIDE (BEAKER) 107 meq/L 98-107 (test code = 382) CO2 (BEAKER) (test 25 meq/L 22-29 code = 355) BLOOD UREA NITROGEN 18 mg/dL 7-21 (BEAKER) (test code = 354) CREATININE (BEAKER) 0.53 mg/dL 0.57-1.25 L (test code = 358) GLUCOSE RANDOM 85 mg/dL 70-105 (BEAKER) (test code = 652) CALCIUM (BEAKER) 8.7 mg/dL 8.4-10.2 (test code = 697) EGFR (BEAKER) (test 128 mL/min/1.73 ESTIM ATED GFR IS code = 1092) sq m NOT ACCURATE CREATININE CLEARANCE IN PREDICTING GLOMERULAR FILTRATION RATE . ESTIMATED GFR I S NOT APPLICABLE FOR DIALYSIS PATIEN TS. CBC W/PLT COUNT & AUTO [id number] 04:51:00 Test Item Value Reference Range Interpretation Comments WHITE BLOOD CELL COUNT (BEAKER) 11.5 K/ L 3.5-10.5 H (test code = 775) RED BLOOD CELL COUNT (BEAKER) 3.92 M/ L 3.93-5.22 L (test code = 761) HEMOGLOBIN (BEAKER) (test code = 11.1 GM/DL 11.2-15.7 L 410) HEMATOCRIT (BEAKER) (test code = 33.0 % 34.1-44.9 L 411) MEAN CORPUSCULAR VOLUME (BEAKER) 84.2 fL 79.4-94.8 (test code = 753) MEAN CORPUSCULAR HEMOGLOBIN 28.3 pg 25.6-32.2 (BEAKER) (test code = 751) MEAN CORPUSCULAR HEMOGLOBIN CONC 33.6 GM/DL 32.2-35.5 (BEAKER) (test code = 752) RED CELL DISTRIBUTION WIDTH 13.9 % 11.7-14.4 (BEAKER) (test code = 412) PLATELET COUNT (BEAKER) (test 282 K/CU MM 150-450 code = 756) MEAN PLATELET VOLUME (BEAKER) 9.5 fL 9.4-12.3 (test code = 754) NUCLEATED RED BLOOD CELLS 0 /100 WBC 0-0 (BEAKER) (test code = 413) NEUTROPHILS RELATIVE PERCENT 71 % (BEAKER) (test code = 429) LYMPHOCYTES RELATIVE PERCENT 15 % (BEAKER) (test code = 430) MONOCYTES RELATIVE PERCENT 11 % (BEAKER) (test code = 431) EOSINOPHILS RELATIVE PERCENT 3 % (BEAKER) (test code = 432) BASOPHILS RELATIVE PERCENT 0 % (BEAKER) (test code = 437) NEUTROPHILS ABSOLUTE COUNT 8.12 K/ L 1.56-6.13 H (BEAKER) (test code = 670) LYMPHOCYTES ABSOLUTE COUNT 1.71 K/ L 1.18-3.74 (BEAKER) (test code = 414) MONOCYTES ABSOLUTE COUNT (BEAKER) 1.26 K/ L 0.24-0.36 H (test code = 415) EOSINOPHILS ABSOLUTE COUNT 0.34 K/ L 0.04-0.36 (BEAKER) (test code = 416) BASOPHILS ABSOLUTE COUNT (BEAKER) 0.05 K/ L 0.01-0.08 (test code = 417) IMMATURE GRANULOCYTES-RELATIVE 0 % 0-1 PERCENT (BEAKER) (test code = 2801) [id number] 04:50:00 Test Item Value Reference Range Interpretation Comments PROTIME (BEAKER) (test code = 14.3 seconds 11.7-14.7 759) INR (BEAKER) (test code = 370) 1.1 <=5.9 PARTIAL THROMBOPLASTIN TIME 36.0 seconds 22.5-36.0 (BEAKER) (test code = 760) RECOMMENDED COUMADIN/WARFARIN INR THERAPY RANGESSTANDARD DOSE: 2.0 - 3.0 Includes: PROPHYLAXIS forvenous thrombosis, systemic embolization; TREATMENT for venous thrombosis and/or pulmonary embolus.HIGH RISK: Target INR is 2.5-3.5 for patients with mechanical heart valves.PROTHROMBIN [id number] 04:49:00 Test Item Value Reference Range Interpretation Comments PROTIME (BEAKER) (test code = 14.3 seconds 11.7-14.7 759) INR (BEAKER) (test code = 370) 1.1 <=5.9 RECOMMENDED COUMADIN/WARFARIN INR THERAPY RANGESSTANDARD DOSE: 2.0 - 3.0 Includes: PROPHYLAXIS forvenous thrombosis, systemic embolization; TREATMENT for venous thrombosis and/or pulmonary embolus.HIGH RISK: Target INR is 2.5-3.5 for patients with mechanical heart valves.TROPONIN [id number] 19:19:00 Test Item Value Reference Range Interpretation Comments TROPONIN I (BEAKER) (test code = 397) < ng/mL 0.00-0.03 Troponin I (TnI) levels [...] acute neurological disease, and persistent tachyarrhythmia.URINALYSIS W/ [id number] 17:11:00 Test Item Value Reference Range Interpretation Comments COLOR (BEAKER) (test code Yellow = 470) CLARITY (BEAKER) (test Hazy code = 469) SPECIFIC GRAVITY UA 1.014 1.001-1.035 (BEAKER) (test code = 468) PH UA (BEAKER) (test code 6.0 5.0-8.0 = 467) PROTEIN UA (BEAKER) (test Negative Negative code = 464) GLUCOSE UA (BEAKER) (test Negative Negative code = 365) KETONES UA (BEAKER) (test Negative Negative code = 371) BILIRUBIN UA (BEAKER) Negative Negative (test code = 462) BLOOD UA (BEAKER) (test Negative Negative code = 461) NITRITE UA (BEAKER) (test Negative Negative code = 465) LEUKOCYTE ESTERASE UA Moderate Negative A (BEAKER) (test code = 466) UROBILINOGEN UA (BEAKER) 0.2 mg/dL 0.2-1.0 (test code = 463) RBC UA (BEAKER) (test code 1 /HPF = 519) WBC UA (BEAKER) (test code 7 /HPF = 520) BACTERIA (BEAKER) (test Rare code = 517) MUCUS (BEAKER) (test code Occasional = 1574) SQUAMOUS EPITHELIAL 17 /HPF (BEAKER) (test code = 516) SOURCE(BEAKER) (test code Urine, Clean Catch = 2795) TSH/FREE T4 IF [id number] 16:23:00 Test Item Value Reference Range Interpretation Comments THYROID STIMULATING HORMONE 1.07 uIU/mL 0.35-4.94 (BEAKER) (test code = 772) [id number] 15:56:00 Test Item Value Reference Range Interpretation Comments POTASSIUM (BEAKER) (test code = 4.3 meq/L 3.5-5.1 379) CREATINE KINASE (CK), TOTAL AND [id number] 14:21:00 Test Item Value Reference Range Interpretation Comments CREATINE KINASE TOTAL (BEAKER) 19 U/L 29-200 L (test code = 380) CREATINE KINASE-MB (BEAKER) (test 0.5 ng/mL 0.0-6.6 code = 750) CREATINE KINASE-MB INDEX (BEAKER) 2.6 % (test code = 395) CK-MB Reference Range:<6.7 Normal6.7-10.0 Borderline>10.0 AbnormalTROPONIN [id number] 14:20:00 Test Item Value Reference Range Interpretation Comments TROPONIN I (BEAKER) (test code = 397) < ng/mL 0.00-0.03 Troponin I (TnI) levels [...] failure, acidosis, acute neurological disease, and persistent tachyarrhythmia.[id number] 13:35:00 Test Item Value Reference Range Interpretation Comments MAGNESIUM (BEAKER) (test code = 2.5 mg/dL 1.6-2.6 627) PROTHROMBIN [id number] 05:20:00 Test Item Value Reference Range Interpretation Comments PROTIME (BEAKER) (test code = 14.3 seconds 11.7-14.7 759) INR (BEAKER) (test code = 370) 1.1 <=5.9 RECOMMENDED COUMADIN/WARFARIN INR THERAPY RANGESSTANDARD DOSE: 2.0 - 3.0 Includes: PROPHYLAXIS forvenous thrombosis, systemic embolization; TREATMENT for venous thrombosis and/or pulmonary embolus.HIGH RISK: Target INR is 2.5-3.5 for patients with mechanical heart valves.[id number] 05:19:00 Test Item Value Reference Range Interpretation Comments PHOSPHORUS (BEAKER) (test code = 4.1 mg/dL 2.3-4.7 604) [id number] 05:19:00 Test Item Value Reference Range Interpretation Comments MAGNESIUM (BEAKER) (test code = 2.0 mg/dL 1.6-2.6 627) BASIC METABOLIC [id number] 05:19:00 Test Item Value Reference Range Interpretation Comments SODIUM (BEAKER) 138 meq/L 136-145 (test code = 381) POTASSIUM (BEAKER) 3.6 meq/L 3.5-5.1 (test code = 379) CHLORIDE (BEAKER) 106 meq/L 98-107 (test code = 382) CO2 (BEAKER) (test 25 meq/L 22-29 code = 355) BLOOD UREA NITROGEN 14 mg/dL 7-21 (BEAKER) (test code = 354) CREATININE (BEAKER) 0.52 mg/dL 0.57-1.25 L (test code = 358) GLUCOSE RANDOM 87 mg/dL 70-105 (BEAKER) (test code = 652) CALCIUM (BEAKER) 8.6 mg/dL 8.4-10.2 (test code = 697) EGFR (BEAKER) (test 131 mL/min/1.73 ESTIM ATED GFR IS code = 1092) sq m NOT ACCURATE CREATININE CLEARANCE IN PREDICTING GLOMERULAR FILTRATION RATE . ESTIMATED GFR I S NOT APPLICABLE FOR DIALYSIS PATIEN TS. CBC W/PLT COUNT & AUTO [id number] 04:56:00 Test Item Value Reference Range Interpretation Comments WHITE BLOOD CELL COUNT (BEAKER) 12.4 K/ L 3.5-10.5 H (test code = 775) RED BLOOD CELL COUNT (BEAKER) 3.80 M/ L 3.93-5.22 L (test code = 761) HEMOGLOBIN (BEAKER) (test code = 10.8 GM/DL 11.2-15.7 L 410) HEMATOCRIT (BEAKER) (test code = 32.5 % 34.1-44.9 L 411) MEAN CORPUSCULAR VOLUME (BEAKER) 85.5 fL 79.4-94.8 (test code = 753) MEAN CORPUSCULAR HEMOGLOBIN 28.4 pg 25.6-32.2 (BEAKER) (test code = 751) MEAN CORPUSCULAR HEMOGLOBIN CONC 33.2 GM/DL 32.2-35.5 (BEAKER) (test code = 752) RED CELL DISTRIBUTION WIDTH 14.1 % 11.7-14.4 (BEAKER) (test code = 412) PLATELET COUNT (BEAKER) (test 274 K/CU MM 150-450 code = 756) MEAN PLATELET VOLUME (BEAKER) 9.3 fL 9.4-12.3 L (test code = 754) NUCLEATED RED BLOOD CELLS 0 /100 WBC 0-0 (BEAKER) (test code = 413) NEUTROPHILS RELATIVE PERCENT 67 % (BEAKER) (test code = 429) LYMPHOCYTES RELATIVE PERCENT 18 % (BEAKER) (test code = 430) MONOCYTES RELATIVE PERCENT 11 % (BEAKER) (test code = 431) EOSINOPHILS RELATIVE PERCENT 3 % (BEAKER) (test code = 432) BASOPHILS RELATIVE PERCENT 0 % (BEAKER) (test code = 437) NEUTROPHILS ABSOLUTE COUNT 8.33 K/ L 1.56-6.13 H (BEAKER) (test code = 670) LYMPHOCYTES ABSOLUTE COUNT 2.25 K/ L 1.18-3.74 (BEAKER) (test code = 414) MONOCYTES ABSOLUTE COUNT (BEAKER) 1.34 K/ L 0.24-0.36 H (test code = 415) EOSINOPHILS ABSOLUTE COUNT 0.38 K/ L 0.04-0.36 H (BEAKER) (test code = 416) BASOPHILS ABSOLUTE COUNT (BEAKER) 0.05 K/ L 0.01-0.08 (test code = 417) IMMATURE GRANULOCYTES-RELATIVE 0 % 0-1 PERCENT (BEAKER) (test code = 2801) RAD, CHEST, 1 VIEW, NON [id number] 04:12:00Reason for exam:->post opShould this be performed at the bedside?->YesFINAL REPORT CLINICAL INDICATION: Postop Comparison: 05/12/2017 The cardiomed iastinal contours are stable. The left hemidiaphragm remains elevated. There is no focal consolidation, pneumothorax, large pleural effusion or evidence of overt pulmonary edema. Support lines are stable. Signed: Noah Porter MDReport Verified Date/Time: 05/13/2017 04:12:27 Reading Location: [address] Reading Room [id number] 20:35:00 Test Item Value Reference Range Interpretation Comments MAGNESIUM (BEAKER) (test code = 1.9 mg/dL 1.6-2.6 627) BASIC METABOLIC [id number] 20:35:00 Test Item Value Reference Range Interpretation Comments SODIUM (BEAKER) 138 meq/L 136-145 (test code = 381) POTASSIUM (BEAKER) 4.1 meq/L 3.5-5.1 (test code = 379) CHLORIDE (BEAKER) 107 meq/L 98-107 (test code = 382) CO2 (BEAKER) (test 25 meq/L 22-29 code = 355) BLOOD UREA NITROGEN 11 mg/dL 7-21 (BEAKER) (test code = 354) CREATININE (BEAKER) 0.54 mg/dL 0.57-1.25 L (test code = 358) GLUCOSE RANDOM 98 mg/dL 70-105 (BEAKER) (test code = 652) CALCIUM (BEAKER) 8.9 mg/dL 8.4-10.2 (test code = 697) EGFR (BEAKER) (test 125 mL/min/1.73 ESTIM ATED GFR IS code = 1092) sq m NOT ACCURATE CREATININE CLEARANCE IN PREDICTING GLOMERULAR FILTRATION RATE . ESTIMATED GFR I S NOT APPLICABLE FOR DIALYSIS PATIEN TS. CBC W/PLT COUNT & AUTO [id number] 20:26:00 Test Item Value Reference Range Interpretation Comments WHITE BLOOD CELL COUNT (BEAKER) 11.5 K/ L 3.5-10.5 H (test code = 775) RED BLOOD CELL COUNT (BEAKER) 4.01 M/ L 3.93-5.22 (test code = 761) HEMOGLOBIN (BEAKER) (test code = 11.5 GM/DL 11.2-15.7 410) HEMATOCRIT (BEAKER) (test code = 34.1 % 34.1-44.9 411) MEAN CORPUSCULAR VOLUME (BEAKER) 85.0 fL 79.4-94.8 (test code = 753) MEAN CORPUSCULAR HEMOGLOBIN 28.7 pg 25.6-32.2 (BEAKER) (test code = 751) MEAN CORPUSCULAR HEMOGLOBIN CONC 33.7 GM/DL 32.2-35.5 (BEAKER) (test code = 752) RED CELL DISTRIBUTION WIDTH 14.1 % 11.7-14.4 (BEAKER) (test code = 412) PLATELET COUNT (BEAKER) (test 278 K/CU MM 150-450 code = 756) MEAN PLATELET VOLUME (BEAKER) 9.3 fL 9.4-12.3 L (test code = 754) NUCLEATED RED BLOOD CELLS 0 /100 WBC 0-0 (BEAKER) (test code = 413) NEUTROPHILS RELATIVE PERCENT 75 % (BEAKER) (test code = 429) LYMPHOCYTES RELATIVE PERCENT 13 % (BEAKER) (test code = 430) MONOCYTES RELATIVE PERCENT 10 % (BEAKER) (test code = 431) EOSINOPHILS RELATIVE PERCENT 2 % (BEAKER) (test code = 432) BASOPHILS RELATIVE PERCENT 1 % (BEAKER) (test code = 437) NEUTROPHILS ABSOLUTE COUNT 8.60 K/ L 1.56-6.13 H (BEAKER) (test code = 670) LYMPHOCYTES ABSOLUTE COUNT 1.48 K/ L 1.18-3.74 (BEAKER) (test code = 414) MONOCYTES ABSOLUTE COUNT (BEAKER) 1.10 K/ L 0.24-0.36 H (test code = 415) EOSINOPHILS ABSOLUTE COUNT 0.18 K/ L 0.04-0.36 (BEAKER) (test code = 416) BASOPHILS ABSOLUTE COUNT (BEAKER) 0.06 K/ L 0.01-0.08 (test code = 417) IMMATURE GRANULOCYTES-RELATIVE 0 % 0-1 PERCENT (BEAKER) (test code = 2801) RAD, CHEST, 1 VIEW, NON [id number] 04:20:00Reason for exam:->post opShould this be performed at the bedside?->YesFINAL REPORT CLINICAL INDICATION: Postop Comparison: 05/11/2017 The cardiomed iastinal contours are stable. The left hemidiaphragm remains elevated. Retrocardiac opacity in the left lung may reflect atelectasis but pneumonitis should be excluded clinically. There is no pneumothorax. Support lines are stable. Signed: Noah Porter MDReport Verified Date/Time: 05/12/2017 04:20:19 Reading Location: [address] Reading Room [id number] 04:14:00 Test Item Value Reference Range Interpretation Comments MAGNESIUM (BEAKER) (test code = 1.9 mg/dL 1.6-2.6 627) BASIC METABOLIC [id number] 04:14:00 Test Item Value Reference Range Interpretation Comments SODIUM (BEAKER) 140 meq/L 136-145 (test code = 381) POTASSIUM (BEAKER) 3.6 meq/L 3.5-5.1 (test code = 379) CHLORIDE (BEAKER) 106 meq/L 98-107 (test code = 382) CO2 (BEAKER) (test 25 meq/L 22-29 code = 355) BLOOD UREA NITROGEN 8 mg/dL 7-21 (BEAKER) (test code = 354) CREATININE (BEAKER) 0.54 mg/dL 0.57-1.25 L (test code = 358) GLUCOSE RANDOM 106 mg/dL 70-105 H (BEAKER) (test code = 652) CALCIUM (BEAKER) 8.7 mg/dL 8.4-10.2 (test code = 697) EGFR (BEAKER) (test 125 mL/min/1.73 ESTIM ATED GFR IS code = 1092) sq m NOT ACCURATE CREATININE CLEARANCE IN PREDICTING GLOMERULAR FILTRATION RATE . ESTIMATED GFR I S NOT APPLICABLE FOR DIALYSIS PATIEN TS. PROTHROMBIN [id number] 04:09:00 Test Item Value Reference Range Interpretation Comments PROTIME (BEAKER) (test code = 14.5 seconds 11.7-14.7 759) INR (BEAKER) (test code = 370) 1.1 <=5.9 RECOMMENDED COUMADIN/WARFARIN INR THERAPY RANGESSTANDARD DOSE: 2.0 - 3.0 Includes: PROPHYLAXIS forvenous thrombosis, systemic embolization; TREATMENT for venous thrombosis and/or pulmonary embolus.HIGH RISK: Target INR is 2.5-3.5 for patients with mechanical heart valves.CBC W/PLT COUNT & AUTO DIFFERENTIAL 2017-05-12 03:57:00 Test Item Value Reference Range Interpretation Comments WHITE BLOOD CELL COUNT (BEAKER) 10.6 K/ L 3.5-10.5 H (test code = 775) RED BLOOD CELL COUNT (BEAKER) 3.87 M/ L 3.93-5.22 L (test code = 761) HEMOGLOBIN (BEAKER) (test code = 11.1 GM/DL 11.2-15.7 L 410) HEMATOCRIT (BEAKER) (test code = 33.5 % 34.1-44.9 L 411) MEAN CORPUSCULAR VOLUME (BEAKER) 86.6 fL 79.4-94.8 (test code = 753) MEAN CORPUSCULAR HEMOGLOBIN 28.7 pg 25.6-32.2 (BEAKER) (test code = 751) MEAN CORPUSCULAR HEMOGLOBIN CONC 33.1 GM/DL 32.2-35.5 (BEAKER) (test code = 752) RED CELL DISTRIBUTION WIDTH 14.3 % 11.7-14.4 (BEAKER) (test code = 412) PLATELET COUNT (BEAKER) (test 261 K/CU MM 150-450 code = 756) MEAN PLATELET VOLUME (BEAKER) 9.7 fL 9.4-12.3 (test code = 754) NUCLEATED RED BLOOD CELLS 0 /100 WBC 0-0 (BEAKER) (test code = 413) NEUTROPHILS RELATIVE PERCENT 65 % (BEAKER) (test code = 429) LYMPHOCYTES RELATIVE PERCENT 22 % (BEAKER) (test code = 430) MONOCYTES RELATIVE PERCENT 10 % (BEAKER) (test code = 431) EOSINOPHILS RELATIVE PERCENT 2 % (BEAKER) (test code = 432) BASOPHILS RELATIVE PERCENT 0 % (BEAKER) (test code = 437) NEUTROPHILS ABSOLUTE COUNT 6.93 K/ L 1.56-6.13 H (BEAKER) (test code = 670) LYMPHOCYTES ABSOLUTE COUNT 2.29 K/ L 1.18-3.74 (BEAKER) (test code = 414) MONOCYTES ABSOLUTE COUNT (BEAKER) 1.08 K/ L 0.24-0.36 H (test code = 415) EOSINOPHILS ABSOLUTE COUNT 0.26 K/ L 0.04-0.36 (BEAKER) (test code = 416) BASOPHILS ABSOLUTE COUNT (BEAKER) 0.04 K/ L 0.01-0.08 (test code = 417) IMMATURE GRANULOCYTES-RELATIVE 0 % 0-1 PERCENT (BEAKER) (test code = 2801) RAD, CHEST, 1 VIEW, NON [id number] 07:47:00Reason for exam:->post opShould this be performed [...] MDReport Verified Date/Time: 05/11/2017 07:47:20 Reading Location: [facility] Radiology Reading Room PROTHROMBIN [id number] 04:54:00 Test Item Value Reference Range Interpretation Comments PROTIME (BEAKER) (test code = 14.3 seconds 11.7-14.7 759) INR (BEAKER) (test code = 370) 1.1 <=5.9 RECOMMENDED COUMADIN/WARFARIN INR THERAPY RANGESSTANDARD DOSE: 2.0 - 3.0 Includes: PROPHYLAXIS forvenous thrombosis, systemic embolization; TREATMENT for venous thrombosis and/or pulmonary embolus.HIGH RISK: Target INR is 2.5-3.5 for patients with mechanical heart valves.CBC W/PLT COUNT & AUTO DIFFERENTIAL 2017-05-11 04:44:00 Test Item Value Reference Range Interpretation Comments WHITE BLOOD CELL COUNT (BEAKER) 11.3 K/ L 3.5-10.5 H (test code = 775) RED BLOOD CELL COUNT (BEAKER) 4.02 M/ L 3.93-5.22 (test code = 761) HEMOGLOBIN (BEAKER) (test code = 11.4 GM/DL 11.2-15.7 410) HEMATOCRIT (BEAKER) (test code = 34.4 % 34.1-44.9 411) MEAN CORPUSCULAR VOLUME (BEAKER) 85.6 fL 79.4-94.8 (test code = 753) MEAN CORPUSCULAR HEMOGLOBIN 28.4 pg 25.6-32.2 (BEAKER) (test code = 751) MEAN CORPUSCULAR HEMOGLOBIN CONC 33.1 GM/DL 32.2-35.5 (BEAKER) (test code = 752) RED CELL DISTRIBUTION WIDTH 14.1 % 11.7-14.4 (BEAKER) (test code = 412) PLATELET COUNT (BEAKER) (test 260 K/CU MM 150-450 code = 756) MEAN PLATELET VOLUME (BEAKER) 9.6 fL 9.4-12.3 (test code = 754) NUCLEATED RED BLOOD CELLS 0 /100 WBC 0-0 (BEAKER) (test code = 413) NEUTROPHILS RELATIVE PERCENT 75 % (BEAKER) (test code = 429) LYMPHOCYTES RELATIVE PERCENT 14 % (BEAKER) (test code = 430) MONOCYTES RELATIVE PERCENT 9 % (BEAKER) (test code = 431) EOSINOPHILS RELATIVE PERCENT 2 % (BEAKER) (test code = 432) BASOPHILS RELATIVE PERCENT 0 % (BEAKER) (test code = 437) NEUTROPHILS ABSOLUTE COUNT 8.40 K/ L 1.56-6.13 H (BEAKER) (test code = 670) LYMPHOCYTES ABSOLUTE COUNT 1.53 K/ L 1.18-3.74 (BEAKER) (test code = 414) MONOCYTES ABSOLUTE COUNT (BEAKER) 1.04 K/ L 0.24-0.36 H (test code = 415) EOSINOPHILS ABSOLUTE COUNT 0.21 K/ L 0.04-0.36 (BEAKER) (test code = 416) BASOPHILS ABSOLUTE COUNT (BEAKER) 0.05 K/ L 0.01-0.08 (test code = 417) IMMATURE GRANULOCYTES-RELATIVE 0 % 0-1 PERCENT (BEAKER) (test code = 2801) [id number] 04:39:00 Test Item Value Reference Range Interpretation Comments MAGNESIUM (BEAKER) (test code = 2.2 mg/dL 1.6-2.6 627) BASIC METABOLIC [id number] 04:39:00 Test Item Value Reference Range Interpretation Comments SODIUM (BEAKER) 139 meq/L 136-145 (test code = 381) POTASSIUM (BEAKER) 3.5 meq/L 3.5-5.1 (test code = 379) CHLORIDE (BEAKER) 105 meq/L 98-107 (test code = 382) CO2 (BEAKER) (test 28 meq/L 22-29 code = 355) BLOOD UREA NITROGEN 6 mg/dL 7-21 L (BEAKER) (test code = 354) CREATININE (BEAKER) 0.55 mg/dL 0.57-1.25 L (test code = 358) GLUCOSE RANDOM 103 mg/dL 70-105 (BEAKER) (test code = 652) CALCIUM (BEAKER) 8.4 mg/dL 8.4-10.2 (test code = 697) EGFR (BEAKER) (test 122 mL/min/1.73 ESTIM ATED GFR IS code = 1092) sq m NOT ACCURATE CREATININE CLEARANCE IN PREDICTING GLOMERULAR FILTRATION RATE . ESTIMATED GFR I S NOT APPLICABLE FOR DIALYSIS PATIEN TS. CREATINE KINASE (CK), TOTAL AND [id number] 00:14:00 Test Item Value Reference Range Interpretation Comments CREATINE KINASE TOTAL (BEAKER) 44 U/L 29-200 (test code = 380) CREATINE KINASE-MB (BEAKER) (test 0.7 ng/mL 0.0-6.6 code = 750) CREATINE KINASE-MB INDEX (BEAKER) 1.6 % (test code = 395) CK-MB Reference Range:<6.7 Normal6.7-10.0 Borderline>10.0 AbnormalTROPONIN [id number] 23:38:00 Test Item Value Reference Range Interpretation Comments TROPONIN I (BEAKER) (test code = 397) < ng/mL 0.00-0.03 Troponin I (TnI) levels [...] failure, acidosis, acute neurological disease, and persistent tachyarrhythmia.[id number] 23:29:00 Test Item Value Reference Range Interpretation Comments MAGNESIUM (BEAKER) 1.7 mg/dL 1.6-2.6 Specimen slightly (test code = 627) hemolyzed [id number] 23:29:00 Test Item Value Reference Range Interpretation Comments PHOSPHORUS (BEAKER) 3.5 mg/dL 2.3-4.7 Specimen slightly (test code = 604) hemolyzed BASIC METABOLIC [id number] 23:29:00 Test Item Value Reference Range Interpretation Comments SODIUM (BEAKER) 139 meq/L 136-145 (test code = 381) POTASSIUM (BEAKER) 3.9 meq/L 3.5-5.1 Specimen slightly (test code = 379) hemolyzed CHLORIDE (BEAKER) 104 meq/L 98-107 (test code = 382) CO2 (BEAKER) (test 27 meq/L 22-29 code = 355) BLOOD UREA NITROGEN 6 mg/dL 7-21 L (BEAKER) (test code = 354) CREATININE (BEAKER) 0.53 mg/dL 0.57-1.25 L Specimen slightly (test code = 358) hemolyzed GLUCOSE RANDOM 92 mg/dL 70-105 (BEAKER) (test code = 652) CALCIUM (BEAKER) 8.6 mg/dL 8.4-10.2 (test code = 697) EGFR (BEAKER) (test 128 mL/min/1.73 ESTIM ATED GFR IS code = 1092) sq m NOT ACCURATE CREATININE CLEARANCE IN PREDICTING GLOMERULAR FILTRATION RATE . ESTIMATED GFR I S NOT APPLICABLE FOR DIALYSIS PATIEN TS. LACTIC ACID, VENOUS, WHOLE [id number] 23:26:00 Test Item Value Reference Range Interpretation Comments LACTATE BLOOD VENOUS (2) (BEAKER) 1.2 mmol/L 0.5-2.2 (test code = 2872) Effective 09/17/2015: Units/Reference Range ChangeNew: 0.5-2.2 mmol/L Previous: 5-20 mg/dLBLOOD GAS, [id number] 23:02:00 Test Item Value Reference Range Interpretation Comments PH VENOUS (BEAKER) (test code = 7.43 7.32-7.42 H 701) PCO2 VENOUS (BEAKER) (test code = 45 mmHg 41-51 755) PO2 VENOUS (BEAKER) (test code = 256 mmHg 25-40 H 702) O2 SATURATION VENOUS (BEAKER) 99.6 % 40.0-70.0 H (test code = 703) HCO3 VENOUS (BEAKER) (test code = 29 mmol/L 21-29 705) BASE EXCESS VENOUS (BEAKER) (test 4.0 mmol/L -2.0-3.0 H code = 704) PATIENT TEMPERATURE (BEAKER) (test 36.3 C code = 1818) FIO2 (BEAKER) (test code = 1819) 21.0 % Blood looks arterial.RAD, CHEST, 1 VIEW, NON [id number] 19:28:00Reason for exam:->check picc placement Should this be performed at the bedside?->Yes FINAL REPORT HISTORY : check picc placement. Comparison: [...] MDReport Verified Date/Time: 05/10/2017 19:28:53 Reading Location: [facility] Consult Reading Room BLOOD GAS, [id number] 07:29:00 Test Item Value Reference Range Interpretation Comments PH ARTERIAL (BEAKER) (test code = 7.41 7.35-7.45 383) PCO2 ARTERIAL (BEAKER) (test code 44 mmHg 35-45 = 384) PO2 ARTERIAL (BEAKER) (test code = 81 mmHg 80-90 385) O2 SATURATION ARTERIAL (BEAKER) 96.2 % 96.0-97.0 (test code = 386) HCO3 ARTERIAL (BEAKER) (test code 28 mmol/L 21-29 = 388) BASE EXCESS ARTERIAL (BEAKER) 2.5 mmol/L -2.0-3.0 (test code = 387) PATIENT TEMPERATURE (BEAKER) (test 36.7 C code = 1818) FIO2 (BEAKER) (test code = 1819) 21.0 % [id number] 06:41:00 Test Item Value Reference Range Interpretation Comments MAGNESIUM (BEAKER) (test code = 1.6 mg/dL 1.6-2.6 627) BASIC METABOLIC [id number] 06:41:00 Test Item Value Reference Range Interpretation Comments SODIUM (BEAKER) 137 meq/L 136-145 (test code = 381) POTASSIUM (BEAKER) 3.8 meq/L 3.5-5.1 (test code = 379) CHLORIDE (BEAKER) 105 meq/L 98-107 (test code = 382) CO2 (BEAKER) (test 28 meq/L 22-29 code = 355) BLOOD UREA NITROGEN 6 mg/dL 7-21 L (BEAKER) (test code = 354) CREATININE (BEAKER) 0.52 mg/dL 0.57-1.25 L (test code = 358) GLUCOSE RANDOM 94 mg/dL 70-105 (BEAKER) (test code = 652) CALCIUM (BEAKER) 8.0 mg/dL 8.4-10.2 L (test code = 697) EGFR (BEAKER) (test 131 mL/min/1.73 ESTIM ATED GFR IS code = 1092) sq m NOT ACCURATE CREATININE CLEARANCE IN PREDICTING GLOMERULAR FILTRATION RATE . ESTIMATED GFR I S NOT APPLICABLE FOR DIALYSIS PATIEN TS. PROTHROMBIN TIME/[id number] 06:11:00 Test Item Value Reference Range Interpretation Comments PROTIME (BEAKER) (test code = 15.1 seconds 11.7-14.7 H 759) INR (BEAKER) (test code = 370) 1.2 <=5.9 RECOMMENDED COUMADIN/WARFARIN INR THERAPY RANGESSTANDARD DOSE: 2.0 - 3.0 Includes: PROPHYLAXIS forvenous thrombosis, systemic embolization; TREATMENT for venous thrombosis and/or pulmonary embolus.HIGH RISK: Target INR is 2.5-3.5 for patients with mechanical heart valves.LACTIC ACID, ARTERIAL, WHOLE BLOOD 2017-05-10 06:08:00 Test Item Value Reference Range Interpretation Comments LACTATE BLOOD ARTERIAL (2) 0.8 mmol/L 0.5-2.2 (BEAKER) (test code = 2874) Effective 09/17/2015: Units/Reference Range ChangeNew: 0.5-2.2 mmol/L Previous: 5-20 mg/dLCBC W/PLT COUNT & AUTO [id number] 06:02:00 Test Item Value Reference Range Interpretation Comments WHITE BLOOD CELL COUNT (BEAKER) 10.6 K/ L 3.5-10.5 H (test code = 775) RED BLOOD CELL COUNT (BEAKER) 4.10 M/ L 3.93-5.22 (test code = 761) HEMOGLOBIN (BEAKER) (test code = 11.6 GM/DL 11.2-15.7 410) HEMATOCRIT (BEAKER) (test code = 35.3 % 34.1-44.9 411) MEAN CORPUSCULAR VOLUME (BEAKER) 86.1 fL 79.4-94.8 (test code = 753) MEAN CORPUSCULAR HEMOGLOBIN 28.3 pg 25.6-32.2 (BEAKER) (test code = 751) MEAN CORPUSCULAR HEMOGLOBIN CONC 32.9 GM/DL 32.2-35.5 (BEAKER) (test code = 752) RED CELL DISTRIBUTION WIDTH 14.4 % 11.7-14.4 (BEAKER) (test code = 412) PLATELET COUNT (BEAKER) (test 261 K/CU MM 150-450 code = 756) MEAN PLATELET VOLUME (BEAKER) 9.8 fL 9.4-12.3 (test code = 754) NUCLEATED RED BLOOD CELLS 0 /100 WBC 0-0 (BEAKER) (test code = 413) NEUTROPHILS RELATIVE PERCENT 67 % (BEAKER) (test code = 429) LYMPHOCYTES RELATIVE PERCENT 21 % (BEAKER) (test code = 430) MONOCYTES RELATIVE PERCENT 8 % (BEAKER) (test code = 431) EOSINOPHILS RELATIVE PERCENT 4 % (BEAKER) (test code = 432) BASOPHILS RELATIVE PERCENT 0 % (BEAKER) (test code = 437) NEUTROPHILS ABSOLUTE COUNT 7.07 K/ L 1.56-6.13 H (BEAKER) (test code = 670) LYMPHOCYTES ABSOLUTE COUNT 2.22 K/ L 1.18-3.74 (BEAKER) (test code = 414) MONOCYTES ABSOLUTE COUNT (BEAKER) 0.88 K/ L 0.24-0.36 H (test code = 415) EOSINOPHILS ABSOLUTE COUNT 0.38 K/ L 0.04-0.36 H (BEAKER) (test code = 416) BASOPHILS ABSOLUTE COUNT (BEAKER) 0.03 K/ L 0.01-0.08 (test code = 417) IMMATURE GRANULOCYTES-RELATIVE 0 % 0-1 PERCENT (BEAKER) (test code = 2801) RAD, ABDOMEN/KUB, 1 VIEW [id number] 04:38:00Reason for exam:->abdominao painFINAL REPORT CLINICAL HISTORY: [...] bony abnormality. Signed: Noah Porter MDReport Verified Date/Time: 05/10/2017 04:38:02 [address], CHEST, 1 VIEW, NON [id number] 04:34:00Reason for exam:->post opShould this be performed at the bedside?->YesFINAL REPORT CLINICAL INDICATION: Postop Comparison: 05/09/2017 The cardiomediastinal contours are stable. The left hemidiaphragm remains elevated. Patchy opacity in the left low er lung may reflect atelectasis but pneumonitis should be excluded clinically. There is no pneumothorax. A nasogastric tube remains in place. Signed: Noah Porter MDReport Verified Date/Time: 05/10/2017 04:34:08 Reading Location: [address] Reading Room BASIC METABOLIC [id number] 18:31:00 Test Item Value Reference Range Interpretation Comments SODIUM (BEAKER) 139 meq/L 136-145 (test code = 381) POTASSIUM (BEAKER) 4.1 meq/L 3.5-5.1 Specimen slightly (test code = 379) hemolyzed CHLORIDE (BEAKER) 105 meq/L 98-107 (test code = 382) CO2 (BEAKER) (test 27 meq/L 22-29 code = 355) BLOOD UREA NITROGEN 6 mg/dL 7-21 L (BEAKER) (test code = 354) CREATININE (BEAKER) 0.62 mg/dL 0.57-1.25 Specimen slightly (test code = 358) hemolyzed GLUCOSE RANDOM 94 mg/dL 70-105 (BEAKER) (test code = 652) CALCIUM (BEAKER) 8.1 mg/dL 8.4-10.2 L (test code = 697) EGFR (BEAKER) (test 107 mL/min/1.73 ESTIM ATED GFR IS code = 1092) sq m NOT ACCURATE CREATININE CLEARANCE IN PREDICTING GLOMERULAR FILTRATION RATE . ESTIMATED GFR I S NOT APPLICABLE FOR DIALYSIS PATIEN TS. RAD, CHEST, 1 VIEW, NON [id number] 17:05:00Reason for exam:->NGT repositioned Should this be [...] MDReport Verified Date/Time: 05/09/2017 17:05:43 Reading Location: [address] Body Reading Room IC ACID, ARTERIAL, WHOLE [id number] 17:02:00 Test Item Value Reference Range Interpretation Comments LACTATE BLOOD 1.5 mmol/L 0.5-2.2 Specimen sligh tly ARTERIAL (2) (BEAKER) hemoly zed (test code = 2874) Effective 09/17/2015: Units/Reference Range ChangeNew: 0.5-2.2 mmol/L Previous: 5-20 mg/dLBLOOD GAS, [id number] 16:34:00 Test Item Value Reference Range Interpretation Comments PH ARTERIAL (BEAKER) (test code = 7.45 7.35-7.45 383) PCO2 ARTERIAL (BEAKER) (test code 39 mmHg 35-45 = 384) PO2 ARTERIAL (BEAKER) (test code = 205 mmHg 80-90 H 385) O2 SATURATION ARTERIAL (BEAKER) 99.4 % 96.0-97.0 H (test code = 386) HCO3 ARTERIAL (BEAKER) (test code 27 mmol/L 21-29 = 388) BASE EXCESS ARTERIAL (BEAKER) 2.4 mmol/L -2.0-3.0 (test code = 387) PATIENT TEMPERATURE (BEAKER) (test 37.0 C code = 1818) FIO2 (BEAKER) (test code = 1819) 21.0 % CBC W/PLT COUNT & AUTO [id number] 16:33:00 Test Item Value Reference Range Interpretation Comments WHITE BLOOD CELL COUNT (BEAKER) 14.1 K/ L 3.5-10.5 H (test code = 775) RED BLOOD CELL COUNT (BEAKER) 4.16 M/ L 3.93-5.22 (test code = 761) HEMOGLOBIN (BEAKER) (test code = 11.9 GM/DL 11.2-15.7 410) HEMATOCRIT (BEAKER) (test code = 36.3 % 34.1-44.9 411) MEAN CORPUSCULAR VOLUME (BEAKER) 87.3 fL 79.4-94.8 (test code = 753) MEAN CORPUSCULAR HEMOGLOBIN 28.6 pg 25.6-32.2 (BEAKER) (test code = 751) MEAN CORPUSCULAR HEMOGLOBIN CONC 32.8 GM/DL 32.2-35.5 (BEAKER) (test code = 752) RED CELL DISTRIBUTION WIDTH 14.5 % 11.7-14.4 H (BEAKER) (test code = 412) PLATELET COUNT (BEAKER) (test 264 K/CU MM 150-450 code = 756) MEAN PLATELET VOLUME (BEAKER) 9.6 fL 9.4-12.3 (test code = 754) NUCLEATED RED BLOOD CELLS 0 /100 WBC 0-0 (BEAKER) (test code = 413) NEUTROPHILS RELATIVE PERCENT 74 % (BEAKER) (test code = 429) LYMPHOCYTES RELATIVE PERCENT 17 % (BEAKER) (test code = 430) MONOCYTES RELATIVE PERCENT 6 % (BEAKER) (test code = 431) EOSINOPHILS RELATIVE PERCENT 2 % (BEAKER) (test code = 432) BASOPHILS RELATIVE PERCENT 0 % (BEAKER) (test code = 437) NEUTROPHILS ABSOLUTE COUNT 10.45 K/ L 1.56-6.13 H (BEAKER) (test code = 670) LYMPHOCYTES ABSOLUTE COUNT 2.37 K/ L 1.18-3.74 (BEAKER) (test code = 414) MONOCYTES ABSOLUTE COUNT (BEAKER) 0.84 K/ L 0.24-0.36 H (test code = 415) EOSINOPHILS ABSOLUTE COUNT 0.34 K/ L 0.04-0.36 (BEAKER) (test code = 416) BASOPHILS ABSOLUTE COUNT (BEAKER) 0.05 K/ L 0.01-0.08 (test code = 417) IMMATURE GRANULOCYTES-RELATIVE 0 % 0-1 PERCENT (BEAKER) (test code = 2801) SCREEN, [id number] 12:41:00 Test Item Value Reference Range Interpretation Comments TEST URINE (BEAKER) (test Negative code = 583) LACTIC ACID, ARTERIAL, WHOLE [id number] 12:02:00 Test Item Value Reference Range Interpretation Comments LACTATE BLOOD ARTERIAL (2) 1.0 mmol/L 0.5-2.2 (BEAKER) (test code = 2874) Effective 09/17/2015: Units/Reference Range ChangeNew: 0.5-2.2 mmol/L Previous: 5-20 mg/dLRAD, CHEST, 1 VIEW, NON [id number] 11:21:00Reason for exam:- >postopShould this be performed at the bedside?->YesFINAL REPORT Technique: Single view of the chest COMPARISON: None FINDINGS: Th ere is elevation of the left hemidiaphragm. Small left pleural effusion with nonspecific adjacent airspace disease identified. Remainder the lungs are grossly clear. A nasogastric tube is seen with distal portion of the stomach. Signed: Elieser Grossmanort Verified Date/Time: 05/09/2017 11:21:35 Reading Location: [facility] C013Y CT Body Reading Room Electronically signed by: ELIESER GROSSMAN M.D. on05/09/2017 11:21 AMBASIC METABOLIC [id number] 10:24:00 Test Item Value Reference Range Interpretation Comments SODIUM (BEAKER) 138 meq/L 136-145 (test code = 381) POTASSIUM (BEAKER) 4.1 meq/L 3.5-5.1 (test code = 379) CHLORIDE (BEAKER) 108 meq/L 98-107 H (test code = 382) CO2 (BEAKER) (test 25 meq/L 22-29 code = 355) BLOOD UREA NITROGEN 10 mg/dL 7-21 (BEAKER) (test code = 354) CREATININE (BEAKER) 0.61 mg/dL 0.57-1.25 (test code = 358) GLUCOSE RANDOM 91 mg/dL 70-105 (BEAKER) (test code = 652) CALCIUM (BEAKER) 7.4 mg/dL 8.4-10.2 L (test code = 697) EGFR (BEAKER) (test 109 mL/min/1.73 ESTIM ATED GFR IS code = 1092) sq m NOT ACCURATE CREATININE CLEARANCE IN PREDICTING GLOMERULAR FILTRATION RATE . ESTIMATED GFR I S NOT APPLICABLE FOR DIALYSIS PATIEN TS. CBC W/PLT COUNT & AUTO [id number] 09:28:00 Test Item Value Reference Range Interpretation Comments WHITE BLOOD CELL COUNT (BEAKER) 10.3 K/ L 3.5-10.5 (test code = 775) RED BLOOD CELL COUNT (BEAKER) 4.12 M/ L 3.93-5.22 (test code = 761) HEMOGLOBIN (BEAKER) (test code = 11.8 GM/DL 11.2-15.7 410) HEMATOCRIT (BEAKER) (test code = 36.1 % 34.1-44.9 411) MEAN CORPUSCULAR VOLUME (BEAKER) 87.6 fL 79.4-94.8 (test code = 753) MEAN CORPUSCULAR HEMOGLOBIN 28.6 pg 25.6-32.2 (BEAKER) (test code = 751) MEAN CORPUSCULAR HEMOGLOBIN CONC 32.7 GM/DL 32.2-35.5 (BEAKER) (test code = 752) RED CELL DISTRIBUTION WIDTH 14.6 % 11.7-14.4 H (BEAKER) (test code = 412) PLATELET COUNT (BEAKER) (test 278 K/CU MM 150-450 code = 756) MEAN PLATELET VOLUME (BEAKER) 9.6 fL 9.4-12.3 (test code = 754) NUCLEATED RED BLOOD CELLS 0 /100 WBC 0-0 (BEAKER) (test code = 413) NEUTROPHILS RELATIVE PERCENT 58 % (BEAKER) (test code = 429) LYMPHOCYTES RELATIVE PERCENT 30 % (BEAKER) (test code = 430) MONOCYTES RELATIVE PERCENT 8 % (BEAKER) (test code = 431) EOSINOPHILS RELATIVE PERCENT 4 % (BEAKER) (test code = 432) BASOPHILS RELATIVE PERCENT 1 % (BEAKER) (test code = 437) NEUTROPHILS ABSOLUTE COUNT 6.00 K/ L 1.56-6.13 (BEAKER) (test code = 670) LYMPHOCYTES ABSOLUTE COUNT 3.05 K/ L 1.18-3.74 (BEAKER) (test code = 414) MONOCYTES ABSOLUTE COUNT (BEAKER) 0.79 K/ L 0.24-0.36 H (test code = 415) EOSINOPHILS ABSOLUTE COUNT 0.39 K/ L 0.04-0.36 H (BEAKER) (test code = 416) BASOPHILS ABSOLUTE COUNT (BEAKER) 0.06 K/ L 0.01-0.08 (test code = 417) IMMATURE GRANULOCYTES-RELATIVE 0 % 0-1 PERCENT (BEAKER) (test code = 2801) CALCIUM, [id number] 08:45:00 Test Item Value Reference Range Interpretation Comments CALCIUM IONIZED (BEAKER) (test 0.98 mmol/L 1.12-1.27 L code = 698) PH, BLOOD (BEAKER) (test code = 7.43 1810) BLOOD GAS, [id number] 08:45:00 Test Item Value Reference Range Interpretation Comments PH ARTERIAL (BEAKER) (test code = 7.43 7.35-7.45 383) PCO2 ARTERIAL (BEAKER) (test code 42 mmHg 35-45 = 384) PO2 ARTERIAL (BEAKER) (test code = 489 mmHg 80-90 H 385) O2 SATURATION ARTERIAL (BEAKER) 99.9 % 96.0-97.0 H (test code = 386) HCO3 ARTERIAL (BEAKER) (test code 28 mmol/L 21-29 = 388) BASE EXCESS ARTERIAL (BEAKER) 3.0 mmol/L -2.0-3.0 (test code = 387) PATIENT TEMPERATURE (BEAKER) (test 36.5 C code = 1818) FIO2 (BEAKER) (test code = 1819) 70.0 % SODIUM NA-STAT [id number] 08:45:00 Test Item Value Reference Range Interpretation Comments SODIUM (BEAKER) (test code = 381) 134 meq/L 135-148 L HGB/HCT (H&H) - STAT [id number] 08:45:00 Test Item Value Reference Range Interpretation Comments HEMOGLOBIN (BEAKER) (test code = 11.8 g/dL 12.0-15.0 L 410) HEMATOCRIT (BEAKER) (test code = 35.0 % 36.0-45.0 L 411) GLUCOSE-STAT [id number] 08:44:00 Test Item Value Reference Range Interpretation Comments GLUCOSE RANDOM (BEAKER) (test code = 83 mg/dL 70-110 652) POTASSIUM-STAT [id number] 08:44:00 Test Item Value Reference Range Interpretation Comments POTASSIUM (BEAKER) (test code = 4.3 meq/L 3.6-5.5 379) BASIC METABOLIC [id number] 01:21:00 Test Item Value Reference Range Interpretation Comments SODIUM (BEAKER) 140 meq/L 136-145 (test code = 381) POTASSIUM (BEAKER) 4.2 meq/L 3.5-5.1 (test code = 379) CHLORIDE (BEAKER) 108 meq/L 98-107 H (test code = 382) CO2 (BEAKER) (test 26 meq/L 22-29 code = 355) BLOOD UREA NITROGEN 12 mg/dL 7-21 (BEAKER) (test code = 354) CREATININE (BEAKER) 0.63 mg/dL 0.57-1.25 (test code = 358) GLUCOSE RANDOM 78 mg/dL 70-105 (BEAKER) (test code = 652) CALCIUM (BEAKER) 7.8 mg/dL 8.4-10.2 L (test code = 697) EGFR (BEAKER) (test 105 mL/min/1.73 ESTIM ATED GFR IS code = 1092) sq m NOT ACCURATE CREATININE CLEARANCE IN PREDICTING GLOMERULAR FILTRATION RATE . ESTIMATED GFR I S NOT APPLICABLE FOR DIALYSIS PATIEN TS. LACTIC ACID, VENOUS, WHOLE [id number] 01:04:00 Test Item Value Reference Range Interpretation Comments LACTATE BLOOD VENOUS (2) (BEAKER) 0.9 mmol/L 0.5-2.2 (test code = 2872) Effective 09/17/2015: Units/Reference Range ChangeNew: 0.5-2.2 mmol/L Previous: 5-20 mg/dLPOCT-GLUCOSE [id number] 00:46:00 Test Item Value Reference Range Interpretation Comments POC-GLUCOSE METER 87 mg/dL 70-110 TESTED AT [facility] [address] (AKER) (test code = [place] [address] 1538) PROTHROMBIN [id number] 00:37:00 Test Item Value Reference Range Interpretation Comments PROTIME (BEAKER) (test code = 13.9 seconds 11.7-14.7 759) INR (BEAKER) (test code = 370) 1.1 <=5.9 RECOMMENDED COUMADIN/WARFARIN INR THERAPY RANGESSTANDARD DOSE: 2.0 - 3.0 Includes: PROPHYLAXIS forvenous thrombosis, systemic embolization; TREATMENT for venous thrombosis and/or pulmonary embolus.HIGH RISK: Target INR is 2.5-3.5 for patients with mechanical heart valves.CBC W/PLT COUNT & AUTO DIFFERENTIAL 2017-05-09 00:28:00 Test Item Value Reference Range Interpretation Comments WHITE BLOOD CELL COUNT (BEAKER) 9.2 K/ L 3.5-10.5 (test code = 775) RED BLOOD CELL COUNT (BEAKER) 4.08 M/ L 3.93-5.22 (test code = 761) HEMOGLOBIN (BEAKER) (test code = 11.6 GM/DL 11.2-15.7 410) HEMATOCRIT (BEAKER) (test code = 35.7 % 34.1-44.9 411) MEAN CORPUSCULAR VOLUME (BEAKER) 87.5 fL 79.4-94.8 (test code = 753) MEAN CORPUSCULAR HEMOGLOBIN 28.4 pg 25.6-32.2 (BEAKER) (test code = 751) MEAN CORPUSCULAR HEMOGLOBIN CONC 32.5 GM/DL 32.2-35.5 (BEAKER) (test code = 752) RED CELL DISTRIBUTION WIDTH 14.5 % 11.7-14.4 H (BEAKER) (test code = 412) PLATELET COUNT (BEAKER) (test 256 K/CU MM 150-450 code = 756) MEAN PLATELET VOLUME (BEAKER) 9.7 fL 9.4-12.3 (test code = 754) NUCLEATED RED BLOOD CELLS 0 /100 WBC 0-0 (BEAKER) (test code = 413) NEUTROPHILS RELATIVE PERCENT 53 % (BEAKER) (test code = 429) LYMPHOCYTES RELATIVE PERCENT 33 % (BEAKER) (test code = 430) MONOCYTES RELATIVE PERCENT 9 % (BEAKER) (test code = 431) EOSINOPHILS RELATIVE PERCENT 4 % (BEAKER) (test code = 432) BASOPHILS RELATIVE PERCENT 1 % (BEAKER) (test code = 437) NEUTROPHILS ABSOLUTE COUNT 4.85 K/ L 1.56-6.13 (BEAKER) (test code = 670) LYMPHOCYTES ABSOLUTE COUNT 3.00 K/ L 1.18-3.74 (BEAKER) (test code = 414) MONOCYTES ABSOLUTE COUNT (BEAKER) 0.85 K/ L 0.24-0.36 H (test code = 415) EOSINOPHILS ABSOLUTE COUNT 0.40 K/ L 0.04-0.36 H (BEAKER) (test code = 416) BASOPHILS ABSOLUTE COUNT (BEAKER) 0.07 K/ L 0.01-0.08 (test code = 417) IMMATURE GRANULOCYTES-RELATIVE 0 % 0-1 PERCENT (BEAKER) (test code = 8812)
[2020-06-01 06:56] LABS: Absolute Lymphocytes (CBC) 2.2 K/uL (0.7-4.9); Basophils % 0.6 % (0-1.3); Hematocrit 41.6 % (36.0-45.0); Lymphocytes % 21.5 % (15.3-44.8); MPV 7.3 fL (7.6-11.3); RBC Red Blood Cell Count 4.91 M/uL (3.86-4.86)
[2020-06-01 07:15] LABS: ALT/SGPT 18 U/L (12-78); AST/SGOT 15 U/L (15-37); Albumin 4.3 g/dL (3.4-5.0); Alkaline Phosphatase 80 U/L (45-117); BUN Blood Urea Nitrogen 20 mg/dL (7-18); Bicarbonate 30 mmol/L (21-32); Bilirubin Direct 0.2 mg/dL (0-0.2); Bilirubin Total 0.7 mg/dL (0.2-1.0); Glucose Level 94 mg/dL (74-106); Lipase 50 U/L (73-393); Potassium 3.8 mmol/L (3.5-5.1); Protein, Total 8.3 g/dL (6.4-8.2); Sodium Level 139 mmol/L (136-145)
[2020-06-01] MEDS ORDERED: MORPHINE 4 MG/ML SYR ONE (07:39)
[2020-06-01] MEDS ORDERED: MAGNES/ALUMIN/SIMET 30ML UCUP ONE (07:39)
[2020-06-01] MEDS ORDERED: LIDOCAINE VISCOUS 2% SOLN 15 ML UDC ONE (07:40)
[2020-06-01] MEDS ORDERED: ONDANSETRON 4 MG/2 ML VIAL ONE ×3 (07:40→13:13)
[2020-06-01] MEDS ORDERED: NA CHLORIDE 0.9% 1,000 ML ONE (07:40)
[2020-06-01] MEDS ORDERED: FAMOTIDINE 20 MG/2 ML VIAL IV ONE (07:40)
--- NOTE | 2020-06-01 09:13 | ER ---
Nurse's Notes [facility] Name: Debra Harris Age: 45 yrs Sex: Female : 1975 Arrival Date: 06/01/2020 Time: 06:16 Bed 7 Private MD: Diagnosis: Upper abdominal pain, unspecified;Abdominal migraine, intractable Presentation: 06/01 06:46 Chief complaint: Patient states: mid abdominal pain that began about 0230 this morning; lp1 patient restless, moaning out loud related to pain; states nausea; denies diarrhea, constipation, fever. Coronavirus screen: Client denies travel out of the [place] in the last 14 days. Ebola Screen: No symptoms or risks identified at this time. Risk Assessment: Do you want to hurt yourself or someone else? Patient reports no desire to harm self or others. Onset of symptoms was June 01, 2020 at 02:30. 06:46 Method Of Arrival: Wheelchair lp1 06:46 Acuity: ARANZA 3 lp1 07:40 Initial Sepsis Screen: Does the patient meet any 2 criteria? Yes Does the patient have ph a suspected source of infection? No. Patient's initial sepsis screen is negative. Triage Assessment: 06:54 General: Appears uncomfortable, slender, Behavior is anxious, restless. Pain: Complains lp1 of pain in abdomen Pain currently is 10 out of 10 on a pain scale. GI: Reports nausea. Historical: - Allergies: 06:53 No Known Allergies; lp1 - PMHx: 06:53 Anxiety; lp1 - PSHx: 06:53 Hernia repair; lp1 - Immunization history:: Adult Immunizations up to date. - Social history:: Smoking status: Patient reports the use of cigarette tobacco products, smokes one-half pack cigarettes per day, Patient/guardian denies using alcohol, street drugs, The patient lives with family. - Family history:: not pertinent. Screenin:53 Abuse screen: Denies threats or abuse. Denies injuries from another. Nutritional lp1 screening: No deficits noted. Tuberculosis screening: No symptoms or risk factors identified. 08:23 Fall Risk None identified. ph Assessment: 07:39 General: Appears in no apparent distress. uncomfortable, Behavior is anxious, crying, ph fussy, restless. Pain: Complains of pain in abdomen. Neuro: Level of Consciousness is awake, alert, obeys commands, Oriented to person, place, situation. Cardiovascular: Capillary refill < 3 seconds in bilateral fingers Patient's skin is warm and dry. Respiratory: Airway is patent Respiratory effort is even, unlabored. GI: Abdomen is non-distended, Reports upper abdominal pain, nausea. Derm: Skin is intact, Skin is pink, warm \\T\\ dry. Musculoskeletal: Circulation, motion, and sensation intact. Range of motion: intact in all extremities. 08:28 Reassessment: Patient appears in no apparent distress at this time. Patient and/or ph family updated on plan of care and expected duration. Pain level reassessed. Patient is alert, oriented x 3, equal unlabored respirations, skin warm/dry/pink. Pt appears more comfortable, no longer moaning loudly and writhing in bed, VSS. 09:25 Reassessment: Patient appears in no apparent distress at this time. Patient and/or ph family updated on plan of care and expected duration. Pain level reassessed. Patient is alert, oriented x 3, equal unlabored respirations, skin warm/dry/pink. Attempted to d/c pt home, pt reports that pain has increased back up to 10/10, moaning loudly and fidgeting, states, " I just want it to stop hurting so I can go home and rest." ERP notified, verbal order received for dilaudid. 09:55 Reassessment: Patient appears in no apparent distress at this time. Patient and/or ph family updated on plan of care and expected duration. Pain level reassessed. Pt tearful, reports that IV dilaudid did not help w/ pain, states, " The morphine worked better for my pain, the dilaudid just made me feel high but my pain is still there. I just want the pain to stop." Dr Jay notified and at bedside to see pt. 11:00 Reassessment: Patient appears in no apparent distress at this time. Patient and/or ph family updated on plan of care and expected duration. Pain level reassessed. Patient is alert, oriented x 3, equal unlabored respirations, skin warm/dry/pink. Pt resting comfortably at this time, Dr Evans at bedside to see pt, pt stated that she takes Suboxone and sees a pain management Dr, Dr Evans informed pt that she would only be receiving Protonix for pain during admission. 12:00 Reassessment: Patient appears in no apparent distress at this time. Patient and/or ph family updated on plan of care and expected duration. Pain level reassessed. Patient is alert, oriented x 3, equal unlabored respirations, skin warm/dry/pink. 13:30 Reassessment: Patient appears in no apparent distress at this time. Patient and/or ph family updated on plan of care and expected duration. Pain level reassessed. Patient is alert, oriented x 3, equal unlabored respirations, skin warm/dry/pink. Attempted to give pt IV Protonix and Zofran, unable to flush IV d/t catheter being bent, IV d/c and attempted to start another, after 2 unsuccessful attempts pt states, " Just don't worry about it. If they're not going to give me anything good through the IV then I don't want one.". 14:00 Reassessment: Report called to 2nd floor. ph 14:35 Reassessment: Patient appears in no apparent distress at this time. Patient and/or ph family updated on plan of care and expected duration. Pain level reassessed. Patient is alert, oriented x 3, equal unlabored respirations, skin warm/dry/pink. Pt appears calm and comfortable, taken to second floor via wheelchair. Vital Signs: 06:46 Pulse 68; Resp 20; Pulse Ox 100% on R/A; Weight 51.26 kg (R); Pain 10/10; lp1 07:41 BP 94 / 49; Pulse 71; Resp 20; Pulse Ox 100% on R/A; ph 08:27 BP 115 / 91; Pulse 72; Resp 16; Pulse Ox 98% on R/A; ph 10:00 BP 92 / 72; Pulse 79; Resp 18; Pulse Ox 98% on R/A; ph 11:00 BP 106 / 89; Pulse 77; Resp 18; Pulse Ox 99% on R/A; ph 12:00 BP 119 / 92; Pulse 72; Resp 18; Pulse Ox 100% on R/A; ph 13:00 BP 115 / 86; Pulse 73; Resp 16; Pulse Ox 100% on R/A; ph 14:00 BP 111 / 72; Pulse 76; Resp 16; Temp 97.4; Pulse Ox 100% on R/A; ph ED Course: 06:16 Patient arrived in ED. cl3 06:40 Inserted saline lock: 20 gauge in right antecubital area, using aseptic technique. lp1 Blood collected. 06:42 Mu Zavaleta MD is Attending Physician. 7 06:52 Triage completed. lp1 06:52 Arm band placed on. lp1 07:16 Attending Physician role handed off by Mu Zavaleta MD ct2 07:16 Radha Jay MD is Attending Physician. ma2 07:20 Lilia Kaufman RN is Primary Nurse. ph 07:42 Patient has correct armband on for positive identification. Call light in reach. Side ph rails up X2. quality assurance monitor body on. Pulse ox on. NIBP on. Door closed. Noise minimized. Lights dimmed. Warm blanket given. Verbal reassurance given. 10:16 Ezio Evans is Hospitalizing Provider. ct2 12:58 COVID-19 Sent. 3 13:30 IV discontinued, intact, bleeding controlled, No redness/swelling at site. Pressure ph dressing applied. Missed attempt(s): 22 gauge in right forearm. Bleeding controlled, band aid applied, catheter tip intact. Missed attempt(s): 24 gauge in right hand. Bleeding controlled, band aid applied, catheter tip intact. 14:38 No provider procedures requiring assistance completed. ph Administered Medications: 07:32 Drug: Zofran (Ondansetron) 4 mg Route: IVP; Site: right antecubital; ph 14:39 Follow up: Response: No adverse reaction ph 07:32 Drug: NS 0.9% 1000 ml Route: IV; Rate: 1 bolus; Site: right antecubital; ph 09:00 Follow up: Response: No adverse reaction; IV Status: Completed infusion; IV Intake: ph 1000ml 07:34 Drug: Pepcid 20 mg Route: IVP; Site: right antecubital; ph 14:39 Follow up: Response: No adverse reaction ph 07:34 Drug: morphine 4 mg Route: IVP; Site: right antecubital; ph 08:00 Follow up: Response: No adverse reaction ph 07:38 Drug: GI Cocktail without - (Maalox Suspension 30 ml, Lidocaine Liquid 2 % 15 ph ml) Route: PO; 14:39 Follow up: Response: No adverse reaction ph 09:40 Drug: Dilaudid 1 mg Route: IVP; Site: right antecubital; ph 09:50 Follow up: Response: No adverse reaction; Pain is unchanged, physician notified ph Intake: 09:00 IV: 1000ml; Total: 1000ml. ph Outcome: 09:12 Discharge ordered by . ma2 10:16 Decision to Hospitalize by Provider. ma2 14:38 Admitted to Med/surg accompanied by tech, via wheelchair, room 214, with chart. ph 14:38 Condition: good 14:40 Patient left the ED. ph Signatures: Sharlene Nails RN RN lp1 Lilia Kaufman RN RN ph Wesley, Namrata 3 Radha Jay MD MD ma2 Ryan Storey 3 Mu Zavaleta MD MD [id number] Corrections: (The following items were deleted from the chart) 14:35 09:50 Reassessment: Patient appears in no apparent distress at this time. Patient ph and/or family updated on plan of care and expected duration. Pain level reassessed. Pt tearful, reports that IV dilaudid did not help w/ pain, states, " The morphine worked better for my pain, the dilaudid just made me feel high but my pain is still there. I just want the pain to stop." Dr Jay notified and at bedside to see pt. ph
--- NOTE | 2020-06-01 09:13 | EDPHYS ---
Physician Documentation [facility] Name: Debra Harris Age: 45 yrs Sex: Female : 1975 Arrival Date: 06/01/2020 Time: 06:16 Bed 7 Private MD: ED Physician Radha Jay HPI: 06/01 09:11 This 45 yrs old Female presents to ER via Wheelchair with complaints of ma2 Abdominal Pain. 09:11 The patient presents with abdominal pain. Onset: The symptoms/episode began/occurred ma2 gradually, 6 hour(s) ago. Associated signs and symptoms: Pertinent negatives: anorexia, constipation, dysuria, fever, headache. Severity of pain: At its worst the pain was mild in the emergency department the pain is unchanged. The patient has experienced similar episodes in the past. Historical: - Allergies: 06:53 No Known Allergies; lp1 - PMHx: 06:53 Anxiety; lp1 - PSHx: 06:53 Hernia repair; lp1 - Immunization history:: Adult Immunizations up to date. - Social history:: Smoking status: Patient reports the use of cigarette tobacco products, smokes one-half pack cigarettes per day, Patient/guardian denies using alcohol, street drugs, The patient lives with family. - Family history:: not pertinent. ROS: 09:11 Constitutional: Negative for fever, chills, and weight loss. ma2 09:11 All other systems are negative. Exam: 09:11 Constitutional: This is a well developed, well nourished patient who is awake, alert, ma2 and in no acute distress. Chest/axilla: Normal chest wall appearance and motion. Nontender with no deformity. No lesions are appreciated. Cardiovascular: Regular rate and rhythm with a normal S1 and S2. No gallops, murmurs, or rubs. Normal PMI, no JVD. No pulse deficits. Respiratory: Lungs have equal breath sounds bilaterally, clear to auscultation and percussion. No rales, rhonchi or wheezes noted. No increased work of breathing, no retractions or nasal flaring. Abdomen/GI: Soft, non-tender, with normal bowel sounds. No distension or tympany. No guarding or rebound. No evidence of tenderness throughout. Skin: Warm, dry with normal turgor. Normal color with no rashes, no lesions, and no evidence of cellulitis. MS/ Extremity: Pulses equal, no cyanosis. Neurovascular intact. Full, normal range of motion. Neuro: Awake and alert, GCS 15, oriented to person, place, time, and situation. Cranial nerves II-XII grossly intact. Motor strength 5/5 in all extremities. Sensory grossly intact. Cerebellar exam normal. Normal gait. Vital Signs: 06:46 Pulse 68; Resp 20; Pulse Ox 100% on R/A; Weight 51.26 kg (R); Pain 10/10; lp1 07:41 BP 94 / 49; Pulse 71; Resp 20; Pulse Ox 100% on R/A; ph 08:27 BP 115 / 91; Pulse 72; Resp 16; Pulse Ox 98% on R/A; ph 10:00 BP 92 / 72; Pulse 79; Resp 18; Pulse Ox 98% on R/A; ph 11:00 BP 106 / 89; Pulse 77; Resp 18; Pulse Ox 99% on R/A; ph 12:00 BP 119 / 92; Pulse 72; Resp 18; Pulse Ox 100% on R/A; ph 13:00 BP 115 / 86; Pulse 73; Resp 16; Pulse Ox 100% on R/A; ph 14:00 BP 111 / 72; Pulse 76; Resp 16; Temp 97.4; Pulse Ox 100% on R/A; ph MDM: 07:16 Patient medically screened. ma2 09:11 Differential diagnosis: gastritis, gastroesophageal reflux disease, Irritable bowel ma2 syndrome, pancreatitis. Data reviewed: vital signs, nurses notes. Counseling: I had a detailed discussion with the patient and/or guardian regarding: the historical points, exam findings, and any diagnostic results supporting the discharge/admit diagnosis, the presence of at least one elevated blood pressure reading (>120/80) during this emergency department visit, the need for outpatient follow up. Response to treatment: the patient's symptoms have markedly improved after treatment. ED course: hx of hiatal hernia . 06/01 06:44 Order name: Basic Metabolic Panel eb 06/01 06:44 Order name: CBC with Diff eb 06/01 06:44 Order name: Hepatic Function eb 06/01 06:44 Order name: Lipase; Complete Time: 07:34 eb 06/01 06:45 Order name: Basic Metabolic Panel; Complete Time: 07:34 EDMS 06/01 06:45 Order name: CBC with Automated Diff; Complete Time: 07:34 EDCO 06/01 06:45 Order name: Liver (Hepatic) Function; Complete Time: 07:34 EDMS 06/01 10:25 Order name: COVID-19 ma2 06/01 13:20 Order name: SARS-COV-2 RT PCR EDMS 06/01 06:44 Order name: IV Saline Lock; Complete Time: 06:55 eb 06/01 06:44 Order name: Labs collected and sent; Complete Time: 06:55 eb Administered Medications: 07:32 Drug: Zofran (Ondansetron) 4 mg Route: IVP; Site: right antecubital; ph 14:39 Follow up: Response: No adverse reaction ph 07:32 Drug: NS 0.9% 1000 ml Route: IV; Rate: 1 bolus; Site: right antecubital; ph 09:00 Follow up: Response: No adverse reaction; IV Status: Completed infusion; IV Intake: ph 1000ml 07:34 Drug: Pepcid 20 mg Route: IVP; Site: right antecubital; ph 14:39 Follow up: Response: No adverse reaction ph 07:34 Drug: morphine 4 mg Route: IVP; Site: right antecubital; ph 08:00 Follow up: Response: No adverse reaction ph 07:38 Drug: GI Cocktail without - (Maalox Suspension 30 ml, Lidocaine Liquid 2 % 15 ph ml) Route: PO; 14:39 Follow up: Response: No adverse reaction ph 09:40 Drug: Dilaudid 1 mg Route: IVP; Site: right antecubital; ph 09:50 Follow up: Response: No adverse reaction; Pain is unchanged, physician notified ph Disposition: 06/01/20 10:16 Hospitalization ordered by Ezio Evans for Observation. Preliminary diagnosis are Upper abdominal pain, unspecified, Abdominal migraine, intractable. - Bed requested for Telemetry/MedSurg (observation). - Status is Observation. ph - Condition is Stable. - Problem is new. - Symptoms are unchanged. Signatures: Dispatcher [employer] EDCO Cary Mora RN RN Sharlene Nails RN RN 1 Lilia Kaufman RN RN Radha Jay MD MD ma2 [place] [facility]: (The following items were deleted from the chart) 10:15 09:12 06/01/2020 09:12 Discharged to Home. Impression: Upper abdominal pain, ma2 unspecified. Condition is Stable. Prescriptions for Zofran 4 mg Oral Tablet - take 1 tablet by ORAL route every 12 hours As needed; 20 tablet, Diclofenac Sodium 75 mg Oral Tablet Sustained Release - take 1 tablet by ORAL route 2 times per day; 30 tablet, Pepcid 20 mg Oral Tablet - take 1 tablet by ORAL route once daily for 10 days; 10 tablet. and Forms are Medication Reconciliation Form, Thank You Letter, Antibiotic Education, Prescription Opioid Use. Follow up: Private Physician; When: Tomorrow; Reason: Continuance of care. ma2 10:16 10:16 Hospitalization Ordered by Ezio Evans for Observation. Preliminary diagnosis ma2 is Abdominal and pelvic pain. Bed requested for Telemetry/MedSurg (observation). Status is Observation. Condition is Stable. Problem is new. Symptoms are unchanged. ma2 10:16 10:16 06/01/2020 10:16 Hospitalization Ordered by Ezio Evans for Observation. ma2 Preliminary diagnosis is Upper abdominal pain, unspecified. Bed requested for Telemetry/MedSurg (observation). Status is Observation. Condition is Stable. Problem is new. Symptoms are unchanged. ma2 13:24 10:16 06/01/2020 10:16 Hospitalization Ordered by Ezio Evans for Observation. dw Preliminary diagnosis is Upper abdominal pain, unspecified; Abdominal migraine, intractable. Bed requested for Telemetry/MedSurg (observation). Status is Observation. Condition is Stable. Problem is new. Symptoms are unchanged. ma2 14:40 13:24 06/01/2020 10:16 Hospitalization Ordered by Ezio Evon for Observation. ph Preliminary diagnosis is Upper abdominal pain, unspecified; Abdominal migraine, intractable. Bed requested for Telemetry/MedSurg (observation). Status is Observation. Condition is Stable. Problem is new. Symptoms are unchanged. dw
[2020-06-01] MEDS ORDERED: HYDROMORPHONE HCL 1 MG/ML INJ ONE (09:56)
--- NOTE | 2020-06-01 11:41 | P.HP ---
Certification for Inpatient Patient admitted to: Observation With expected LOS: <2 Midnights Practitioner: I am a practitioner with admitting privileges, knowledge of patient current condition, hospital course, and medical plan of care. Services: Services provided to patient in accordance with Admission requirements found in Title 42 Section 412.3 of the Code of Federal Regulations Patient History Date of Service: 06/01/20 Reason for admission: Epigastric pain History of Present Illness: 45-year-old woman with a history GERD, hiatal hernia status post repair, history of polysubstance abuse currently on Suboxone program presented emergency department with a complaint of epigastric pain with associated nausea and dry heaving last night. Patient was given GI cocktail, IV morphine and IV hydromorphone was still complaining of uncontrolled pain. She has high risk for aberrant opioid use. Labs are unremarkable. Patient is placed under observation for further management. Allergies No Known Allergies Allergy (Unverified 09/26/15 11:12) Home Medications: Alprazolam 2 mg BID 01/05/16 Buprenorphine HCl/Naloxone HCl [Suboxone 8 mg-2 mg Sl Film] DAILY 01/05/16 Ondansetron HCl [Zofran] 01/05/16 Sertraline HCl 01/05/16 - Past Medical/Surgical History Diabetic: No -: -: H/o SVDs x3 -: Opiod dependence -: Anxiety/panic d/o -: T&A - Social History Alcohol use: No CD- Drugs: Yes Caffeine use: Yes Review of Systems Other: Except as documented, all other systems reviewed and negative. Physical Examination - Physical Exam General: Alert, In no apparent distress, Oriented x3 HEENT: Mucous membr. moist/pink Neck: JVD not distended Cardiovascular: No edema, Regular rate/rhythm Gastrointestinal: Non-distended Musculoskeletal: No swelling Integumentary: No rashes Neurological: Normal strength at 5/5 x4 extr, Cranial nerves 3-12 intact - Studies Laboratory Data (last 24 hrs) 06/01/20 06:40: WBC 10.1, Hgb 13.9, Hct 41.6, Plt Count 416 H 06/01/20 06:40: Sodium 139, Potassium 3.8, BUN 20 H, Creatinine 0.69, Glucose 94, Total Bilirubin 0.7, AST 15, ALT 18, Alkaline Phosphatase 80, Lipase 50 L Assessment and Plan - Problems (Diagnosis) (1) Hiatal hernia with GERD Current Visit: Yes Status: Acute (2) Polysubstance abuse Current Visit: Yes Status: Acute - Plan Place under observation. Treat GERD with IV protonix and oral sucralfate. We will avoid opioids given is high risk for opioid dependence. Patient is on Suboxone therapy which will be continued. Antiemetics as needed. IV hydration. - Advance Directives Does patient have a Living Will: No Does patient have a Durable POA for Healthcare: No
[2020-06-01] MEDS ORDERED: PANTOPRAZOLE 40 MG INJ ONE (13:13)
[2020-06-01] MEDS ORDERED: ONDANSETRON 4 MG (ODT) TAB ONE (13:36)
[2020-06-01] MEDS ORDERED: POTASSIUM 25 MEQ EFFERV TAB PO ONE (14:22)
[2020-06-01] MEDS ORDERED: SODIUM CHLORIDE 0.9% 10ML INJ IV PRN (14:22)
[2020-06-01] MEDS ORDERED: ONDANSETRON 4 MG/2 ML VIAL IV PRN (14:22)
[2020-06-01] MEDS ORDERED: ACETAMINOPHEN 500 MG TAB PO PRN (14:22)
[2020-06-01] MEDS: NA CHLORIDE 0.9% 1,000 ML IV SCH (14:56)
[2020-06-01] MEDS: SUCRALFATE 1GM/10ML UCUP PO SCH ×3 (16:41→20:55)
[2020-06-01] MEDS ORDERED: TRAMADOL HCL 50 MG TAB PO ONE (18:01)
[2020-06-01] MEDS: PANTOPRAZOLE 40 MG INJ IVP SCH (20:55)
[2020-06-01] MEDS: ONDANSETRON 4 MG/2 ML VIAL IV PRN (20:55)
[2020-06-01] MEDS: KETOROLAC 30 MG/ML INJ IV PRN (21:02)
[2020-06-01] MEDS ORDERED: MORPHINE 2 MG/ML SYR IV ONE (21:21)
[2020-06-01 23:03] VITALS: O2SAT 98
[2020-06-02] MEDS: NA CHLORIDE 0.9% 1,000 ML IV SCH ×2 (00:22→03:43)
[2020-06-02] MEDS: KETOROLAC 30 MG/ML INJ IV PRN ×2 (05:32→11:27)
[2020-06-02] MEDS: ONDANSETRON 4 MG/2 ML VIAL IV PRN (05:32)
[2020-06-02 05:38] LABS: Absolute Lymphocytes (CBC) 1.7 K/uL (0.7-4.9); Basophils % 0.8 % (0-1.3); Hematocrit 39.4 % (36.0-45.0); Lymphocytes % 18.4 % (15.3-44.8); MPV 7.4 fL (7.6-11.3); RBC Red Blood Cell Count 4.66 M/uL (3.86-4.86)
[2020-06-02 06:00] LABS: ALT/SGPT 17 U/L (12-78); AST/SGOT 14 U/L (15-37); Albumin 3.6 g/dL (3.4-5.0); Alkaline Phosphatase 71 U/L (45-117); BUN Blood Urea Nitrogen 11 mg/dL (7-18); Bicarbonate 28 mmol/L (21-32); Bilirubin Total 0.7 mg/dL (0.2-1.0); Glucose Level 92 mg/dL (74-106); Magnesium 2.2 mg/dL (1.8-2.4); Phosphorus 3.1 mg/dL (2.5-4.9); Potassium 3.9 mmol/L (3.5-5.1); Protein, Total 7.3 g/dL (6.4-8.2); Sodium Level 137 mmol/L (136-145)
[2020-06-02] MEDS: SUCRALFATE 1GM/10ML UCUP PO SCH (09:00)
[2020-06-02] MEDS ORDERED: POTASSIUM CL SA 10 MEQ TAB PO ONE (09:00)
[2020-06-02] MEDS: PANTOPRAZOLE 40 MG INJ IVP SCH (09:00)
[2020-06-02] MEDS ORDERED: ENOXAPARIN 40 MG/0.4 ML SQ SCH (09:00)
[2020-06-02] MEDS ORDERED: SUBOXONE 8 MG PO ONE (11:11)
--- NOTE | 2020-06-02 11:15 | P.DS ---
Admission Date: 06/01/20 Discharge Date: 06/02/20 [facility] Discharge Condition: [facility] Reason for Admission: Epigastric pain - Problems (1) Hiatal hernia with GERD Current Visit: Yes Status: Acute (2) Polysubstance abuse Current Visit: Yes Status: Acute Brief History of Present Illness: 45-year-old woman with a history GERD, hiatal hernia status post repair, history of polysubstance abuse currently on Suboxone program presented emergency department with a complaint of epigastric pain with associated nausea and dry heaving last night. Patient was given GI cocktail, IV morphine and IV hydromorphone was still complaining of uncontrolled pain. She has high risk for aberrant opioid use. Labs are unremarkable. Patient placed under observation for further management. Hospital Course: Patient placed under observation on the medical floor and treated with IV Protonix and IV hydration. She tolerated clear liquid diet. Her diet was advanced to full liquid which she also tolerated. No vomiting. She received a dose of IV morphine overnight for pain. Patient has clinically improved. She is on maintenance Suboxone and she stated she ran out of the Suboxone about 5 days ago. Patient is discharged to follow with her pain management physician. She is prescribed oral Protonix for GERD. Vital Signs/Physical Exam: Temp Pulse Resp BP Pulse Ox 98.5 F 56 16 154/99 H 100 06/02/20 08:00 06/02/20 08:00 06/02/20 08:00 06/02/20 08:00 06/02/20 08:00 General: Alert, In no apparent distress Neck: JVD not distended Cardiovascular: No edema Gastrointestinal: Non-distended Musculoskeletal: No swelling Integumentary: No rashes Neurological: Other (No focal deficit.) Laboratory Data at Discharge: WBC 9.2 K/uL (4.3-10.9) 06/02/20 05:24 Hgb 13.1 g/dL (12.0-15.0) 06/02/20 05:24 Hct 39.4 % (36.0-45.0) 06/02/20 05:24 Plt Count 366 K/uL (152-406) 06/02/20 05:24 Sodium 137 mmol/L (136-145) 06/02/20 05:24 Potassium 3.9 mmol/L (3.5-5.1) 06/02/20 05:24 BUN 11 mg/dL (7-18) 06/02/20 05:24 Creatinine 0.63 mg/dL (0.55-1.3) 06/02/20 05:24 Glucose 92 mg/dL (74-106) 06/02/20 05:24 Phosphorus 3.1 mg/dL (2.5-4.9) 06/02/20 05:24 Magnesium 2.2 mg/dL (1.8-2.4) D 06/02/20 05:24 Total Bilirubin 0.7 mg/dL (0.2-1.0) 06/02/20 05:24 AST 14 U/L (15-37) L 06/02/20 05:24 ALT 17 U/L (12-78) 06/02/20 05:24 Alkaline Phosphatase 71 U/L (45-117) 06/02/20 05:24 Lipase 50 U/L (73-393) L 06/01/20 06:40 Home Medications: Buprenorphine HCl/Naloxone HCl [Buprenorp-Nalox 8-2 mg Sl Film] 1 film SL DAILY 06/01/20 Pantoprazole [Protonix Tab] 40 mg PO DAILY #30 tab 06/02/20 New Medications: Pantoprazole [Protonix Tab] 40 mg PO DAILY #30 tab Diet: Regular Activity: Ad desmond Followup: NONE,NONE [Primary Care Provider] -
[2020-06-02] MEDS ORDERED: INFLUENZA VACCINE (for 3y+) 0.5 ML DOSE IMVAC ONE (12:00)
[2020-06-02 18:11] VITALS: BP 135/95; TEMP 98
== END 2020-06-02 18:20 | disposition home or self-care (01) ==
LOC: ER 06:14 → ERHOLD 11:26 → 2ND 13:54
PROVIDERS: ADMIT Internal Medicine; ATTEND Internal Medicine
DX: K21.9 Gastro-esophageal reflux disease without esophagitis (principal); K44.9 Diaphragmatic hernia without obstruction or gangrene; Z79.891 Long term (current) use of opiate analgesic; F41.0 Panic disorder [episodic paroxysmal anxiety]; F17.210 Nicotine dependence, cigarettes, uncomplicated; Z20.822 Contact with and (suspected) exposure to COVID-19
CPT/HCPCS: 96361; 85025 ×2; 80048; 36415; 83735; 84100; 80076; 83690; 80053; 96375; 96374; 99285; U0003; C9113 ×2; J1650; J2270; J1170; J7030 ×3; J2405 ×6; G0378

== ENCOUNTER 2020-07-30 02:33 | Emergency (ER) | payer OTHER ==
--- OUTSIDE RECORDS SUMMARY | 2020-07-30 02:37 | XMS REPORT | Continuity of Care Document ---
:1975 Author Organization [facility] t Address [address] [place] [address] Care Team Providers Name Role Phone Brent Bourgeois MD Primary Care Physician Javier URIOSTEGUI Attending Clinician Doctor Unassigned, Name Attending Clinician Unavailable Mukund MARIE Attending Clinician EFE Attending Clinician Unavailable EFE Admitting Clinician Unavailable Problems Condition Condition Condition Status Onset Resolution Last Treating Co mments Source Name Details Category Date Date Treatment Clinician Date Chest pain Chest pain Disease Active 2016-[address] [facility] 00 [place] Gastric Gastric Disease Active 2016-[address] [facility] [address] volvulus volvulus 2-25 [facility] 00 [place] Polysubsta Polysubsta Disease Active 2016-[address] [facility] St nce abuse nce abuse 2-25 [facility] - [facility]: Medical 00 [place] Incarcerat Incarcerat Disease Active 2016-[address] ed ed 2-25 [facility] - paraesopha paraesopha 00:00: Sd dical geal geal 00 [place] hernia hernia Allergies, Adverse Reactions, Alerts This patient has no known allergies or adverse reactions. Social History Social Habit Start Date Stop Date Quantity Comments Source Sex Assigned At [facility] Medications Ordered Filled Start Stop Current Ordering Indication Dosage Frequency Signature Comments Components Source Medication Medication Date Date Medication? Clinician (SIG) Name Name ALPRAZolam Yes 1mg Q.5D Take [address] (XANAX) 1 05-17 by mouth 2 [facility] - MG tablet 17:41: (two) Medical 29 times Center daily. buprenorphi 2018-0 Yes 1{tbl} Q.5D Place [address] ne-naloxone 05-17 tablet [facility] - (SUBOXONE) 17:41: under the Me dical 2-0.5 mg 29 tongue 2 Center Subl (two) times daily. Procedures This patient has no known procedures. Encounters Start End Encounter Admission Attending Care Care Encounter Source Date/Time Date/Time Type Type Clinicians Facility Department ID 2020-06-25 2020-06-26 Emergency [facility] [id number] 22:39:00 06:09:00 Ehsan Hallman [id number] [place] [id number] [place] [id number] 2020-06-25 2020-06-25 Orders Doctor JULISA [id number] 00:00:00 00:00:00 Only Unassigned, KATI 350.1.13.10 [place] [id number] 2019-11-02 2019-11-02 [facility] [id number] 16:50:16 17:30:14 Visit Mary Hallman [id number] [place] 4.2.7.2.686 [place] [id number] nal 134 Building Results Test Description Test Time Test Comments Results Result [facility] e Comments TISSUE EXAM 2017-05-18 Surgical Pathology 13:38:00 Report Case: [id number] Authorizing Provider: Jethro Duron MD Collected: 05/14/2017 1806 Ordering Location: [address] Received: 05/17/2017 0918 Pathologist: Torrey Cervantes MD Specimen: Soft Tissue, Other, Wedge gastrectomy PART A PORTION OF STOMACH, PARTIAL GASTRECTOMY:BENIGN GASTRIC MUCOSA WITH MILD CONGESTION.NEGATIVE FOR DYSPLASIA OR INVASIVE CARCINOMA. Signing Pathologist Direct Phone Line: [phone] ically signed by Torrey Cervantes MD on 05/18/2017 at 1:38 [id number] gastrectomyThe specimen is received in a formalin-filled container labeled with the patient's information and consists of a wedge gastrectomy of stomach measuring 3 x 1.5 x 1 cm with a staple line. Grossly no suspicious areas are seen. The mucosa is toney and hemorrhagic. Section code: Graphics Manager staple line and random section of gastric tissue, tissue from staple line is inked le. CG/ew RAD, CHEST, 1 2017-05-17 Reason for FINAL REPORT PATIENT VIEW, NON DEPT 05:29:00 exam:->post ID: [id number] RAD, opShould this CHEST, 1 VIEW, NON [...] MDReport Verified Date/Time: 05/17/2017 05:29:48 Reading Location: [facility] C013Y CT Body Reading Room ESIUM 2017-05-17 04:41:00 Test Item Value Reference Range Interpretation Comme nts MAGNESIUM (BEAKER) (test code = 627) 1.8 mg/dL 1.6-2.6 BASIC METABOLIC [id number] 04:41:00 Test Item Value Reference Range Interpretation [...] NOT APPLICABLE FOR DIALYSIS PATIEN TS. PROTHROMBIN [id number] 04:27:00 Test Item Value Reference Range Interpretation [...] PERCENT (BEAKER) (test code = 2801) FL, [id number] 12:54:00Reason for exam:->s/p hiatal hernia repair FINAL [...] MDReport Verified Date/Time: 05/16/2017 12:54:45 Reading Location: [facility] C013X [facility] Consult Reading Room CALCIUM, [id number] 06:35:00 Test Item Value Reference Range Interpretation Comments CALCIUM IONIZED (BEAKER) (test 1.02 mmol/L 1.12-1.27 L code = 698) PH, BLOOD (BEAKER) (test code = 7.39 1810) [id number] 05:44:00 Test Item Value Reference Range Interpretation Comments MAGNESIUM (BEAKER) 1.8 mg/dL 1.6-2.6 Specimen slightly (test code = 627) hemolyzed BASIC METABOLIC [id number] 05:44:00 Test Item Value Reference Range Interpretation [...] NOT APPLICABLE FOR DIALYSIS PATIEN TS. PROTHROMBIN [id number] 05:33:00 Test Item Value Reference Range Interpretation [...] = 2801) RAD, CHEST, 1 VIEW, NON [id number] 14:45:00Reason for exam:->s/p left chest tube removalShould [...] MDReport Verified Date/Time: 05/15/2017 14:45:11 Reading Location: [place] [id number] Ortho Consult Reading Room RAD, CHEST, 1 VIEW, NON [id number] 07:32:00while patient is intubated or has chest [...] MDReport Verified Date/Time: 05/15/2017 07:32:43 Reading Location: [facility] C013Y CT Body Reading Room PROTHROMBIN [id number] 05:07:00 Test Item Value Reference Range Interpretation Comments PROTIME (BEAKER) (test code = 15.8 seconds 11.7-14.7 H 759) INR (BEAKER) (test code = 370) 1.3 <=5.9 RECOMMENDED COUMADIN/WARFARIN INR THERAPY RANGESSTANDARD DOSE: 2.0 - 3.0 Includes: PROPHYLAXIS forvenous thrombosis, systemic embolization; TREATMENT for venous thrombosis and/or pulmonary embolus.HIGH RISK: Target INR is 2.5-3.5 for patients with mechanical heart valves.BASIC METABOLIC [id number] 05:07:00 Test Item Value Reference Range Interpretation [...] S NOT APPLICABLE FOR DIALYSIS PATIEN TS. [id number] 05:03:00 Test Item Value Reference Range Interpretation Comments MAGNESIUM (BEAKER) (test code = 2.7 mg/dL 1.6-2.6 H 627) CBC W/PLT COUNT & AUTO [id number] 05:00:00 Test Item Value Reference Range Interpretation [...] PERCENT (BEAKER) (test code = 2801) CALCIUM, [id number] 23:02:00 Test Item Value Reference Range Interpretation Comments CALCIUM IONIZED (BEAKER) (test 0.92 mmol/L 1.12-1.27 L code = 698) PH, BLOOD (BEAKER) (test code = 7.38 1810) [id number] 22:53:00 Test Item Value Reference Range Interpretation Comments MAGNESIUM (BEAKER) (test code = 1.9 mg/dL 1.6-2.6 627) BASIC METABOLIC [id number] 22:53:00 Test Item Value Reference Range Interpretation [...] PATIEN TS. CBC W/PLT COUNT & AUTO [id number] 22:47:00 Test Item Value Reference Range Interpretation [...] = 2801) RAD, CHEST, 1 VIEW, NON [id number] 21:18:00Reason for exam:->ptxIs the patient ?->NoShould this [...] Verified Date/Time: 05/14/2017 21:18:07 Reading Location: [address] ReadingRoom BLOOD GAS, [id number] 17:28:00 Test Item Value Reference Range Interpretation [...] (test code = 1819) 50 SODIUM NA-STAT [id number] 17:28:00 Test Item Value Reference Range Interpretation Comments SODIUM (BEAKER) (test code = 381) 134 meq/L 135-148 L POTASSIUM-STAT [id number] 17:28:00 Test Item Value Reference Range Interpretation Comments POTASSIUM (BEAKER) (test code = 3.4 meq/L 3.6-5.5 L 379) GLUCOSE-STAT [id number] 17:28:00 Test Item Value Reference Range Interpretation Comments GLUCOSE RANDOM (BEAKER) (test code 185 mg/dL 70-110 H = 652) HGB/HCT (H&H) - STAT [id number] 17:28:00 Test Item Value Reference Range Interpretation Comments HEMOGLOBIN (BEAKER) (test code = 11.0 GM/DL 12.0-15.0 L 410) HEMATOCRIT (BEAKER) (test code = 32.0 % 36.0-45.0 L 411) BLOOD GAS, [id number] 15:47:00 Test Item Value Reference Range Interpretation [...] (test code = 1819) 67.0 % GLUCOSE-STAT [id number] 15:47:00 Test Item Value Reference Range Interpretation Comments GLUCOSE RANDOM (BEAKER) (test code 158 mg/dL 70-110 H = 652) SODIUM NA-STAT [id number] 15:46:00 Test Item Value Reference Range Interpretation Comments SODIUM (BEAKER) (test code = 381) 137 meq/L 135-148 POTASSIUM-STAT [id number] 15:46:00 Test Item Value Reference Range Interpretation Comments POTASSIUM (BEAKER) (test code = 3.7 meq/L 3.6-5.5 379) HGB/HCT (H&H) - STAT [id number] 15:46:00 Test Item Value Reference Range Interpretation Comments HEMOGLOBIN (BEAKER) (test code = 12.5 g/dL 12.0-15.0 410) HEMATOCRIT (BEAKER) (test code = 37.0 % 36.0-45.0 411) URINE [id number] 15:11:00 Test Item Value Reference Range Interpretation Comments CULTURE (BEAKER) (test 30-39,000 col/mL skin code = 1095) cindy BLOOD GAS, [id number] 14:45:00 Test Item Value Reference Range Interpretation [...] (test code = 1819) 50.0 % POTASSIUM-STAT [id number] 14:45:00 Test Item Value Reference Range Interpretation Comments POTASSIUM (BEAKER) (test code = 3.3 meq/L 3.6-5.5 L 379) HGB/HCT (H&H) - STAT [id number] 14:45:00 Test Item Value Reference Range Interpretation Comments HEMOGLOBIN (BEAKER) (test code = 11.5 g/dL 12.0-15.0 L 410) HEMATOCRIT (BEAKER) (test code = 34.0 % 36.0-45.0 L 411) GLUCOSE-STAT [id number] 14:44:00 Test Item Value Reference Range Interpretation Comments GLUCOSE RANDOM (BEAKER) (test code 105 mg/dL 70-110 = 652) SODIUM NA-STAT [id number] 14:44:00 Test Item Value Reference Range Interpretation Comments SODIUM (BEAKER) (test code = 381) 137 meq/L 135-148 SCREEN, [id number] 13:36:00 Test Item Value Reference Range Interpretation Comments TEST URINE (BEAKER) (test Negative code = 583) BLOOD [id number] 10:00:00 Test Item Value Reference Range Interpretation Comments CULTURE (BEAKER) (test No growth in 5 days code = 1095) RAD, CHEST, 1 VIEW, NON [id number] 07:28:00Reason for exam:->post opShould this be performed at the bedside?->YesFINAL REPORT Chest one view compared to May 13 Discussion: Unchanged left hemidiaphragm elevation. Cardiopulmonary appearance is similar. No effusion or pneumothorax. No atypical line or tube position. Signed: Julisa Partida Verified Date/Time: 05/14/2017 07:28:59 Reading Location: [facility] C013 Neuro Reading Room TROPORIGOBERTO [id number] 05:14:00 Test Item Value Reference Range Interpretation [...] failure, acidosis, acute neurological disease, and persistent tachyarrhythmia.[id number] 05:03:00 Test Item Value Reference Range Interpretation Comments MAGNESIUM (BEAKER) (test code = 1.7 mg/dL 1.6-2.6 627) BASIC METABOLIC [id number] 05:03:00 Test Item Value Reference Range Interpretation [...] PATIEN TS. CBC W/PLT COUNT & AUTO [id number] 04:51:00 Test Item Value Reference Range Interpretation [...] 0-1 PERCENT (BEAKER) (test code = 2801) [id number] 04:50:00 Test Item Value Reference Range Interpretation [...] 2.5-3.5 for patients with mechanical heart valves.PROTHROMBIN [id number] 04:49:00 Test Item Value Reference Range Interpretation Comments PROTIME (BEAKER) (test code = 14.3 seconds 11.7-14.7 759) INR (BEAKER) (test code = 370) 1.1 <=5.9 RECOMMENDED COUMADIN/WARFARIN INR THERAPY RANGESSTANDARD DOSE: 2.0 - 3.0 Includes: PROPHYLAXIS forvenous thrombosis, systemic embolization; TREATMENT for venous thrombosis and/or pulmonary embolus.HIGH RISK: Target INR is 2.5-3.5 for patients with mechanical heart valves.TROPONIN [id number] 19:19:00 Test Item Value Reference Range Interpretation [...] acute neurological disease, and persistent tachyarrhythmia.URINALYSIS W/ [id number] 17:11:00 Test Item Value Reference Range Interpretation [...] Clean Catch = 2795) TSH/FREE T4 IF [id number] 16:23:00 Test Item Value Reference Range Interpretation Comments THYROID STIMULATING HORMONE 1.07 uIU/mL 0.35-4.94 (BEAKER) (test code = 772) [id number] 15:56:00 Test Item Value Reference Range Interpretation Comments POTASSIUM (BEAKER) (test code = 4.3 meq/L 3.5-5.1 379) CREATINE KINASE (CK), TOTAL AND [id number] 14:21:00 Test Item Value Reference Range Interpretation Comments CREATINE KINASE TOTAL (BEAKER) 19 U/L 29-200 L (test code = 380) CREATINE KINASE-MB (BEAKER) (test 0.5 ng/mL 0.0-6.6 code = 750) CREATINE KINASE-MB INDEX (BEAKER) 2.6 % (test code = 395) CK-MB Reference Range:<6.7 Normal6.7-10.0 Borderline>10.0 AbnormalTROPONIN [id number] 14:20:00 Test Item Value Reference Range Interpretation [...] failure, acidosis, acute neurological disease, and persistent tachyarrhythmia.[id number] 13:35:00 Test Item Value Reference Range Interpretation Comments MAGNESIUM (BEAKER) (test code = 2.5 mg/dL 1.6-2.6 627) PROTHROMBIN [id number] 05:20:00 Test Item Value Reference Range Interpretation Comments PROTIME (BEAKER) (test code = 14.3 seconds 11.7-14.7 759) INR (BEAKER) (test code = 370) 1.1 <=5.9 RECOMMENDED COUMADIN/WARFARIN INR THERAPY RANGESSTANDARD DOSE: 2.0 - 3.0 Includes: PROPHYLAXIS forvenous thrombosis, systemic embolization; TREATMENT for venous thrombosis and/or pulmonary embolus.HIGH RISK: Target INR is 2.5-3.5 for patients with mechanical heart valves.[id number] 05:19:00 Test Item Value Reference Range Interpretation Comments PHOSPHORUS (BEAKER) (test code = 4.1 mg/dL 2.3-4.7 604) [id number] 05:19:00 Test Item Value Reference Range Interpretation Comments MAGNESIUM (BEAKER) (test code = 2.0 mg/dL 1.6-2.6 627) BASIC METABOLIC [id number] 05:19:00 Test Item Value Reference Range Interpretation [...] PATIEN TS. CBC W/PLT COUNT & AUTO [id number] 04:56:00 Test Item Value Reference Range Interpretation [...] = 2801) RAD, CHEST, 1 VIEW, NON [id number] 04:12:00Reason for exam:->post opShould this be performed at the bedside?->YesFINAL REPORT CLINICAL INDICATION: Postop Comparison: 05/12/2017 The cardiomed iastinal contours are stable. The left hemidiaphragm remains elevated. There is no focal consolidation, pneumothorax, large pleural effusion or evidence of overt pulmonary edema. Support lines are stable. Signed: Noah Porter MDReport Verified Date/Time: 05/13/2017 04:12:27 Reading Location: [address] Reading Room [id number] 20:35:00 Test Item Value Reference Range Interpretation Comments MAGNESIUM (BEAKER) (test code = 1.9 mg/dL 1.6-2.6 627) BASIC METABOLIC [id number] 20:35:00 Test Item Value Reference Range Interpretation Comments SODIUM (BEAKER) 138 meq/L 136-145 (test code = 381) POTASSIUM (BEAKER) 4.1 meq/L 3.5-5.1 (test code = 379) CHLORIDE (BEAKER) 107 meq/L 98-107 (test code = 382) CO2 (BEAKER) (test 25 meq/L - code = 355) BLOOD UREA NITROGEN 11 [...] PATIEN TS. CBC W/PLT COUNT & AUTO [id number] 20:26:00 Test Item Value Reference Range Interpretation [...] = 2801) RAD, CHEST, 1 VIEW, NON [id number] 04:20:00Reason for exam:->post opShould this be performed at the bedside?->YesFINAL REPORT CLINICAL INDICATION: Postop Comparison: 05/11/2017 The cardiomed iastinal contours are stable. The left hemidiaphragm remains elevated. Retrocardiac opacity in the left lung may reflect atelectasis but pneumonitis should be excluded clinically. There is no pneumothorax. Support lines are stable. Signed: Noah Porter MDReport Verified Date/Time: 05/12/2017 04:20:19 Reading Location: [address] Reading Room [id number] 04:14:00 Test Item Value Reference Range Interpretation Comments MAGNESIUM (BEAKER) (test code = 1.9 mg/dL 1.6-2.6 627) BASIC METABOLIC [id number] 04:14:00 Test Item Value Reference Range Interpretation [...] NOT APPLICABLE FOR DIALYSIS PATIEN TS. PROTHROMBIN [id number] 04:09:00 Test Item Value Reference Range Interpretation [...] = 2801) RAD, CHEST, 1 VIEW, NON [id number] 07:47:00Reason for exam:->post opShould this be performed [...] MDReport Verified Date/Time: 05/11/2017 07:47:20 Reading Location: [facility] Radiology Reading Room PROTHROMBIN [id number] 04:54:00 Test Item Value Reference Range Interpretation [...] 0-1 PERCENT (BEAKER) (test code = 2801) [id number] 04:39:00 Test Item Value Reference Range Interpretation Comments MAGNESIUM (BEAKER) (test code = 2.2 mg/dL 1.6-2.6 627) BASIC METABOLIC [id number] 04:39:00 Test Item Value Reference Range Interpretation [...] PATIEN TS. CREATINE KINASE (CK), TOTAL AND [id number] 00:14:00 Test Item Value Reference Range Interpretation Comments CREATINE KINASE TOTAL (BEAKER) 44 U/L 29-200 (test code = 380) CREATINE KINASE-MB (BEAKER) (test 0.7 ng/mL 0.0-6.6 code = 750) CREATINE KINASE-MB INDEX (BEAKER) 1.6 % (test code = 395) CK-MB Reference Range:<6.7 Normal6.7-10.0 Borderline>10.0 AbnormalTROPONIN [id number] 23:38:00 Test Item Value Reference Range Interpretation [...] failure, acidosis, acute neurological disease, and persistent tachyarrhythmia.[id number] 23:29:00 Test Item Value Reference Range Interpretation Comments MAGNESIUM (BEAKER) 1.7 mg/dL 1.6-2.6 Specimen slightly (test code = 627) hemolyzed [id number] 23:29:00 Test Item Value Reference Range Interpretation Comments PHOSPHORUS (BEAKER) 3.5 mg/dL 2.3-4.7 Specimen slightly (test code = 604) hemolyzed BASIC METABOLIC [id number] 23:29:00 Test Item Value Reference Range Interpretation [...] DIALYSIS PATIEN TS. LACTIC ACID, VENOUS, WHOLE [id number] 23:26:00 Test Item Value Reference Range Interpretation Comments LACTATE BLOOD VENOUS (2) (BEAKER) 1.2 mmol/L 0.5-2.2 (test code = 2872) Effective 09/17/2015: Units/Reference Range ChangeNew: 0.5-2.2 mmol/L Previous: 5-20 mg/dLBLOOD GAS, [id number] 23:02:00 Test Item Value Reference Range Interpretation [...] Blood looks arterial.RAD, CHEST, 1 VIEW, NON [id number] 19:28:00Reason for exam:->check picc placement Should this [...] pleural effusion is seen. Signed: Rika Cervantes Verified Date/Time: 05/10/2017 19:28:53 Reading Location: [address] Consult Reading Room BLOOD GAS, [id number] 07:29:00 Test Item Value Reference Range Interpretation [...] (BEAKER) (test code = 1819) 21.0 % [id number] 06:41:00 Test Item Value Reference Range Interpretation Comments MAGNESIUM (BEAKER) (test code = 1.6 mg/dL 1.6-2.6 627) BASIC METABOLIC [id number] 06:41:00 Test Item Value Reference Range Interpretation [...] NOT APPLICABLE FOR DIALYSIS PATIEN TS. PROTHROMBIN [id number] 06:11:00 Test Item Value Reference Range Interpretation [...] Previous: 5-20 mg/dLCBC W/PLT COUNT & AUTO [id number] 06:02:00 Test Item Value Reference Range Interpretation [...] code = 2801) RAD, ABDOMEN/KUB, 1 VIEW [id number] 04:38:00Reason for exam:->abdominao painFINAL REPORT CLINICAL HISTORY: [...] MDReport Verified Date/Time: 05/10/2017 04:38:02 Reading Location: [address] Room RAD, CHEST, 1 VIEW, NON [id number] 04:34:00Reason for exam:->post opShould this be performed [...] Verified Date/Time: 05/10/2017 04:34:08 Reading Location: [address] Reading Room BASIC METABOLIC [id number] 18:31:00 Test Item Value Reference Range Interpretation [...] PATIEN TS. RAD, CHEST, 1 VIEW, NON [id number] 17:05:00Reason for exam:->NGT repositioned Should this be [...] MDReport Verified Date/Time: 05/09/2017 17:05:43 Reading Location: [facility] B1 C013Y CT Body Reading Room IC ACID, ARTERIAL, WHOLE [id number] 17:02:00 Test Item Value Reference Range Interpretation Comments LACTATE BLOOD 1.5 mmol/L 0.5-2.2 Specimen sligh tly ARTERIAL (2) (BEAKER) hemoly zed (test code = 2874) Effective 09/17/2015: Units/Reference Range ChangeNew: 0.5-2.2 mmol/L Previous: 5-20 mg/dLBLOOD GAS, [id number] 16:34:00 Test Item Value Reference Range Interpretation [...] 21.0 % CBC W/PLT COUNT & AUTO [id number] 16:33:00 Test Item Value Reference Range Interpretation [...] PERCENT (BEAKER) (test code = 2801) SCREEN, [id number] 12:41:00 Test Item Value Reference Range Interpretation Comments TEST URINE (BEAKER) (test Negative code = 583) LACTIC ACID, ARTERIAL, WHOLE [id number] 12:02:00 Test Item Value Reference Range Interpretation Comments LACTATE BLOOD ARTERIAL (2) 1.0 mmol/L 0.5-2.2 (BEAKER) (test code = 2874) Effective 09/17/2015: Units/Reference Range ChangeNew: 0.5-2.2 mmol/L Previous: 5-20 mg/dLRAD, CHEST, 1 VIEW, NON [id number] 11:21:00Reason for exam:- >postopShould this be performed [...] MDReport Verified Date/Time: 05/09/2017 11:21:35 Reading Location: [facility] C013Y CT Body Reading Room Electronically signed by: ELIESER GROSSMAN M.D. on05/09/2017 11:21 AMBASIC METABOLIC [id number] 10:24:00 Test Item Value Reference Range Interpretation [...] PATIEN TS. CBC W/PLT COUNT & AUTO [id number] 09:28:00 Test Item Value Reference Range Interpretation [...] PERCENT (BEAKER) (test code = 2801) CALCIUM, [id number] 08:45:00 Test Item Value Reference Range Interpretation Comments CALCIUM IONIZED (BEAKER) (test 0.98 mmol/L 1.12-1.27 L code = 698) PH, BLOOD (BEAKER) (test code = 7.43 1810) BLOOD GAS, [id number] 08:45:00 Test Item Value Reference Range Interpretation [...] code = 1819) 70.0 % SODIUM NA-STAT [id number] 08:45:00 Test Item Value Reference Range Interpretation Comments SODIUM (BEAKER) (test code = 381) 134 meq/L 135-148 L HGB/HCT (H&H) - STAT [id number] 08:45:00 Test Item Value Reference Range Interpretation Comments HEMOGLOBIN (BEAKER) (test code = 11.8 g/dL 12.0-15.0 L 410) HEMATOCRIT (BEAKER) (test code = 35.0 % 36.0-45.0 L 411) GLUCOSE-STAT [id number] 08:44:00 Test Item Value Reference Range Interpretation Comments GLUCOSE RANDOM (BEAKER) (test code = 83 mg/dL 70-110 652) POTASSIUM-STAT [id number] 08:44:00 Test Item Value Reference Range Interpretation Comments POTASSIUM (BEAKER) (test code = 4.3 meq/L 3.6-5.5 379) BASIC METABOLIC [id number] 01:21:00 Test Item Value Reference Range Interpretation [...] DIALYSIS PATIEN TS. LACTIC ACID, VENOUS, WHOLE [id number] 01:04:00 Test Item Value Reference Range Interpretation Comments LACTATE BLOOD VENOUS (2) (BEAKER) 0.9 mmol/L 0.5-2.2 (test code = 2872) Effective 09/17/2015: Units/Reference Range ChangeNew: 0.5-2.2 mmol/L Previous: 5-20 mg/dLPOCT-GLUCOSE [id number] 00:46:00 Test Item Value Reference Range Interpretation Comments POC-GLUCOSE METER 87 mg/dL 70-[address] [facility] 67[address] (BEAKER) (test code = [place] [address] 1538) PROTHROMBIN [id number] 00:37:00 Test Item Value Reference Range Interpretation [...]
[2020-07-30] MEDS ORDERED: NA CHLORIDE 0.9% 1,000 ML ONE (03:16)
[2020-07-30 03:31] LABS: Absolute Lymphocytes (CBC) 2.8 K/uL (0.7-4.9); Basophils % 0.9 % (0-1.3); Hematocrit 40.9 % (36.0-45.0); Lymphocytes % 32.4 % (15.3-44.8); MPV 7.7 fL (7.6-11.3); RBC Red Blood Cell Count 4.84 M/uL (3.86-4.86)
[2020-07-30 03:35] LABS: Protime INR 1.07
[2020-07-30 03:48] LABS: ALT/SGPT 33 U/L (12-78); AST/SGOT 23 U/L (15-37); Albumin 3.7 g/dL (3.4-5.0); Alkaline Phosphatase 66 U/L (45-117); BUN Blood Urea Nitrogen 18 mg/dL (7-18); Bicarbonate 29 mmol/L (21-32); Bilirubin Direct 0.1 mg/dL (0-0.2); Bilirubin Total 0.4 mg/dL (0.2-1.0); Glucose Level 116 mg/dL (74-106); Potassium 3.8 mmol/L (3.5-5.1); Protein, Total 6.9 g/dL (6.4-8.2); Sodium Level 139 mmol/L (136-145)
--- NOTE | 2020-07-30 03:57 | ER ---
Nurse's Notes [facility] Name: Debra Harris Age: 45 yrs Sex: Female : 1975 Arrival Date: 07/30/2020 Time: 02:34 Bed 4 Private MD: Diagnosis: Altered mental status, unspecified;Abuse of non-psychoactive substances;Adverse effect of amphetamines Presentation: 07/30 02:42 Chief complaint: EMS states: reports using methamphetamine's one week ago, today em found her unresponsive and called EMS, reports having an allergic reaction to meth. pt A\T\O x 3, VSS. Coronavirus screen: Client denies travel out of the [place] in the last 14 days. Ebola Screen: Patient negative for fever greater than or equal to 101.5 degrees Fahrenheit, and additional compatible Ebola Virus Disease symptoms Patient denies exposure to infectious person. Patient denies travel to an Ebola-affected area in the 21 days before illness onset. No symptoms or risks identified at this time. Initial Sepsis Screen: Does the patient meet any 2 criteria? No. Patient's initial sepsis screen is negative. Does the patient have a suspected source of infection? No. Patient's initial sepsis screen is negative. Risk Assessment: Do you want to hurt yourself or someone else? Patient reports no desire to harm self or others. Onset of symptoms was July 30, 2020. 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 - Social history:: Smoking status: Patient denies any tobacco usage or history of. Screenin:41 Abuse screen: Denies threats or abuse. Nutritional screening: No deficits noted. em Tuberculosis screening: No symptoms or risk factors identified. Fall Risk None identified. Assessment: 02:46 General: Appears in no apparent distress. comfortable, Behavior is calm, cooperative. em Pain: Complains of pain in chest Pain currently is 8 out of 10 on a pain scale. Neuro: Level of Consciousness is awake, alert, obeys commands, Oriented to person, place, time, situation. Cardiovascular: Reports chest pain, Capillary refill < 3 seconds Patient's skin is warm and dry. Rhythm is sinus rhythm. Respiratory: Airway is patent Respiratory effort is even, unlabored, Respiratory pattern is regular, symmetrical. GI: Patient currently denies nausea, vomiting. Derm: Skin is intact, is healthy with good turgor, Skin is pink, warm \T\ dry. Musculoskeletal: Capillary refill < 3 seconds, Range of motion: intact in all extremities. 04:11 Reassessment: Patient appears in no apparent distress at this time. Patient and/or em family updated on plan of care and expected duration. Pain level reassessed. Patient is alert, oriented x 3, equal unlabored respirations, skin warm/dry/pink. Vital Signs: 02:42 BP 129 / 89; Pulse 74; Resp 18; Temp 97.7(O); Pulse Ox 100% on R/A; Weight 54.43 kg; em Height 5 ft. 3 in. (160.02 cm); Pain 8/10; 04:11 BP 123 / 78; Pulse 55; Resp 18; Pulse Ox 100% on R/A; em 02:42 Body Mass Index 21.26 (54.43 kg, 160.02 cm) em ED Course: 02:34 Patient arrived in ED. cl3 02:40 Naif Delgado, RN is Primary Nurse. em 02:41 Patient has correct armband on for positive identification. Call light in reach. Side em rails up X2. Adult w/ patient. Pulse ox on. NIBP on. 02:42 Ian Littlejohn MD is Attending Physician. jose de jesus 02:46 Triage completed. em 02:46 Arm band placed on. em 02:55 Inserted saline lock: 22 gauge in left antecubital area, using aseptic technique. Blood ds4 collected. 03:20 CT Head Brain wo Cont In Process Unspecified. EDMS Administered Medications: 02:55 Drug: NS 0.9% 1000 ml Route: IV; Rate: 1 bolus; Site: left antecubital; ea 04:13 Follow up: IV Status: Completed infusion; IV Intake: 1000ml em Intake: 04:13 IV: 1000ml; Total: 1000ml. em Outcome: 03:56 Discharge ordered by . jose de jesus 04:30 Patient left the ED. sg Signatures: Dispatcher [employer] Claude Mariscal, RN RN Ian Gardner MD MD cha Munoz, Edgar, RN RN em Swanson, Donovan ds4 Nathalia Hayward RN Ryan Lamb ea cl3
--- NOTE | 2020-07-30 03:57 | EDPHYS ---
Physician Documentation [facility] Name: Debra Harris Age: 45 yrs Sex: Female : 1975 Arrival Date: 07/30/2020 Time: 02:34 Bed 4 Private MD: ED Physician Ian Littlejohn HPI: 07/30 03:35 This 45 yrs old Female presents to ER via EMS with complaints of Altered jose de jesus Mental Status. 03:35 The patient presents with confusion, decreased mental status. Onset: The jose de jesus symptoms/episode began/occurred 1 day(s) ago. Possible causes: drug use, alcohol, low blood sugar, seizure. Associated signs and symptoms: Pertinent positives: confusion. Current symptoms: In the emergency department the patient's symptoms are unchanged from the initial presentation, despite home interventions. Patient's baseline: Neuro: alert and fully oriented. The patient has experienced similar episodes in the past, several times. 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 - Social history:: Smoking status: Patient denies any tobacco usage or history of. ROS: 03:36 Constitutional: Negative for fever, chills, and weight loss, Eyes: Negative for injury, jose de jesus pain, redness, and discharge, ENT: Negative for injury, pain, and discharge, Neck: Negative for injury, pain, and swelling, Cardiovascular: Negative for chest pain, palpitations, and edema, Respiratory: Negative for shortness of breath, cough, wheezing, and pleuritic chest pain, Abdomen/GI: Negative for abdominal pain, nausea, vomiting, diarrhea, and constipation, Back: Negative for injury and pain, : Negative for injury, bleeding, discharge, and swelling, MS/Extremity: Negative for injury and deformity, Skin: Negative for injury, rash, and discoloration, Neuro: Negative for headache, weakness, numbness, tingling, and seizure, Psych: Negative for depression, anxiety, suicide ideation, homicidal ideation, and hallucinations, Allergy/Immunology: Negative for hives, rash, and allergies, Endocrine: Negative for neck swelling, polydipsia, polyuria, polyphagia, and marked weight changes, Hematologic/Lymphatic: Negative for swollen nodes, abnormal bleeding, and unusual bruising. Exam: 03:36 Constitutional: This is a well developed, well nourished patient who is awake, alert, jose de jesus and in no acute distress. Head/Face: Normocephalic, atraumatic. Eyes: Pupils equal round and reactive to light, extra-ocular motions intact. Lids and lashes normal. Conjunctiva and sclera are non-icteric and not injected. Cornea within normal limits. Periorbital areas with no swelling, redness, or edema. ENT: Nares patent. No nasal discharge, no septal abnormalities noted. Tympanic membranes are normal and external auditory canals are clear. Oropharynx with no redness, swelling, or masses, exudates, or evidence of obstruction, uvula midline. Mucous membranes moist. Neck: Trachea midline, no thyromegaly or masses palpated, and no cervical lymphadenopathy. Supple, full range of motion without nuchal rigidity, or vertebral point tenderness. No Meningismus. Chest/axilla: Normal chest wall appearance and motion. Nontender with no deformity. No lesions are appreciated. Cardiovascular: Regular rate and rhythm with a normal S1 and S2. No gallops, murmurs, or rubs. Normal PMI, no JVD. No pulse deficits. Respiratory: Lungs have equal breath sounds bilaterally, clear to auscultation and percussion. No rales, rhonchi or wheezes noted. No increased work of breathing, no retractions or nasal flaring. Abdomen/GI: Soft, non-tender, with normal bowel sounds. No distension or tympany. No guarding or rebound. No evidence of tenderness throughout. Back: No spinal tenderness. No costovertebral tenderness. Full range of motion. Female : Normal external genitalia. Skin: Warm, dry with normal turgor. Normal color with no rashes, no lesions, and no evidence of cellulitis. MS/ Extremity: Pulses equal, no cyanosis. Neurovascular intact. Full, normal range of motion. Neuro: Awake and alert, GCS 15, oriented to person, place, time, and situation. Cranial nerves II-XII grossly intact. Motor strength 5/5 in all extremities. Sensory grossly intact. Cerebellar exam normal. Normal gait. Psych: Awake, alert, with orientation to person, place and time. Behavior, mood, and affect are within normal limits. 03:58 ECG was reviewed by the Attending Physician. [facility] Vital Signs: 02:42 BP 129 / 89; Pulse 74; Resp 18; Temp 97.7(O); Pulse Ox 100% on R/A; Weight 54.43 kg; em Height 5 ft. 3 in. (160.02 cm); Pain 8/10; 04:11 BP 123 / 78; Pulse 55; Resp 18; Pulse Ox 100% on R/A; em 02:42 Body Mass Index 21.26 (54.43 kg, 160.02 cm) em MDM: 02:42 Patient medically screened. jose de jesus 03:57 Differential Diagnosis altered mental status, sepsis. Differential Diagnosis: alcohol jose de jesus intoxication, hypoglycemia, overdose, TIA. Data reviewed: vital signs, nurses notes, lab test result(s), EKG, radiologic studies, CT scan, plain films. Data interpreted: Pulse oximetry: is not applicable for this patient encounter. Test interpretation: by ED physician or midlevel provider: ECG. Counseling: I had a detailed discussion with the patient and/or guardian regarding: the historical points, exam findings, and any diagnostic results supporting the discharge/admit diagnosis, lab results, radiology results, the need for outpatient follow up, for definitive care, a family practitioner, a psychiatrist. 07/30 02:43 Order name: Acetaminophen [facility] 07/30 02:43 Order name: Basic Metabolic Panel [facility] 07/30 02:43 Order name: CBC with Diff [facility] 07/30 02:43 Order name: ETOH Level [facility] 07/30 02:43 Order name: Hepatic Function; Complete Time: 03:56 [facility] 07/30 02:43 Order name: PT-INR; Complete Time: 03:56 [facility] 07/30 02:43 Order name: Ptt, Activated; Complete Time: 03:56 [facility] 07/30 02:43 Order name: Salicylate [facility] 07/30 02:43 Order name: CT Head Brain wo Cont [facility] 07/30 02:44 Order name: Acetaminophen Level; Complete Time: 03:56 EDMS 07/30 02:44 Order name: Basic Metabolic Panel; Complete Time: 03:56 EDPR 07/30 02:44 Order name: CBC with Automated Diff; Complete Time: 03:56 EDMS 07/30 02:44 Order name: Alcohol Serum/Plasma; Complete Time: 03:56 EDPR 07/30 02:43 Order name: EKG; Complete Time: 02:44 [facility] 07/30 02:43 Order name: EKG - Nurse/Tech; Complete Time: 02:43 [facility] 07/30 02:43 Order name: IV Saline Lock; Complete Time: 03:00 [facility] 07/30 02:43 Order name: Labs collected and sent; Complete Time: 03:00 [facility] 07/30 02:43 Order name: Seizure Precautions; Complete Time: 03:11 [facility] EC:58 Rate is 49 beats/min. Rhythm is regular. QRS [place] is Normal. NC interval is normal. QRS jose de jesus interval is normal. QT interval is normal. No Q waves. T waves are Normal. No ST changes noted. Clinical impression: NSR w/ Non-specific ST/T Changes and Sinus bradycardia. Interpreted by me. Reviewed by me. Administered Medications: 02:55 Drug: NS 0.9% 1000 ml Route: IV; Rate: 1 bolus; Site: left antecubital; ea 04:13 Follow up: IV Status: Completed infusion; IV Intake: 1000ml em Disposition: 07/30/20 03:56 Discharged to Home. Impression: Altered mental status, unspecified, Abuse of non-psychoactive substances, Adverse effect of amphetamines. - Condition is Stable. - Discharge Instructions: Stimulant Use Disorder-Amphetamines, Confusion, Substance Use Disorder, Stimulant Use Disorder-Methamphetamines. - Medication Reconciliation Form, Thank You Letter, Antibiotic Education, Prescription Opioid Use form. - Follow up: Private Physician; When: 2 - 3 days; Reason: Recheck today's complaints, Continuance of care, Re-evaluation by your physician. - Problem is new. - Symptoms have improved. Signatures: Dispatcher [employer] Claude Mariscal, RN RN Ian Gardner MD MD cha Munoz, Edgar RN ELVIN em Nathalia Hayward RN RN ea Corrections: (The following items were deleted from the chart) 04:30 03:56 07/30/2020 03:56 Discharged to Home. Impression: Altered mental status, sg unspecified; Abuse of non-psychoactive substances; Adverse effect of amphetamines. Condition is Stable. Discharge Instructions: Stimulant Use Disorder-Amphetamines, Confusion, Substance Use Disorder, Stimulant Use Disorder-Methamphetamines. Forms are Medication Reconciliation Form, Thank You Letter, Antibiotic Education, Prescription Opioid Use. Follow up: Private Physician; When: 2 - 3 days; Reason: Recheck today's complaints, Continuance of care, Re-evaluation by your physician. Problem is new. Symptoms have improved. jose de jesus
[2020-07-30 04:35] VITALS: TEMP 97.7; O2SAT 100
[2020-07-30 04:36] VITALS: BP 123/78
--- NOTE | 2020-07-30 11:08 | RAD REPORT ---
EXAM DESCRIPTION: CT - Head Brain Wo Cont - 07/30/2020 6:58 am CLINICAL HISTORY: MENTAL STATUS CHANGE COMPARISON: None available TECHNIQUE: Axial CT of the head obtained from the skull apex to the skull base without contrast. Thi s exam was performed according to our departmental dose-optimization program, which includes automate d exposure control, adjustment of the mA and/or kV according to patient size and/or use of iterative reconstruction technique. FINDINGS: No acute intracranial hemorrhage identified. No mass, mass effect, shift of the midline, a bnormal extra-axial fluid collection or CT evidence of acute ischemic change identified. The ventricu lar system and sulcal spaces are mildly enlarged compatible with mild cerebral atrophy. Scattered a reas of hypodensity throughout the supratentorial white matter are nonspecific and may be related to chronic small vessel ischemic change. The visualized paranasal sinuses and mastoid air cells are well aerated. No skull fracture identifi ed. Visualized orbits and globes are unremarkable. Atherosclerotic calcification of the intracranial internal carotid arteries. IMPRESSION: 1. No acute intracranial abnormality by CT criteria. Electronically signed by: Sheldon Torres 07/30/2020 3:28 AM CDT Due to temporary technical issues with the PACS/Fluency reporting system, reports are being signed by the in house radiologists without review as a courtesy to insure prompt reporting. The interpreting radiologist is fully responsible for the content of the report.
--- NOTE | 2020-07-30 16:48 | EKG ---
Test Date: 2020-07-30 Test Time: 01:41:31 Supervisor Vacuum Metalizing: TIMOTHY MEASUREMENT RESULTS: Intervals: Rate: 49 IA: 138 QRSD: 82 QT: 464 QTc: 419 [place]: P: 64 IA: 138 QRS: 97 T: 106 INTERPRETIVE STATEMENTS: Marked sinus bradycardia Rightward axis Abnormal ECG Compared to ECG 12/15/2018 15:51:20 Right-axis deviation now present Sinus rhythm no longer present Electronically Signed On 07-30-20 16:47:40 CDT by Rafael Das
== END 2020-07-30 04:30 | disposition home or self-care (01) ==
LOC: ER 02:33
DX: R41.82 Altered mental status, unspecified (principal); F55.8 Abuse of other non-psychoactive substances; F15.90 Other stimulant use, unspecified, uncomplicated
CPT/HCPCS: 93005; 85025; 80048; 36415; 80320; 80329 ×2; 85610; 80076; 85730; 70450; 96360; 99284; J7030

== ENCOUNTER 2020-08-23 02:49 | Emergency (ER) | payer OTHER ==
--- OUTSIDE RECORDS SUMMARY | 2020-08-23 02:55 | XMS REPORT | Continuity of Care Document ---
:1975 Author Organization [facility] t Address [address] [place] [address] Dr. Galan. 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 Social History Social Habit Start Date Stop Date Quantity Comments Source Sex Assigned At [facility] Medications Ordered Filled Start Stop Current Ordering Indication Dosage Frequency Signature Comments Components Source Medication Medication Date Date Medication? Clinician (SIG) Name Name ALPRAZolam Yes 1mg Q.5D Take [address] (XANAX) 1 05-17 by mouth 2 [facility] - MG tablet 17:41: (two) Medical 29 times Center daily. buprenorphi Yes 1{tbl} Q.5D Place [address] ne-naloxone 05-17 tablet [facility] - (SUBOXONE) 17:41: under the Me dical 2-0.5 mg 29 tongue 2 Center Subl (two) times daily. Procedures This patient has no known procedures. Encounters Start End Encounter Admission Attending Care Care Encounter Source Date/Time Date/Time Type Type Clinicians Facility Department ID 2020-06-25 2020-06-26 Emergency [facility] [id number] 22:39:00 06:09:00 Ehsan Hallman [id number] [place] [id number] [place] [id number] 2020-06-25 2020-06-25 Orders Doctor JULISA [id number] 00:00:00 00:00:00 Only Unassigned, KATI 350.1.13.10 [place] [facility] [id number] [id number] 2019-11-02 2019-11-02 [facility] [id number] 16:50:16 17:30:14 Visit Mary Hallman [id number] [place] 4.2.7.2.686 Professio [id number] [facility] 134 Building Results Test Description Test Time Test Comments Results Result [facility] e Comments TISSUE EXAM 2017-05-18 Surgical Pathology 13:38:00 Report Case: [id number] Authorizing Provider: Jethro Duron MD Collected: 05/14/2017 1806 Ordering Location: [address] Received: 05/17/2017 0950 Pathologist: Torrey Cervantes MD Specimen: Soft Tissue, Other, Wedge gastrectomy PART A PORTION OF STOMACH, PARTIAL GASTRECTOMY:BENIGN GASTRIC MUCOSA WITH MILD CONGESTION.NEGATIVE FOR DYSPLASIA OR INVASIVE CARCINOMA. Signing Pathologist Direct Phone Line: [phone] ically signed by Torrey Cervantes MD on 05/18/2017 at 1:38 [id number] gastrectomyThe specimen is received in a formalin-filled container labeled with the patient's information and consists of a wedge gastrectomy of stomach measuring 3 x 1.5 x 1 cm with a staple line. Grossly no suspicious areas are seen. The mucosa is toney and hemorrhagic. Section code: Senior Security Architect staple line and random section of gastric tissue, tissue from staple line is inked le. CG/ew RAD, CHEST, 1 2017-05-17 Reason for FINAL REPORT PATIENT VIEW, NON DEPT 05:29:00 exam:->post ID: [id number] RAD, opShould this CHEST, 1 VIEW, NON [...] cervical soft tissues. Signed: JR Asia, [facility] Verified Date/Time: 05/17/2017 05:29:48 Reading Location: [address] Body Reading Room ESIUM 2017-05-17 04:41:00 Test Item Value Reference Range Interpretation Comme nts MAGNESIUM (BEAKER) (test code = 627) 1.8 mg/dL 1.6-2.6 BASIC METABOLIC [id number] 04:41:00 Test Item Value Reference Range Interpretation [...] NOT APPLICABLE FOR DIALYSIS PATIEN TS. PROTHROMBIN [id number] 04:27:00 Test Item Value Reference Range Interpretation [...] PERCENT (BEAKER) (test code = 2801) FL, [id number] 12:54:00Reason for exam:->s/p hiatal hernia repair FINAL [...] MDReport Verified Date/Time: 05/16/2017 12:54:45 Reading Location: [address] Reading Room CALCIUM, [id number] 06:35:00 Test Item Value Reference Range Interpretation Comments CALCIUM IONIZED (BEAKER) (test 1.02 mmol/L 1.12-1.27 L code = 698) PH, BLOOD (BEAKER) (test code = 7.39 1810) [id number] 05:44:00 Test Item Value Reference Range Interpretation Comments MAGNESIUM (BEAKER) 1.8 mg/dL 1.6-2.6 Specimen slightly (test code = 627) hemolyzed BASIC METABOLIC [id number] 05:44:00 Test Item Value Reference Range Interpretation [...] NOT APPLICABLE FOR DIALYSIS PATIEN TS. PROTHROMBIN [id number] 05:33:00 Test Item Value Reference Range Interpretation [...] = 2801) RAD, CHEST, 1 VIEW, NON [id number] 14:45:00Reason for exam:->s/p left chest tube removalShould [...] MDReport Verified Date/Time: 05/15/2017 14:45:11 Reading Location: [place] [id number] Ortho Consult Reading Room RAD, CHEST, 1 VIEW, NON [id number] 07:32:00while patient is intubated or has chest [...] MDReport Verified Date/Time: 05/15/2017 07:32:43 Reading Location: [facility] C013Y CT Body Reading Room PROTHROMBIN [id number] 05:07:00 Test Item Value Reference Range Interpretation Comments PROTIME (BEAKER) (test code = 15.8 seconds 11.7-14.7 H 759) INR (BEAKER) (test code = 370) 1.3 <=5.9 RECOMMENDED COUMADIN/WARFARIN INR THERAPY RANGESSTANDARD DOSE: 2.0 - 3.0 Includes: PROPHYLAXIS forvenous thrombosis, systemic embolization; TREATMENT for venous thrombosis and/or pulmonary embolus.HIGH RISK: Target INR is 2.5-3.5 for patients with mechanical heart valves.BASIC METABOLIC [id number] 05:07:00 Test Item Value Reference Range Interpretation [...] S NOT APPLICABLE FOR DIALYSIS PATIEN TS. [id number] 05:03:00 Test Item Value Reference Range Interpretation Comments MAGNESIUM (BEAKER) (test code = 2.7 mg/dL 1.6-2.6 H 627) CBC W/PLT COUNT & AUTO [id number] 05:00:00 Test Item Value Reference Range Interpretation [...] PERCENT (BEAKER) (test code = 2801) CALCIUM, [id number] 23:02:00 Test Item Value Reference Range Interpretation Comments CALCIUM IONIZED (BEAKER) (test 0.92 mmol/L 1.12-1.27 L code = 698) PH, BLOOD (BEAKER) (test code = 7.38 1810) BASIC METABOLIC [id number] 22:53:00 Test Item Value Reference Range Interpretation [...] S NOT APPLICABLE FOR DIALYSIS PATIEN TS. [id number] 22:53:00 Test Item Value Reference Range Interpretation Comments MAGNESIUM (BEAKER) (test code = 1.9 mg/dL 1.6-2.6 627) CBC W/PLT COUNT & AUTO [id number] 22:47:00 Test Item Value Reference Range Interpretation [...] = 2801) RAD, CHEST, 1 VIEW, NON [id number] 21:18:00Reason for exam:->ptxIs the patient ?->NoShould this [...] MDReport Verified Date/Time: 05/14/2017 21:18:07 Reading Location: [address] ReadingRoom BLOOD GAS, [id number] 17:28:00 Test Item Value Reference Range Interpretation [...] (test code = 1819) 50 SODIUM NA-STAT [id number] 17:28:00 Test Item Value Reference Range Interpretation Comments SODIUM (BEAKER) (test code = 381) 134 meq/L 135-148 L POTASSIUM-STAT [id number] 17:28:00 Test Item Value Reference Range Interpretation Comments POTASSIUM (BEAKER) (test code = 3.4 meq/L 3.6-5.5 L 379) GLUCOSE-STAT [id number] 17:28:00 Test Item Value Reference Range Interpretation Comments GLUCOSE RANDOM (BEAKER) (test code 185 mg/dL 70-110 H = 652) HGB/HCT (H&H) - STAT [id number] 17:28:00 Test Item Value Reference Range Interpretation Comments HEMOGLOBIN (BEAKER) (test code = 11.0 GM/DL 12.0-15.0 L 410) HEMATOCRIT (BEAKER) (test code = 32.0 % 36.0-45.0 L 411) BLOOD GAS, [id number] 15:47:00 Test Item Value Reference Range Interpretation [...] (test code = 1819) 67.0 % GLUCOSE-STAT [id number] 15:47:00 Test Item Value Reference Range Interpretation Comments GLUCOSE RANDOM (BEAKER) (test code 158 mg/dL 70-110 H = 652) SODIUM NA-STAT [id number] 15:46:00 Test Item Value Reference Range Interpretation Comments SODIUM (BEAKER) (test code = 381) 137 meq/L 135-148 POTASSIUM-STAT [id number] 15:46:00 Test Item Value Reference Range Interpretation Comments POTASSIUM (BEAKER) (test code = 3.7 meq/L 3.6-5.5 379) HGB/HCT (H&H) - STAT [id number] 15:46:00 Test Item Value Reference Range Interpretation Comments HEMOGLOBIN (BEAKER) (test code = 12.5 g/dL 12.0-15.0 410) HEMATOCRIT (BEAKER) (test code = 37.0 % 36.0-45.0 411) URINE [id number] 15:11:00 Test Item Value Reference Range Interpretation Comments CULTURE (BEAKER) (test 30-39,000 col/mL skin code = 1095) cindy BLOOD GAS, [id number] 14:45:00 Test Item Value Reference Range Interpretation [...] (test code = 1819) 50.0 % POTASSIUM-STAT [id number] 14:45:00 Test Item Value Reference Range Interpretation Comments POTASSIUM (BEAKER) (test code = 3.3 meq/L 3.6-5.5 L 379) HGB/HCT (H&H) - STAT [id number] 14:45:00 Test Item Value Reference Range Interpretation Comments HEMOGLOBIN (BEAKER) (test code = 11.5 g/dL 12.0-15.0 L 410) HEMATOCRIT (BEAKER) (test code = 34.0 % 36.0-45.0 L 411) GLUCOSE-STAT [id number] 14:44:00 Test Item Value Reference Range Interpretation Comments GLUCOSE RANDOM (BEAKER) (test code 105 mg/dL 70-110 = 652) SODIUM NA-STAT [id number] 14:44:00 Test Item Value Reference Range Interpretation Comments SODIUM (BEAKER) (test code = 381) 137 meq/L 135-148 SCREEN, [id number] 13:36:00 Test Item Value Reference Range Interpretation Comments TEST URINE (BEAKER) (test Negative code = 583) BLOOD [id number] 10:00:00 Test Item Value Reference Range Interpretation Comments CULTURE (BEAKER) (test No growth in 5 days code = 1095) RAD, CHEST, 1 VIEW, NON [id number] 07:28:00Reason for exam:->post opShould this be performed at the bedside?->YesFINAL REPORT Chest one view compared to May 13 Discussion: Unchanged left hemidiaphragm elevation. Cardiopulmonary appearance is similar. No effusion or pneumothorax. No atypical line or tube position. Signed: Julisa Partida Verified Date/Time: 05/14/2017 07:28:59 Reading Location: [facility] B1 C013V Neuro Reading Room ALL [id number] 05:14:00 Test Item Value Reference Range Interpretation [...] failure, acidosis, acute neurological disease, and persistent tachyarrhythmia.[id number] 05:03:00 Test Item Value Reference Range Interpretation Comments MAGNESIUM (BEAKER) (test code = 1.7 mg/dL 1.6-2.6 627) BASIC METABOLIC [id number] 05:03:00 Test Item Value Reference Range Interpretation [...] PATIEN TS. CBC W/PLT COUNT & AUTO [id number] 04:51:00 Test Item Value Reference Range Interpretation [...] 0-1 PERCENT (BEAKER) (test code = 2801) [id number] 04:50:00 Test Item Value Reference Range Interpretation [...] 2.5-3.5 for patients with mechanical heart valves.PROTHROMBIN [id number] 04:49:00 Test Item Value Reference Range Interpretation Comments PROTIME (BEAKER) (test code = 14.3 seconds 11.7-14.7 759) INR (BEAKER) (test code = 370) 1.1 <=5.9 RECOMMENDED COUMADIN/WARFARIN INR THERAPY RANGESSTANDARD DOSE: 2.0 - 3.0 Includes: PROPHYLAXIS forvenous thrombosis, systemic embolization; TREATMENT for venous thrombosis and/or pulmonary embolus.HIGH RISK: Target INR is 2.5-3.5 for patients with mechanical heart valves.TROPONIN [id number] 19:19:00 Test Item Value Reference Range Interpretation [...] acute neurological disease, and persistent tachyarrhythmia.URINALYSIS W/ [id number] 17:11:00 Test Item Value Reference Range Interpretation [...] Clean Catch = 2795) TSH/FREE T4 IF [id number] 16:23:00 Test Item Value Reference Range Interpretation Comments THYROID STIMULATING HORMONE 1.07 uIU/mL 0.35-4.94 (BEAKER) (test code = 772) [id number] 15:56:00 Test Item Value Reference Range Interpretation Comments POTASSIUM (BEAKER) (test code = 4.3 meq/L 3.5-5.1 379) CREATINE KINASE (CK), TOTAL AND [id number] 14:21:00 Test Item Value Reference Range Interpretation Comments CREATINE KINASE TOTAL (BEAKER) 19 U/L 29-200 L (test code = 380) CREATINE KINASE-MB (BEAKER) (test 0.5 ng/mL 0.0-6.6 code = 750) CREATINE KINASE-MB INDEX (BEAKER) 2.6 % (test code = 395) CK-MB Reference Range:<6.7 Normal6.7-10.0 Borderline>10.0 AbnormalTROPONIN [id number] 14:20:00 Test Item Value Reference Range Interpretation [...] failure, acidosis, acute neurological disease, and persistent tachyarrhythmia.[id number] 13:35:00 Test Item Value Reference Range Interpretation Comments MAGNESIUM (BEAKER) (test code = 2.5 mg/dL 1.6-2.6 627) PROTHROMBIN [id number] 05:20:00 Test Item Value Reference Range Interpretation Comments PROTIME (BEAKER) (test code = 14.3 seconds 11.7-14.7 759) INR (BEAKER) (test code = 370) 1.1 <=5.9 RECOMMENDED COUMADIN/WARFARIN INR THERAPY RANGESSTANDARD DOSE: 2.0 - 3.0 Includes: PROPHYLAXIS forvenous thrombosis, systemic embolization; TREATMENT for venous thrombosis and/or pulmonary embolus.HIGH RISK: Target INR is 2.5-3.5 for patients with mechanical heart valves.[id number] 05:19:00 Test Item Value Reference Range Interpretation Comments PHOSPHORUS (BEAKER) (test code = 4.1 mg/dL 2.3-4.7 604) [id number] 05:19:00 Test Item Value Reference Range Interpretation Comments MAGNESIUM (BEAKER) (test code = 2.0 mg/dL 1.6-2.6 627) BASIC METABOLIC [id number] 05:19:00 Test Item Value Reference Range Interpretation Comments SODIUM (BEAKER) 138 meq/L 136-145 (test code = 381) POTASSIUM (BEAKER) 3.6 meq/L 3.5-5.1 (test code = 379) CHLORIDE (BEAKER) 106 meq/L 98-107 (test code = 382) CO2 (BEAKER) (test 25 meq/L -29 code = 355) BLOOD UREA NITROGEN 14 [...] PATIEN TS. CBC W/PLT COUNT & AUTO [id number] 04:56:00 Test Item Value Reference Range Interpretation [...] = 2801) RAD, CHEST, 1 VIEW, NON [id number] 04:12:00Reason for exam:->post opShould this be performed at the bedside?->YesFINAL REPORT CLINICAL INDICATION: Postop Comparison: 05/12/2017 The cardiomed iastinal contours are stable. The left hemidiaphragm remains elevated. There is no focal consolidation, pneumothorax, large pleural effusion or evidence of overt pulmonary edema. Support lines are stable. Signed: Noah Porter MDReport Verified Date/Time: 05/13/2017 04:12:27 Reading Location: [address] Reading Room [id number] 20:35:00 Test Item Value Reference Range Interpretation Comments MAGNESIUM (BEAKER) (test code = 1.9 mg/dL 1.6-2.6 627) BASIC METABOLIC [id number] 20:35:00 Test Item Value Reference Range Interpretation [...] PATIEN TS. CBC W/PLT COUNT & AUTO [id number] 20:26:00 Test Item Value Reference Range Interpretation [...] = 2801) RAD, CHEST, 1 VIEW, NON [id number] 04:20:00Reason for exam:->post opShould this be performed at the bedside?->YesFINAL REPORT CLINICAL INDICATION: Postop Comparison: 05/11/2017 The cardiomed iastinal contours are stable. The left hemidiaphragm remains elevated. Retrocardiac opacity in the left lung may reflect atelectasis but pneumonitis should be excluded clinically. There is no pneumothorax. Support lines are stable. Signed: Noah Porter MDReport Verified Date/Time: 05/12/2017 04:20:19 Reading Location: [address] Reading Room [id number] 04:14:00 Test Item Value Reference Range Interpretation Comments MAGNESIUM (BEAKER) (test code = 1.9 mg/dL 1.6-2.6 627) BASIC METABOLIC [id number] 04:14:00 Test Item Value Reference Range Interpretation [...] NOT APPLICABLE FOR DIALYSIS PATIEN TS. PROTHROMBIN [id number] 04:09:00 Test Item Value Reference Range Interpretation [...] = 2801) RAD, CHEST, 1 VIEW, NON [id number] 07:47:00Reason for exam:->post opShould this be performed [...] MDReport Verified Date/Time: 05/11/2017 07:47:20 Reading Location: [facility] Radiology Reading Room PROTHROMBIN [id number] 04:54:00 Test Item Value Reference Range Interpretation [...] 0-1 PERCENT (BEAKER) (test code = 2801) [id number] 04:39:00 Test Item Value Reference Range Interpretation Comments MAGNESIUM (BEAKER) (test code = 2.2 mg/dL 1.6-2.6 627) BASIC METABOLIC [id number] 04:39:00 Test Item Value Reference Range Interpretation [...] PATIEN TS. CREATINE KINASE (CK), TOTAL AND [id number] 00:14:00 Test Item Value Reference Range Interpretation Comments CREATINE KINASE TOTAL (BEAKER) 44 U/L 29-200 (test code = 380) CREATINE KINASE-MB (BEAKER) (test 0.7 ng/mL 0.0-6.6 code = 750) CREATINE KINASE-MB INDEX (BEAKER) 1.6 % (test code = 395) CK-MB Reference Range:<6.7 Normal6.7-10.0 Borderline>10.0 AbnormalTROPONIN [id number] 23:38:00 Test Item Value Reference Range Interpretation [...] failure, acidosis, acute neurological disease, and persistent tachyarrhythmia.[id number] 23:29:00 Test Item Value Reference Range Interpretation Comments MAGNESIUM (BEAKER) 1.7 mg/dL 1.6-2.6 Specimen slightly (test code = 627) hemolyzed [id number] 23:29:00 Test Item Value Reference Range Interpretation Comments PHOSPHORUS (BEAKER) 3.5 mg/dL 2.3-4.7 Specimen slightly (test code = 604) hemolyzed BASIC METABOLIC [id number] 23:29:00 Test Item Value Reference Range Interpretation [...] DIALYSIS PATIEN TS. LACTIC ACID, VENOUS, WHOLE [id number] 23:26:00 Test Item Value Reference Range Interpretation Comments LACTATE BLOOD VENOUS (2) (BEAKER) 1.2 mmol/L 0.5-2.2 (test code = 2872) Effective 09/17/2015: Units/Reference Range ChangeNew: 0.5-2.2 mmol/L Previous: 5-20 mg/dLBLOOD GAS, [id number] 23:02:00 Test Item Value Reference Range Interpretation [...] Blood looks arterial.RAD, CHEST, 1 VIEW, NON [id number] 19:28:00Reason for exam:->check picc placement Should this [...] MDReport Verified Date/Time: 05/10/2017 19:28:53 Reading Location: [address] Consult Reading Room BLOOD GAS, [id number] 07:29:00 Test Item Value Reference Range Interpretation [...] (BEAKER) (test code = 1819) 21.0 % [id number] 06:41:00 Test Item Value Reference Range Interpretation Comments MAGNESIUM (BEAKER) (test code = 1.6 mg/dL 1.6-2.6 627) BASIC METABOLIC [id number] 06:41:00 Test Item Value Reference Range Interpretation [...] NOT APPLICABLE FOR DIALYSIS PATIEN TS. PROTHROMBIN [id number] 06:11:00 Test Item Value Reference Range Interpretation [...] Previous: 5-20 mg/dLCBC W/PLT COUNT & AUTO [id number] 06:02:00 Test Item Value Reference Range Interpretation [...] code = 2801) RAD, ABDOMEN/KUB, 1 VIEW [id number] 04:38:00Reason for exam:->abdominao painFINAL REPORT CLINICAL HISTORY: [...] MDReport Verified Date/Time: 05/10/2017 04:38:02 Reading Location: [address] Room RAD, CHEST, 1 VIEW, NON [id number] 04:34:00Reason for exam:->post opShould this be performed at the bedside?->YesFINAL REPORT CLINICAL INDICATION: Postop Comparison: 05/09/2017 The cardiomediastinal contours are stable. The left hemidiaphragm remains elevated. Patchy opacity in the left low er lung may reflect atelectasis but pneumonitis should be excluded clinically. There is no pneumothorax. A nasogastric tube remains in place. Signed: Noah Porter MDReport Verified Date/Time: 05/10/2017 04:34:08 Reading Location: [address] Reading Room BASIC METABOLIC [id number] 18:31:00 Test Item Value Reference Range Interpretation [...] PATIEN TS. RAD, CHEST, 1 VIEW, NON [id number] 17:05:00Reason for exam:->NGT repositioned Should this be [...] MDReport Verified Date/Time: 05/09/2017 17:05:43 Reading Location: [facility] B1 C013Y CT Body Reading Room IC ACID, ARTERIAL, WHOLE [id number] 17:02:00 Test Item Value Reference Range Interpretation Comments LACTATE BLOOD 1.5 mmol/L 0.5-2.2 Specimen sligh tly ARTERIAL (2) (BEAKER) hemoly zed (test code = 2874) Effective 09/17/2015: Units/Reference Range ChangeNew: 0.5-2.2 mmol/L Previous: 5-20 mg/dLBLOOD GAS, [id number] 16:34:00 Test Item Value Reference Range Interpretation [...] 21.0 % CBC W/PLT COUNT & AUTO [id number] 16:33:00 Test Item Value Reference Range Interpretation [...] PERCENT (BEAKER) (test code = 2801) SCREEN, [id number] 12:41:00 Test Item Value Reference Range Interpretation Comments TEST URINE (BEAKER) (test Negative code = 583) LACTIC ACID, ARTERIAL, WHOLE [id number] 12:02:00 Test Item Value Reference Range Interpretation Comments LACTATE BLOOD ARTERIAL (2) 1.0 mmol/L 0.5-2.2 (BEAKER) (test code = 2874) Effective 09/17/2015: Units/Reference Range ChangeNew: 0.5-2.2 mmol/L Previous: 5-20 mg/dLRAD, CHEST, 1 VIEW, NON [id number] 11:21:00Reason for exam:- >postopShould this be performed [...] MDReport Verified Date/Time: 05/09/2017 11:21:35 Reading Location: [address] Body Reading Room Electronically signed by: ELIESER GROSSMAN M.D. on05/09/2017 11:21 AMBASIC METABOLIC [id number] 10:24:00 Test Item Value Reference Range Interpretation [...] PATIEN TS. CBC W/PLT COUNT & AUTO [id number] 09:28:00 Test Item Value Reference Range Interpretation [...] PERCENT (BEAKER) (test code = 2801) CALCIUM, [id number] 08:45:00 Test Item Value Reference Range Interpretation Comments CALCIUM IONIZED (BEAKER) (test 0.98 mmol/L 1.12-1.27 L code = 698) PH, BLOOD (BEAKER) (test code = 7.43 1810) BLOOD GAS, [id number] 08:45:00 Test Item Value Reference Range Interpretation [...] code = 1819) 70.0 % SODIUM NA-STAT [id number] 08:45:00 Test Item Value Reference Range Interpretation Comments SODIUM (BEAKER) (test code = 381) 134 meq/L 135-148 L HGB/HCT (H&H) - STAT [id number] 08:45:00 Test Item Value Reference Range Interpretation Comments HEMOGLOBIN (BEAKER) (test code = 11.8 g/dL 12.0-15.0 L 410) HEMATOCRIT (BEAKER) (test code = 35.0 % 36.0-45.0 L 411) GLUCOSE-STAT [id number] 08:44:00 Test Item Value Reference Range Interpretation Comments GLUCOSE RANDOM (BEAKER) (test code = 83 mg/dL 70-110 652) POTASSIUM-STAT [id number] 08:44:00 Test Item Value Reference Range Interpretation Comments POTASSIUM (BEAKER) (test code = 4.3 meq/L 3.6-5.5 379) BASIC METABOLIC [id number] 01:21:00 Test Item Value Reference Range Interpretation [...] DIALYSIS PATIEN TS. LACTIC ACID, VENOUS, WHOLE [id number] 01:04:00 Test Item Value Reference Range Interpretation Comments LACTATE BLOOD VENOUS (2) (BEAKER) 0.9 mmol/L 0.5-2.2 (test code = 2872) Effective 09/17/2015: Units/Reference Range ChangeNew: 0.5-2.2 mmol/L Previous: 5-20 mg/dLPOCT-GLUCOSE [id number] 00:46:00 Test Item Value Reference Range Interpretation Comments POC-GLUCOSE METER 87 mg/dL 70-110 TESTED AT [facility] 6720 (BEAKER) (test code = [place] [address] 1538) PROTHROMBIN [id number] 00:37:00 Test Item Value Reference Range Interpretation [...] % 0-1 PERCENT (BEAKER) (test code = 8131)
[2020-08-23] MEDS ORDERED: predniSONE 20 MG TAB ONE (03:53)
[2020-08-23] MEDS ORDERED: DIPHENHYDRAMINE 25 MG TAB/CAP ONE (03:53)
[2020-08-23] MEDS ORDERED: FAMOTIDINE 20 MG TAB ONE (03:54)
--- NOTE | 2020-08-23 05:24 | EDPHYS ---
Physician Documentation [facility] Name: Debra Harris Age: 45 yrs Sex: Female : 1975 Arrival Date: 08/23/2020 Time: 02:55 Bed 19 Private MD: ED Physician Mu Zavaleta HPI: 08/23 03:43 This 45 yrs old Female presents to ER via Ambulatory with complaints of mh7 Allergic Reaction. 03:43 The patient presents with itching, rash, redness of skin. Onset: The symptoms/episode mh7 began/occurred yesterday. Associated signs and symptoms: Pertinent positives: rash, itching, Pertinent negatives: abdominal pain, Altered mental status chest pain, dysphagia, fever, headache, hives, Light headed nausea, shortness of breath, swelling, Syncope vomiting. Possible causes: hair dye. At home the patient or guardian has treated the symptoms with Benadryl. Severity of symptoms: At their worst the symptoms were moderate last night, in the emergency department the symptoms are unchanged. The patient has experienced similar episodes in the past, a few times. 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 - Social history:: Smoking status: Patient reports the use of cigarette tobacco products, denies chronic smoking, but will smoke occasionally, Patient uses alcohol, occasionally. ROS: 03:43 Constitutional: Negative for fever, chills, and weight loss, Eyes: Negative for injury, mh7 pain, redness, and discharge, ENT: Negative for injury, pain, and discharge, Neck: Negative for injury, pain, and swelling, Cardiovascular: Negative for chest pain, palpitations, and edema, Respiratory: Negative for shortness of breath, cough, wheezing, and pleuritic chest pain, Abdomen/GI: Negative for abdominal pain, nausea, vomiting, diarrhea, and constipation, Back: Negative for injury and pain, : Negative for injury, bleeding, discharge, and swelling, MS/Extremity: Negative for injury and deformity, Neuro: Negative for headache, weakness, numbness, tingling, and seizure, Psych: Negative for depression, anxiety, suicide ideation, homicidal ideation, and hallucinations, Endocrine: Negative for neck swelling, polydipsia, polyuria, polyphagia, and marked weight changes, Hematologic/Lymphatic: Negative for swollen nodes, abnormal bleeding, and unusual bruising. Exam: 03:43 Constitutional: This is a well developed, well nourished patient who is awake, alert, mh7 and in no acute distress. Eyes: Pupils equal round and reactive to light, extra-ocular motions intact. Lids and lashes normal. Conjunctiva and sclera are non-icteric and not injected. Cornea within normal limits. Periorbital areas with no swelling, redness, or edema. ENT: Nares patent. No nasal discharge, no septal abnormalities noted. Tympanic membranes are normal and external auditory canals are clear. Oropharynx with no redness, swelling, or masses, exudates, or evidence of obstruction, uvula midline. Mucous membranes moist. Neck: Trachea midline, no thyromegaly or masses palpated, and no cervical lymphadenopathy. Supple, full range of motion without nuchal rigidity, or vertebral point tenderness. No Meningismus. Chest/axilla: Normal chest wall appearance and motion. Nontender with no deformity. No lesions are appreciated. Cardiovascular: Regular rate and rhythm with a normal S1 and S2. No gallops, murmurs, or rubs. Normal PMI, no JVD. No pulse deficits. Respiratory: Lungs have equal breath sounds bilaterally, clear to auscultation and percussion. No rales, rhonchi or wheezes noted. No increased work of breathing, no retractions or nasal flaring. Abdomen/GI: Soft, non-tender, with normal bowel sounds. No distension or tympany. No guarding or rebound. No evidence of tenderness throughout. Back: No spinal tenderness. No costovertebral tenderness. Full range of motion. MS/ Extremity: Pulses equal, no cyanosis. Neurovascular intact. Full, normal range of motion. Neuro: Awake and alert, GCS 15, oriented to person, place, time, and situation. Cranial nerves II-XII grossly intact. Motor strength 5/5 in all extremities. Sensory grossly intact. Cerebellar exam normal. Normal gait. Psych: Awake, alert, with orientation to person, place and time. Behavior, mood, and affect are within normal limits. 03:49 Head/face: Noted is erythema, that is mild, of the scalp, rash, consistent with mh7 contact dermatitis 03:49 Skin: rash can be described as erythematous, contact dermatitis, on the scalp. Vital Signs: 03:08 BP 112 / 71; Pulse 88; Resp 18 S; Temp 99.4(O); Pulse Ox 98% on R/A; Weight 53.07 kg bb (R); Height 5 ft. 3 in. (160.02 cm) (R); Pain 7/10; 03:30 BP 102 / 67; Pulse 80; Resp 16; Pulse Ox 96% ; sf 04:00 BP 97 / 64; Pulse 79; Resp 16; Pulse Ox 97% ; sf 04:30 BP 95 / 66; Pulse 73; Resp 16; Pulse Ox 97% ; sf 05:00 BP 96 / 75; Pulse 78; Resp 16; Pulse Ox 97% ; sf 03:08 Body Mass Index 20.73 (53.07 kg, 160.02 cm) MDM: 05:22 Differential diagnosis: anaphylaxis, angioedema, non IgE mediated drug reaction mh7 urticaria, Contact Dermatitis. Data reviewed: vital signs, nurses notes, old medical records. Data interpreted: Pulse oximetry: on room air is 97 %. Interpretation: normal. 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 Response to treatment: the patient's symptoms have markedly improved after treatment. 05:24 Patient medically screened. [facility] Administered Medications: 03:35 Drug: predniSONE 60 mg Route: PO; sf 04:38 Follow up: Response: No adverse reaction sf 03:35 Drug: Pepcid (famotidine) 20 mg Route: PO; sf 04:38 Follow up: Response: No adverse reaction sf 03:35 Drug: Benadryl (diphenhydrAMINE) 50 mg Route: PO; sf 04:37 Follow up: Response: No adverse reaction sf Disposition: 08/23/20 05:24 Discharged to Home. Impression: Allergic contact dermatitis due to dyes. - Condition is Stable. - Discharge Instructions: Contact Dermatitis, [id number]. - Prescriptions for Benadryl 25 mg Oral Capsule - take 1 capsule by ORAL route every 6 hours As needed; 20 tablet. Pepcid 20 mg Oral Tablet - take 1 tablet by ORAL route every 12 hours for 5 days; 10 tablet. Prednisone 20 mg Oral Tablet - take 2 tablet by ORAL route once daily for 5 days; 10 tablet. - Medication Reconciliation Form, Thank You Letter, Antibiotic Education, Prescription Opioid Use form. - Follow up: Private Physician; When: 1 - 2 days; Reason: Worsening of condition, Recheck today's complaints, Continuance of care, Re-evaluation by your physician. Follow up: Armin Hull MD; When: 1 - 2 days; Reason: Worsening of condition, Recheck today's complaints. - Problem is new. - Symptoms have improved. Signatures: Paula Solis RN RN bb Mu Zavaleta MD MD 7 Claude Mejias RN RN sf Corrections: (The following items were deleted from the chart) 05:36 05:24 08/23/2020 05:24 Discharged to Home. Impression: Allergic contact dermatitis due sf to dyes. Condition is Stable. Forms are Medication Reconciliation Form, Thank You Letter, Antibiotic Education, Prescription Opioid Use. Follow up: Private Physician; When: 1 - 2 days; Reason: Worsening of condition, Recheck today's complaints, Continuance of care, Re-evaluation by your physician. Follow up: Armin Hull; When: 1 - 2 days; Reason: Worsening of condition, Recheck today's complaints. Problem is new. Symptoms have improved. mh7
--- NOTE | 2020-08-23 05:24 | ER ---
Nurse's Notes [facility] Name: Debra Harris Age: 45 yrs Sex: Female : 1975 Arrival Date: 08/23/2020 Time: 02:55 Bed 19 Private MD: Diagnosis: Allergic contact dermatitis due to dyes Presentation: 08/23 03:08 Chief complaint: Patient states: she was getting her hair dyed earlier today and bb noticed she started having an allergic reaction with redness and whelps to her scalp and neck she tried to take Benadryl earlier today but it is just getting worse. Coronavirus screen: At this time, the client does not indicate any symptoms associated with coronavirus-19. Ebola Screen: No symptoms or risks identified at this time. Onset: The symptoms/episode began/occurred suddenly, yesterday. Anaphylaxis evaluation, no signs or symptoms of anaphylaxis were noted. Initial Sepsis Screen: Does the patient meet any 2 criteria? No. Patient's initial sepsis screen is negative. Does the patient have a suspected source of infection? No. Patient's initial sepsis screen is negative. Risk Assessment: Do you want to hurt yourself or someone else? Patient reports no desire to harm self or others. Onset of symptoms was August 22, 2020. 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 - Social history:: Smoking status: Patient reports the use of cigarette tobacco products, denies chronic smoking, but will smoke occasionally, Patient uses alcohol, occasionally. Screenin:30 Abuse screen: Denies threats or abuse. Denies injuries from another. Nutritional sf screening: No deficits noted. Tuberculosis screening: No symptoms or risk factors identified. Never had TB. Possible symptoms: None Risk factors: None. Fall Risk None identified. No fall in past 12 months (0 pts). No secondary diagnosis (0 pts). No IV (0 pts). Ambulatory Aid- None/Bed Rest/Nurse Assist (0 pts). Gait- Normal/Bed Rest/Wheelchair (0 pts) Mental Status- Oriented to own ability (0 pts). Total Jones Fall Scale indicates No Risk (0-24 pts). Assessment: 03:30 General: Appears in no apparent distress. comfortable, Behavior is calm, cooperative. sf Pain: Complains of pain in scalp. Neuro: Level of Consciousness is awake, alert, Oriented to person, place, time, situation. Cardiovascular: No deficits noted. Patient's skin is warm and dry. Respiratory: No deficits noted. Airway is patent Respiratory effort is even, unlabored, Respiratory pattern is regular, symmetrical, Breath sounds are clear bilaterally. Denies cough, shortness of breath labored breathing, pain with respiration, pain with cough, pain with movement, air hunger. GI: No signs and/or symptoms were reported involving the gastrointestinal system. : No signs and/or symptoms were reported regarding the genitourinary system. EENT: No signs and/or symptoms were reported regarding the EENT system. Derm: Skin is pink, warm \T\ dry. Rash noted that is red, raised, urticaria, on scalp Reports burning, itching, pain. Musculoskeletal: No signs and/or symptoms reported regarding the musculoskeletal system. 04:38 Reassessment: Patient appears in no apparent distress at this time. Patient and/or sf family updated on plan of care and expected duration. Pain level reassessed. Patient is alert, oriented x 3, equal unlabored respirations, skin warm/dry/pink. Patient reports no change to itching and burning but redness is notably less Patient states symptoms have improved. 05:22 Reassessment: Patient appears in no apparent distress at this time. No changes from sf previously documented assessment. Patient and/or family updated on plan of care and expected duration. Pain level reassessed. Patient is alert, oriented x 3, equal unlabored respirations, skin warm/dry/pink. Vital Signs: 03:08 BP 112 / 71; Pulse 88; Resp 18 S; Temp 99.4(O); Pulse Ox 98% on R/A; Weight 53.07 kg bb (R); Height 5 ft. 3 in. (160.02 cm) (R); Pain 7/10; 03:30 BP 102 / 67; Pulse 80; Resp 16; Pulse Ox 96% ; sf 04:00 BP 97 / 64; Pulse 79; Resp 16; Pulse Ox 97% ; sf 04:30 BP 95 / 66; Pulse 73; Resp 16; Pulse Ox 97% ; sf 05:00 BP 96 / 75; Pulse 78; Resp 16; Pulse Ox 97% ; sf 03:08 Body Mass Index 20.73 (53.07 kg, 160.02 cm) ED Course: 02:55 Patient arrived in ED. cf2 03:11 Triage completed. bb 03:12 Arm band placed on Patient placed in an exam room, on a stretcher, on pulse oximetry. 03:15 Mu Zavaleta MD is Attending Physician. [facility] 03:19 Claude Mejias, RN is Primary Nurse. sf 03:30 Patient has correct armband on for positive identification. Bed in low position. Call sf light in reach. Side rails up X 1. Pulse ox on. NIBP on. Door closed. Noise minimized. Visitors limited. Lights dimmed. 03:30 No provider procedures requiring assistance completed. Patient did not have IV access sf during this emergency room visit. 05:23 Armin Hull MD is Referral Physician. [facility] Administered Medications: 03:35 Drug: predniSONE 60 mg Route: PO; sf 04:38 Follow up: Response: No adverse reaction sf 03:35 Drug: Pepcid (famotidine) 20 mg Route: PO; sf 04:38 Follow up: Response: No adverse reaction sf 03:35 Drug: Benadryl (diphenhydrAMINE) 50 mg Route: PO; sf 04:37 Follow up: Response: No adverse reaction sf Outcome: 05:24 Discharge ordered by . [facility] 05:36 Discharged to home ambulatory. sf 05:36 Condition: stable 05:36 Discharge instructions given to patient, Instructed on discharge instructions, follow up and referral plans. medication usage, Demonstrated understanding of instructions, follow-up care, medications, Prescriptions given X 3. 05:36 Patient left the ED. sf Signatures: Paula Solis RN RN Francisco Cowan cf2 Mu Zavaleta MD MD Claude Whitaker RN RN
[2020-08-23 15:04] VITALS: TEMP 99.4
[2020-08-23 15:07] VITALS: O2SAT 97
[2020-08-23 15:09] VITALS: BP 96/75
== END 2020-08-23 05:36 | disposition home or self-care (01) ==
LOC: ER 02:49
DX: L23.4 Allergic contact dermatitis due to dyes (principal); F17.210 Nicotine dependence, cigarettes, uncomplicated; F41.9 Anxiety disorder, unspecified
CPT/HCPCS: 99283; J7512

== ENCOUNTER 2020-09-07 21:36 | Emergency (ER) | payer OTHER ==
--- OUTSIDE RECORDS SUMMARY | 2020-09-07 21:41 | XMS REPORT | Continuity of Care Document ---
:1975 Author Organization [facility] t Address [address] 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 Social History Social Habit Start Date Stop Date Quantity Comments Source Sex Assigned At [facility] Medications Ordered Filled Start Stop Current Ordering Indication Dosage Frequency Signature Comments Components Source Medication Medication Date Date Medication? Clinician (SIG) Name Name ALPRAZolam Yes 1mg Q.5D Take [address] (XANAX) 1 05-17 by mouth 2 [facility] - MG tablet 17:41: (two) Medical 29 times Center daily. buprenorphi 2018-0 Yes 1{tbl} Q.5D Place [address] ne-naloxone - tablet [facility] - (SUBOXONE) 17:41: under the Me dical 2-0.5 mg 29 tongue 2 Center Subl (two) times daily. Procedures This patient has no known procedures. Encounters Start End Encounter Admission Attending Care Care Encounter Source Date/Time Date/Time Type Type Clinicians Facility Department ID 2020-06-25 2020-06-26 Emergency [facility] [id number] 22:39:00 06:09:00 Ehsan Hallman [id number] [place] [id number] [place] [id number] 2020-06-25 2020-06-25 Orders Doctor JULISA [id number] 00:00:00 00:00:00 Only Unassigned, KATI 350.1.13.10 [place] [facility] [id number] 2019-11-02 2019-11-02 Office Mukund [facility] [id number] 16:50:16 17:30:14 Visit Mary Hallman [id number] [place] [id number] Professio [id number] [facility] 134 Building Results Test Description Test Time Test Comments Results Result [facility] e Comments TISSUE EXAM 2017-05-18 Surgical Pathology 13:38:00 Report Case: [id number] Authorizing Provider: Jethro Duron MD Collected: 05/14/2017 1806 Ordering Location: [address] Received: 05/17/2017 0950 Pathologist: Torrey Cervantes MD Specimen: Soft Tissue, Other, Wedge gastrectomy PART A PORTION OF STOMACH, PARTIAL GASTRECTOMY:BENIGN GASTRIC MUCOSA WITH MILD CONGESTION.NEGATIVE FOR DYSPLASIA OR INVASIVE CARCINOMA. Signing Pathologist Direct Phone Line: [phone] [facility] signed by Torrey Cervantes MD on 05/18/2017 at 1:38 [id number] gastrectomyThe specimen is received in a formalin-filled container labeled with the patient's information and consists of a wedge gastrectomy of stomach measuring 3 x 1.5 x 1 cm with a staple line. Grossly no suspicious areas are seen. The mucosa is toney and hemorrhagic. Section code: [employer] staple line and random section of gastric tissue, tissue from staple line is inked le. CG/ew RAD, CHEST, 1 2017-05-17 Reason for FINAL REPORT PATIENT VIEW, NON DEPT 05:29:00 exam:->post ID: [id number] RAD, opShould this CHEST, 1 VIEW, NON [...] cervical soft tissues. Signed: JR Betancourt Robert MDRthe [facility] of [facility] Verified Date/Time: 05/17/2017 05:29:48 Reading Location: [facility] C013Y CT Body Reading Room ESIUM 2017-05-17 04:41:00 Test Item Value Reference Range Interpretation Comme nts MAGNESIUM (BEAKER) (test code = 627) 1.8 mg/dL 1.6-2.6 BASIC METABOLIC [id number] 04:41:00 Test Item Value Reference Range Interpretation [...] NOT APPLICABLE FOR DIALYSIS PATIEN TS. PROTHROMBIN [id number] 04:27:00 Test Item Value Reference Range Interpretation [...] PERCENT (BEAKER) (test code = 2801) [place], [id number] 12:54:00Reason for exam:->s/p hiatal hernia repair FINAL [...] MDReport Verified Date/Time: 05/16/2017 12:54:45 Reading Location: [facility] C013X [facility] Consult Reading Room CALCIUM, [id number] 06:35:00 Test Item Value Reference Range Interpretation Comments CALCIUM IONIZED (BEAKER) (test 1.02 mmol/L 1.12-1.27 L code = 698) PH, BLOOD (BEAKER) (test code = 7.39 1810) [id number] 05:44:00 Test Item Value Reference Range Interpretation Comments MAGNESIUM (BEAKER) 1.8 mg/dL 1.6-2.6 Specimen slightly (test code = 627) hemolyzed BASIC METABOLIC [id number] 05:44:00 Test Item Value Reference Range Interpretation [...] NOT APPLICABLE FOR DIALYSIS PATIEN TS. PROTHROMBIN [id number] 05:33:00 Test Item Value Reference Range Interpretation [...] = 2801) RAD, CHEST, 1 VIEW, NON [id number] 14:45:00Reason for exam:->s/p left chest tube removalShould [...] MDReport Verified Date/Time: 05/15/2017 14:45:11 Reading Location: [facility] C013X Ortho Consult Reading Room RAD, CHEST, 1 VIEW, NON [id number] 07:32:00while patient is intubated or has chest [...] MDReport Verified Date/Time: 05/15/2017 07:32:43 Reading Location: [facility] B1 C013Y CT Body Reading Room PROTHROMBIN [id number] 05:07:00 Test Item Value Reference Range Interpretation Comments PROTIME (BEAKER) (test code = 15.8 seconds 11.7-14.7 H 759) INR (BEAKER) (test code = 370) 1.3 <=5.9 RECOMMENDED COUMADIN/WARFARIN INR THERAPY RANGESSTANDARD DOSE: 2.0 - 3.0 Includes: PROPHYLAXIS forvenous thrombosis, systemic embolization; TREATMENT for venous thrombosis and/or pulmonary embolus.HIGH RISK: Target INR is 2.5-3.5 for patients with mechanical heart valves.BASIC METABOLIC [id number] 05:07:00 Test Item Value Reference Range Interpretation [...] S NOT APPLICABLE FOR DIALYSIS PATIEN TS. [id number] 05:03:00 Test Item Value Reference Range Interpretation Comments MAGNESIUM (BEAKER) (test code = 2.7 mg/dL 1.6-2.6 H 627) CBC W/PLT COUNT & AUTO [id number] 05:00:00 Test Item Value Reference Range Interpretation [...] PERCENT (BEAKER) (test code = 2801) CALCIUM, [id number] 23:02:00 Test Item Value Reference Range Interpretation Comments CALCIUM IONIZED (BEAKER) (test 0.92 mmol/L 1.12-1.27 L code = 698) PH, BLOOD (BEAKER) (test code = 7.38 1810) [id number] 22:53:00 Test Item Value Reference Range Interpretation Comments MAGNESIUM (BEAKER) (test code = 1.9 mg/dL 1.6-2.6 627) BASIC METABOLIC [id number] 22:53:00 Test Item Value Reference Range Interpretation [...] PATIEN TS. CBC W/PLT COUNT & AUTO [id number] 22:47:00 Test Item Value Reference Range Interpretation [...] = 2801) RAD, CHEST, 1 VIEW, NON [id number] 21:18:00Reason for exam:->ptxIs the patient ?->NoShould this [...] MDReport Verified Date/Time: 05/14/2017 21:18:07 Reading Location: [address] ReadingRoom BLOOD GAS, [id number] 17:28:00 Test Item Value Reference Range Interpretation [...] (test code = 1819) 50 SODIUM NA-STAT [id number] 17:28:00 Test Item Value Reference Range Interpretation Comments SODIUM (BEAKER) (test code = 381) 134 meq/L 135-148 L POTASSIUM-STAT [id number] 17:28:00 Test Item Value Reference Range Interpretation Comments POTASSIUM (BEAKER) (test code = 3.4 meq/L 3.6-5.5 L 379) GLUCOSE-STAT [id number] 17:28:00 Test Item Value Reference Range Interpretation Comments GLUCOSE RANDOM (BEAKER) (test code 185 mg/dL 70-110 H = 652) HGB/HCT (H&H) - STAT [id number] 17:28:00 Test Item Value Reference Range Interpretation Comments HEMOGLOBIN (BEAKER) (test code = 11.0 GM/DL 12.0-15.0 L 410) HEMATOCRIT (BEAKER) (test code = 32.0 % 36.0-45.0 L 411) BLOOD GAS, [id number] 15:47:00 Test Item Value Reference Range Interpretation [...] (test code = 1819) 67.0 % GLUCOSE-STAT [id number] 15:47:00 Test Item Value Reference Range Interpretation Comments GLUCOSE RANDOM (BEAKER) (test code 158 mg/dL 70-110 H = 652) SODIUM NA-STAT [id number] 15:46:00 Test Item Value Reference Range Interpretation Comments SODIUM (BEAKER) (test code = 381) 137 meq/L 135-148 POTASSIUM-STAT [id number] 15:46:00 Test Item Value Reference Range Interpretation Comments POTASSIUM (BEAKER) (test code = 3.7 meq/L 3.6-5.5 379) HGB/HCT (H&H) - STAT [id number] 15:46:00 Test Item Value Reference Range Interpretation Comments HEMOGLOBIN (BEAKER) (test code = 12.5 g/dL 12.0-15.0 410) HEMATOCRIT (BEAKER) (test code = 37.0 % 36.0-45.0 411) URINE [id number] 15:11:00 Test Item Value Reference Range Interpretation Comments CULTURE (BEAKER) (test 30-39,000 col/mL skin code = 1095) cindy BLOOD GAS, [id number] 14:45:00 Test Item Value Reference Range Interpretation [...] (test code = 1819) 50.0 % POTASSIUM-STAT [id number] 14:45:00 Test Item Value Reference Range Interpretation Comments POTASSIUM (BEAKER) (test code = 3.3 meq/L 3.6-5.5 L 379) HGB/HCT (H&H) - STAT [id number] 14:45:00 Test Item Value Reference Range Interpretation Comments HEMOGLOBIN (BEAKER) (test code = 11.5 g/dL 12.0-15.0 L 410) HEMATOCRIT (BEAKER) (test code = 34.0 % 36.0-45.0 L 411) GLUCOSE-STAT [id number] 14:44:00 Test Item Value Reference Range Interpretation Comments GLUCOSE RANDOM (BEAKER) (test code 105 mg/dL 70-110 = 652) SODIUM NA-STAT [id number] 14:44:00 Test Item Value Reference Range Interpretation Comments SODIUM (BEAKER) (test code = 381) 137 meq/L 135-148 SCREEN, [id number] 13:36:00 Test Item Value Reference Range Interpretation Comments TEST URINE (BEAKER) (test Negative code = 583) BLOOD [id number] 10:00:00 Test Item Value Reference Range Interpretation Comments CULTURE (BEAKER) (test No growth in 5 days code = 1095) RAD, CHEST, 1 VIEW, NON [id number] 07:28:00Reason for exam:->post opShould this be performed at the bedside?->YesFINAL REPORT Chest one view compared to May 13 Discussion: Unchanged left hemidiaphragm elevation. Cardiopulmonary appearance is similar. No effusion or pneumothorax. No atypical line or tube position. Signed: Julisa Partida Verified Date/Time: 05/14/2017 07:28:59 Reading Location: [address] Neuro Reading Room TROPONIN [id number] 05:14:00 Test Item Value Reference Range Interpretation [...] failure, acidosis, acute neurological disease, and persistent tachyarrhythmia.[id number] 05:03:00 Test Item Value Reference Range Interpretation Comments MAGNESIUM (BEAKER) (test code = 1.7 mg/dL 1.6-2.6 627) BASIC METABOLIC [id number] 05:03:00 Test Item Value Reference Range Interpretation [...] PATIEN TS. CBC W/PLT COUNT & AUTO [id number] 04:51:00 Test Item Value Reference Range Interpretation [...] 0-1 PERCENT (BEAKER) (test code = 2801) PT/[id number] 04:50:00 Test Item Value Reference Range Interpretation [...] 2.5-3.5 for patients with mechanical heart valves.PROTHROMBIN [id number] 04:49:00 Test Item Value Reference Range Interpretation Comments PROTIME (BEAKER) (test code = 14.3 seconds 11.7-14.7 759) INR (BEAKER) (test code = 370) 1.1 <=5.9 RECOMMENDED COUMADIN/WARFARIN INR THERAPY RANGESSTANDARD DOSE: 2.0 - 3.0 Includes: PROPHYLAXIS forvenous thrombosis, systemic embolization; TREATMENT for venous thrombosis and/or pulmonary embolus.HIGH RISK: Target INR is 2.5-3.5 for patients with mechanical heart valves.TROPONIN [id number] 19:19:00 Test Item Value Reference Range Interpretation [...] acute neurological disease, and persistent tachyarrhythmia.URINALYSIS W/ [id number] 17:11:00 Test Item Value Reference Range Interpretation [...] Clean Catch = 2795) TSH/FREE T4 IF [id number] 16:23:00 Test Item Value Reference Range Interpretation Comments THYROID STIMULATING HORMONE 1.07 uIU/mL 0.35-4.94 (BEAKER) (test code = 772) [id number] 15:56:00 Test Item Value Reference Range Interpretation Comments POTASSIUM (BEAKER) (test code = 4.3 meq/L 3.5-5.1 379) CREATINE KINASE (CK), TOTAL AND [id number] 14:21:00 Test Item Value Reference Range Interpretation Comments CREATINE KINASE TOTAL (BEAKER) 19 U/L 29-200 L (test code = 380) CREATINE KINASE-MB (BEAKER) (test 0.5 ng/mL 0.0-6.6 code = 750) CREATINE KINASE-MB INDEX (BEAKER) 2.6 % (test code = 395) CK-MB Reference Range:<6.7 Normal6.7-10.0 Borderline>10.0 AbnormalTROPONIN [id number] 14:20:00 Test Item Value Reference Range Interpretation [...] failure, acidosis, acute neurological disease, and persistent tachyarrhythmia.[id number] 13:35:00 Test Item Value Reference Range Interpretation Comments MAGNESIUM (BEAKER) (test code = 2.5 mg/dL 1.6-2.6 627) PROTHROMBIN [id number] 05:20:00 Test Item Value Reference Range Interpretation Comments PROTIME (BEAKER) (test code = 14.3 seconds 11.7-14.7 759) INR (BEAKER) (test code = 370) 1.1 <=5.9 RECOMMENDED COUMADIN/WARFARIN INR THERAPY RANGESSTANDARD DOSE: 2.0 - 3.0 Includes: PROPHYLAXIS forvenous thrombosis, systemic embolization; TREATMENT for venous thrombosis and/or pulmonary embolus.HIGH RISK: Target INR is 2.5-3.5 for patients with mechanical heart valves.[id number] 05:19:00 Test Item Value Reference Range Interpretation Comments PHOSPHORUS (BEAKER) (test code = 4.1 mg/dL 2.3-4.7 604) [id number] 05:19:00 Test Item Value Reference Range Interpretation Comments MAGNESIUM (BEAKER) (test code = 2.0 mg/dL 1.6-2.6 627) BASIC METABOLIC [id number] 05:19:00 Test Item Value Reference Range Interpretation [...] PATIEN TS. CBC W/PLT COUNT & AUTO [id number] 04:56:00 Test Item Value Reference Range Interpretation [...] = 2801) RAD, CHEST, 1 VIEW, NON [id number] 04:12:00Reason for exam:->post opShould this be performed at the bedside?->YesFINAL REPORT CLINICAL INDICATION: Postop Comparison: 05/12/2017 The cardiomed iastinal contours are stable. The left hemidiaphragm remains elevated. There is no focal consolidation, pneumothorax, large pleural effusion or evidence of overt pulmonary edema. Support lines are stable. Signed: Noah Porter Verified Date/Time: 05/13/2017 04:12:27 Reading Location: [address] Reading Room [id number] 20:35:00 Test Item Value Reference Range Interpretation Comments MAGNESIUM (BEAKER) (test code = 1.9 mg/dL 1.6-2.6 627) BASIC METABOLIC [id number] 20:35:00 Test Item Value Reference Range Interpretation [...] PATIEN TS. CBC W/PLT COUNT & AUTO [id number] 20:26:00 Test Item Value Reference Range Interpretation [...] = 2801) RAD, CHEST, 1 VIEW, NON [id number] 04:20:00Reason for exam:->post opShould this be performed at the bedside?->YesFINAL REPORT CLINICAL INDICATION: Postop Comparison: 05/11/2017 The cardiomed iastinal contours are stable. The left hemidiaphragm remains elevated. Retrocardiac opacity in the left lung may reflect atelectasis but pneumonitis should be excluded clinically. There is no pneumothorax. Support lines are stable. Signed: Noah Porter MDReport Verified Date/Time: 05/12/2017 04:20:19 Reading Location: [address] Reading Room [id number] 04:14:00 Test Item Value Reference Range Interpretation Comments MAGNESIUM (BEAKER) (test code = 1.9 mg/dL 1.6-2.6 627) BASIC METABOLIC [id number] 04:14:00 Test Item Value Reference Range Interpretation [...] NOT APPLICABLE FOR DIALYSIS PATIEN TS. PROTHROMBIN [id number] 04:09:00 Test Item Value Reference Range Interpretation [...] = 2801) RAD, CHEST, 1 VIEW, NON [id number] 07:47:00Reason for exam:->post opShould this be performed [...] MDReport Verified Date/Time: 05/11/2017 07:47:20 Reading Location: [facility] Radiology Reading Room PROTHROMBIN [id number] 04:54:00 Test Item Value Reference Range Interpretation [...] 0-1 PERCENT (BEAKER) (test code = 2801) [id number] 04:39:00 Test Item Value Reference Range Interpretation Comments MAGNESIUM (BEAKER) (test code = 2.2 mg/dL 1.6-2.6 627) BASIC METABOLIC [id number] 04:39:00 Test Item Value Reference Range Interpretation [...] PATIEN TS. CREATINE KINASE (CK), TOTAL AND [id number] 00:14:00 Test Item Value Reference Range Interpretation Comments CREATINE KINASE TOTAL (BEAKER) 44 U/L 29-200 (test code = 380) CREATINE KINASE-MB (BEAKER) (test 0.7 ng/mL 0.0-6.6 code = 750) CREATINE KINASE-MB INDEX (BEAKER) 1.6 % (test code = 395) CK-MB Reference Range:<6.7 Normal6.7-10.0 Borderline>10.0 AbnormalTROPONIN [id number] 23:38:00 Test Item Value Reference Range Interpretation [...] failure, acidosis, acute neurological disease, and persistent tachyarrhythmia.[id number] 23:29:00 Test Item Value Reference Range Interpretation Comments MAGNESIUM (BEAKER) 1.7 mg/dL 1.6-2.6 Specimen slightly (test code = 627) hemolyzed [id number] 23:29:00 Test Item Value Reference Range Interpretation Comments PHOSPHORUS (BEAKER) 3.5 mg/dL 2.3-4.7 Specimen slightly (test code = 604) hemolyzed BASIC METABOLIC [id number] 23:29:00 Test Item Value Reference Range Interpretation [...] DIALYSIS PATIEN TS. LACTIC ACID, VENOUS, WHOLE [id number] 23:26:00 Test Item Value Reference Range Interpretation Comments LACTATE BLOOD VENOUS (2) (BEAKER) 1.2 mmol/L 0.5-2.2 (test code = 2872) Effective 09/17/2015: Units/Reference Range ChangeNew: 0.5-2.2 mmol/L Previous: 5-20 mg/dLBLOOD GAS, [id number] 23:02:00 Test Item Value Reference Range Interpretation [...] Blood looks arterial.RAD, CHEST, 1 VIEW, NON [id number] 19:28:00Reason for exam:->check picc placement Should this [...] definite pleural effusion is seen. Signed: Rika Cervanteseport Verified Date/Time: 05/10/2017 19:28:53 Reading Location: [address] Consult Reading Room BLOOD GAS, [id number] 07:29:00 Test Item Value Reference Range Interpretation [...] (BEAKER) (test code = 1819) 21.0 % [id number] 06:41:00 Test Item Value Reference Range Interpretation Comments MAGNESIUM (BEAKER) (test code = 1.6 mg/dL 1.6-2.6 627) BASIC METABOLIC [id number] 06:41:00 Test Item Value Reference Range Interpretation [...] NOT APPLICABLE FOR DIALYSIS PATIEN TS. PROTHROMBIN [id number] 06:11:00 Test Item Value Reference Range Interpretation [...] Previous: 5-20 mg/dLCBC W/PLT COUNT & AUTO [id number] 06:02:00 Test Item Value Reference Range Interpretation [...] code = 2801) RAD, ABDOMEN/KUB, 1 VIEW [id number] 04:38:00Reason for exam:->abdominao painFINAL REPORT CLINICAL HISTORY: [...] MDReport Verified Date/Time: 05/10/2017 04:38:02 Reading Location: [address] Room RAD, CHEST, 1 VIEW, NON [id number] 04:34:00Reason for exam:->post opShould this be performed at the bedside?->YesFINAL REPORT CLINICAL INDICATION: Postop Comparison: 05/09/2017 The cardiomediastinal contours are stable. The left hemidiaphragm remains elevated. Patchy opacity in the left low er lung may reflect atelectasis but pneumonitis should be excluded clinically. There is no pneumothorax. A nasogastric tube remains in place. Signed: Noah Porter MDReport Verified Date/Time: 05/10/2017 04:34:08 Reading Location: [address] Reading Room BASIC METABOLIC [id number] 18:31:00 Test Item Value Reference Range Interpretation [...] PATIEN TS. RAD, CHEST, 1 VIEW, NON [id number] 17:05:00Reason for exam:->NGT repositioned Should this be [...] MDReport Verified Date/Time: 05/09/2017 17:05:43 Reading Location: [facility] B1 C013Y CT Body Reading Room IC ACID, ARTERIAL, WHOLE [id number] 17:02:00 Test Item Value Reference Range Interpretation Comments LACTATE BLOOD 1.5 mmol/L 0.5-2.2 Specimen sligh tly ARTERIAL (2) (BEAKER) hemoly zed (test code = 2874) Effective 09/17/2015: Units/Reference Range ChangeNew: 0.5-2.2 mmol/L Previous: 5-20 mg/dLBLOOD GAS, [id number] 16:34:00 Test Item Value Reference Range Interpretation [...] 21.0 % CBC W/PLT COUNT & AUTO [id number] 16:33:00 Test Item Value Reference Range Interpretation [...] PERCENT (BEAKER) (test code = 2801) SCREEN, [id number] 12:41:00 Test Item Value Reference Range Interpretation Comments TEST URINE (BEAKER) (test Negative code = 583) LACTIC ACID, ARTERIAL, WHOLE [id number] 12:02:00 Test Item Value Reference Range Interpretation Comments LACTATE BLOOD ARTERIAL (2) 1.0 mmol/L 0.5-2.2 (BEAKER) (test code = 2874) Effective 09/17/2015: Units/Reference Range ChangeNew: 0.5-2.2 mmol/L Previous: 5-20 mg/dLRAD, CHEST, 1 VIEW, NON [id number] 11:21:00Reason for exam:- >postopShould this be performed [...] MDReport Verified Date/Time: 05/09/2017 11:21:35 Reading Location: [facility] C013Y CT Body Reading Room Electronically signed by: ELIESER GROSSMAN M.D. on05/09/2017 11:21 AMBASIC METABOLIC [id number] 10:24:00 Test Item Value Reference Range Interpretation [...] PATIEN TS. CBC W/PLT COUNT & AUTO [id number] 09:28:00 Test Item Value Reference Range Interpretation [...] PERCENT (BEAKER) (test code = 2801) CALCIUM, [id number] 08:45:00 Test Item Value Reference Range Interpretation Comments CALCIUM IONIZED (BEAKER) (test 0.98 mmol/L 1.12-1.27 L code = 698) PH, BLOOD (BEAKER) (test code = 7.43 1810) BLOOD GAS, [id number] 08:45:00 Test Item Value Reference Range Interpretation [...] code = 1819) 70.0 % SODIUM NA-STAT [id number] 08:45:00 Test Item Value Reference Range Interpretation Comments SODIUM (BEAKER) (test code = 381) 134 meq/L 135-148 L HGB/HCT (H&H) - STAT [id number] 08:45:00 Test Item Value Reference Range Interpretation Comments HEMOGLOBIN (BEAKER) (test code = 11.8 g/dL 12.0-15.0 L 410) HEMATOCRIT (BEAKER) (test code = 35.0 % 36.0-45.0 L 411) GLUCOSE-STAT [id number] 08:44:00 Test Item Value Reference Range Interpretation Comments GLUCOSE RANDOM (BEAKER) (test code = 83 mg/dL 70-110 652) POTASSIUM-STAT [id number] 08:44:00 Test Item Value Reference Range Interpretation Comments POTASSIUM (BEAKER) (test code = 4.3 meq/L 3.6-5.5 379) BASIC METABOLIC [id number] 01:21:00 Test Item Value Reference Range Interpretation [...] DIALYSIS PATIEN TS. LACTIC ACID, VENOUS, WHOLE [id number] 01:04:00 Test Item Value Reference Range Interpretation Comments LACTATE BLOOD VENOUS (2) (BEAKER) 0.9 mmol/L 0.5-2.2 (test code = 2872) Effective 09/17/2015: Units/Reference Range ChangeNew: 0.5-2.2 mmol/L Previous: 5-20 mg/dLPOCT-GLUCOSE [id number] 00:46:00 Test Item Value Reference Range Interpretation Comments POC-GLUCOSE METER 87 mg/dL 70-[address] [facility] 6720 (BEAKER) (test code = [place] [address] 1538) PROTHROMBIN [id number] 00:37:00 Test Item Value Reference Range Interpretation [...]
[2020-09-08] MEDS ORDERED: DIPHENHYDRAMINE 25 MG TAB/CAP ONE (02:01)
[2020-09-08] MEDS ORDERED: predniSONE 20 MG TAB ONE (02:02)
[2020-09-08] MEDS ORDERED: FAMOTIDINE 20 MG TAB ONE (02:02)
--- NOTE | 2020-09-08 02:56 | ER ---
Nurse's Notes [facility] Name: Debra Harris Age: 45 yrs Sex: Female : 1975 Arrival Date: 09/07/2020 Time: 21:40 Bed 27 Private MD: Diagnosis: Rash and other nonspecific skin eruption Presentation: 09/07 22:01 Chief complaint: Patient states: she has been having an allergic reaction for a few bb days now but it is spreading. Coronavirus screen: At this time, the client does not indicate any symptoms associated with coronavirus-19. Ebola Screen: No symptoms or risks identified at this time. Onset: The symptoms/episode began/occurred several days ago. Anaphylaxis evaluation, no signs or symptoms of anaphylaxis were noted. Initial Sepsis Screen: Does the patient meet any 2 criteria? No. Patient's initial sepsis screen is negative. Does the patient have a suspected source of infection? No. Patient's initial sepsis screen is negative. Risk Assessment: Do you want to hurt yourself or someone else? Patient reports no desire to harm self or others. Onset of symptoms is unknown. 22:01 Method Of Arrival: Ambulatory bb 22:01 Acuity: ARANZA 4 bb Triage Assessment: 22:04 General: Appears in no apparent distress. uncomfortable, Behavior is calm, cooperative. bb Pain: Complains of pain in all over. Neuro: Level of Consciousness is awake, alert, obeys commands, Oriented to person, place, time, situation. Cardiovascular: Heart tones present Capillary refill < 3 seconds Patient's skin is warm and dry. Respiratory: Respiratory effort is even, unlabored, Respiratory pattern is regular. Derm: Rash noted that is macular, itchy. Musculoskeletal: Circulation, motion, and sensation intact. 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 - Social history:: Smoking status: Patient reports the use of cigarette tobacco products, denies chronic smoking, but will smoke occasionally. Screenin/26 00:11 Abuse screen: Denies threats or abuse. Nutritional screening: No deficits noted. bb Tuberculosis screening: No symptoms or risk factors identified. Fall Risk None identified. Assessment: 00:07 Reassessment: No changes from previously documented assessment. see triage assessment. bb 00:07 Respiratory: Airway is patent Respiratory effort is even, unlabored, Respiratory bb pattern is regular, Breath sounds are clear bilaterally. 00:54 Reassessment: Patient is alert, oriented x 3, equal unlabored respirations, skin bb warm/dry/pink. 01:56 Reassessment: Patient is alert, oriented x 3, equal unlabored respirations, skin bb warm/dry/pink. pt resting quietly awaiting dispo. 03:02 Reassessment: pt appears to be sleeping, eyes closed, resp unlabored, arouses easily, bb pt verbalized understanding of and agrees to plan of care discharge instructions given pt ambulated with steady gait to exit accompanied by family. Vital Signs: 09/07 22:01 BP 120 / 81; Pulse 77; Resp 16 S; Temp 97.8(TE); Pulse Ox 99% on R/A; Weight 53.07 kg bb (R); Height 5 ft. 3 in. (160.02 cm) (R); 09/08 00:54 BP 114 / 70; Pulse 78; Resp 16 S; Pulse Ox 97% on R/A; bb 01:57 BP 94 / 67; Pulse 74; Resp 14 S; Temp 98.6(TE); Pulse Ox 96% on R/A; bb 02:56 BP 101 / 56; Pulse 75; Resp 14; Pulse Ox 94% on R/A; bb 09/07 22:01 Body Mass Index 20.73 (53.07 kg, 160.02 cm) bb ED Course: 09/07 21:40 Patient arrived in ED. bp1 22:03 Triage completed. bb 22:04 Arm band placed on Patient placed in waiting room, Patient notified of wait time. bb 09/08 00:11 Patient has correct armband on for positive identification. Bed in low position. Call bb light in reach. 00:26 uM Zavaleta MD is Attending Physician. [facility] 02:56 Armin Hull MD is Referral Physician. [facility] 03:03 No provider procedures requiring assistance completed. Patient did not have IV access bb during this emergency room visit. Administered Medications: 01:46 Drug: Benadryl (diphenhydrAMINE) 50 mg Route: PO; bb 02:33 Follow up: Response: No adverse reaction bb 01:47 Drug: predniSONE 60 mg Route: PO; bb 02:33 Follow up: Response: No adverse reaction bb 01:47 Drug: Pepcid (famotidine) 20 mg Route: PO; bb 02:33 Follow up: Response: No adverse reaction bb Outcome: 02:56 Discharge ordered by MD. vieira 03:03 Discharged to home ambulatory, with family. bb 03:03 Condition: stable 03:03 Discharge instructions given to patient, Instructed on discharge instructions, follow up and referral plans. medication usage, Demonstrated understanding of instructions, follow-up care, medications, Prescriptions given X 3. 03:04 Patient left the ED. bb Signatures: Paula Solsi RN RN Juliana Friedman Maurice, MD MD mh7
--- NOTE | 2020-09-08 02:56 | EDPHYS ---
Physician Documentation [facility] Name: Debra Harris Age: 45 yrs Sex: Female : 1975 Arrival Date: 09/07/2020 Time: 21:40 Bed 27 Private MD: ED Physician Mu Zavaleta HPI: 09/08 02:41 This 45 yrs old Female presents to ER via Ambulatory with complaints of mh7 Allergic Reaction. 02:41 The patient presents with itching, rash. mh7 02:42 Onset: The symptoms/episode began/occurred 3 day(s) ago. Associated signs and symptoms: mh7 Pertinent positives: hives, rash, Pertinent negatives: abdominal pain, Altered mental status chest pain, dysphagia, fever, headache, Light headed nausea, shortness of breath, swelling, Syncope vomiting. Possible causes: The patient has no known obvious cause for the symptoms. At home the patient or guardian has treated the symptoms with nothing. Severity of symptoms: At their worst the symptoms were moderate yesterday, in the emergency department the symptoms are unchanged. 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 - Social history:: Smoking status: Patient reports the use of cigarette tobacco products, denies chronic smoking, but will smoke occasionally. ROS: 09/08 02:42 Constitutional: Negative for fever, chills, and weight loss, Eyes: Negative for injury, mh7 pain, redness, and discharge, ENT: Negative for injury, pain, and discharge, Neck: Negative for injury, pain, and swelling, Cardiovascular: Negative for chest pain, palpitations, and edema, Respiratory: Negative for shortness of breath, cough, wheezing, and pleuritic chest pain, Abdomen/GI: Negative for abdominal pain, nausea, vomiting, diarrhea, and constipation, Back: Negative for injury and pain, : Negative for injury, bleeding, discharge, and swelling, MS/Extremity: Negative for injury and deformity, Neuro: Negative for headache, weakness, numbness, tingling, and seizure, Psych: Negative for depression, anxiety, suicide ideation, homicidal ideation, and hallucinations, Endocrine: Negative for neck swelling, polydipsia, polyuria, polyphagia, and marked weight changes, Hematologic/Lymphatic: Negative for swollen nodes, abnormal bleeding, and unusual bruising. Exam: 02:42 Constitutional: This is a well developed, well nourished patient who is awake, alert, mh7 and in no acute distress. Head/Face: Normocephalic, atraumatic. Eyes: Pupils equal round and reactive to light, extra-ocular motions intact. Lids and lashes normal. Conjunctiva and sclera are non-icteric and not injected. Cornea within normal limits. Periorbital areas with no swelling, redness, or edema. 02:42 ENT: Nares patent. No nasal discharge, no septal abnormalities noted. Tympanic membranes are normal and external auditory canals are clear. Oropharynx with no redness, swelling, or masses, exudates, or evidence of obstruction, uvula midline. Mucous membranes moist. 02:42 Cardiovascular: Regular rate and rhythm with a normal S1 and S2. No gallops, murmurs, or rubs. Normal PMI, no JVD. No pulse deficits. Respiratory: Lungs have equal breath sounds bilaterally, clear to auscultation and percussion. No rales, rhonchi or wheezes noted. No increased work of breathing, no retractions or nasal flaring. Abdomen/GI: Soft, non-tender, with normal bowel sounds. No distension or tympany. No guarding or rebound. No evidence of tenderness throughout. Back: No spinal tenderness. No costovertebral tenderness. Full range of motion. 02:42 Neuro: Awake and alert, GCS 15, oriented to person, place, time, and situation. Cranial nerves II-XII grossly intact. Motor strength 5/5 in all extremities. Sensory grossly intact. Cerebellar exam normal. Normal gait. Psych: Awake, alert, with orientation to person, place and time. Behavior, mood, and affect are within normal limits. 02:42 Neck: External neck: rash, that is mild, of the left mid cervical area and left trapezius, C-spine: appears grossly normal, Thyroid: appears normal, Trachea: is midline with no obvious abnormalities, ROM/movement: is normal, Lymph nodes: no appreciated lymphadenopathy. 02:42 Chest/axilla: Inspection: rash, of the right clavicle, left clavicle, anterior aspect of right upper chest and anterior aspect of left upper chest Palpation: is normal, Axilla: are normal, Lymph nodes: lymphadenopathy is not appreciated. 02:42 Skin: urticaria, on the back, chest, abdomen, right arm and left arm. Vital Signs: 09/07 22:01 BP 120 / 81; Pulse 77; Resp 16 S; Temp 97.8(TE); Pulse Ox 99% on R/A; Weight 53.07 kg bb (R); Height 5 ft. 3 in. (160.02 cm) (R); 09/08 00:54 BP 114 / 70; Pulse 78; Resp 16 S; Pulse Ox 97% on R/A; bb 01:57 BP 94 / 67; Pulse 74; Resp 14 S; Temp 98.6(TE); Pulse Ox 96% on R/A; bb 02:56 BP 101 / 56; Pulse 75; Resp 14; Pulse Ox 94% on R/A; bb 09/07 22:01 Body Mass Index 20.73 (53.07 kg, 160.02 cm) MDM: 02:55 Differential diagnosis: angioedema, non IgE mediated drug reaction urticaria. Data [facility] reviewed: vital signs, nurses notes, old medical records. Data interpreted: Pulse oximetry: on room air is 96 %. Interpretation: normal. Counseling: I had a detailed discussion with the patient and/or guardian regarding: the historical points, exam findings, and any diagnostic results supporting the discharge/admit diagnosis, the need for outpatient follow up, an allergy/mental health program specialist, a shoulder sawyer, to return to the emergency department if symptoms worsen or persist or if there are any questions or concerns that arise at home. Response to treatment: the patient's symptoms have markedly improved after treatment. 02:56 Patient medically screened. [facility] Administered Medications: 01:46 Drug: Benadryl (diphenhydrAMINE) 50 mg Route: PO; bb 02:33 Follow up: Response: No adverse reaction bb 01:47 Drug: predniSONE 60 mg Route: PO; bb 02:33 Follow up: Response: No adverse reaction 01:47 Drug: Pepcid (famotidine) 20 mg Route: PO; bb 02:33 Follow up: Response: No adverse reaction bb Disposition: 09/08/20 02:56 Discharged to Home. Impression: Rash and other nonspecific skin eruption. - Condition is Stable. - Discharge Instructions: Rash, [id number], Allergies, [id number]. - Prescriptions for Benadryl 25 mg Oral Capsule - take 1 capsule by ORAL route every 6 hours As needed; 30 tablet. Pepcid 20 mg Oral Tablet - take 1 tablet by ORAL route every 12 hours for 5 days; 10 tablet. Prednisone 20 mg Oral Tablet - take 2 tablet by ORAL route once daily for 5 days; 10 tablet. - Medication Reconciliation Form, Thank You Letter, Antibiotic Education, Prescription Opioid Use form. - Follow up: Private Physician; When: 1 - 2 days; Reason: Worsening of condition, Recheck today's complaints, Continuance of care, Re-evaluation by your physician. Follow up: Armin Hull MD; When: 1 - 2 days; Reason: Worsening of condition, Recheck today's complaints. - Problem is new. - Symptoms have improved. Signatures: Paula Solis RN RN bb Mu Zavaleta MD MD mh7 Corrections: (The following items were deleted from the chart) 03:03 02:56 09/08/2020 02:56 Discharged to Home. Impression: Rash and other nonspecific skin bb eruption. Condition is Stable. Forms are Medication Reconciliation Form, Thank You Letter, Antibiotic Education, Prescription Opioid Use. Follow up: Private Physician; When: 1 - 2 days; Reason: Worsening of condition, Recheck today's complaints, Continuance of care, Re-evaluation by your physician. Follow up: Armin Hull; When: 1 - 2 days; Reason: Worsening of condition, Recheck today's complaints. Problem is new. Symptoms have improved. mh7
[2020-09-08 03:12] VITALS: TEMP 98.6
[2020-09-08 03:14] VITALS: BP 101/56; O2SAT 94
== END 2020-09-08 03:03 | disposition home or self-care (01) ==
LOC: ER 21:36
DX: R21 Rash and other nonspecific skin eruption (principal); F41.9 Anxiety disorder, unspecified; F17.210 Nicotine dependence, cigarettes, uncomplicated
CPT/HCPCS: 99283; J7512